=== PATIENT | male | born 1950 | race Hispanic/Latino ===

== ENCOUNTER 2016-10-02 03:26 | Emergency (ER) | payer MEDICARE, OTHER ==
[2016-10-02 03:26] VITALS: BMI 25.0
[2016-10-02] MEDS ORDERED: Albuterol-Ipratrop 3 mg / 0.5 (3 ml) UD IH STA (03:55)
--- NOTE | 2016-10-02 04:01 | C.PDOC ---
History Of Present Illness Patient is a 66 year old male who presents to the ER with a complaint of intermittent SOB for the past week that has progressively gotten worse. Patient states his worse episode has been tonight. Patient has a Hx of COPD and CHF and is compliant with his medication; however, he notes using more of his rescue inhaler as of late. Denies chest pain, edema, fever or chills. Time Seen by Provider: 10/02/16 03:47 Chief Complaint (Nursing): Shortness Of Breath History Per: Patient History/Exam Limitations: no limitations Onset/Duration Of Symptoms: Days (7), Intermittent Episodes Current Symptoms Are (Timing): Still Present Initiating Event: Other (Not known) Current Respiratory Medications: See Home Med List Associated Symptoms: denies: Fever, Chills, Chest Pain, Other (edema) Recent travel outside of the [place]: No Past Medical History Vital Signs: Last Vital Signs Temp 97.8 F 10/02/16 03:35 Pulse 88 10/02/16 03:35 Resp 20 10/02/16 04:22 BP 163/95 H 10/02/16 03:35 Pulse Ox 97 10/02/16 04:22 - Medical History PMH: CHF, COPD, HTN Surgical History: Appendectomy - [facility] Procedures CONTINUOUS INVASIVE MECHANICAL VENTILATION <96 CONSEC HRS (12/16/13) CORONAR ARTERIOGR-2 CATH (12/16/13) INSERT ENDOTRACHEAL TUBE (12/16/13) LT HEART ANGIOCARDIOGRAM (12/16/13) PERCUTANEOUS ANGIOSCOPY (12/16/13) Family History: States: Unknown Family Hx - Social History Hx Tobacco Use: Yes Hx Alcohol Use: No Hx Substance Use: No Review Of Systems Constitutional: Negative for: Fever, Chills Cardiovascular: Negative for: Chest Pain Respiratory: Positive for: Shortness of Breath Musculoskeletal: Negative for: Other (Edema) Physical Exam - Physical Exam Appears: Non-toxic, Other (Mild respiratory distress) Skin: Normal Color, Warm, Dry Head: Atraumatic, Normacephalic Oral Mucosa: Moist Chest: Symmetrical, No Tenderness Cardiovascular: Rhythm Regular, No Murmur Respiratory: No Rales, Rhonchi (Diffuse), Wheezing (Diffuse) Gastrointestinal/Abdominal: Normal Exam, Soft, No Tenderness Extremity: Normal ROM, No Pedal Edema Neurological/Psych: Oriented x3, Normal Speech, Normal Cognition ED Course And Treatment - Laboratory Results Result Diagrams: 10/02/16 04:32 10/02/16 04:32 ECG: Interpreted By Me ECG Rhythm: Sinus Rhythm Interpretation Of ECG: LVH with repol changes Rate From EC O2 Sat by Pulse Oximetry: 97 (Room air) Pulse Ox Interpretation: Normal - Radiology CXR: Interpreted by Me CXR Interpretation: Yes: COPD. No: Infiltrates Medical Decision Making Medical Decision Making: Impression: 66 year old male with SOB Plan: * EKG * Blood work * CXR * Nebulizer treatment * Markedly improved post tx Ambulated without sob stable for OP tx Disposition Counseled Patient/Family Regarding: Diagnosis, Need For Followup - Disposition Disposition: HOME/ ROUTINE Disposition Time: 06:06 Condition: FAIR Prescriptions: Albuterol 0.083% [Albuterol Sulfate 3 Ml] 3 ml IH QID #100 neb Albuterol HFA [Ventolin HFA 90 mcg/actuation (8 g)] 1 puff IH QID PRN #1 puff PRN Reason: Cough Amoxicillin [Amoxil 500 mg Cap] 1 cap PO TID #21 cap Prednisone 1 tab PO DAILY #4 tablet Instructions: COPD (Chronic Obstructive Pulmonary Disease) (ED) - Clinical Impression Clinical Impression: COPD with exacerbation - Scribe Statement The provider has reviewed the documentation as recorded by the Scribiva Ingram All medical record entries made by the Scribe were at my direction and personally dictated by me. I have reviewed the chart and agree that the record accurately reflects my personal performance of the history, physical exam, medical decision making, and the department course for this patient. I have also personally directed, reviewed, and agree with the discharge instructions and disposition.
[2016-10-02] MEDS ORDERED: Albuterol-Ipratrop 3 mg / 0.5 (3 ml) UD ONE (04:11)
[2016-10-02 04:37] LABS: CHLORIDE 110 mmol/L (98-107); POTASSIUM 4.2 mmol/L (3.6-5.2); SODIUM 146 mmol/L (132-148)
[2016-10-02 04:39] LABS: BILIRUBIN,TOTAL 0.6 mg/dL (0.2-1.3); GFR AFRICAN-AMERICAN > 60
[2016-10-02 04:40] LABS: ALB/GLOB RATIO 1.1 (1.0-2.1); ALKALINE PHOSPHATASE 65 U/L (38-126); ALT/SGPT 23 U/L (21-72); AST/SGOT 34 U/L (17-59); BLOOD UREA NITROGEN 18 mg/dL (9-20); CARBON DIOXIDE 24 mmol/L (22-30); GLUCOSE,RANDOM 102 mg/dL (75-110); TOTAL PROTEIN 7.3 g/dL (6.3-8.3)
[2016-10-02 04:43] LABS: BASO % 0.4 % (0.0-2.0); EOS # 1.8 K/uL (0.0-0.7); EOS % 16.8 % (0.0-4.0); HEMATOCRIT 41.2 % (35.0-51.0); LYMPH # 1.1 K/uL (1.0-4.3); LYMPH % 9.8 % (20.0-40.0); MEAN CELL VOLUME 95.8 fL (80.0-94.0); MEAN CORPUSCULAR HEMOGLOBIN 31.6 pg (27.0-31.0); MEAN PLATELET VOLUME 8.2 fL (7.2-11.7); MONO # 0.8 K/uL (0.0-0.8); MONO % 7.2 % (0.0-10.0); PLATELET COUNT 302 K/uL (130-400); RED CELL DISTRIBUTION WIDTH 14.5 % (11.5-14.5); WHITE BLOOD COUNT 10.9 K/uL (4.8-10.8)
[2016-10-02] MEDS: Albuterol-Ipratrop 3 mg / 0.5 (3 ml) UD IH SCH ×2 (05:02→05:14)
[2016-10-02 05:07] LABS: EOSINOPHIL 19 % (0-4); NEUTROPHIL 69 % (50-75); REACTIVE LYMPHOCYTES 1 % (0-0); TOTAL CELLS COUNTED 100
[2016-10-02 06:34] VITALS: BP 124/91; PULSE 76; RESP 18; TEMP 97.7; O2SAT 95
--- NOTE | 2016-10-02 08:57 | RAD ---
PROCEDURE: CHEST RADIOGRAPH, 1 VIEW HISTORY: Shortness of breath COMPARISON: 11/06/2015 FINDINGS: LUNGS: Hyperinflation consistent COPD and or emphysematous changes. Biapical pleural thickening with upper lobe granulomatous changes. No focal infiltrate or effusion. Stable minimal patchy vague opacity at the right lung base medially. PLEURA: No pneumothorax or pleural fluid seen. CARDIOVASCULAR: Mild cardiomegaly. OSSEOUS STRUCTURES: Degenerative changes in the spine and shoulders. Mild calcific tendinopathy of the left proximal humerus. VISUALIZED UPPER ABDOMEN: Normal. OTHER FINDINGS: None. IMPRESSION: Hyperinflation consistent COPD and or emphysematous changes. Biapical pleural thickening with upper lobe granulomatous changes. No focal infiltrate or effusion. Stable minimal patchy vague opacity at the right lung base medially.
--- NOTE | 2016-10-03 18:33 | CARD ---
APPROVED REPORT EKG Measurement Heart [id number] <Conclusion> Normal sinus rhythm Left ventricular hypertrophy with repolarization abnormality Abnormal ECG
== END 2016-10-02 06:34 | disposition home or self-care (01) ==
LOC: C.ER 03:26
DX: J44.1 Chronic obstructive pulmonary disease with (acute) exacerbation (principal)
CPT/HCPCS: 71010; 80053; 83880; 84484; 85025; 93005; 96374; 99284; J2930

== ENCOUNTER 2018-04-25 01:15 | Inpatient (IN) | payer MEDICARE ==
[2018-04-25] MEDS ORDERED: Nitroglycerin 2% Ointment Foilpak UD TOP STA (01:22)
[2018-04-25] MEDS ORDERED: Labetalol 25mg/5ml Syringe IV STA (01:23)
[2018-04-25] MEDS ORDERED: Labetalol 5mg/ml (4ml) ONE (01:23)
[2018-04-25] MEDS ORDERED: Albuterol-Ipratrop 3 mg / 0.5 (3 ml) UD INH STA (01:24)
[2018-04-25] MEDS ORDERED: Nitroglycerin 2% Ointment Foilpak UD TOP ONE (01:25)
[2018-04-25] MEDS ORDERED: Albuterol-Ipratrop 3 mg / 0.5 (3 ml) UD ONE (01:30)
[2018-04-25] MEDS ORDERED: Etomidate 20 mg/10ml Inj IV ONE (01:35)
[2018-04-25 01:38] LABS: BASO # 0.1 K/uL (0.0-0.2); BASO % 1.2 % (0.0-2.0); EOS # 0.4 K/uL (0.0-0.7); EOS % 3.1 % (0.0-4.0); LYMPH # 2.5 K/uL (1.0-4.3); MEAN CELL VOLUME 100.9 fL (80.0-94.0); MEAN CORPUSCULAR HEMOGLOBIN 33.1 pg (27.0-31.0); MEAN CORPUSCULAR HGB CONC 32.8 g/dL (33.0-37.0); MEAN PLATELET VOLUME 8.6 fL (7.2-11.7); MONO # 0.6 K/uL (0.0-0.8); MONO % 5.1 % (0.0-10.0); NEUT % 70.6 % (50.0-75.0); RBC 4.23 Mil/uL (4.40-5.90); WHITE BLOOD COUNT 12.7 K/uL (4.8-10.8)
--- NOTE | 2018-04-25 01:49 | C.PDOC ---
History Of Present Illness 62 year old male brought in by paramedics for severe respiratory distress at home. Patient found hypertensive and with pin point pupils, given duonebs, sublingual nitro, and narcan by paramedics. Hx of COPD, still smokes 2 ppd cigarettes. Time Seen by Provider: 04/25/18 01:22 Chief Complaint (Nursing): Respiratory Distress History Per: EMS History/Exam Limitations: clinical condition Onset/Duration Of Symptoms: Hrs Current Respiratory Medications: See Home Med List Past Medical History Reviewed: Historical Data, Nursing Documentation, Vital Signs Vital Signs: Last Vital Signs Temp Pulse 114 H 04/25/18 01:17 Resp 30 H 04/25/18 01:17 BP 105/71 04/25/18 01:17 Pulse Ox 89 L 04/25/18 01:17 Family History: States: Unknown Family Hx - Social History Hx Alcohol Use: No Hx Substance Use: No - Immunization History Hx Tetanus Toxoid Vaccination: No Hx Influenza Vaccination: No Hx Pneumococcal Vaccination: No Review Of Systems Review Of Systems: ROS cannot be obtained secondary to pt's inabilty to answer questions. Physical Exam - Physical Exam Appears: Other (Severe respiratory distress) Skin: Warm, Dry Head: Atraumatic, Normacephalic Eye(s): bilateral: Normal Inspection Ear(s): Bilateral: Normal Oral Mucosa: Moist Neck: Normal, Supple Chest: Symmetrical, No Tenderness Cardiovascular: Rhythm Regular Respiratory: Wheezing (Extensive), Other (Poor air movement) Gastrointestinal/Abdominal: Soft, No Distention ED Course And Treatment - Laboratory Results Result Diagrams: 04/25/18 01:35 04/25/18 01:35 Lab Interpretation: Abnormal ECG: Interpreted By Nd ECG Rhythm: L BBB ECG Interpretation: Abnormal Rate From EC O2 Sat by Pulse Oximetry: 89 Pulse Ox Interpretation: Abnormal - Radiology CXR: Interpreted by Nd CXR Interpretation: Yes: Infiltrates, Other (+ good ET tube, good OG tube, + pulm edema and/or patchy infiltrates) Progress Note: In the ER patient received labetalol, nitro paste, bipap, became bradycardic, transient cardiac arrest, acls protocol followed, after ap proximately 1 minute rosc achieved, intubated electively, 7.5 tube 23cm length placed on first attempt, og tube placed with good sounds in stomach. Reevaluation Time: 02:52 Reassessment Condition: Improved - Physician Consult Information Outcome Of Conversation: 0230: d/w Dr. Barton- ICU, ok to ICU. 0245: d/w Dr. Carrillo- Code Heart Cardio- NO Code Heart now, recommends, Plavix, asa, heparin IV and will eval in AM. 0300: d/w Dr. Arellano- Medicine Production Statistical Clerk- ok to adm to ICU Critical Care Time - Critical Care Note Total Time (in mins): 90 Documented critical care: time excludes all time spent performing seperately billable procedures. Medical Decision Making Medical Decision Making: resp arrest leading to brief cardiac arrest intubated nebs, steroids defer abx Cardiac: cardiac arrest, brisk return to ROSC New LBBB c/w 10/08 mild elev trop 2nd trop pending Cardiac eval in AM w Dr. Carrillo defers Code Heart at this time plavix, asa, heparin drip Cigarette/Alcohol Propofol for sedation CIWA protocol PRN ? Narcotics use pinpoint pupils relieved with narcan in the field consider w/d s/s. Disposition Doctor Will See Patient In The: Hospital Counseled Patient/Family Regarding: Studies Performed, Diagnosis - Disposition Disposition: HOSPITALIZED Disposition Time: 02:57 Condition: CRITICAL - Clinical Impression Clinical Impression: Respiratory failure, Congestive heart failure, Cardiac arrest - Scribe Statement The provider has reviewed the documentation as recorded by the Scribe Aj Ingram All medical record entries made by the Scribe were at my direction and personally dictated by me. I have reviewed the chart and agree that the record accurately reflects my personal performance of the history, physical exam, medical decision making, and the department course for this patient. I have also personally directed, reviewed, and agree with the discharge instructions and disposition.
[2018-04-25 01:51] LABS: ALB/GLOB RATIO 1.2 (1.0-2.1); ALBUMIN 4.2 g/dL (3.5-5.0); ALT/SGPT 24 U/L (21-72); AST/SGOT 38 U/L (17-59); BLOOD UREA NITROGEN 27 mg/dL (9-20); GFR NON-AFRICAN AMERICAN > 60
[2018-04-25 01:53] LABS: INR 1.1; PROTHROMBIN TIME 11.8 SECONDS (9.7-12.2)
[2018-04-25] MEDS ORDERED: Propofol 10 mg/ml 1,000 MG/100 ML VIAL ONE ×2 (01:56→13:25)
[2018-04-25] MEDS: Propofol 10 mg/ml 1,000 MG/100 ML VIAL IV STA ×3 (02:00→13:58)
[2018-04-25 02:14] LABS: B-TYPE NATRIURETIC PEPTIDE 5620 pg/mL (0-900)
[2018-04-25 02:27] LABS: ABG ALLEN TEST POS; ARTERIAL BLOOD GAS O2 SAT 99.8 % (95-98); ARTERIAL BLOOD GAS PCO2 81 mm/Hg (35-45); ARTERIAL BLOOD GAS PH 7.08 (7.35-7.45); ARTERIAL BLOOD GAS PO2 541 mm/Hg (80-100); ARTERIAL BLOOD GAS TCO2 26.5 mmol/L (22-28)
[2018-04-25] MEDS ORDERED: Heparin25000 units/250ml 1/2NS 25,000 UNITS/250 ML BAG IV ONE (02:52)
[2018-04-25 03:01] LABS: GRANULAR CAST 27 /lpf (0-1); SQUAMOUS EPITHIAL 2 /hpf (0-5); URINE AMORPHOUS SEDIMENT RARE /ul (<OCC); URINE BACTERIA OCC (<OCC); URINE BILIRUBIN NEGATIVE (NEGATIVE); URINE BLOOD 1+ (NEGATIVE); URINE CLARITY Hazy (Clear); URINE COLOR Yellow (YELLOW); URINE GLUCOSE (UA) 2+ mg/dL (Normal); URINE LEUKOCYTE ESTERASE NEG Leu/uL (Negative); URINE PROTEIN 3+ mg/dL (NEGATIVE); URINE UROBILINOGEN NORMAL mg/dL (0.2-1.0)
[2018-04-25] MEDS ORDERED: Thiamine 100 mg/ml Inj IV ONE (03:03)
[2018-04-25 03:05] LABS: BARBITURATES, UR NEGATIVE (NEGATIVE); BENZODIAZEPINES, UR NEGATIVE (NEGATIVE); OPIATES, UR NEGATIVE (NEGATIVE); PHENCYCLIDINE, UR NEGATIVE (NEGATIVE)
[2018-04-25 03:29] LABS: CK-MB 2.7 ng/mL (0.0-3.38); TROPONIN I 0.147 ng/mL (0.00-0.120)
[2018-04-25 05:36] LABS: ABG ALLEN TEST POS; ARTERIAL BLOOD GAS HCO3 19.4 mmol/L (21-28); ARTERIAL BLOOD GAS HEMOGLOBIN 10.7 g/dL (11.7-17.4); ARTERIAL BLOOD GAS O2 SAT 99.4 % (95-98); ARTERIAL BLOOD GAS PCO2 41 mm/Hg (35-45); ARTERIAL BLOOD GAS PH 7.28 (7.35-7.45); ARTERIAL BLOOD GAS PO2 137 mm/Hg (80-100); ARTERIAL BLOOD GAS TCO2 20.6 mmol/L (22-28)
--- NOTE | 2018-04-25 05:57 | CP.PCM.CON ---
History of Present Illness - History of Present Illness History of Present Illness: 68 M with h/o COPD, CHF, DM, HTN, tobacco and alcohol abuse, non compliance with the medications has been sick for 2-3 days but worse yesterday and resisted to come to hospital until this early am. He was noticed to be in severe distress, was earlier put on bipap in ER, then he collapsed, and had brief resp arrest with cpr needed for about a minute, patient was intubated, right femoral tlc was done in ER, very elevated BP 250/170 noted intially in ER on propfol and initial labetol the BP improved. EKG showed LBBB which was new as compared to EKG in September 2016. Case was discussed with Dr. Carrillo, advised treatment for NSTEMI. Repeat trop in ER within 2 hs was unchanged. CXR in ER suspected flash edema. PMH as above, coronary angiography in 2013 with 3 vessel disease, but not required any stent Social Lives with GF 8 yrs, smokes 2PPD, 2-6 beers/day, no other drugs as per gf Family history not available Meds not compliant Allergies NKDA Review of Systems - Review of Systems All systems: reviewed and no additional remarkable complaints except (HPI) Past Patient History - Past Social History Smoking Status: Heavy Smoker > 10 Cigarettes Daily Alcohol: > 2 Drinks/Day Drugs: Denies Home Situation {Lives}: With Family Domestic Violence: Negative - PSYCHIATRIC Hx Substance Use: No Meds Allergies/Adverse Reactions: Allergies Allergy/AdvReac Type Severity Reaction Status Date / Time No Known Allergies Allergy Verified 04/25/18 03:16 - Medications Medications: Current Medications Albuterol/Ipratropium (Duoneb 3 Mg/0.5 Mg (3 Ml) Ud) 3 ml INH RQ6 LUCILA Clopidogrel Bisulfate (Plavix) 75 mg PO DAILY LUCILA Folic Acid (Folic Acid) 1 mg PO DAILY LUCILA Propofol (Diprivan) 1,000 mg in 100 mls @ 4.082 mls/hr IV .Q24H STA; Protocol Stop: 04/26/18 01:52 Last Titration: 04/25/18 03:50 Dose: 50 mcg/kg/min, 20.412 mls/hr Doxycycline Hyclate 100 mg/ (Sodium Chloride) 100 mls @ 100 mls/hr IVPB Q12H LUCILA; Protocol Last Admin: 04/25/18 03:18 Dose: 100 mls/hr Ceftriaxone Sodium 1 gm/ (Sodium Chloride) 100 mls @ 100 mls/hr IVPB DAILY LUCILA; Protocol Heparin Sodium/Sodium Chloride (Heparin 74074 Units/250ml 1/2 Normal Saline) 25,000 units in 250 mls @ 8.165 mls/hr IV .Q24H ONE; Protocol Stop: 04/26/18 02:51 Last Admin: 04/25/18 03:19 Dose: 8.165 mls/hr Methylprednisolone (Solu-Medrol) 40 mg IVP Q12 LUCILA Multivitamins (Hexavitamin) 1 tab PO DAILY LUCILA Pantoprazole Sodium (Protonix Inj) 40 mg IVP DAILY LUCILA Rosuvastatin Calcium (Crestor) 10 mg PO DAILY LUCILA Last Admin: 04/25/18 03:29 Dose: 10 mg Thiamine HCl (Vitamin B1 Tab) 100 mg PO DAILY LUCILA Physical Exam - Additional Findings Additional findings: * HEENT ЕКАТЕРИНА * Neck supple * Chest exp wheezes, prolonged expiration * CVS regular, no murmur * PA soft, nt, bs present * Ext no edema * Skin normal turgor * 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 even with sedation. Results - Vital Signs Recent Vital Signs: Last Vital Signs Temp 97.8 F 04/25/18 04:00 Pulse 75 04/25/18 03:43 Resp 18 04/25/18 03:43 BP 123/80 04/25/18 03:43 Pulse Ox 89 L 04/25/18 03:46 - Labs Result Diagrams: 04/25/18 01:35 04/25/18 01:35 Labs: Laboratory Results - last 24 hr 04/25/18 04/25/18 04/25/18 01:35 01:35 01:35 WBC 12.7 H RBC 4.23 L Hgb 14.0 Hct 42.7 MCV 100.9 H MCH 33.1 H MCHC 32.8 L RDW 15.0 H Plt Count 380 MPV 8.6 Neut % (Auto) 70.6 Lymph % (Auto) 20.0 [place] % (Auto) 5.1 Eos % (Auto) 3.1 Baso % (Auto) 1.2 Neut # (Auto) 9.0 H Lymph # (Auto) 2.5 [place] # (Auto) 0.6 Eos # (Auto) 0.4 Baso # (Auto) 0.1 PT 11.8 INR 1.1 APTT 32 D-Dimer, Quantitative 1532 H Puncture Site pCO2 pO2 HCO3 ABG pH ABG Total CO2 ABG O2 Saturation ABG Base Excess ABG Hemoglobin ABG Carboxyhemoglobin POC ABG HHb (Measured) ABG Methemoglobin Aly Test ABG Potassium A-a O2 Difference Respiratory Index Hgb O2 Saturation Glucose Lactate Vent Mode Mechanical Rate FiO2 Tidal Volume PEEP Crit Value Called To Crit Value Called By Crit Value Read Back Blood Gas Notified Time Sodium 139 Potassium 4.2 Chloride 107 Carbon Dioxide 20 L Anion Gap 16 BUN 27 H Creatinine 1.2 Est GFR ( Amer) > 60 Est GFR (Non-Af Amer) > 60 Random Glucose 309 H Calcium 9.0 Total Bilirubin 0.7 AST 38 ALT 24 Alkaline Phosphatase 83 CK-MB (Mass) Troponin I 0.1480 H* NT-Pro-B Natriuret Pep 5620 H Total Protein 7.7 Albumin 4.2 Globulin 3.5 Albumin/Globulin Ratio 1.2 Arterial Blood Potassium Urine Color Urine Clarity Urine pH Ur Specific [place] Urine Protein Urine Glucose (UA) Urine Ketones Urine Blood Urine Nitrate Urine Bilirubin Urine Urobilinogen Ur Leukocyte Esterase Urine WBC (Auto) Urine RBC (Auto) Ur Squamous Epith Cells Amorphous Sediment Urine Bacteria Hyaline Casts Granular Casts (Auto) Urine Opiates Screen Urine Methadone Screen Ur Barbiturates Screen Ur Phencyclidine Scrn Ur Amphetamines Screen U Benzodiazepines Scrn U Oth Cocaine Metabols U Cannabinoids Screen Influenza Typ A,B (EIA) 04/25/18 04/25/18 04/25/18 02:23 02:45 02:45 WBC RBC Hgb Hct MCV MCH MCHC RDW Plt Count MPV Neut % (Auto) Lymph % (Auto) [place] % (Auto) Eos % (Auto) Baso % (Auto) Neut # (Auto) Lymph # (Auto) [place] # (Auto) Eos # (Auto) Baso # (Auto) PT INR APTT D-Dimer, Quantitative Puncture Site Rr pCO2 81 H* pO2 541 H HCO3 19.0 L ABG pH 7.08 L* ABG Total CO2 26.5 ABG O2 Saturation 99.8 H ABG Base Excess -7.7 L ABG Hemoglobin ABG Carboxyhemoglobin POC ABG HHb (Measured) ABG Methemoglobin Aly Test Pos ABG Potassium 3.9 A-a O2 Difference 71.0 Respiratory Index 0.1 Hgb O2 Saturation Glucose 293 H Lactate 0.8 Vent Mode Prvc Mechanical Rate 14 FiO2 100.0 Tidal Volume 500 PEEP 5 Crit Value Called To Dr. mendoza Crit Value Called By Jessie acute care clinical nurse specialist Crit Value Read Back Y Blood Gas Notified Time 227 Sodium 138.0 Potassium Chloride 109.0 H Carbon Dioxide Anion Gap BUN Creatinine Est GFR ( Amer) Est GFR (Non-Af Amer) Random Glucose Calcium Total Bilirubin AST ALT Alkaline Phosphatase CK-MB (Mass) Troponin I NT-Pro-B Natriuret Pep Total Protein Albumin Globulin Albumin/Globulin Ratio Arterial Blood Potassium 3.9 Urine Color Yellow Urine Clarity Hazy Urine pH 5.0 Ur Specific [place] 1.017 Urine Protein 3+ H Urine Glucose (UA) 2+ H Urine Ketones Negative Urine Blood 1+ H Urine Nitrate Negative Urine Bilirubin Negative Urine Urobilinogen Normal Ur Leukocyte Esterase Neg Urine WBC (Auto) 22 H Urine RBC (Auto) 11 H Ur Squamous Epith Cells 2 Amorphous Sediment Rare H Urine Bacteria Occ H Hyaline Casts 3-5 H Granular Casts (Auto) 27 Urine Opiates Screen Negative Urine Methadone Screen Negative Ur Barbiturates Screen Negative Ur Phencyclidine Scrn Negative Ur Amphetamines Screen Negative U Benzodiazepines Scrn Negative U Oth Cocaine Metabols Negative U Cannabinoids Screen Negative Influenza Typ A,B (EIA) 04/25/18 04/25/18 04/25/18 02:45 03:33 05:29 WBC RBC Hgb Hct MCV MCH MCHC RDW Plt Count MPV Neut % (Auto) Lymph % (Auto) [place] % (Auto) Eos % (Auto) Baso % (Auto) Neut # (Auto) Lymph # (Auto) [place] # (Auto) Eos # (Auto) Baso # (Auto) PT INR APTT D-Dimer, Quantitative Puncture Site Lr pCO2 41 pO2 137 H HCO3 19.4 L ABG pH 7.28 L ABG Total CO2 20.6 L ABG O2 Saturation 99.4 H ABG Base Excess -7.0 L ABG Hemoglobin 10.7 L ABG Carboxyhemoglobin 5.2 H POC ABG HHb (Measured) 0.6 ABG Methemoglobin 0.3 Ayl Test Pos ABG Potassium A-a O2 Difference 168.0 Respiratory Index 1.2 Hgb O2 Saturation 93.9 L Glucose Lactate Vent Mode Prvc Mechanical Rate 14 FiO2 50.0 Tidal Volume 450 PEEP 5 Crit Value Called To Crit Value Called By Crit Value Read Back Blood Gas Notified Time Sodium Potassium Chloride Carbon Dioxide Anion Gap BUN Creatinine Est GFR ( Amer) Est GFR (Non-Af Amer) Random Glucose Calcium Total Bilirubin AST ALT Alkaline Phosphatase CK-MB (Mass) 2.70 Troponin I 0.1470 H* NT-Pro-B Natriuret Pep Total Protein Albumin Globulin Albumin/Globulin Ratio Arterial Blood Potassium Urine Color Urine Clarity Urine pH Ur Specific [place] Urine Protein Urine Glucose (UA) Urine Ketones Urine Blood Urine Nitrate Urine Bilirubin Urine Urobilinogen Ur Leukocyte Esterase Urine WBC (Auto) Urine RBC (Auto) Ur Squamous Epith Cells Amorphous Sediment Urine Bacteria Hyaline Casts Granular Casts (Auto) Urine Opiates Screen Urine Methadone Screen Ur Barbiturates Screen Ur Phencyclidine Scrn Ur Amphetamines Screen U Benzodiazepines Scrn U Oth Cocaine Metabols U Cannabinoids Screen Influenza Typ A,B (EIA) Negative for flu a/b Assessment & Plan - Assessment and Plan (Free Text) Assessment: * Resp arrest * elevated trop with 3 vessels disease, likely for above * LBBB * [place] and alcohol abuse * DM uncontrolled * Uncontrolled HTN * Non compliance. Plan: * Supportive care * systemic steroids, nebs, rocephin, doxycycline * ASA, plavix, heparin drip, crestor, echo, f/u troponins * cardiology consult * GI/prophylaxis * See orders for detail.
[2018-04-25 07:25] LABS: BASO # 0.1 K/uL (0.0-0.2); BASO % 0.4 % (0.0-2.0); EOS % 0.1 % (0.0-4.0); LYMPH # 0.2 K/uL (1.0-4.3); LYMPH % 1.9 % (20.0-40.0); MEAN CORPUSCULAR HEMOGLOBIN 33.2 pg (27.0-31.0); MEAN CORPUSCULAR HGB CONC 33.6 g/dL (33.0-37.0); MEAN PLATELET VOLUME 8.3 fL (7.2-11.7); MONO # 0.2 K/uL (0.0-0.8); MONO % 1.3 % (0.0-10.0); NEUT # 11.1 K/uL (1.8-7.0); NEUT % 96.3 % (50.0-75.0); PLATELET COUNT 284 K/uL (130-400); RBC 3.88 Mil/uL (4.40-5.90); RED CELL DISTRIBUTION WIDTH 14.6 % (11.5-14.5); WHITE BLOOD COUNT 11.5 K/uL (4.8-10.8)
[2018-04-25] MEDS ORDERED: Glucagon Recombinant 1 mg Inj IM PRN (07:33)
[2018-04-25] MEDS ORDERED: Dextrose 50% SYRINGE Inj (50 ml) IV PRN (07:33)
[2018-04-25 07:34] LABS: HEMOGLOBIN 12.9 g/dL (12.0-18.0)
[2018-04-25 07:37] LABS: MEAN CELL VOLUME 98.9 fL (80.0-94.0)
[2018-04-25 07:56] VITALS: BMI 25.0
[2018-04-25] MEDS: Albuterol-Ipratrop 3 mg / 0.5 (3 ml) UD INH SCH ×3 (08:00→19:10)
[2018-04-25 08:05] LABS: ALB/GLOB RATIO 1.1 (1.0-2.1); ALBUMIN 3.7 g/dL (3.5-5.0); ALT/SGPT 28 U/L (21-72); AST/SGOT 41 U/L (17-59); BLOOD UREA NITROGEN 30 mg/dL (9-20); GFR NON-AFRICAN AMERICAN 55
[2018-04-25 08:44] LABS: LYMPHOCYTE 2 % (20-40); MONOCYTE 2 % (0-10); NEUTROPHIL 96 % (50-75); TOTAL CELLS COUNTED 100
[2018-04-25 08:45] LABS: OVALOCYTES SLIGHT; PLATELET ESTIMATE NORMAL (NORMAL)
[2018-04-25] MEDS: Multiple Vitamins Tab PO SCH (09:19)
[2018-04-25] MEDS: MethylPREDNISolone 40 mg Vial IVP SCH ×2 (09:20→22:33)
--- NOTE | 2018-04-25 10:39 | RAD ---
Date of service: 04/25/2018 PROCEDURE: CHEST RADIOGRAPH, 1 VIEW HISTORY: SOB COMPARISON: 10/02/2016 FINDINGS: LUNGS: Multifocal bilateral patchy opacities common nonspecific. Pneumonia versus pulmonary edema. PLEURA: No pneumothorax or pleural fluid seen. CARDIOVASCULAR: No aortic atherosclerotic calcification present. Normal heart size. ET tube tip roughly 5 cm above the tracheal sarai. There is a nasogastric tube. Nasogastric tube extends to left upper quadrant of abdomen. OSSEOUS STRUCTURES: No significant abnormalities. VISUALIZED UPPER ABDOMEN: Normal. OTHER FINDINGS: None. IMPRESSION: ET tube and NG tube appropriately positioned. Multifocal bilateral pulmonary parenchymal opacity, nonspecific. No effusion or pneumothorax.
[2018-04-25] MEDS ORDERED: Iodixanol 320 MG/ML 100 ML BOTTLE IV ONE (11:50)
--- NOTE | 2018-04-25 12:56 | CP.PCM.PN ---
<India Robert - Last Filed: 04/25/18 11:14> Subjective - Date & Time of Evaluation Date of Evaluation: 04/25/18 Time of Evaluation: 11:14 - Subjective Subjective: Condensed ICU Progress Note for Dr. Blum (*see consult note written by Dr. Barton this morning 04/25 for more details*) S: Patient seen and examined this morning. Patient intubated and sedated on propofol. Due to patient condition ROS unable to be obtained. O: general: elderly man, sedated and intubated. HEENT: normocephalic, atraumatic CV: RR, S1, S2, no m/r/g Lungs: decreased breath sounds bilaterally Abd: +bs, nontender, nondistended neuro: Patient opened his eyes for a few seconds when his name was called, but after that unresponsive to voice and pain. Ext: no edema, peripheral pulses strong A/P: 68 y/o male with PMHx of CAD, COPD, CHF, DM, HTN, and tob and EtOH use presented to the ER this morning 1/2 s/p intubation 2/2 severe respiratory disterss at home. Stabilized and brought to ICU. We will continue current treatment as stated in the consult note this morning. We ordered a CT angio PE and venous doppler to detect possible DVT/PE due to the positive d-dimer of 1532. proBNP 5620. Patient was diuresed and s/p lasix tx per RN urine output at least 800 by 10am. No routine lasix at this time. Pending cardiology recs, Dr. Carrillo. Objective - Vital Signs/Intake and Output Vital Signs (last 24 hours): Temp Pulse Resp BP Pulse Ox 97.2 F L 64 13 137/82 98 04/25/18 08:00 04/25/18 10:50 04/25/18 10:50 04/25/18 10:14 04/25/18 10:50 Intake and Output: 04/25/18 04/25/18 06:59 18:59 Intake Total 184.8 103.1 Output Total 775 200 Balance -590.2 -96.9 - Medications Medications: Current Medications Albuterol/Ipratropium (Duoneb 3 Mg/0.5 Mg (3 Ml) Ud) 3 ml INH RQ6 [facility] Clopidogrel Bisulfate (Plavix) 75 mg PO DAILY [facility] Last Admin: 04/25/18 09:19 Dose: 75 mg Dextrose (Dextrose 50% Inj) 0 ml IV STAT PRN; Protocol PRN Reason: Hypoglycemia Protocol Dextrose (Glutose 15) 0 gm PO ONCE PRN; Protocol PRN Reason: Hypoglycemia Protocol Folic Acid (Folic Acid) 1 mg PO DAILY [facility] Last Admin: 04/25/18 09:19 Dose: 1 mg Glucagon (Glucagen Diagnostic Kit) 0 mg IM STAT PRN; Protocol PRN Reason: Hypoglycemia Protocol Propofol (Diprivan) 1,000 mg in 100 mls @ 4.082 mls/hr IV .Q24H [facility]; Protocol Stop: 04/26/18 01:52 Last Titration: 04/25/18 09:00 Dose: 30 mcg/kg/min, 12.247 mls/hr Doxycycline Hyclate 100 mg/ (Sodium Chloride) 100 mls @ 100 mls/hr IVPB Q12H [facility]; Protocol Last Admin: 04/25/18 03:18 Dose: 100 mls/hr Ceftriaxone Sodium 1 gm/ (Sodium Chloride) 100 mls @ 100 mls/hr IVPB DAILY [facility]; Protocol Last Admin: 04/25/18 09:17 Dose: 100 mls/hr Heparin Sodium/Sodium Chloride (Heparin 04009 Units/250ml 1/2 Normal Saline) 25,000 units in 250 mls @ 8.165 mls/hr IV .Q24H ONE; Protocol Stop: 04/26/18 02:51 Last Admin: 04/25/18 03:19 Dose: 8.165 mls/hr Dextrose (Dextrose 5% In Water 1000 Ml) 1,000 mls @ 0 mls/hr IV .Q0M PRN; Protocol PRN Reason: Hypoglycemia Protocol Methylprednisolone (Solu-Medrol) 40 mg IVP Q12 [facility] Last Admin: 04/25/18 09:20 Dose: 40 mg Multivitamins (Hexavitamin) 1 tab PO DAILY [facility] Last Admin: 04/25/18 09:19 Dose: 1 tab Pantoprazole Sodium (Protonix Inj) 40 mg IVP DAILY [facility] Last Admin: 04/25/18 09:20 Dose: 40 mg Rosuvastatin Calcium (Crestor) 10 mg PO HS [facility] Thiamine HCl (Vitamin B1 Tab) 100 mg PO DAILY [facility] Last Admin: 04/25/18 09:19 Dose: 100 mg - Labs Labs: 04/25/18 07:13 04/25/18 07:13 PT 11.8 SECONDS (9.7-12.2) 04/25/18 01:35 INR 1.1 04/25/18 01:35 APTT 48 SECONDS (21-34) H D 04/25/18 07:13 <Geo Blum - Last Filed: 04/25/18 18:47> Objective - Vital Signs/Intake and Output Vital Signs (last 24 hours): Temp Pulse Resp BP Pulse Ox 98.5 F 68 13 107/60 99 04/25/18 12:00 04/25/18 15:20 04/25/18 15:20 04/25/18 15:14 04/25/18 15:20 Intake and Output: 04/25/18 04/25/18 06:59 18:59 Intake Total 184.8 523.2 Output Total 775 555 Balance -590.2 -31.8 - Medications Medications: Current Medications Albuterol/Ipratropium (Duoneb 3 Mg/0.5 Mg (3 Ml) Ud) 3 ml INH RQ6 [facility] Last Admin: 04/25/18 14:04 Dose: 3 ml Aspirin (Ecotrin) 81 mg PO DAILY [facility] Clopidogrel Bisulfate (Plavix) 75 mg PO DAILY [facility] Last Admin: 04/25/18 09:19 Dose: 75 mg Dextrose (Dextrose 50% Inj) 0 ml IV STAT PRN; Protocol PRN Reason: Hypoglycemia Protocol Dextrose (Glutose 15) 0 gm PO ONCE PRN; Protocol PRN Reason: Hypoglycemia Protocol Folic Acid (Folic Acid) 1 mg PO DAILY [facility] Last Admin: 04/25/18 09:19 Dose: 1 mg Glucagon (Glucagen Diagnostic Kit) 0 mg IM STAT PRN; Protocol PRN Reason: Hypoglycemia Protocol Doxycycline Hyclate 100 mg/ (Sodium Chloride) 100 mls @ 100 mls/hr IVPB Q12H [facility]; Protocol Last Admin: 04/25/18 13:20 Dose: 100 mls/hr Ceftriaxone Sodium 1 gm/ (Sodium Chloride) 100 mls @ 100 mls/hr IVPB DAILY [facility]; Protocol Last Admin: 04/25/18 09:17 Dose: 100 mls/hr Heparin Sodium/Sodium Chloride (Heparin 19354 Units/250ml 1/2 Normal Saline) 25,000 units in 250 mls @ 8.165 mls/hr IV .Q24H ONE; Protocol Stop: 04/26/18 02:51 Last Admin: 04/25/18 03:19 Dose: mls/hr Dextrose (Dextrose 5% In Water 1000 Ml) 1,000 mls @ 0 mls/hr IV .Q0M PRN; Mae col PRN Reason: Hypoglycemia Protocol Heparin Sodium/Sodium Chloride (Heparin 26348 Units/250ml 1/2 Normal Saline) 25,000 units in 250 mls @ 9.373 mls/hr IV .Q24H PRN; Protocol PRN Reason: ADJUST RATE PER PROTOCOL Last Admin: 04/25/18 15:24 Dose: 14 units/kg/hr, 10.935 mls/hr Propofol (Diprivan) 1,000 mg in 100 mls @ 2.343 mls/hr IV .Q24H PRN; Protocol PRN Reason: TITRATE PER MD ORDER Last Admin: 04/25/18 18:31 Dose: 50 mcg/kg/min, 23.433 mls/hr Methylprednisolone (Solu-Medrol) 40 mg IVP Q12 [facility] Last Admin: 04/25/18 09:20 Dose: 40 mg Multivitamins (Hexavitamin) 1 tab PO DAILY [facility] Last Admin: 04/25/18 09:19 Dose: 1 tab Pantoprazole Sodium (Protonix Inj) 40 mg IVP DAILY [facility] Last Admin: 04/25/18 09:20 Dose: 40 mg Rosuvastatin Calcium (Crestor) 10 mg PO HS [facility] Thiamine HCl (Vitamin B1 Tab) 100 mg PO DAILY [facility] Last Admin: 04/25/18 09:19 Dose: 100 mg - Labs Labs: 04/25/18 07:13 04/25/18 07:13 PT 11.8 SECONDS (9.7-12.2) 04/25/18 01:35 INR 1.1 04/25/18 01:35 APTT 37 SECONDS (21-34) H D 04/25/18 12:00 Attending/Attestation - Attestation I have personally seen and examined this patient.: Yes I have fully participated in the care of the patient.: Yes I have reviewed all pertinent clinical information, including history, physical exam and plan: Yes Notes (Text): 04/25/18 18:45 patient seen and examined in the intensive care intubated on ventilatory support and tolerating CPAP C T Angio to rule out pulmonary embolism . antibiotics Cardiology workup
--- NOTE | 2018-04-25 12:59 | CP.PCM.PN ---
Subjective - Date & Time of Evaluation Date of Evaluation: 04/25/18 Time of Evaluation: 11:55 - Subjective Subjective: H&P dictated # [id number] Objective - Vital Signs/Intake and Output Vital Signs (last 24 hours): Temp Pulse Resp BP Pulse Ox 97.2 F L 64 13 137/82 98 04/25/18 08:00 04/25/18 10:50 04/25/18 10:50 04/25/18 10:14 04/25/18 10:50 Intake and Output: 04/25/18 04/25/18 06:59 18:59 Intake Total 184.8 103.1 Output Total 775 200 Balance -590.2 -96.9 - Medications Medications: Current Medications Albuterol/Ipratropium (Duoneb 3 Mg/0.5 Mg (3 Ml) Ud) 3 ml INH RQ6 [facility] Clopidogrel Bisulfate (Plavix) 75 mg PO DAILY [facility] Last Admin: 04/25/18 09:19 Dose: 75 mg Dextrose (Dextrose 50% Inj) 0 ml IV STAT PRN; Protocol PRN Reason: Hypoglycemia Protocol Dextrose (Glutose 15) 0 gm PO ONCE PRN; Protocol PRN Reason: Hypoglycemia Protocol Folic Acid (Folic Acid) 1 mg PO DAILY [facility] Last Admin: 04/25/18 09:19 Dose: 1 mg Glucagon (Glucagen Diagnostic Kit) 0 mg IM STAT PRN; Protocol PRN Reason: Hypoglycemia Protocol Propofol (Diprivan) 1,000 mg in 100 mls @ 4.082 mls/hr IV .Q24H [facility]; Protocol Stop: 04/26/18 01:52 Last Titration: 04/25/18 09:00 Dose: 30 mcg/kg/min, 12.247 mls/hr Doxycycline Hyclate 100 mg/ (Sodium Chloride) 100 mls @ 100 mls/hr IVPB Q12H [facility]; Protocol Last Admin: 04/25/18 03:18 Dose: 100 mls/hr Ceftriaxone Sodium 1 gm/ (Sodium Chloride) 100 mls @ 100 mls/hr IVPB DAILY [facility]; Protocol Last Admin: 04/25/18 09:17 Dose: 100 mls/hr Heparin Sodium/Sodium Chloride (Heparin 25015 Units/250ml 1/2 Normal Saline) 25,000 units in 250 mls @ 8.165 mls/hr IV .Q24H [facility]; Protocol Stop: 04/26/18 02:51 Last Admin: 04/25/18 03:19 Dose: 8.165 mls/hr Dextrose (Dextrose 5% In Water 1000 Ml) 1,000 mls @ 0 mls/hr IV .Q0M PRN; Protocol PRN Reason: Hypoglycemia Protocol Methylprednisolone (Solu-Medrol) 40 mg IVP Q12 [facility] Last Admin: 04/25/18 09:20 Dose: 40 mg Multivitamins (Hexavitamin) 1 tab PO DAILY [facility] Last Admin: 04/25/18 09:19 Dose: 1 tab Pantoprazole Sodium (Protonix Inj) 40 mg IVP DAILY [facility] Last Admin: 04/25/18 09:20 Dose: 40 mg Rosuvastatin Calcium (Crestor) 10 mg PO HS [facility] Thiamine HCl (Vitamin B1 Tab) 100 mg PO DAILY [facility] Last Admin: 04/25/18 09:19 Dose: 100 mg - Labs Labs: 04/25/18 07:13 04/25/18 07:13 PT 11.8 SECONDS (9.7-12.2) 04/25/18 01:35 INR 1.1 04/25/18 01:35 APTT 48 SECONDS (21-34) H D 04/25/18 07:13
--- NOTE | 2018-04-25 13:58 | CP.PCM.CON ---
<Claudine Cantu - Last Filed: 04/25/18 16:23> History of Present Illness - History of Present Illness History of Present Illness: Cardio consult note 68 year old male with past medical history of CAD, CHF, HTN, DM, tobacco and ETOH abuse presented to hospital with respiratory distress. Cardiology was consulted for CAD with possible cardiac arrest. Patient came to hospital after 2-3 days of respiratory distress and chest pain. While in the ED, pt was initially place on BiPAP for respiratory support but decompensated and had respiratory arrest. ACLS protocol was performed and ROSC was achieved after 1 minute. Patient was intubated and transferred to ICU. Also while in the ED, patient was noted to have elevated troponin and new LBBB. Code heart was not initiated due to no change in troponin elevation after 2 hours. Patient also had BP of 250/170 in ED which improved with labetalol. Currently, pt is intubated and responsive to verbal stimuli. ROS unobtainable due to intubation. History is difficult to obtain as family member (brother) listed in patient's chart is not able to provide information. PMH as above, coronary angiography in 2014 with 3 vessel disease (LAD 60% stenosis; Left circum 30%; RCA 30 % stenosis). Echo from 2016 showed EF of 55- 60% with diastolic dysfunction Social Lives with GF 8 yrs, smokes 2PPD, 2-6 beers/day, no other drugs as per gf Family history not available Meds not compliant Allergies NKDA Review of Systems - Review of Systems Systems not reviewed;Unavailable: Intubated Past Patient History - Past Medical History & Family History Past Medical History?: Yes - Past Social History Smoking Status: Heavy Smoker > 10 Cigarettes Daily Alcohol: > 2 Drinks/Day Drugs: Denies Home Situation {Lives}: With Family Domestic Violence: Negative - CARDIAC Hx Cardiac Disorders: Yes Hx Congestive Heart Failure: Yes Hx Hypercholesterolemia: Yes Hx Hypertension: Yes - PULMONARY Hx Chronic Obstructive Pulmonary Disease (COPD): Yes - NEUROLOGICAL Hx Neurological Disorder: No - HEENT Hx HEENT Problems: No - RENAL Hx Chronic Kidney Disease: No - ENDOCRINE/METABOLIC Hx Endocrine Disorders: No - HEMATOLOGICAL/ONCOLOGICAL Hx Blood Disorders: No - INTEGUMENTARY Hx Dermatological Problems: No - MUSCULOSKELETAL/RHEUMATOLOGICAL Hx Falls: No - GASTROINTESTINAL Hx Gastrointestinal Disorders: No - GENITOURINARY/GYNECOLOGICAL Hx Genitourinary Disorders: No - PSYCHIATRIC Hx Substance Use: No - SURGICAL HISTORY Hx Appendectomy: Yes - ANESTHESIA Hx Anesthesia: No Meds Allergies/Adverse Reactions: Allergies Allergy/AdvReac Type Severity Reaction Status Date / Time No Known Allergies Allergy Verified 04/25/18 07:56 - Medications Medications: Current Medications Albuterol/Ipratropium (Duoneb 3 Mg/0.5 Mg (3 Ml) Ud) 3 ml INH RQ6 [facility] Clopidogrel Bisulfate (Plavix) 75 mg PO DAILY [facility] Last Admin: 04/25/18 09:19 Dose: 75 mg Dextrose (Dextrose 50% Inj) 0 ml IV STAT PRN; Protocol PRN Reason: Hypoglycemia Protocol Dextrose (Glutose 15) 0 gm PO ONCE PRN; Protocol PRN Reason: Hypoglycemia Protocol Folic Acid (Folic Acid) 1 mg PO DAILY [facility] Last Admin: 04/25/18 09:19 Dose: 1 mg Glucagon (Glucagen Diagnostic Kit) 0 mg IM STAT PRN; Protocol PRN Reason: Hypoglycemia Protocol Propofol (Diprivan) 1,000 mg in 100 mls @ 4.082 mls/hr IV .Q24H [facility]; Protocol Stop: 04/26/18 01:52 Last Titration: 04/25/18 09:00 Dose: 30 mcg/kg/min, 12.247 mls/hr Doxycycline Hyclate 100 mg/ (Sodium Chloride) 100 mls @ 100 mls/hr IVPB Q12H [facility]; Protocol Last Admin: 04/25/18 03:18 Dose: 100 mls/hr Ceftriaxone Sodium 1 gm/ (Sodium Chloride) 100 mls @ 100 mls/hr IVPB DAILY [facility]; Protocol Last Admin: 04/25/18 09:17 Dose: 100 mls/hr Heparin Sodium/Sodium Chloride (Heparin 43226 Units/250ml 1/2 Normal Saline) 25,000 units in 250 mls @ 8.165 mls/hr IV .Q24H ONE; Protocol Stop: 04/26/18 02:51 Last Admin: 04/25/18 03:19 Dose: 8.165 mls/hr Dextrose (Dextrose 5% In Water 1000 Ml) 1,000 mls @ 0 mls/hr IV .Q0M PRN; Protocol PRN Reason: Hypoglycemia Protocol Methylprednisolone (Solu-Medrol) 40 mg IVP Q12 [facility] Last Admin: 04/25/18 09:20 Dose: 40 mg Multivitamins (Hexavitamin) 1 tab PO DAILY [facility] Last Admin: 04/25/18 09:19 Dose: 1 tab Pantoprazole Sodium (Protonix Inj) 40 mg IVP DAILY [facility] Last Admin: 04/25/18 09:20 Dose: 40 mg Rosuvastatin Calcium (Crestor) 10 mg PO HS [facility] Thiamine HCl (Vitamin B1 Tab) 100 mg PO DAILY [facility] Last Admin: 04/25/18 09:19 Dose: 100 mg Physical Exam - Constitutional Appears: No Acute Distress - Head Exam Head Exam: ATRAUMATIC, NORMOCEPHALIC - Eye Exam Pupil Exam: PERRL - ENT Exam ENT Exam: Mucous Membranes Moist - Respiratory Exam Respiratory Exam: Rales, Rhonchi. absent: Accessory Muscle Use, Wheezes, Respiratory Distress - Cardiovascular Exam Cardiovascular Exam: REGULAR RHYTHM, +S1, +S2 - GI/Abdominal Exam GI & Abdominal Exam: Normal Bowel Sounds, Soft. absent: Distended, Firm, Guarding, Rigid, Tenderness - Extremities Exam Extremities exam: Positive for: normal capillary refill. Negative for: calf tenderness, pedal edema, tenderness - Neurological Exam Additional comments: sedated on propofol - Skin Skin Exam: Dry, Intact, Normal Color, Warm Results - Vital Signs Recent Vital Signs: Last Vital Signs Temp 98.5 F 04/25/18 12:00 Pulse 65 04/25/18 12:30 Resp 15 04/25/18 12:30 BP 117/68 04/25/18 12:14 Pulse Ox 100 04/25/18 12:30 - Labs Result Diagrams: 04/25/18 07:13 04/25/18 07:13 Labs: Laboratory Results - last 24 hr 04/25/18 04/25/18 04/25/18 01:15 01:35 01:35 WBC 12.7 H RBC 4.23 L Hgb 14.0 Hct 42.7 MCV 100.9 H MCH 33.1 H MCHC 32.8 L RDW 15.0 H Plt Count 380 MPV 8.6 Neut % (Auto) 70.6 Lymph % (Auto) 20.0 [place] % (Auto) 5.1 Eos % (Auto) 3.1 Baso % (Auto) 1.2 Neut # (Auto) 9.0 H Lymph # (Auto) 2.5 [place] # (Auto) 0.6 Eos # (Auto) 0.4 Baso # (Auto) 0.1 Neutrophils % (Manual) Lymphocytes % (Manual) Monocytes % (Manual) Platelet Estimate Ovalocytes PT INR APTT D-Dimer, Quantitative Puncture Site pCO2 pO2 HCO3 ABG pH ABG Total CO2 ABG O2 Saturation ABG Base Excess ABG Hemoglobin ABG Carboxyhemoglobin POC ABG HHb (Measured) ABG Methemoglobin Aly Test ABG Potassium A-a O2 Difference Respiratory Index Hgb O2 Saturation Glucose Lactate Vent Mode Mechanical Rate FiO2 Tidal Volume PEEP Crit Value Called To Crit Value Called By Crit Value Read Back Blood Gas Notified Time Sodium 139 Potassium 4.2 Chloride 107 Carbon Dioxide 20 L Anion Gap 16 BUN 27 H Creatinine 1.2 Est GFR ( Amer) > 60 Est GFR (Non-Af Amer) > 60 POC Glucose (mg/dL) 287 H Random Glucose 309 H Calcium 9.0 Phosphorus Magnesium Total Bilirubin 0.7 AST 38 ALT 24 Alkaline Phosphatase 83 CK-MB (Mass) Troponin I 0.1480 H* NT-Pro-B Natriuret Pep 5620 H Total Protein 7.7 Albumin 4.2 Globulin 3.5 Albumin/Globulin Ratio 1.2 Arterial Blood Potassium Urine Color Urine Clarity Urine pH Ur Specific [place] Urine Protein Urine Glucose (UA) Urine Ketones Urine Blood Urine Nitrate Urine Bilirubin Urine Urobilinogen Ur Leukocyte Esterase Urine WBC (Auto) Urine RBC (Auto) Ur Squamous Epith Cells Amorphous Sediment Urine Bacteria Hyaline Casts Granular Casts (Auto) Urine Opiates Screen Urine Methadone Screen Ur Barbiturates Screen Ur Phencyclidine Scrn Ur Amphetamines Screen U Benzodiazepines Scrn U Oth Cocaine Metabols U Cannabinoids Screen Influenza Typ A,B (EIA) 04/25/18 04/25/18 04/25/18 01:35 02:23 02:45 WBC RBC Hgb Hct MCV MCH MCHC RDW Plt Count MPV Neut % (Auto) Lymph % (Auto) [place] % (Auto) Eos % (Auto) Baso % (Auto) Neut # (Auto) Lymph # (Auto) [place] # (Auto) Eos # (Auto) Baso # (Auto) Neutrophils % (Manual) Lymphocytes % (Manual) Monocytes % (Manual) Platelet Estimate Ovalocytes PT 11.8 INR 1.1 APTT 32 D-Dimer, Quantitative 1532 H Puncture Site Rr pCO2 81 H* pO2 541 H HCO3 19.0 L ABG pH 7.08 L* ABG Total CO2 26.5 ABG O2 Saturation 99.8 H ABG Base Excess -7.7 L ABG Hemoglobin ABG Carboxyhemoglobin POC ABG HHb (Measured) ABG Methemoglobin Aly Test Pos ABG Potassium 3.9 A-a O2 Difference 71.0 Respiratory Index 0.1 Hgb O2 Saturation Glucose 293 H Lactate 0.8 Vent Mode Prvc Mechanical Rate 14 FiO2 100.0 Tidal Volume 500 PEEP 5 Crit Value Called To Dr. mendoza Crit Value Called By Jessie commercial art instructor Crit Value Read Back Y Blood Gas Notified Time 227 Sodium 138.0 Potassium Chloride 109.0 H Carbon Dioxide Anion Gap BUN Creatinine Est GFR ( Amer) Est GFR (Non-Af Amer) POC Glucose (mg/dL) Random Glucose Calcium Phosphorus Magnesium Total Bilirubin AST ALT Alkaline Phosphatase CK-MB (Mass) Troponin I NT-Pro-B Natriuret Pep Total Protein Albumin Globulin Albumin/Globulin Ratio Arterial Blood Potassium 3.9 Urine Color Yellow Urine Clarity Hazy Urine pH 5.0 Ur Specific [place] 1.017 Urine Protein 3+ H Urine Glucose (UA) 2+ H Urine Ketones Negative Urine Blood 1+ H Urine Nitrate Negative Urine Bilirubin Negative Urine Urobilinogen Normal Ur Leukocyte Esterase Neg Urine WBC (Auto) 22 H Urine RBC (Auto) 11 H Ur Squamous Epith Cells 2 Amorphous Sediment Rare H Urine Bacteria Occ H Hyaline Casts 3-5 H Granular Casts (Auto) 27 Urine Opiates Screen Urine Methadone Screen Ur Barbiturates Screen Ur Phencyclidine Scrn Ur Amphetamines Screen U Benzodiazepines Scrn U Oth Cocaine Metabols U Cannabinoids Screen Influenza Typ A,B (EIA) 04/25/18 04/25/18 04/25/18 02:45 02:45 03:33 WBC RBC Hgb Hct MCV MCH MCHC RDW Plt Count MPV Neut % (Auto) Lymph % (Auto) [place] % (Auto) Eos % (Auto) Baso % (Auto) Neut # (Auto) Lymph # (Auto) [place] # (Auto) Eos # (Auto) Baso # (Auto) Neutrophils % (Manual) Lymphocytes % (Manual) Monocytes % (Manual) Platelet Estimate Ovalocytes PT INR APTT D-Dimer, Quantitative Puncture Site pCO2 pO2 HCO3 ABG pH ABG Total CO2 ABG O2 Saturation ABG Base Excess ABG Hemoglobin ABG Carboxyhemoglobin POC ABG HHb (Measured) ABG Methemoglobin Aly Test ABG Potassium A-a O2 Difference Respiratory Index Hgb O2 Saturation Glucose Lactate Vent Mode Mechanical Rate FiO2 Tidal Volume PEEP Crit Value Called To Crit Value Called By Crit Value Read Back Blood Gas Notified Time Sodium Potassium Chloride Carbon Dioxide Anion Gap BUN Creatinine Est GFR ( Amer) Est GFR (Non-Af Amer) POC Glucose (mg/dL) Random Glucose Calcium Phosphorus Magnesium Total Bilirubin AST ALT Alkaline Phosphatase CK-MB (Mass) 2.70 Troponin I 0.1470 H* NT-Pro-B Natriuret Pep Total Protein Albumin Globulin Albumin/Globulin Ratio Arterial Blood Potassium Urine Color Urine Clarity Urine pH Ur Specific [place] Urine Protein Urine Glucose (UA) Urine Ketones Urine Blood Urine Nitrate Urine Bilirubin Urine Urobilinogen Ur Leukocyte Esterase Urine WBC (Auto) Urine RBC (Auto) Ur Squamous Epith Cells Amorphous Sediment Urine Bacteria Hyaline Casts Granular Casts (Auto) Urine Opiates Screen Negative Urine Methadone Screen Negative Ur Barbiturates Screen Negative Ur Phencyclidine Scrn Negative Ur Amphetamines Screen Negative U Benzodiazepines Scrn Negative U Oth Cocaine Metabols Negative U Cannabinoids Screen Negative Influenza Typ A,B (EIA) Negative for flu a/b 04/25/18 04/25/18 04/25/18 05:29 07:13 07:13 WBC 11.5 H RBC 3.88 L Hgb 12.9 Hct 38.4 MCV 98.9 H D MCH 33.2 H MCHC 33.6 RDW 14.6 H Plt Count 284 MPV 8.3 Neut % (Auto) 96.3 H Lymph % (Auto) 1.9 L [place] % (Auto) 1.3 Eos % (Auto) 0.1 Baso % (Auto) 0.4 Neut # (Auto) 11.1 H Lymph # (Auto) 0.2 L [place] # (Auto) 0.2 Eos # (Auto) 0.0 Baso # (Auto) 0.1 Neutrophils % (Manual) 96 H Lymphocytes % (Manual) 2 L Monocytes % (Manual) 2 Platelet Estimate Normal Ovalocytes Slight PT INR APTT D-Dimer, Quantitative Puncture Site Lr pCO2 41 pO2 137 H HCO3 19.4 L ABG pH 7.28 L ABG Total CO2 20.6 L ABG O2 Saturation 99.4 H ABG Base Excess -7.0 L ABG Hemoglobin 10.7 L ABG Carboxyhemoglobin 5.2 H POC ABG HHb (Measured) 0.6 ABG Methemoglobin 0.3 Aly Test Pos ABG Potassium A-a O2 Difference 168.0 Respiratory Index 1.2 Hgb O2 Saturation 93.9 L Glucose Lactate Vent Mode Prvc Mechanical Rate 14 FiO2 50.0 Tidal Volume 450 PEEP 5 Crit Value Called To Crit Value Called By Crit Value Read Back Blood Gas Notified Time Sodium 139 Potassium 4.0 Chloride 106 Carbon Dioxide 27 Anion Gap 10 BUN 30 H Creatinine 1.3 Est GFR ( Amer) > 60 Est GFR (Non-Af Amer) 55 POC Glucose (mg/dL) Random Glucose 123 H D Calcium 9.0 Phosphorus 3.9 Magnesium 1.9 Total Bilirubin 0.6 AST 41 ALT 28 Alkaline Phosphatase 85 CK-MB (Mass) Troponin I NT-Pro-B Natriuret Pep Total Protein 7.0 Albumin 3.7 Globulin 3.3 Albumin/Globulin Ratio 1.1 Arterial Blood Potassium Urine Color Urine Clarity Urine pH Ur Specific [place] Urine Protein Urine Glucose (UA) Urine Ketones Urine Blood Urine Nitrate Urine Bilirubin Urine Urobilinogen Ur Leukocyte Esterase Urine WBC (Auto) Urine RBC (Auto) Ur Squamous Epith Cells Amorphous Sediment Urine Bacteria Hyaline Casts Granular Casts (Auto) Urine Opiates Screen Urine Methadone Screen Ur Barbiturates Screen Ur Phencyclidine Scrn Ur Amphetamines Screen U Benzodiazepines Scrn U Oth Cocaine Metabols U Cannabinoids Screen Influenza Typ A,B (EIA) 04/25/18 07:13 WBC RBC Hgb Hct MCV MCH MCHC RDW Plt Count MPV Neut % (Auto) Lymph % (Auto) [place] % (Auto) Eos % (Auto) Baso % (Auto) Neut # (Auto) Lymph # (Auto) [place] # (Auto) Eos # (Auto) Baso # (Auto) Neutrophils % (Manual) Lymphocytes % (Manual) Monocytes % (Manual) Platelet Estimate Ovalocytes PT INR APTT 48 H D D-Dimer, Quantitative Puncture Site pCO2 pO2 HCO3 ABG pH ABG Total CO2 ABG O2 Saturation ABG Base Excess ABG Hemoglobin ABG Carboxyhemoglobin POC ABG HHb (Measured) ABG Methemoglobin Aly Test ABG Potassium A-a O2 Difference Respiratory Index Hgb O2 Saturation Glucose Lactate Vent Mode Mechanical Rate FiO2 Tidal Volume PEEP Crit Value Called To Crit Value Called By Crit Value Read Back Blood Gas Notified Time Sodium Potassium Chloride Carbon Dioxide Anion Gap BUN Creatinine Est GFR ( Amer) Est GFR (Non-Af Amer) POC Glucose (mg/dL) Random Glucose Calcium Phosphorus Magnesium Total Bilirubin AST ALT Alkaline Phosphatase CK-MB (Mass) Troponin I NT-Pro-B Natriuret Pep Total Protein Albumin Globulin Albumin/Globulin Ratio Arterial Blood Potassium Urine Color Urine Clarity Urine pH Ur Specific [place] Urine Protein Urine Glucose (UA) Urine Ketones Urine Blood Urine Nitrate Urine Bilirubin Urine Urobilinogen Ur Leukocyte Esterase Urine WBC (Auto) Urine RBC (Auto) Ur Squamous Epith Cells Amorphous Sediment Urine Bacteria Hyaline Casts Granular Casts (Auto) Urine Opiates Screen Urine Methadone Screen Ur Barbiturates Screen Ur Phencyclidine Scrn Ur Amphetamines Screen U Benzodiazepines Scrn U Oth Cocaine Metabols U Cannabinoids Screen Influenza Typ A,B (EIA) Assessment & Plan - Assessment and Plan (Free Text) Assessment: 68 year old male with past medical history of CAD with triple vessel disease, CHF, HTN, DM is being seen for CAD and CHF exacerbation. Chest pain r/o ACS vs. PE vs. aortic dissection - Patient has history of CAD with triple vessel disease as evident on cardiac cath from 2013. During this admission, EKG showed new LBBB but troponin x 2 were only slightly elevated. Therefore, cardiac arrest less likely. Troponin elevation, new LBBB and chest pain could be 2/2 HTN emergency. - Chest pain could also be due to PE as d dimer is elevated (1532). Will get CTA PE protocol - Chest pain could also be due to aortic dissection. will get CTA. NSTEMI - Continue Aspirin/plavix and heparin drip for NSTEMI - Continue Crestor - Blood pressure is now normal. Pt received labetolol in ED with marked improvement of BP - Will check hgbA1c and lipid panel - Plan for cardiac cath tomorrow pending results of CTA CHF exacerbation - ProBNP on admission was 1532 - Pt received lasixs upon admission with urinary output of 775 ml HTN - Stable currently. Will continue to monitor Case discussed with attending, Dr. Carrillo. - Date & Time Date: 04/25/18 Time: 13:59 <Ash Carrillo - Last Filed: 04/25/18 20:14> Meds - Medications Medications: Current Medications Albuterol/Ipratropium (Duoneb 3 Mg/0.5 Mg (3 Ml) Ud) 3 ml INH RQ6 [facility] Last Admin: 04/25/18 19:10 Dose: 3 ml Aspirin (Ecotrin) 81 mg PO DAILY [facility] Clopidogrel Bisulfate (Plavix) 75 mg PO DAILY [facility] Last Admin: 04/25/18 09:19 Dose: 75 mg Dextrose (Dextrose 50% Inj) 0 ml IV STAT PRN; Protocol PRN Reason: Hypoglycemia Protocol Dextrose (Glutose 15) 0 gm PO ONCE PRN; Protocol PRN Reason: Hypoglycemia Protocol Folic Acid (Folic Acid) 1 mg PO DAILY [facility] Last Admin: 04/25/18 09:19 Dose: 1 mg Glucagon (Glucagen Diagnostic Kit) 0 mg IM STAT PRN; Protocol PRN Reason: Hypoglycemia Protocol Doxycycline Hyclate 100 mg/ (Sodium Chloride) 100 mls @ 100 mls/hr IVPB Q12H [facility]; Protocol Last Admin: 04/25/18 13:20 Dose: 100 mls/hr Ceftriaxone Sodium 1 gm/ (Sodium Chloride) 100 mls @ 100 mls/hr IVPB DAILY [facility]; Protocol Last Admin: 04/25/18 09:17 Dose: 100 mls/hr Heparin Sodium/Sodium Chloride (Heparin 55127 Units/250ml 1/2 Normal Saline) 25,000 units in 250 mls @ 8.165 mls/hr IV .Q24H ONE; Protocol Stop: 04/26/18 02:51 Last Admin: 04/25/18 03:19 Dose: mls/hr Dextrose (Dextrose 5% In Water 1000 Ml) 1,000 mls @ 0 mls/hr IV .Q0M PRN; Protocol PRN Reason: Hypoglycemia Protocol Heparin Sodium/Sodium Chloride (Heparin 05530 Units/250ml 1/2 Normal Saline) 25,000 units in 250 mls @ 9.373 mls/hr IV .Q24H PRN; Protocol PRN Reason: ADJUST RATE PER PROTOCOL Last Admin: 04/25/18 15:24 Dose: 14 units/kg/hr, 10.935 mls/hr Propofol (Diprivan) 1,000 mg in 100 mls @ 2.343 mls/hr IV .Q24H PRN; Protocol PRN Reason: TITRATE PER MD ORDER Last Admin: 04/25/18 18:31 Dose: 50 mcg/kg/min, 23.433 mls/hr Methylprednisolone (Solu-Medrol) 40 mg IVP Q12 [facility] Last Admin: 04/25/18 09:20 Dose: 40 mg Multivitamins (Hexavitamin) 1 tab PO DAILY [facility] Last Admin: 04/25/18 09:19 Dose: 1 tab Pantoprazole Sodium (Protonix Inj) 40 mg IVP DAILY [facility] Last Admin: 04/25/18 09:20 Dose: 40 mg Rosuvastatin Calcium (Crestor) [address] [facility] Thiamine HCl (Vitamin B1 Tab) 100 mg PO DAILY [facility] Last Admin: 04/25/18 09:19 Dose: 100 mg Results - Vital Signs Recent Vital Signs: Last Vital Signs Temp 99 F 04/25/18 16:00 Pulse 64 04/25/18 19:50 Resp 12 04/25/18 19:50 BP 126/78 04/25/18 19:14 Pulse Ox 100 04/25/18 19:50 - Labs Result Diagrams: 04/25/18 07:13 04/25/18 07:13 Labs: Laboratory Results - last 24 hr 04/25/18 04/25/18 04/25/18 01:15 01:35 01:35 WBC 12.7 H RBC 4.23 L Hgb 14.0 Hct 42.7 MCV 100.9 H MCH 33.1 H MCHC 32.8 L RDW 15.0 H Plt Count 380 MPV 8.6 Neut % (Auto) 70.6 Lymph % (Auto) 20.0 [place] % (Auto) 5.1 Eos % (Auto) 3.1 Baso % (Auto) 1.2 Neut # (Auto) 9.0 H Lymph # (Auto) 2.5 [place] # (Auto) 0.6 Eos # (Auto) 0.4 Baso # (Auto) 0.1 Neutrophils % (Manual) Lymphocytes % (Manual) Monocytes % (Manual) Platelet Estimate Ovalocytes PT INR APTT D-Dimer, Quantitative Puncture Site pCO2 pO2 HCO3 ABG pH ABG Total CO2 ABG O2 Saturation ABG Base Excess ABG Hemoglobin ABG Carboxyhemoglobin POC ABG HHb (Measured) ABG Methemoglobin Aly Test ABG Potassium A-a O2 Difference Respiratory Index Hgb O2 Saturation Glucose Lactate Vent Mode Mechanical Rate FiO2 Tidal Volume PEEP Crit Value Called To Crit Value Called By Crit Value Read Back Blood Gas Notified Time Sodium 139 Potassium 4.2 Chloride 107 Carbon Dioxide 20 L Anion Gap 16 BUN 27 H Creatinine 1.2 Est GFR ( Amer) > 60 Est GFR (Non-Af Amer) > 60 POC Glucose (mg/dL) 287 H Random Glucose 309 H Calcium 9.0 Phosphorus Magnesium Total Bilirubin 0.7 AST 38 ALT 24 Alkaline Phosphatase 83 CK-MB (Mass) Troponin I 0.1480 H* NT-Pro-B Natriuret Pep 5620 H Total Protein 7.7 Albumin 4.2 Globulin 3.5 Albumin/Globulin Ratio 1.2 Arterial Blood Potassium Urine Color Urine Clarity Urine pH Ur Specific [place] Urine Protein Urine Glucose (UA) Urine Ketones Urine Blood Urine Nitrate Urine Bilirubin Urine Urobilinogen Ur Leukocyte Esterase Urine WBC (Auto) Urine RBC (Auto) Ur Squamous Epith Cells Amorphous Sediment Urine Bacteria Hyaline Casts Granular Casts (Auto) Urine Opiates Screen Urine Methadone Screen Ur Barbiturates Screen Ur Phencyclidine Scrn Ur Amphetamines Screen U Benzodiazepines Scrn U Oth Cocaine Metabols U Cannabinoids Screen Influenza Typ A,B (EIA) 04/25/18 04/25/18 04/25/18 01:35 02:23 02:45 WBC RBC Hgb Hct MCV MCH MCHC RDW Plt Count MPV Neut % (Auto) Lymph % (Auto) [place] % (Auto) Eos % (Auto) Baso % (Auto) Neut # (Auto) Lymph # (Auto) [place] # (Auto) Eos # (Auto) Baso # (Auto) Neutrophils % (Manual) Lymphocytes % (Manual) Monocytes % (Manual) Platelet Estimate Ovalocytes PT 11.8 INR 1.1 APTT 32 D-Dimer, Quantitative 1532 H Puncture Site Rr pCO2 81 H* pO2 541 H HCO3 19.0 L ABG pH 7.08 L* ABG Total CO2 26.5 ABG O2 Saturation 99.8 H ABG Base Excess -7.7 L ABG Hemoglobin ABG Carboxyhemoglobin POC ABG HHb (Measured) ABG Methemoglobin Aly Test Pos ABG Potassium 3.9 A-a O2 Difference 71.0 Respiratory Index 0.1 Hgb O2 Saturation Glucose 293 H Lactate 0.8 Vent Mode Prvc Mechanical Rate 14 FiO2 100.0 Tidal Volume 500 PEEP 5 Crit Value Called To Dr. mendoza Crit Value Called By Jessie commercial art instructor Crit Value Read Back Y Blood Gas Notified Time 227 Sodium 138.0 Potassium Chloride 109.0 H Carbon Dioxide Anion Gap BUN Creatinine Est GFR ( Amer) Est GFR (Non-Af Amer) POC Glucose (mg/dL) Random Glucose Calcium Phosphorus Magnesium Total Bilirubin AST ALT Alkaline Phosphatase CK-MB (Mass) Troponin I NT-Pro-B Natriuret Pep Total Protein Albumin Globulin Albumin/Globulin Ratio Arterial Blood Potassium 3.9 Urine Color Yellow Urine Clarity Hazy Urine pH 5.0 Ur Specific [place] 1.017 Urine Protein 3+ H Urine Glucose (UA) 2+ H Urine Ketones Negative Urine Blood 1+ H Urine Nitrate Negative Urine Bilirubin Negative Urine Urobilinogen Normal Ur Leukocyte Esterase Neg Urine WBC (Auto) 22 H Urine RBC (Auto) 11 H Ur Squamous Epith Cells 2 Amorphous Sediment Rare H Urine Bacteria Occ H Hyaline Casts 3-5 H Granular Casts (Auto) 27 Urine Opiates Screen Urine Methadone Screen Ur Barbiturates Screen Ur Phencyclidine Scrn Ur Amphetamines Screen U Benzodiazepines Scrn U Oth Cocaine Metabols U Cannabinoids Screen Influenza Typ A,B (EIA) 04/25/18 04/25/18 04/25/18 02:45 02:45 03:33 WBC RBC Hgb Hct MCV MCH MCHC RDW Plt Count MPV Neut % (Auto) Lymph % (Auto) [place] % (Auto) Eos % (Auto) Baso % (Auto) Neut # (Auto) Lymph # (Auto) [place] # (Auto) Eos # (Auto) Baso # (Auto) Neutrophils % (Manual) Lymphocytes % (Manual) Monocytes % (Manual) Platelet Estimate Ovalocytes PT INR APTT D-Dimer, Quantitative Puncture Site pCO2 pO2 HCO3 ABG pH ABG Total CO2 ABG O2 Saturation ABG Base Excess ABG Hemoglobin ABG Carboxyhemoglobin POC ABG HHb (Measured) ABG Methemoglobin Aly Test ABG Potassium A-a O2 Difference Respiratory Index Hgb O2 Saturation Glucose Lactate Vent Mode Mechanical Rate FiO2 Tidal Volume PEEP Crit Value Called To Crit Value Called By Crit Value Read Back Blood Gas Notified Time Sodium Potassium Chloride Carbon Dioxide Anion Gap BUN Creatinine Est GFR ( Amer) Est GFR (Non-Af Amer) POC Glucose (mg/dL) Random Glucose Calcium Phosphorus Magnesium Total Bilirubin AST ALT Alkaline Phosphatase CK-MB (Mass) 2.70 Troponin I 0.1470 H* NT-Pro-B Natriuret Pep Total Protein Albumin Globulin Albumin/Globulin Ratio Arterial Blood Potassium Urine Color Urine Clarity Urine pH Ur Specific [place] Urine Protein Urine Glucose (UA) Urine Ketones Urine Blood Urine Nitrate Urine Bilirubin Urine Urobilinogen Ur Leukocyte Esterase Urine WBC (Auto) Urine RBC (Auto) Ur Squamous Epith Cells Amorphous Sediment Urine Bacteria Hyaline Casts Granular Casts (Auto) Urine Opiates Screen Negative Urine Methadone Screen Negative Ur Barbiturates Screen Negative Ur Phencyclidine Scrn Negative Ur Amphetamines Screen Negative U Benzodiazepines Scrn Negative U Oth Cocaine Metabols Negative U Cannabinoids Screen Negative Influenza Typ A,B (EIA) Negative for flu a/b 04/25/18 04/25/18 04/25/18 05:29 07:13 07:13 WBC 11.5 H RBC 3.88 L Hgb 12.9 Hct 38.4 MCV 98.9 H D MCH 33.2 H MCHC 33.6 RDW 14.6 H Plt Count 284 MPV 8.3 Neut % (Auto) 96.3 H Lymph % (Auto) 1.9 L [place] % (Auto) 1.3 Eos % (Auto) 0.1 Baso % (Auto) 0.4 Neut # (Auto) 11.1 H Lymph # (Auto) 0.2 L [place] # (Auto) 0.2 Eos # (Auto) 0.0 Baso # (Auto) 0.1 Neutrophils % (Manual) 96 H Lymphocytes % (Manual) 2 L Monocytes % (Manual) 2 Platelet Estimate Normal Ovalocytes Slight PT INR APTT D-Dimer, Quantitative Puncture Site Lr pCO2 41 pO2 137 H HCO3 19.4 L ABG pH 7.28 L ABG Total CO2 20.6 L ABG O2 Saturation 99.4 H ABG Base Excess -7.0 L ABG Hemoglobin 10.7 L ABG Carboxyhemoglobin 5.2 H POC ABG HHb (Measured) 0.6 ABG Methemoglobin 0.3 Aly Test Pos ABG Potassium A-a O2 Difference 168.0 Respiratory Index 1.2 Hgb O2 Saturation 93.9 L Glucose Lactate Vent Mode Prvc Mechanical Rate 14 FiO2 50.0 Tidal Volume 450 PEEP 5 Crit Value Called To Crit Value Called By Crit Value Read Back Blood Gas Notified Time Sodium 139 Potassium 4.0 Chloride 106 Carbon Dioxide 27 Anion Gap 10 BUN 30 H Creatinine 1.3 Est GFR ( Amer) > 60 Est GFR (Non-Af Amer) 55 POC Glucose (mg/dL) Random Glucose 123 H D Calcium 9.0 Phosphorus 3.9 Magnesium 1.9 Total Bilirubin 0.6 AST 41 ALT 28 Alkaline Phosphatase 85 CK-MB (Mass) Troponin I NT-Pro-B Natriuret Pep Total Protein 7.0 Albumin 3.7 Globulin 3.3 Albumin/Globulin Ratio 1.1 Arterial Blood Potassium Urine Color Urine Clarity Urine pH Ur Specific [place] Urine Protein Urine Glucose (UA) Urine Ketones Urine Blood Urine Nitrate Urine Bilirubin Urine Urobilinogen Ur Leukocyte Esterase Urine WBC (Auto) Urine RBC (Auto) Ur Squamous Epith Cells Amorphous Sediment Urine Bacteria Hyaline Casts Granular Casts (Auto) Urine Opiates Screen Urine Methadone Screen Ur Barbiturates Screen Ur Phencyclidine Scrn Ur Amphetamines Screen U Benzodiazepines Scrn U Oth Cocaine Metabols U Cannabinoids Screen Influenza Typ A,B (EIA) 04/25/18 04/25/18 04/25/18 07:13 11:20 12:00 WBC RBC Hgb Hct MCV MCH MCHC RDW Plt Count MPV Neut % (Auto) Lymph % (Auto) [place] % (Auto) Eos % (Auto) Baso % (Auto) Neut # (Auto) Lymph # (Auto) [place] # (Auto) Eos # (Auto) Baso # (Auto) Neutrophils % (Manual) Lymphocytes % (Manual) Monocytes % (Manual) Platelet Estimate Ovalocytes PT INR APTT 48 H D 37 H D D-Dimer, Quantitative Puncture Site pCO2 pO2 HCO3 ABG pH ABG Total CO2 ABG O2 Saturation ABG Base Excess ABG Hemoglobin ABG Carboxyhemoglobin POC ABG HHb (Measured) ABG Methemoglobin Aly Test ABG Potassium A-a O2 Difference Respiratory Index Hgb O2 Saturation Glucose Lactate Vent Mode Mechanical Rate FiO2 Tidal Volume PEEP Crit Value Called To Crit Value Called By Crit Value Read Back Blood Gas Notified Time Sodium Potassium Chloride Carbon Dioxide Anion Gap BUN Creatinine Est GFR ( Amer) Est GFR (Non-Af Amer) POC Glucose (mg/dL) 143 H Random Glucose Calcium Phosphorus Magnesium Total Bilirubin AST ALT Alkaline Phosphatase CK-MB (Mass) Troponin I NT-Pro-B Natriuret Pep Total Protein Albumin Globulin Albumin/Globulin Ratio Arterial Blood Potassium Urine Color Urine Clarity Urine pH Ur Specific [place] Urine Protein Urine Glucose (UA) Urine Ketones Urine Blood Urine Nitrate Urine Bilirubin Urine Urobilinogen Ur Leukocyte Esterase Urine WBC (Auto) Urine RBC (Auto) Ur Squamous Epith Cells Amorphous Sediment Urine Bacteria Hyaline Casts Granular Casts (Auto) Urine Opiates Screen Urine Methadone Screen Ur Barbiturates Screen Ur Phencyclidine Scrn Ur Amphetamines Screen U Benzodiazepines Scrn U Oth Cocaine Metabols U Cannabinoids Screen Influenza Typ A,B (EIA) 04/25/18 18:02 WBC RBC Hgb Hct MCV MCH MCHC RDW Plt Count MPV Neut % (Auto) Lymph % (Auto) [place] % (Auto) Eos % (Auto) Baso % (Auto) Neut # (Auto) Lymph # (Auto) [place] # (Auto) Eos # (Auto) Baso # (Auto) Neutrophils % (Manual) Lymphocytes % (Manual) Monocytes % (Manual) Platelet Estimate Ovalocytes PT INR APTT D-Dimer, Quantitative Puncture Site pCO2 pO2 HCO3 ABG pH ABG Total CO2 ABG O2 Saturation ABG Base Excess ABG Hemoglobin ABG Carboxyhemoglobin POC ABG HHb (Measured) ABG Methemoglobin Aly Test ABG Potassium A-a O2 Difference Respiratory Index Hgb O2 Saturation Glucose Lactate Vent Mode Mechanical Rate FiO2 Tidal Volume PEEP Crit Value Called To Crit Value Called By Crit Value Read Back Blood Gas Notified Time Sodium Potassium Chloride Carbon Dioxide Anion Gap BUN Creatinine Est GFR ( Amer) Est GFR (Non-Af Amer) POC Glucose (mg/dL) 130 H Random Glucose Calcium Phosphorus Magnesium Total Bilirubin AST ALT Alkaline Phosphatase CK-MB (Mass) Troponin I NT-Pro-B Natriuret Pep Total Protein Albumin Globulin Albumin/Globulin Ratio Arterial Blood Potassium Urine Color Urine Clarity Urine pH Ur Specific [place] Urine Protein Urine Glucose (UA) Urine Ketones Urine Blood Urine Nitrate Urine Bilirubin Urine Urobilinogen Ur Leukocyte Esterase Urine WBC (Auto) Urine RBC (Auto) Ur Squamous Epith Cells Amorphous Sediment Urine Bacteria Hyaline Casts Granular Casts (Auto) Urine Opiates Screen Urine Methadone Screen Ur Barbiturates Screen Ur Phencyclidine Scrn Ur Amphetamines Screen U Benzodiazepines Scrn U Oth Cocaine Metabols U Cannabinoids Screen Influenza Typ A,B (EIA) Assessment & Plan - Assessment and Plan (Free Text) Assessment: Patient seen and evaluated personally by me. Plan of care d/w the medical staff assistant and as documented
[2018-04-25] MEDS ORDERED: Propofol 10 mg/ml Inj (100 ml) IV SCH (14:45)
[2018-04-25] MEDS: Heparin25000 units/250ml 1/2NS 25,000 UNITS/250 ML BAG IV PRN (15:24)
--- NOTE | 2018-04-25 17:05 | CARD ---
APPROVED REPORT Date of service: 04/25/2018 EXAM: Two-dimensional and M-mode echocardiogram with Doppler and color Doppler. INDICATION Congestive Heart Failure COPD RISK FACTORS Hypertension Smoking 2D DIMENSIONS IVSd1.3 (0.7-1.1cm)LVDd5.7 (3.9-5.9cm) PWd1.2 (0.7-1.1cm)LA Nkthit59 (18-58mL) LVDs4.7 (2.5-4.0cm)FS (%) 18.4 % LVEF (%)37.5 (>50%)LVEF (Griffin's)38.75 % M-Mode DIMENSIONS Left Atrium (MM)5.85 (2.5-4.0cm)IVSd1.31 (0.7-1.1cm) Aortic Root3.73 (2.2-3.7cm)LVDd6.01 (4.0-5.6cm) Aortic Cusp Exc.2.47 (1.5-2.0cm)PWd1.14 (0.7-1.1cm) FS (%) 23 %LVDs4.65 (2.0-3.8cm) LVEF (%)45 (>50%) Mitral Valve MV E Dskjximo761.7cm/sMV A Sxqeyfyv47.2cm/sE/A ratio1.8 BLLO445.93 cm/s TDI Lateral E' Peak V5.71cm/sMedial E' Peak V3.58cm/sE/Lateral E'18.5 E/Medial E'29.5 Tricuspid Valve TR Peak Odcihrpi285nu/sTR Peak Gr.10scUhMDLV82qiIv LEFT VENTRICLE The Left Ventricle is mildly dilated. There is borderline concentric left ventricular hypertrophy. Left ventricle systolic function is mildly to moderately impaired. The Ejection Fraction is - 40 - 45% There is mild to moderate global hypokinesis of the left ventricle. Transmitral Doppler flow pattern is Grade II-pseudonormal filling dynamics. Elevated left atrial pressure. RIGHT VENTRICLE The right ventricle is normal size. The right ventricular systolic function is normal. ATRIA The left atrium is moderately dilated. The right atrium is moderately dilated. The interatrial septum is intact with no evidence for an atrial septal defect. AORTIC VALVE The aortic valve is normal in structure. No aortic regurgitation is present. There is no aortic valvular stenosis. MITRAL VALVE The mitral valve is normal in structure. Mitral regurgitation is mild. TRICUSPID VALVE The tricuspid valve is normal in structure. There is mild tricuspid regurgitation. Right ventricular systolic pressure is estimated at - 39 mmHg. There is mild pulmonary hypertension. PULMONIC VALVE The pulmonary valve is normal in structure. GREAT VESSELS The aortic root is normal in size. Dilated IVC with poor inspiration collapse is consistent with elevated right atrial pressure. PERICARDIAL EFFUSION There is no pericardial effusion. <Conclusion> The left ventricle is mildly dilated with borderline concentric hypertrophy. There is mild to moderate global hypokinesis of the left ventricle. Left ventricle systolic function is mildly to moderately impaired. The Ejection Fraction is - 40 - 45% Grade II diastolic dysfunction-pseudonormal filling dynamics. Elevated left atrial pressure. Moderate bi-atrial enlargement Mild mitral and tricuspid regurgitation There is mild pulmonary hypertension. Right ventricular systolic pressure is estimated at - 39 mmHg. There is no pericardial effusion.
--- NOTE | 2018-04-25 17:41 | CT ---
Date of service: 04/25/2018 CTA chest PE protocol Indication: r/o PE Technique: Contiguous axial images were obtained through the chest with intravenous contrast enhancement. Sagittal and coronal reconstructions were generated and reviewed. This CT exam was performed using 1 or more of the following dose reduction techniques: Automated exposure control, adjustment of the MAA and/or kV according to patient size, and/or use of iterative reconstruction technique. IV contrast: 100 cc visipaque 320 Radiation dose (DLP): 636.33 MGy-cm. Comparison: Chest x-ray performed 04/25/18 Findings: Nasogastric tube extends to the stomach. Endotracheal tube terminates approximately 5 cm above the sarai. Visualized portions of the inferior thyroid gland appear unremarkable. The mediastinal and hilar vascular structures appear within normal limits. Cardiomegaly. Dense coronary artery calcifications. Sub cm prevascular lymph nodes. Abnormal heterogeneous mediastinal lymph node in the precarinal region measures approximately 2.5 cm in short axis. There is inadequate opacification of the pulmonary arteries due to missed bolus of the intravenous contrast precluding evaluation for pulmonary embolus. Small bilateral pleural effusions and associated consolidations. Discoid atelectasis/scarring, right middle lobe. No pneumothorax. Limited visualized portions of the upper abdomen appear grossly unremarkable. Degenerative changes. Impression: There is inadequate opacification of the pulmonary arteries due to missed bolus of the intravenous contrast precluding evaluation for pulmonary embolus. Small bilateral pleural effusions and associated consolidations. Discoid atelectasis/scarring, right middle lobe. Abnormal heterogeneous mediastinal lymph node in the precarinal region measures approximately 2.5 cm in short axis. Additional incidental findings as above.
[2018-04-25] MEDS: Propofol 10 mg/ml 1,000 MG/100 ML VIAL IV PRN ×2 (18:31→23:55)
--- NOTE | 2018-04-25 18:44 | CP.PCM.PCO ---
Physician Communication Note - Physician Communication Note Physician Communication Note: see above
[2018-04-25] MEDS ORDERED: EPINEPHrine 1 mg/ml (1:1000) Inj ONE (21:00)
[2018-04-26] MEDS: Albuterol-Ipratrop 3 mg / 0.5 (3 ml) UD INH SCH ×5 (01:25→19:37)
--- NOTE | 2018-04-26 03:39 | HP ---
CHIEF COMPLIANT: Progressive worsening of shortness of breath and the patient was not able to breathe at home, 911 was called. HISTORY OF PRESENT ILLNESS: Mr. Ruff is a 68-year-old male with past medical history of hypertension, hyperlipidemia, congestive heart failure, COPD, diabetes mellitus, chronic tobacco abuse, smokes two packs per day for many years, alcohol abuse, noncompliant with medications and followup visit. Last time he had seen his primary care physician, ____ was about two years ago and his pulmonary doctor is Dr. Garcia from [facility], who he saw many months ago, has not been on any medication, came into the emergency room, brought in by EMS for the compliance of cold, cough and not able to breathe for the past two to three days and he has been refusing to come to the emergency room to the family. The patient's fiance called 911 when he does not able to breathe at home. EMS gave him the nebulizer treatment and the patient was brought into the ED in severe respiratory distress. Initially, the patient was put on BiPAP and the patient had a brief episode of respiratory arrest and cardiac arrest. He was resuscitated and intubated in the emergency room, ROSC was quickly achieved and the patient's blood pressure was very high in the emergency room, it was 250/170 for which he was treated with labetalol and improved. His EKG showed new left bundle branch block for which code heart was initiated and Cardiology was contacted. No cardiac cath was recommended in the ED and treated as NSTEMI, started on medication and the patient was transferred up to the ICU. When I examined, the patient was more alert, but still remained intubated. All the history obtained from the patient's fiance, Romana Brown at [phone]. As per the patient, he has been very noncompliance with his doctor's visits and medications. He has not been taking any pills for many years. Not seen the doctor in many months. However, for the past two to three days he has been having cold, cough, and not able to breathe. This social services aide, he was not able to breathe at which point she called 911 and the patient was brought into the emergency room. When I examined the patient, he was alert and awake, responding to the questions by nodding his head yes or no. He denied any other new complaints other than irritation in the throat ____ bothering him. PAST MEDICAL HISTORY: As described, COPD, hypertension, CHF, diabetes mellitus, noncompliant. PAST SURGICAL HISTORY: He underwent some kind of surgery, which she could not recollect. He had coronary angiography done in 2013 with triple vessel disease, but did not require any stent at that time. FAMILY HISTORY: Nothing contributory to the present illness. PERSONAL HISTORY: He lives with his girlfriend, retired, not having any children and he has one brother. He worked in a [employer] [place]. SOCIAL HISTORY: He smokes two packs per day for many years. He quit in between for three years about two years ago. Restart smoking about two years ago. Drinks two to six cans of beer everyday in addition to wine. Denies any other drug abuse. ALLERGIES: NO KNOWN DRUG ALLERGIES. HOME MEDICATIONS: Documented in the emergency room, but the patient has not been taking any include albuterol, Zocor 10 mg, prednisone daily, metoprolol 25 mg p.o. every 12 hours, lisinopril 10 mg daily, hydrochlorothiazide 12.5 mg daily, amoxycillin, Ventolin nebulizer, and aspirin 81 daily. REVIEW OF SYSTEMS: As described in history of present illness. PHYSICAL EXAMINATION: GENERAL: Elderly male, lying in bed, in no acute distress, intubated, awake, responding to the questions appropriately. VITAL SIGNS: Blood pressure 107/60, pulse 65, respirations 13, O2 sat 99% on 60% FiO2, and temperature 98.5. HEENT: Pupils are reacting to light and accommodation. Extraocular muscles intact. No icterus. No pallor. ET tube in oral cavity. NECK: Supple. LUNGS: Bilateral fair air entry. No wheezing. Basal crackles heard. CVS: S1, S2 present and regular. ABDOMEN: Soft and nontender. Bowel sounds present. No guarding. No rigidity. No rebound tenderness noted. CIGAR MACHINE FEEDER: Alert, awake, and intubated. Moving all extremities equally. EXTREMITIES: No edema. Palpable peripheral pulses. LABORATORY DATA: Labs done from the ED: WBC 12.7, hemoglobin 14, hematocrit 42.7, and platelets 380. Sodium 139, potassium 4.2, chloride 107, bicarb 20, BUN 27, creatinine 1.2, glucose 287, calcium 9, total bilirubin 0.7, AST 38, ALT 24, alkaline phosphatase 83, troponin 0.147, proBNP 5620, total protein 7.7, albumin 4.2. UA; specific gravity 1.017, pH 5, 3+ protein, 2+ glucose, 1+ blood, wbc 22, and rbc 11. Urine drug screen negative. Influenza A and B negative. ABG on 100% FiO2 include pH 7.08, pCO2 81, pO2 541, O2 saturations 99.8. Repeat ABG shows pCO2 41, pO2 137, and pH 7.28. Cultures were done from the emergency room. Chest x-ray from ED; ET tube and NG tube appropriately positioned, multifocal, bilateral pulmonary parenchymal opacity nonspecific. No effusion on pneumothorax noted. ASSESSMENT: Elderly male with history of coronary artery disease, congestive heart failure, hypertension, diabetes mellitus, chronic obstructive pulmonary disease, noncompliant with medication, not following up with any primary care physician or Pulmonary for many months, has been smoking two packs per day and drinking alcohol on a regular basis, came into the emergency department with [id number]-day history of not feeling well, cough, cold, and progressive worsening of shortness of breath. In the department, the patient was found to be in respiratory distress, initially started on BiPAP and the patient suddenly collapsed from respiratory arrest, code was run and return of spontaneous circulation was achieved quickly and the patient was intubated. The patient was found to be having new left bundle branch block, some prior electrocardiograms, though the patient is being evaluated for code heart, which was treated as [id number] myocardial infarction and the patient is being admitted to Intensive Care Unit for further management. 1. Status post acute respiratory failure, status post cardiac arrest, possible chronic obstructive pulmonary disease exacerbation with possible pneumonia. 2. Elevated troponin consisted with [id number] myocardial infarction in a patient with history of coronary artery disease with triple vessel disease. 3. Uncontrolled hypertension, status post intravenous medications with controlled blood pressures. 4. Congestive heart failure. 5. Diabetes mellitus. PLAN: The patient is being admitted to ICU, continue with vent support, continue with nebulizer treatments, IV Solu-Medrol, Rocephin and doxycycline for possible pneumonia. We will do serial cardial enzymes, serial EKGs. We will check echocardiogram. Continue with aspirin, Plavix and IV heparin and lipid lowering agent. As recommended by Cardiology, we will obtain cardiology evaluation with Dr. Carrillo. Discussed with Dr. Carrillo on rounds this morning for CT scan of the chest to rule out PE and lower extremity Doppler. We will continue with GI prophylaxis. I discussed with the patient's girlfriend at length. We will follow up with pending results. We will repeat labs in a.m. Monitor his electrolytes and WBC count. We will add further recommendation as his clinical course progresses. Myrna Wilde MD
[2018-04-26] MEDS: Propofol 10 mg/ml 1,000 MG/100 ML VIAL IV PRN ×2 (04:42→10:03)
[2018-04-26 06:34] LABS: BASO % 0.1 % (0.0-2.0); HEMOGLOBIN 12.4 g/dL (12.0-18.0); LYMPH # 0.4 K/uL (1.0-4.3); LYMPH % 4.2 % (20.0-40.0); MEAN CELL VOLUME 99.2 fL (80.0-94.0); MEAN CORPUSCULAR HEMOGLOBIN 33.1 pg (27.0-31.0); MEAN CORPUSCULAR HGB CONC 33.4 g/dL (33.0-37.0); MEAN PLATELET VOLUME 8.7 fL (7.2-11.7); MONO # 0.3 K/uL (0.0-0.8); MONO % 3.5 % (0.0-10.0); NEUT % 92.2 % (50.0-75.0); PLATELET COUNT 258 K/uL (130-400); RBC 3.74 Mil/uL (4.40-5.90); RED CELL DISTRIBUTION WIDTH 14.5 % (11.5-14.5); WHITE BLOOD COUNT 9.7 K/uL (4.8-10.8)
[2018-04-26 06:51] LABS: ALB/GLOB RATIO 1.1 (1.0-2.1); ALBUMIN 3.5 g/dL (3.5-5.0); ALT/SGPT 25 U/L (21-72); AST/SGOT 18 U/L (17-59); BLOOD UREA NITROGEN 37 mg/dL (9-20); CALCIUM 8.9 mg/dl (8.6-10.4); GFR NON-AFRICAN AMERICAN 55; HDL CHOLESTEROL 29 mg/dL (30-70)
[2018-04-26 07:04] LABS: LDL CHOLESTEROL 100 mg/dL (0-129)
[2018-04-26 08:47] LABS: LYMPHOCYTE 3 % (20-40); MONOCYTE 3 % (0-10); NEUTROPHIL 94 % (50-75); PLATELET ESTIMATE NORMAL (NORMAL); TOTAL CELLS COUNTED 100
--- NOTE | 2018-04-26 09:06 | CP.CCUPN ---
CCU Subjective - Physician Review Subjective (Free Text): 04/26/18 09:04 ICU Progress Note for Dr. Rush Patient seen and examined at bedside this morning. Patient no longer sedated with propofol. He is able to be aroused with pain but not with voice. Due to patient condition ROS unable to be obtained. Per RN the policy is that the CTA r/o PE cannot be completed until 24 hours after the previous attempt, which was evening of 04/25. pet technologist unsure why despite our team proposing that it might be due to prevention of contrast induced nephropathy. 04/26/18 11:48 CCU Objective - Vital Signs / Intake & Output Vital Signs (Last 4 hours): Vital Signs Temp Pulse Resp BP Pulse Ox 04/26/18 08:14 65 5 L 125/74 99 04/26/18 08:00 98.1 F 62 8 L 119/73 99 04/26/18 07:14 59 L 11 L 119/73 100 04/26/18 07:00 58 L 9 L 100 04/26/18 06:14 61 8 L 122/73 100 04/26/18 06:00 62 11 L 100 04/26/18 05:14 131/83 04/26/18 05:12 74 100 Intake and Output (Last 8hrs): Intake & Output 04/25/18 04/26/18 04/26/18 22:59 06:59 14:59 Intake Total 394.1 551.8 445.4 Output Total 315 310 140 Balance 79.1 241.8 305.4 Weight 172 lb Intake: IV 100 100 233 Intake, IV Amount 219.1 251.8 62.4 Right Hand 76.3 87.2 25.0 Right Proximal Port 142.8 164.6 37.4 Femoral Oral 0 0 Tube Feeding 75 200 50 Other 100 Output: Urine 315 310 140 Urethral (Mariscal) 315 310 140 Other: # Bowel Movements 0 0 0 - Physical Exam Head: Positive for: Atraumatic, Normocephalic Respiratory/Chest: Positive for: Clear to Auscultation, Good Air Exchange. Negative for: Respiratory Distress, Accessory Muscle Use Cardiovascular: Positive for: Regular Rate and Rhythm Abdomen: Positive for: Normal Bowel Sounds, Other (haley drain on right midaxillary draining bilious fluid, 20cc approx in bag. Dressing c/d/i.). Negative for: Tenderness, Distention Upper Extremity: Positive for: Normal Inspection, NORMAL PULSES, Capillary Refill < 2s. Negative for: Cyanosis, Edema Lower Extremity: Positive for: Normal Inspection, NORMAL PULSES, Capillary Refill < 2 s. Negative for: Edema Skin: Positive for: Warm, Dry, Normal Color Psychiatric: Positive for: Alert, Oriented x 3 - Medications Active Medications: Active Medications Generic Name Dose Route Start Last Admin Trade Name Freq PRN Reason Stop Dose Admin Albuterol/Ipratropium 3 ml 04/25/18 08:00 04/26/18 08:31 Duoneb 3 Mg/0.5 Mg (3 Ml) Ud INH 3 ml RQ6 [facility] Administration Aspirin 81 mg 04/26/18 10:00 Ecotrin PO DAILY LUCILA Calcium Acetate 667 mg 04/26/18 08:00 04/26/18 08:14 Phoslo GT 04/26/18 17:01 667 mg BIDCC LUC[facility] Administration Clopidogrel Bisulfate 75 mg 04/25/18 10:00 04/25/18 09:19 Plavix PO 75 mg DAILY [facility] Administration Dextrose 0 ml 04/25/18 07:33 Dextrose 50% Inj IV STAT PRN Hypoglycemia Protocol Protocol Dextrose 0 gm 04/25/18 07:33 Glutose 15 PO ONCE PRN Hypoglycemia Protocol Protocol Folic Acid 1 mg 04/25/18 10:00 04/25/18 09:19 Folic Acid PO 1 mg DAILY L[facility]A Administration Glucagon 0 mg 04/25/18 07:33 Glucagen Diagnostic Kit IM STAT PRN Hypoglycemia Protocol Protocol Doxycycline Hyclate 100 mg/ 100 mls @ 100 mls/hr 04/25/18 02:30 04/26/18 02:13 Sodium Chloride IVPB 100 mls/hr Q12H [facility] Administration Protocol Ceftriaxone Sodium 1 gm/ 100 mls @ 100 mls/hr 04/25/18 10:00 04/25/18 09:17 Sodium Chloride IVPB 100 mls/hr DAILY [facility] Administration Protocol Dextrose 1,000 mls @ 0 mls/hr 04/25/18 07:33 Dextrose 5% In Water 1000 Ml IV .Q0M PRN Hypoglycemia Protocol Protocol Per Protocol Heparin Sodium/Sodium Chloride 25,000 units in 250 mls @ 9.373 mls/hr 04/25/18 14:33 04/26/18 07:10 Heparin 97496 Units/250ml 1/2 Normal Saline IV 16 units/kg/hr .Q24H PRN 12.497 mls/hr ADJUST RATE PER PROTOCOL Titration Protocol 12 UNITS/KG/HR Propofol 1,000 mg in 100 mls @ 2.343 mls/hr 04/25/18 16:20 04/26/18 08:00 Diprivan IV 40 mcg/kg/min .Q24H PRN 18.746 mls/hr TITRATE PER MD ORDER Titration Protocol 5 MCG/KG/MIN Methylprednisolone 40 mg 04/25/18 10:00 04/25/18 22:33 Solu-Medrol IVP 40 mg Q12 L[facility]A Administration Multivitamins 1 tab 04/25/18 10:00 04/25/18 09:19 Hexavitamin PO 1 tab DAILY LUC[facility]A Administration Pantoprazole Sodium 40 mg 04/25/18 10:00 04/25/18 09:20 Protonix Inj IVP 40 mg DAILY [facility]A Administration Rosuvastatin Calcium 10 mg 04/25/18 22:00 04/25/18 22:33 Crestor PO 10 mg HS LUC[facility]A Administration Thiamine HCl 100 mg 04/25/18 10:00 04/25/18 09:19 Vitamin B1 Tab PO 100 mg DAILY LUC[facility]A Administration - Patient Studies Lab Studies: Microbiology Studies 04/25/18 02:56 Blood Culture - Preliminary Blood NO GROWTH AFTER 24 HOURS 04/25/18 02:56 Blood Culture - Preliminary Blood NO GROWTH AFTER 24 HOURS Lab Studies 04/26/18 04/26/18 04/26/18 Range/Units 06:26 06:26 06:26 WBC (4.8-10.8) K/uL RBC (4.40-5.90) Mil/uL Hgb (12.0-18.0) g/dL Hct (35.0-51.0) % MCV (80.0-94.0) fL MCH (27.0-31.0) pg MCHC (33.0-37.0) g/dL RDW (11.5-14.5) % Plt Count (130-400) K/uL MPV (7.2-11.7) fL Neut % (Auto) (50.0-75.0) % Lymph % (Auto) (20.0-40.0) % [place] % (Auto) (0.0-10.0) % Eos % (Auto) (0.0-4.0) % Baso % (Auto) (0.0-2.0) % Neut # (Auto) (1.8-7.0) K/uL Lymph # (Auto) (1.0-4.3) K/uL [place] # (Auto) (0.0-0.8) K/uL Eos # (Auto) (0.0-0.7) K/uL Baso # (Auto) (0.0-0.2) K/uL Neutrophils % (Manual) (50-75) % Lymphocytes % (Manual) (20-40) % Monocytes % (Manual) (0-10) % Platelet Estimate (NORMAL) RBC Morphology APTT 41 H D (21-34) SECONDS Sodium 138 (132-148) mmol/L Potassium 4.4 (3.6-5.2) mmol/L Chloride 106 (98-107) mmol/L Carbon Dioxide 27 (22-30) mmol/L Anion Gap 10 (10-20) BUN 37 H (9-20) mg/dL Creatinine 1.3 (0.8-1.5) mg/dL Est GFR ( Amer) > 60 Est GFR (Non-Af Amer) 55 POC Glucose (mg/dL) (65-110) mg/dL Random Glucose 139 H (75-110) mg/dL Hemoglobin A1c 5.0 (4.2-6.5) % Calcium 8.9 (8.6-10.4) mg/dl Phosphorus 5.2 H (2.5-4.5) mg/dL Magnesium 2.2 (1.6-2.3) mg/dL Total Bilirubin 0.4 (0.2-1.3) mg/dL AST 18 (17-59) U/L ALT 25 (21-72) U/L Alkaline Phosphatase 74 (38-126) U/L Total Protein 6.7 (6.3-8.3) g/dL Albumin 3.5 (3.5-5.0) g/dL Globulin 3.2 (2.2-3.9) gm/dL Albumin/Globulin Ratio 1.1 (1.0-2.1) Triglycerides 120 (0-149) mg/dL Cholesterol 138 (0-199) mg/dL LDL Cholesterol Direct 100 (0-129) mg/dL HDL Cholesterol 29 L (30-70) mg/dL 04/26/18 04/26/18 04/26/18 Range/Units 06:26 05:37 03:37 WBC 9.7 (4.8-10.8) K/uL RBC 3.74 L (4.40-5.90) Mil/uL Hgb 12.4 (12.0-18.0) g/dL Hct 37.2 (35.0-51.0) % MCV 99.2 H (80.0-94.0) fL MCH 33.1 H (27.0-31.0) pg MCHC 33.4 (33.0-37.0) g/dL RDW 14.5 (11.5-14.5) % Plt Count 258 (130-400) K/uL MPV 8.7 (7.2-11.7) fL Neut % (Auto) 92.2 H (50.0-75.0) % Lymph % (Auto) 4.2 L (20.0-40.0) % [place] % (Auto) 3.5 (0.0-10.0) % Eos % (Auto) 0.0 (0.0-4.0) % Baso % (Auto) 0.1 (0.0-2.0) % Neut # (Auto) 9.0 H (1.8-7.0) K/uL Lymph # (Auto) 0.4 L (1.0-4.3) K/uL [place] # (Auto) 0.3 (0.0-0.8) K/uL Eos # (Auto) 0.0 (0.0-0.7) K/uL Baso # (Auto) 0.0 (0.0-0.2) K/uL Neutrophils % (Manual) 94 H (50-75) % Lymphocytes % (Manual) 3 L (20-40) % Monocytes % (Manual) 3 (0-10) % Platelet Estimate Normal (NORMAL) RBC Morphology Normal APTT (21-34) SECONDS Sodium (132-148) mmol/L Potassium (3.6-5.2) mmol/L Chloride (98-107) mmol/L Carbon Dioxide (22-30) mmol/L Anion Gap (10-20) BUN (9-20) mg/dL Creatinine (0.8-1.5) mg/dL Est GFR ( Amer) Est GFR (Non-Af Amer) POC Glucose (mg/dL) 155 H 153 H (65-110) mg/dL Random Glucose (75-110) mg/dL Hemoglobin A1c (4.2-6.5) % Calcium (8.6-10.4) mg/dl Phosphorus (2.5-4.5) mg/dL Magnesium (1.6-2.3) mg/dL Total Bilirubin (0.2-1.3) mg/dL AST (17-59) U/L ALT (21-72) U/L Alkaline Phosphatase (38-126) U/L Total Protein (6.3-8.3) g/dL Albumin (3.5-5.0) g/dL Globulin (2.2-3.9) gm/dL Albumin/Globulin Ratio (1.0-2.1) Triglycerides (0-149) mg/dL Cholesterol (0-199) mg/dL LDL Cholesterol Direct (0-129) mg/dL HDL Cholesterol (30-70) mg/dL 04/25/18 04/25/18 04/25/18 Range/Units 21:20 18:02 12:00 WBC (4.8-10.8) K/uL RBC (4.40-5.90) Mil/uL Hgb (12.0-18.0) g/dL Hct (35.0-51.0) % MCV (80.0-94.0) fL MCH (27.0-31.0) pg MCHC (33.0-37.0) g/dL RDW (11.5-14.5) % Plt Count (130-400) K/uL MPV (7.2-11.7) fL Neut % (Auto) (50.0-75.0) % Lymph % (Auto) (20.0-40.0) % [place] % (Auto) (0.0-10.0) % Eos % (Auto) (0.0-4.0) % Baso % (Auto) (0.0-2.0) % Neut # (Auto) (1.8-7.0) K/uL Lymph # (Auto) (1.0-4.3) K/uL [place] # (Auto) (0.0-0.8) K/uL Eos # (Auto) (0.0-0.7) K/uL Baso # (Auto) (0.0-0.2) K/uL Neutrophils % (Manual) (50-75) % Lymphocytes % (Manual) (20-40) % Monocytes % (Manual) (0-10) % Platelet Estimate (NORMAL) RBC Morphology APTT 55 H D 37 H D (21-34) SECONDS Sodium (132-148) mmol/L Potassium (3.6-5.2) mmol/L Chloride (98-107) mmol/L Carbon Dioxide (22-30) mmol/L Anion Gap (10-20) BUN (9-20) mg/dL Creatinine (0.8-1.5) mg/dL Est GFR ( Amer) Est GFR (Non-Af Amer) POC Glucose (mg/dL) 130 H (65-110) mg/dL Random Glucose (75-110) mg/dL Hemoglobin A1c (4.2-6.5) % Calcium (8.6-10.4) mg/dl Phosphorus (2.5-4.5) mg/dL Magnesium (1.6-2.3) mg/dL Total Bilirubin (0.2-1.3) mg/dL AST (17-59) U/L ALT (21-72) U/L Alkaline Phosphatase (38-126) U/L Total Protein (6.3-8.3) g/dL Albumin (3.5-5.0) g/dL Globulin (2.2-3.9) gm/dL Albumin/Globulin Ratio (1.0-2.1) Triglycerides (0-149) mg/dL Cholesterol (0-199) mg/dL LDL Cholesterol Direct (0-129) mg/dL HDL Cholesterol (30-70) mg/dL 04/25/18 04/25/18 04/25/18 Range/Units 11:20 07:13 01:15 WBC (4.8-10.8) K/uL RBC (4.40-5.90) Mil/uL Hgb (12.0-18.0) g/dL Hct (35.0-51.0) % MCV (80.0-94.0) fL MCH (27.0-31.0) pg MCHC (33.0-37.0) g/dL RDW (11.5-14.5) % Plt Count (130-400) K/uL MPV (7.2-11.7) fL Neut % (Auto) (50.0-75.0) % Lymph % (Auto) (20.0-40.0) % [place] % (Auto) (0.0-10.0) % Eos % (Auto) (0.0-4.0) % Baso % (Auto) (0.0-2.0) % Neut # (Auto) (1.8-7.0) K/uL Lymph # (Auto) (1.0-4.3) K/uL [place] # (Auto) (0.0-0.8) K/uL Eos # (Auto) (0.0-0.7) K/uL Baso # (Auto) (0.0-0.2) K/uL Neutrophils % (Manual) (50-75) % Lymphocytes % (Manual) (20-40) % Monocytes % (Manual) (0-10) % Platelet Estimate (NORMAL) RBC Morphology APTT (21-34) SECONDS Sodium (132-148) mmol/L Potassium (3.6-5.2) mmol/L Chloride (98-107) mmol/L Carbon Dioxide (22-30) mmol/L Anion Gap (10-20) BUN (9-20) mg/dL Creatinine (0.8-1.5) mg/dL Est GFR ( Amer) Est GFR (Non-Af Amer) POC Glucose (mg/dL) 143 H 287 H (65-110) mg/dL Random Glucose (75-110) mg/dL Hemoglobin A1c (4.2-6.5) % Calcium (8.6-10.4) mg/dl Phosphorus 3.9 (2.5-4.5) mg/dL Magnesium 1.9 (1.6-2.3) mg/dL Total Bilirubin (0.2-1.3) mg/dL AST (17-59) U/L ALT (21-72) U/L Alkaline Phosphatase (38-126) U/L Total Protein (6.3-8.3) g/dL Albumin (3.5-5.0) g/dL Globulin (2.2-3.9) gm/dL Albumin/Globulin Ratio (1.0-2.1) Triglycerides (0-149) mg/dL Cholesterol (0-199) mg/dL LDL Cholesterol Direct (0-129) mg/dL HDL Cholesterol (30-70) mg/dL Laboratory Results - last 24 hr 04/25/18 04/25/18 04/25/18 01:15 07:13 11:20 WBC RBC Hgb Hct MCV MCH MCHC RDW Plt Count MPV Neut % (Auto) Lymph % (Auto) [place] % (Auto) Eos % (Auto) Baso % (Auto) Neut # (Auto) Lymph # (Auto) [place] # (Auto) Eos # (Auto) Baso # (Auto) Neutrophils % (Manual) Lymphocytes % (Manual) Monocytes % (Manual) Platelet Estimate RBC Morphology APTT Sodium Potassium Chloride Carbon Dioxide Anion Gap BUN Creatinine Est GFR ( Amer) Est GFR (Non-Af Amer) POC Glucose (mg/dL) 287 H 143 H Random Glucose Hemoglobin A1c Calcium Phosphorus 3.9 Magnesium 1.9 Total Bilirubin AST ALT Alkaline Phosphatase Total Protein Albumin Globulin Albumin/Globulin Ratio Triglycerides Cholesterol LDL Cholesterol Direct HDL Cholesterol 04/25/18 04/25/18 04/25/18 12:00 18:02 21:20 WBC RBC Hgb Hct MCV MCH MCHC RDW Plt Count MPV Neut % (Auto) Lymph % (Auto) [place] % (Auto) Eos % (Auto) Baso % (Auto) Neut # (Auto) Lymph # (Auto) [place] # (Auto) Eos # (Auto) Baso # (Auto) Neutrophils % (Manual) Lymphocytes % (Manual) Monocytes % (Manual) Platelet Estimate RBC Morphology APTT 37 H D 55 H D Sodium Potassium Chloride Carbon Dioxide Anion Gap BUN Creatinine Est GFR ( Amer) Est GFR (Non-Af Amer) POC Glucose (mg/dL) 130 H Random Glucose Hemoglobin A1c Calcium Phosphorus Magnesium Total Bilirubin AST ALT Alkaline Phosphatase Total Protein Albumin Globulin Albumin/Globulin Ratio Triglycerides Cholesterol LDL Cholesterol Direct HDL Cholesterol 04/26/18 04/26/18 04/26/18 03:37 05:37 06:26 WBC 9.7 RBC 3.74 L Hgb 12.4 Hct 37.2 MCV 99.2 H MCH 33.1 H MCHC 33.4 RDW 14.5 Plt Count 258 MPV 8.7 Neut % (Auto) 92.2 H Lymph % (Auto) 4.2 L [place] % (Auto) 3.5 Eos % (Auto) 0.0 Baso % (Auto) 0.1 Neut # (Auto) 9.0 H Lymph # (Auto) 0.4 L [place] # (Auto) 0.3 Eos # (Auto) 0.0 Baso # (Auto) 0.0 Neutrophils % (Manual) 94 H Lymphocytes % (Manual) 3 L Monocytes % (Manual) 3 Platelet Estimate Normal RBC Morphology Normal APTT Sodium Potassium Chloride Carbon Dioxide Anion Gap BUN Creatinine Est GFR ( Amer) Est GFR (Non-Af Amer) POC Glucose (mg/dL) 153 H 155 H Random Glucose Hemoglobin A1c Calcium Phosphorus Magnesium Total Bilirubin AST ALT Alkaline Phosphatase Total Protein Albumin Globulin Albumin/Globulin Ratio Triglycerides Cholesterol LDL Cholesterol Direct HDL Cholesterol 04/26/18 04/26/18 04/26/18 06:26 06:26 06:26 WBC RBC Hgb Hct MCV MCH MCHC RDW Plt Count MPV Neut % (Auto) Lymph % (Auto) [place] % (Auto) Eos % (Auto) Baso % (Auto) Neut # (Auto) Lymph # (Auto) [place] # (Auto) Eos # (Auto) Baso # (Auto) Neutrophils % (Manual) Lymphocytes % (Manual) Monocytes % (Manual) Platelet Estimate RBC Morphology APTT 41 H D Sodium 138 Potassium 4.4 Chloride 106 Carbon Dioxide 27 Anion Gap 10 BUN 37 H Creatinine 1.3 Est GFR ( Amer) > 60 Est GFR (Non-Af Amer) 55 POC Glucose (mg/dL) Random Glucose 139 H Hemoglobin A1c 5.0 Calcium 8.9 Phosphorus 5.2 H Magnesium 2.2 Total Bilirubin 0.4 AST 18 ALT 25 Alkaline Phosphatase 74 Total Protein 6.7 Albumin 3.5 Globulin 3.2 Albumin/Globulin Ratio 1.1 Triglycerides 120 Cholesterol 138 LDL Cholesterol Direct 100 HDL Cholesterol 29 L Radiology Impressions: Radiology Impressions Chest X-Ray 04/25/18 01:23 IMPRESSION: ET tube and NG tube appropriately positioned. Multifocal bilateral pulmonary parenchymal opacity, nonspecific. No effusion or pneumothorax. Chest CT 04/25/18 11:00 Impression: There is inadequate opacification of the pulmonary arteries due to missed bolus of the intravenous contrast precluding evaluation for pulmonary embolus. Small bilateral pleural effusions and associated consolidations. Discoid atelectasis/scarring, right middle lobe. Abnormal heterogeneous mediastinal lymph node in the precarinal region measures approximately 2.5 cm in short axis. Additional incidental findings as above. Fingerstick Blood Sugar Results: 155 Assessment/Plan - Assessment and Plan (Free Text) Assessment: 68 y/o male with PMHx of DM2 s/p common hepatic duct injury on lap michael on 04/25 in [facility] here at [facility] for repair of the injury by laparascopic liver surgeon Dr. Bedoya. Patient hemodynamically stable in ICU, admitted pasting machine offbearer of 04/26. Neuro -AAOx3 -no acute issues CV -ASCVD: will restart home crestor 5 mg qhs and ASA 81 mg post-op -no acute issues Pulm -on 2L NC sat at >96% -maintain SpO2 > 92% -incentive spirometer GI -Documented on admission found w/ necrotic gangrenous cholecystitis w/ omentum adherent to gallbladder and intrabdominal abscess -To OR this afternoon for laparascopic repair of common hepatic duct injury by Dr. Bedoya -surgery team ordered HIDA scan. Completed this morning. Pending results. -type and cross and coags ordered -on 70 cc/h LR -on admission, elevated LFTs: AST 109 and ALT 84, continue to trend post-op -follow surgery recs Endo -Pt w/ DM2: hold home Victoza -lantus 10U qhs -accuchecks q6h -hypoglycemia protocol ID -patient w/o leukocytosis or fever -zosyn 3.375mg q6h started 04/26 at 6am DVT ppx: held GI ppx: protonix 40 mg IV daily [place] Robert PGY1
--- NOTE | 2018-04-26 09:28 | CP.PCM.PN ---
Subjective - Date & Time of Evaluation Date of Evaluation: 04/26/18 Time of Evaluation: 09:28 - Subjective Subjective: Progress note dictated #[id number] Objective - Vital Signs/Intake and Output Vital Signs (last 24 hours): Temp Pulse Resp BP Pulse Ox 98.1 F 65 5 L 125/74 99 04/26/18 08:00 04/26/18 08:14 04/26/18 08:14 04/26/18 08:14 04/26/18 08:14 Intake and Output: 04/26/18 04/26/18 06:59 18:59 Intake Total 820.7 445.4 Output Total 465 140 Balance 355.7 305.4 - Medications Medications: Current Medications Albuterol/Ipratropium (Duoneb 3 Mg/0.5 Mg (3 Ml) Ud) 3 ml INH RQ6 [facility] Last Admin: 04/26/18 08:31 Dose: 3 ml Aspirin (Ecotrin) 81 mg PO DAILY [facility] Calcium Acetate (Phoslo) 667 mg GT BIDCC [facility] Stop: 04/26/18 17:01 Last Admin: 04/26/18 08:14 Dose: 667 mg Clopidogrel Bisulfate (Plavix) 75 mg PO DAILY [facility] Last Admin: 04/25/18 09:19 Dose: 75 mg Dextrose (Dextrose 50% Inj) 0 ml IV STAT PRN; Protocol PRN Reason: Hypoglycemia Protocol Dextrose (Glutose 15) 0 gm PO ONCE PRN; Protocol PRN Reason: Hypoglycemia Protocol Folic Acid (Folic Acid) 1 mg PO DAILY [facility] Last Admin: 04/25/18 09:19 Dose: 1 mg Glucagon (Glucagen Diagnostic Kit) 0 mg IM STAT PRN; Protocol PRN Reason: Hypoglycemia Protocol Doxycycline Hyclate 100 mg/ (Sodium Chloride) 100 mls @ 100 mls/hr IVPB Q12H [facility]; Protocol Last Admin: 04/26/18 02:13 Dose: 100 mls/hr Ceftriaxone Sodium 1 gm/ (Sodium Chloride) 100 mls @ 100 mls/hr IVPB DAILY [facility]; Protocol Last Admin: 04/25/18 09:17 Dose: 100 mls/hr Dextrose (Dextrose 5% In Water 1000 Ml) 1,000 mls @ 0 mls/hr IV .Q0M PRN; Protocol PRN Reason: Hypoglycemia Protocol Heparin Sodium/Sodium Chloride (Heparin 63100 Units/250ml 1/2 Normal Saline) 25,000 units in 250 mls @ 9.373 mls/hr IV .Q24H PRN; Protocol PRN Reason: ADJUST RATE PER PROTOCOL Last Titration: 04/26/18 07:10 Dose: 16 units/kg/hr, 12.497 mls/hr Propofol (Diprivan) 1,000 mg in 100 mls @ 2.343 mls/hr IV .Q24H PRN; Protocol PRN Reason: TITRATE PER MD ORDER Last Titration: 04/26/18 08:00 Dose: 40 mcg/kg/min, 18.746 mls/hr Methylprednisolone (Solu-Medrol) 40 mg IVP Q12 [facility] Last Admin: 04/25/18 22:33 Dose: 40 mg Multivitamins (Hexavitamin) 1 tab PO DAILY [facility] Last Admin: 04/25/18 09:19 Dose: 1 tab Pantoprazole Sodium (Protonix Inj) 40 mg IVP DAILY [facility] Last Admin: 04/25/18 09:20 Dose: 40 mg Rosuvastatin Calcium (Crestor) 10 mg PO HS [facility] Last Admin: 04/25/18 22:33 Dose: 10 mg Thiamine HCl (Vitamin B1 Tab) 100 mg PO DAILY [facility] Last Admin: 04/25/18 09:19 Dose: 100 mg - Labs Labs: 04/26/18 06:26 04/26/18 06:26 PT 11.8 SECONDS (9.7-12.2) 04/25/18 01:35 INR 1.1 04/25/18 01:35 APTT 41 SECONDS (21-34) H D 04/26/18 06:26
[2018-04-26 09:36] LABS: ARTERIAL BLOOD GAS HCO3 23.4 mmol/L (21-28); ARTERIAL BLOOD GAS PCO2 51 mm/Hg (35-45); ARTERIAL BLOOD GAS PO2 250 mm/Hg (80-100)
[2018-04-26 09:37] LABS: ARTERIAL BLOOD GAS O2 SAT 99.6 % (95-98); ARTERIAL BLOOD GAS TCO2 26.7 mmol/L (22-28)
[2018-04-26 09:38] LABS: ABG ALLEN TEST POS
--- NOTE | 2018-04-26 11:36 | RAD ---
HISTORY: intubated COMPARISON: Chest x-ray performed 04/25/18, CTA chest performed 04/25/18 TECHNIQUE: Chest, one view. FINDINGS: Endotracheal tube likely terminates approximately 6.7 cm above the sarai however exact location cannot be assessed due to overlying nasogastric tube. Nasogastric tube extends expected location of the stomach. LUNGS: Mild right basilar atelectasis/infiltrate. Mild pulmonary venous congestion. PLEURA: No significant pleural effusion identified. No definite pneumothorax . CARDIOVASCULAR: Cardiomegaly. Atherosclerotic calcification present. OSSEOUS STRUCTURES: Degenerative changes of the spine. VISUALIZED UPPER ABDOMEN: Unremarkable. OTHER FINDINGS: None. IMPRESSION: Endotracheal tube and nasogastric tubes as above. Cardiomegaly. Mild right basilar atelectasis/infiltrate. Mild pulmonary venous congestion.
[2018-04-26] MEDS: Multiple Vitamins Tab PO SCH (11:53)
[2018-04-26] MEDS: MethylPREDNISolone 40 mg Vial IVP SCH ×2 (11:54→21:58)
--- NOTE | 2018-04-26 12:12 | CP.CCUPN ---
<India Robert - Last Filed: 04/26/18 12:14> CCU Subjective - Physician Review Subjective (Free Text): 04/26/18 09:04 ICU Progress Note for Dr. Rush Patient seen and examined at bedside this morning. Patient no longer sedated with propofol; drip was off at time of exam. He is able to be aroused with pain but not with voice. Due to patient condition ROS unable to be obtained. Per RN the policy is that the CTA r/o PE cannot be completed until 24 hours after the previous attempt, which was evening of 04/25. [employer] field technician unsure why despite our team proposing that it might be due to prevention of contrast induced nephropathy. 04/26/18 11:48 04/26/18 12:27 CCU Objective - Vital Signs / Intake & Output Vital Signs (Last 4 hours): Vital Signs Pulse Resp BP Pulse Ox 04/26/18 08:14 65 5 L 125/74 99 Intake and Output (Last 8hrs): Intake & Output 04/25/18 04/26/18 04/26/18 22:59 06:59 14:59 Intake Total 394.1 551.8 485.4 Output Total 315 310 140 Balance 79.1 241.8 345.4 Weight 172 lb Intake: IV 100 100 273 Intake, IV Amount 219.1 251.8 62.4 Right Hand 76.3 87.2 25.0 Right Proximal Port 142.8 164.6 37.4 Femoral Oral 0 0 Tube Feeding 75 200 50 Other 100 Output: Urine 315 310 140 Urethral (Mariscal) 315 310 140 Other: # Bowel Movements 0 0 0 - Physical Exam Physical Exam Limitations: Positive for: Other (Patient unarousable with voice but slightly arousable with sternal rub) Head: Positive for: Atraumatic, Normocephalic Respiratory/Chest: Positive for: Clear to Auscultation, Good Air Exchange. Negative for: Respiratory Distress, Accessory Muscle Use Cardiovascular: Positive for: Regular Rate and Rhythm Abdomen: Positive for: Normal Bowel Sounds. Negative for: Tenderness, Distention Upper Extremity: Positive for: Normal Inspection, NORMAL PULSES, Capillary Refill < 2s. Negative for: Cyanosis, Edema Lower Extremity: Positive for: Normal Inspection, NORMAL PULSES, Capillary Refill < 2 s. Negative for: Edema Skin: Positive for: Warm, Dry, Normal Color Psychiatric: Negative for: Alert - Medications Active Medications: Active Medications Generic Name Dose Route Start Last Admin Trade Name Freq PRN Reason Stop Dose Admin Albuterol/Ipratropium 3 ml 04/25/18 08:00 04/26/18 08:31 Duoneb 3 Mg/0.5 Mg (3 Ml) Ud INH 3 ml RQ6 LUCILA Administration Aspirin 81 mg 04/26/18 10:00 04/26/18 11:53 Ecotrin PO 81 mg DAILY LUCILA Administration Calcium Acetate 667 mg 04/26/18 08:00 04/26/18 08:14 Phoslo GT 04/26/18 17:01 667 mg BIDCC LUCILA Administration Clopidogrel Bisulfate 75 mg 04/25/18 10:00 04/26/18 11:54 Plavix PO 75 mg DAILY LUCILA Administration Dextrose 0 ml 04/25/18 07:33 Dextrose 50% Inj IV STAT PRN Hypoglycemia Protocol Protocol Dextrose 0 gm 04/25/18 07:33 Glutose 15 PO ONCE PRN Hypoglycemia Protocol Protocol Folic Acid 1 mg 04/25/18 10:00 04/26/18 11:53 Folic Acid PO 1 mg DAILY LUCILA Administration Glucagon 0 mg 04/25/18 07:33 Glucagen Diagnostic Kit IM STAT PRN Hypoglycemia Protocol Protocol Doxycycline Hyclate 100 mg/ 100 mls @ 100 mls/hr 04/25/18 02:30 04/26/18 02:13 Sodium Chloride IVPB 100 mls/hr Q12H LUCILA Administration Protocol Ceftriaxone Sodium 1 gm/ 100 mls @ 100 mls/hr 04/25/18 10:00 04/26/18 11:54 Sodium Chloride IVPB 100 mls/hr DAILY LUCILA Administration Protocol Dextrose 1,000 mls @ 0 mls/hr 04/25/18 07:33 Dextrose 5% In Water 1000 Ml IV .Q0M PRN Hypoglycemia Protocol Protocol Per Protocol Heparin Sodium/Sodium Chloride 25,000 units in 250 mls @ 9.373 mls/hr 04/25/18 14:33 04/26/18 07:10 Heparin 96335 Units/250ml 1/2 Normal Saline IV 16 units/kg/hr .Q24H PRN 12.497 mls/hr ADJUST RATE PER PROTOCOL Titration Protocol 12 UNITS/KG/HR Propofol 1,000 mg in 100 mls @ 2.343 mls/hr 04/25/18 16:20 04/26/18 10:05 Diprivan IV 30 mcg/kg/min .Q24H PRN 14.06 mls/hr TITRATE PER MD ORDER Titration Protocol 5 MCG/KG/MIN Methylprednisolone 40 mg 04/25/18 10:00 04/26/18 11:54 Solu-Medrol IVP 40 mg Q12 LUCILA Administration Multivitamins 1 tab 04/25/18 10:00 04/26/18 11:53 Hexavitamin PO 1 tab DAILY LUCILA Administration Pantoprazole Sodium 40 mg 04/25/18 10:00 04/26/18 11:54 Protonix Inj IVP 40 mg DAILY LUCILA Administration Rosuvastatin Calcium 10 mg 04/25/18 22:00 04/25/18 22:33 Crestor PO 10 mg HS LUCILA Administration Thiamine HCl 100 mg 04/25/18 10:00 04/26/18 11:55 Vitamin B1 Tab PO 100 mg DAILY LUCILA Administration - Patient Studies Lab Studies: Microbiology Studies 04/25/18 02:56 Blood Culture - Preliminary Blood NO GROWTH AFTER 24 HOURS 04/25/18 02:56 Blood Culture - Preliminary Blood NO GROWTH AFTER 24 HOURS Lab Studies 04/26/18 04/26/18 04/26/18 Range/Units 11:33 06:26 06:26 WBC (4.8-10.8) K/uL RBC (4.40-5.90) Mil/uL Hgb (12.0-18.0) g/dL Hct (35.0-51.0) % MCV (80.0-94.0) fL MCH (27.0-31.0) pg MCHC (33.0-37.0) g/dL RDW (11.5-14.5) % Plt Count (130-400) K/uL MPV (7.2-11.7) fL Neut % (Auto) (50.0-75.0) % Lymph % (Auto) (20.0-40.0) % Mckinley % (Auto) (0.0-10.0) % Eos % (Auto) (0.0-4.0) % Baso % (Auto) (0.0-2.0) % Neut # (Auto) (1.8-7.0) K/uL Lymph # (Auto) (1.0-4.3) K/uL Mckinley # (Auto) (0.0-0.8) K/uL Eos # (Auto) (0.0-0.7) K/uL Baso # (Auto) (0.0-0.2) K/uL Neutrophils % (Manual) (50-75) % Lymphocytes % (Manual) (20-40) % Monocytes % (Manual) (0-10) % Platelet Estimate (NORMAL) RBC Morphology APTT 41 H D (21-34) SECONDS Puncture Site pCO2 (35-45) mm/Hg pO2 (80-100) mm/Hg HCO3 (21-28) mmol/L ABG pH (7.35-7.45) ABG Total CO2 (22-28) mmol/L ABG O2 Saturation (95-98) % ABG Base Excess (-2.0-3.0) mmol/L Aly Test A-a O2 Difference mm/Hg Respiratory Index Vent Mode Mechanical Rate FiO2 % Tidal Volume PEEP Sodium (132-148) mmol/L Potassium (3.6-5.2) mmol/L Chloride (98-107) mmol/L Carbon Dioxide (22-30) mmol/L Anion Gap (10-20) BUN (9-20) mg/dL Creatinine (0.8-1.5) mg/dL Est GFR ( Amer) Est GFR (Non-Af Amer) POC Glucose (mg/dL) 123 H (65-110) mg/dL Random Glucose (75-110) mg/dL Hemoglobin A1c 5.0 (4.2-6.5) % Calcium (8.6-10.4) mg/dl Phosphorus (2.5-4.5) mg/dL Magnesium (1.6-2.3) mg/dL Total Bilirubin (0.2-1.3) mg/dL AST (17-59) U/L ALT (21-72) U/L Alkaline Phosphatase (38-126) U/L Total Protein (6.3-8.3) g/dL Albumin (3.5-5.0) g/dL Globulin (2.2-3.9) gm/dL Albumin/Globulin Ratio (1.0-2.1) Triglycerides (0-149) mg/dL Cholesterol (0-199) mg/dL LDL Cholesterol Direct (0-129) mg/dL HDL Cholesterol (30-70) mg/dL 01/03/19 01/03/19 01/03/19 Range/Units 06:26 06:26 05:37 WBC 9.7 (4.8-10.8) K/uL RBC 3.74 L (4.40-5.90) Mil/uL Hgb 12.4 (12.0-18.0) g/dL Hct 37.2 (35.0-51.0) % MCV 99.2 H (80.0-94.0) fL MCH 33.1 H (27.0-31.0) pg MCHC 33.4 (33.0-37.0) g/dL RDW 14.5 (11.5-14.5) % Plt Count 258 (130-400) K/uL MPV 8.7 (7.2-11.7) fL Neut % (Auto) 92.2 H (50.0-75.0) % Lymph % (Auto) 4.2 L (20.0-40.0) % Mckinley % (Auto) 3.5 (0.0-10.0) % Eos % (Auto) 0.0 (0.0-4.0) % Baso % (Auto) 0.1 (0.0-2.0) % Neut # (Auto) 9.0 H (1.8-7.0) K/uL Lymph # (Auto) 0.4 L (1.0-4.3) K/uL Mckinley # (Auto) 0.3 (0.0-0.8) K/uL Eos # (Auto) 0.0 (0.0-0.7) K/uL Baso # (Auto) 0.0 (0.0-0.2) K/uL Neutrophils % (Manual) 94 H (50-75) % Lymphocytes % (Manual) 3 L (20-40) % Monocytes % (Manual) 3 (0-10) % Platelet Estimate Normal (NORMAL) RBC Morphology Normal APTT (21-34) SECONDS Puncture Site pCO2 (35-45) mm/Hg pO2 (80-100) mm/Hg HCO3 (21-28) mmol/L ABG pH (7.35-7.45) ABG Total CO2 (22-28) mmol/L ABG O2 Saturation (95-98) % ABG Base Excess (-2.0-3.0) mmol/L Aly Test A-a O2 Difference mm/Hg Respiratory Index Vent Mode Mechanical Rate FiO2 % Tidal Volume PEEP Sodium 138 (132-148) mmol/L Potassium 4.4 (3.6-5.2) mmol/L Chloride 106 (98-107) mmol/L Carbon Dioxide 27 (22-30) mmol/L Anion Gap 10 (10-20) BUN 37 H (9-20) mg/dL Creatinine 1.3 (0.8-1.5) mg/dL Est GFR ( Amer) > 60 Est GFR (Non-Af Amer) 55 POC Glucose (mg/dL) 155 H (65-110) mg/dL Random Glucose 139 H (75-110) mg/dL Hemoglobin A1c (4.2-6.5) % Calcium 8.9 (8.6-10.4) mg/dl Phosphorus 5.2 H (2.5-4.5) mg/dL Magnesium 2.2 (1.6-2.3) mg/dL Total Bilirubin 0.4 (0.2-1.3) mg/dL AST 18 (17-59) U/L ALT 25 (21-72) U/L Alkaline Phosphatase 74 (38-126) U/L Total Protein 6.7 (6.3-8.3) g/dL Albumin 3.5 (3.5-5.0) g/dL Globulin 3.2 (2.2-3.9) gm/dL Albumin/Globulin Ratio 1.1 (1.0-2.1) Triglycerides 120 (0-149) mg/dL Cholesterol 138 (0-199) mg/dL LDL Cholesterol Direct 100 (0-129) mg/dL HDL Cholesterol 29 L (30-70) mg/dL 04/26/18 04/26/18 04/25/18 Range/Units 04:25 03:37 21:20 WBC (4.8-10.8) K/uL RBC (4.40-5.90) Mil/uL Hgb (12.0-18.0) g/dL Hct (35.0-51.0) % MCV (80.0-94.0) fL MCH (27.0-31.0) pg MCHC (33.0-37.0) g/dL RDW (11.5-14.5) % Plt Count (130-400) K/uL MPV (7.2-11.7) fL Neut % (Auto) (50.0-75.0) % Lymph % (Auto) (20.0-40.0) % Mckinley % (Auto) (0.0-10.0) % Eos % (Auto) (0.0-4.0) % Baso % (Auto) (0.0-2.0) % Neut # (Auto) (1.8-7.0) K/uL Lymph # (Auto) (1.0-4.3) K/uL Mckinley # (Auto) (0.0-0.8) K/uL Eos # (Auto) (0.0-0.7) K/uL Baso # (Auto) (0.0-0.2) K/uL Neutrophils % (Manual) (50-75) % Lymphocytes % (Manual) (20-40) % Monocytes % (Manual) (0-10) % Platelet Estimate (NORMAL) RBC Morphology APTT 55 H D (21-34) SECONDS Puncture Site Rr pCO2 51 H (35-45) mm/Hg pO2 250 H (80-100) mm/Hg HCO3 23.4 (21-28) mmol/L ABG pH 7.30 L (7.35-7.45) ABG Total CO2 26.7 (22-28) mmol/L ABG O2 Saturation 99.6 H (95-98) % ABG Base Excess -2.0 (-2.0-3.0) mmol/L Aly Test Pos A-a O2 Difference 114.0 mm/Hg Respiratory Index 0.5 Vent Mode Prvc Mechanical Rate 14 FiO2 60.0 % Tidal Volume 450 PEEP 5 Sodium (132-148) mmol/L Potassium (3.6-5.2) mmol/L Chloride (98-107) mmol/L Carbon Dioxide (22-30) mmol/L Anion Gap (10-20) BUN (9-20) mg/dL Creatinine (0.8-1.5) mg/dL Est GFR ( Amer) Est GFR (Non-Af Amer) POC Glucose (mg/dL) 153 H (65-110) mg/dL Random Glucose (75-110) mg/dL Hemoglobin A1c (4.2-6.5) % Calcium (8.6-10.4) mg/dl Phosphorus (2.5-4.5) mg/dL Magnesium (1.6-2.3) mg/dL Total Bilirubin (0.2-1.3) mg/dL AST (17-59) U/L ALT (21-72) U/L Alkaline Phosphatase (38-126) U/L Total Protein (6.3-8.3) g/dL Albumin (3.5-5.0) g/dL Globulin (2.2-3.9) gm/dL Albumin/Globulin Ratio (1.0-2.1) Triglycerides (0-149) mg/dL Cholesterol (0-199) mg/dL LDL Cholesterol Direct (0-129) mg/dL HDL Cholesterol (30-70) mg/dL 04/25/18 04/25/18 04/25/18 Range/Units 18:02 12:00 11:20 WBC (4.8-10.8) K/uL RBC (4.40-5.90) Mil/uL Hgb (12.0-18.0) g/dL Hct (35.0-51.0) % MCV (80.0-94.0) fL MCH (27.0-31.0) pg MCHC (33.0-37.0) g/dL RDW (11.5-14.5) % Plt Count (130-400) K/uL MPV (7.2-11.7) fL Neut % (Auto) (50.0-75.0) % Lymph % (Auto) (20.0-40.0) % Mckinley % (Auto) (0.0-10.0) % Eos % (Auto) (0.0-4.0) % Baso % (Auto) (0.0-2.0) % Neut # (Auto) (1.8-7.0) K/uL Lymph # (Auto) (1.0-4.3) K/uL Mckinley # (Auto) (0.0-0.8) K/uL Eos # (Auto) (0.0-0.7) K/uL Baso # (Auto) (0.0-0.2) K/uL Neutrophils % (Manual) (50-75) % Lymphocytes % (Manual) (20-40) % Monocytes % (Manual) (0-10) % Platelet Estimate (NORMAL) RBC Morphology APTT 37 H D (21-34) SECONDS Puncture Site pCO2 (35-45) mm/Hg pO2 (80-100) mm/Hg HCO3 (21-28) mmol/L ABG pH (7.35-7.45) ABG Total CO2 (22-28) mmol/L ABG O2 Saturation (95-98) % ABG Base Excess (-2.0-3.0) mmol/L Aly Test A-a O2 Difference mm/Hg Respiratory Index Vent Mode Mechanical Rate FiO2 % Tidal Volume PEEP Sodium (132-148) mmol/L Potassium (3.6-5.2) mmol/L Chloride (98-107) mmol/L Carbon Dioxide (22-30) mmol/L Anion Gap (10-20) BUN (9-20) mg/dL Creatinine (0.8-1.5) mg/dL Est GFR ( Amer) Est GFR (Non-Af Amer) POC Glucose (mg/dL) 130 H 143 H (65-110) mg/dL Random Glucose (75-110) mg/dL Hemoglobin A1c (4.2-6.5) % Calcium (8.6-10.4) mg/dl Phosphorus (2.5-4.5) mg/dL Magnesium (1.6-2.3) mg/dL Total Bilirubin (0.2-1.3) mg/dL AST (17-59) U/L ALT (21-72) U/L Alkaline Phosphatase (38-126) U/L Total Protein (6.3-8.3) g/dL Albumin (3.5-5.0) g/dL Globulin (2.2-3.9) gm/dL Albumin/Globulin Ratio (1.0-2.1) Triglycerides (0-149) mg/dL Cholesterol (0-199) mg/dL LDL Cholesterol Direct (0-129) mg/dL HDL Cholesterol (30-70) mg/dL Laboratory Results - last 24 hr 04/25/18 04/25/18 04/25/18 11:20 12:00 18:02 WBC RBC Hgb Hct MCV MCH MCHC RDW Plt Count MPV Neut % (Auto) Lymph % (Auto) Mckinley % (Auto) Eos % (Auto) Baso % (Auto) Neut # (Auto) Lymph # (Auto) Mckinley # (Auto) Eos # (Auto) Baso # (Auto) Neutrophils % (Manual) Lymphocytes % (Manual) Monocytes % (Manual) Platelet Estimate RBC Morphology APTT 37 H D Puncture Site pCO2 pO2 HCO3 ABG pH ABG Total CO2 ABG O2 Saturation ABG Base Excess Aly Test A-a O2 Difference Respiratory Index Vent Mode Mechanical Rate FiO2 Tidal Volume PEEP Sodium Potassium Chloride Carbon Dioxide Anion Gap BUN Creatinine Est GFR ( Amer) Est GFR (Non-Af Amer) POC Glucose (mg/dL) 143 H 130 H Random Glucose Hemoglobin A1c Calcium Phosphorus Magnesium Total Bilirubin AST ALT Alkaline Phosphatase Total Protein Albumin Globulin Albumin/Globulin Ratio Triglycerides Cholesterol LDL Cholesterol Direct HDL Cholesterol 04/25/18 04/26/18 04/26/18 21:20 03:37 04:25 WBC RBC Hgb Hct MCV MCH MCHC RDW Plt Count MPV Neut % (Auto) Lymph % (Auto) Mckinley % (Auto) Eos % (Auto) Baso % (Auto) Neut # (Auto) Lymph # (Auto) Mckinley # (Auto) Eos # (Auto) Baso # (Auto) Neutrophils % (Manual) Lymphocytes % (Manual) Monocytes % (Manual) Platelet Estimate RBC Morphology APTT 55 H D Puncture Site Rr pCO2 51 H pO2 250 H HCO3 23.4 ABG pH 7.30 L ABG Total CO2 26.7 ABG O2 Saturation 99.6 H ABG Base Excess -2.0 Aly Test Pos A-a O2 Difference 114.0 Respiratory Index 0.5 Vent Mode Prvc Mechanical Rate 14 FiO2 60.0 Tidal Volume 450 PEEP 5 Sodium Potassium Chloride Carbon Dioxide Anion Gap BUN Creatinine Est GFR ( Amer) Est GFR (Non-Af Amer) POC Glucose (mg/dL) 153 H Random Glucose Hemoglobin A1c Calcium Phosphorus Magnesium Total Bilirubin AST ALT Alkaline Phosphatase Total Protein Albumin Globulin Albumin/Globulin Ratio Triglycerides Cholesterol LDL Cholesterol Direct HDL Cholesterol 04/26/18 04/26/18 04/26/18 05:37 06:26 06:26 WBC 9.7 RBC 3.74 L Hgb 12.4 Hct 37.2 MCV 99.2 H MCH 33.1 H MCHC 33.4 RDW 14.5 Plt Count 258 MPV 8.7 Neut % (Auto) 92.2 H Lymph % (Auto) 4.2 L Mckinley % (Auto) 3.5 Eos % (Auto) 0.0 Baso % (Auto) 0.1 Neut # (Auto) 9.0 H Lymph # (Auto) 0.4 L Mckinley # (Auto) 0.3 Eos # (Auto) 0.0 Baso # (Auto) 0.0 Neutrophils % (Manual) 94 H Lymphocytes % (Manual) 3 L Monocytes % (Manual) 3 Platelet Estimate Normal RBC Morphology Normal APTT Puncture Site pCO2 pO2 HCO3 ABG pH ABG Total CO2 ABG O2 Saturation ABG Base Excess Aly Test A-a O2 Difference Respiratory Index Vent Mode Mechanical Rate FiO2 Tidal Volume PEEP Sodium 138 Potassium 4.4 Chloride 106 Carbon Dioxide 27 Anion Gap 10 BUN 37 H Creatinine 1.3 Est GFR ( Amer) > 60 Est GFR (Non-Af Amer) 55 POC Glucose (mg/dL) 155 H Random Glucose 139 H Hemoglobin A1c Calcium 8.9 Phosphorus 5.2 H Magnesium 2.2 Total Bilirubin 0.4 AST 18 ALT 25 Alkaline Phosphatase 74 Total Protein 6.7 Albumin 3.5 Globulin 3.2 Albumin/Globulin Ratio 1.1 Triglycerides 120 Cholesterol 138 LDL Cholesterol Direct 100 HDL Cholesterol 29 L 04/26/18 04/26/18 04/26/18 06:26 06:26 11:33 WBC RBC Hgb Hct MCV MCH MCHC RDW Plt Count MPV Neut % (Auto) Lymph % (Auto) Mckinley % (Auto) Eos % (Auto) Baso % (Auto) Neut # (Auto) Lymph # (Auto) Mckinley # (Auto) Eos # (Auto) Baso # (Auto) Neutrophils % (Manual) Lymphocytes % (Manual) Monocytes % (Manual) Platelet Estimate RBC Morphology APTT 41 H D Puncture Site pCO2 pO2 HCO3 ABG pH ABG Total CO2 ABG O2 Saturation ABG Base Excess Aly Test A-a O2 Difference Respiratory Index Vent Mode Mechanical Rate FiO2 Tidal Volume PEEP Sodium Potassium Chloride Carbon Dioxide Anion Gap BUN Creatinine Est GFR ( Amer) Est GFR (Non-Af Amer) POC Glucose (mg/dL) 123 H Random Glucose Hemoglobin A1c 5.0 Calcium Phosphorus Magnesium Total Bilirubin AST ALT Alkaline Phosphatase Total Protein Albumin Globulin Albumin/Globulin Ratio Triglycerides Cholesterol LDL Cholesterol Direct HDL Cholesterol Radiology Impressions: Radiology Impressions Chest CT 04/25/18 11:00 Impression: There is inadequate opacification of the pulmonary arteries due to missed bolus of the intravenous contrast precluding evaluation for pulmonary embolus. Small bilateral pleural effusions and associated consolidations. Discoid atelectasis/scarring, right middle lobe. Abnormal heterogeneous mediastinal lymph node in the precarinal region measures approximately 2.5 cm in short axis. Additional incidental findings as above. Chest X-Ray 04/26/18 04:00 IMPRESSION: Endotracheal tube and nasogastric tubes as above. Cardiomegaly. Mild right basilar atelectasis/infiltrate. Mild pulmonary venous congestion. EKG/Cardiology Studies: Cardiology / EKG Studies 04/26/18 09:53 EKG [ELECTROCARDIOGRAM] Stat Comment: Mode Of Transportation: Reason For Exam: qtc Fingerstick Blood Sugar Results: 155 Assessment/Plan - Assessment and Plan (Free Text) Assessment: 68 y/o male with PMHx COPD, CAD, CHF, DM, HTN, EtOH and tob abuse admitted to ICU 04/25 due to resp distress at home. Intubated in the ER. Stabilized and brought to ICU. neuro -not awake or alert -intubated, sedated -sedated on propofol -monitor mental status after decreasing propofol Pulm -w/ COPD, CHF -on doxy started 04/25 and ceftriaxone also started 04/25 -on solumedrol 40 mg IV q12h and albuterol q6h -continue with these medications and caution w/ abx susceptible to QT prolongation -PRVC: 14/60%/450/5 with O2 sat 100% -plan for extubation after CTA and cardiac cath completed CV -PMHx of CAD and CHF. Coronary angio 2013 w/ 3 vessel disease (LAD 60%, Lcx 30%, RCA 30%). ECHO 04/25: EF 40-45% grade 2 diastolic dysfunction, mild pHTN. LV hypokinesis. -On admission, patient with pos trops x 2 and new LBBB, d-dimer 1532, and pro BNP 5620 -on therapeutic cardiac heparin drip, crestor 10 mg qhs, ASA and plavix. s/p loading dose in ER. -Dr. Carrillo to cardiac cath, however will need to get CTA r/o PE beforehand. -venous doppler negative 04/25 -CTA r/o PE to be completed tonight 04/26 -check for PTT at 1pm 04/26; patient not yet at target level -Dr. Carrillo, cardio, following. Appreciate recs. GI -due to EtOH hx, patient on folate, MVI and thiamine -TBili and LFTs wnl -no acute issues Renal -pt with BUN mildly elevated at 37, Cr wnl 1.3 -continue to monitor CMP qAM ID -see "pulm" -pending viral and bacterial tests: legionella, mycoplasma, echovirus, RSV DVT ppx: SCDs GI ppx: protonix 40 mg IV daily Diet: pulmocort tube feed case discussed w/ Dr. Adri Robert PGY1 <Jose Guadalupe Rush M - Last Filed: 04/26/18 17:02> CCU Objective - Vital Signs / Intake & Output Vital Signs (Last 4 hours): Vital Signs Temp Pulse Resp BP Pulse Ox 04/26/18 16:00 97.9 F 70 10 L 94 L 04/26/18 15:14 70 14 137/75 95 04/26/18 15:00 78 16 93 L 04/26/18 14:15 76 18 151/93 H 91 L 04/26/18 14:00 67 9 L 96 04/26/18 13:14 61 12 122/72 97 Intake and Output (Last 8hrs): Intake & Output 04/26/18 04/26/18 04/26/18 06:59 14:59 22:59 Intake Total 551.8 1043.5 25.0 Output Total 310 690 170 Balance 241.8 353.5 -145.0 Weight 172 lb Intake: IV 100 400 Intake, IV Amount 251.8 393.5 25.0 Right Hand 87.2 100.0 25.0 Right Medial Port Femoral 200 Right Proximal Port 164.6 93.5 0 Femoral Oral 0 Tube Feeding 200 150 0 Other 100 Output: Urine 310 690 170 Urethral (Mariscal) 310 690 170 Urine, Voided 0 Other: # Bowel Movements 0 0 0 - Medications Active Medications: Active Medications Generic Name Dose Route Start Last Admin Trade Name Freq PRN Reason Stop Dose Admin Albuterol/Ipratropium 3 ml 04/25/18 08:00 04/26/18 08:31 Duoneb 3 Mg/0.5 Mg (3 Ml) Ud INH 3 ml RQ6 LUCILA Administration Aspirin 81 mg 04/26/18 10:00 04/26/18 11:53 Ecotrin PO 81 mg DAILY LUCILA Administration Clopidogrel Bisulfate 75 mg 04/25/18 10:00 04/26/18 11:54 Plavix PO 75 mg DAILY LUCILA Administration Dextrose 0 ml 04/25/18 07:33 Dextrose 50% Inj IV STAT PRN Hypoglycemia Protocol Protocol Dextrose 0 gm 04/25/18 07:33 Glutose 15 PO ONCE PRN Hypoglycemia Protocol Protocol Folic Acid 1 mg 04/25/18 10:00 04/26/18 11:53 Folic Acid PO 1 mg DAILY LUCILA Administration Glucagon 0 mg 04/25/18 07:33 Glucagen Diagnostic Kit IM STAT PRN Hypoglycemia Protocol Protocol Doxycycline Hyclate 100 mg/ 100 mls @ 100 mls/hr 04/25/18 02:30 04/26/18 14:17 Sodium Chloride IVPB 100 mls/hr Q12H LUCILA Administration Protocol Ceftriaxone Sodium 1 gm/ 100 mls @ 100 mls/hr 04/25/18 10:00 04/26/18 11:54 Sodium Chloride IVPB 100 mls/hr DAILY LUCILA Administration Protocol Dextrose 1,000 mls @ 0 mls/hr 04/25/18 07:33 Dextrose 5% In Water 1000 Ml IV .Q0M PRN Hypoglycemia Protocol Protocol Per Protocol Heparin Sodium/Sodium Chloride 25,000 units in 250 mls @ 9.373 mls/hr 04/25/18 14:33 04/26/18 14:08 Heparin 73708 Units/250ml 1/2 Normal Saline IV 16 units/kg/hr .Q24H PRN 12.497 mls/hr ADJUST RATE PER PROTOCOL Administration Protocol 12 UNITS/KG/HR Propofol 1,000 mg in 100 mls @ 2.343 mls/hr 04/25/18 16:20 04/26/18 13:00 Diprivan IV 0 mcg/kg/min .Q24H PRN 0 mls/hr TITRATE PER MD ORDER Titration Protocol 5 MCG/KG/MIN Methylprednisolone 40 mg 04/25/18 10:00 04/26/18 11:54 Solu-Medrol IVP 40 mg Q12 LUCILA Administration Multivitamins 1 tab 04/25/18 10:00 04/26/18 11:53 Hexavitamin PO 1 tab DAILY LUCILA Administration Ondansetron HCl 4 mg 04/26/18 16:00 Zofran Inj IVP DAILY@ONCE PRN Nausea/Vomiting Pantoprazole Sodium 40 mg 04/25/18 10:00 04/26/18 11:54 Protonix Inj IVP 40 mg DAILY LUCILA Administration Rosuvastatin Calcium 10 mg 04/25/18 22:00 04/25/18 22:33 Crestor PO 10 mg HS LUCILA Administration Thiamine HCl 100 mg 04/25/18 10:00 04/26/18 11:55 Vitamin B1 Tab PO 100 mg DAILY LUCILA Administration - Patient Studies Lab Studies: Microbiology Studies 04/25/18 02:56 Blood Culture - Preliminary Blood NO GROWTH AFTER 24 HOURS 04/25/18 02:56 Blood Culture - Preliminary Blood NO GROWTH AFTER 24 HOURS Lab Studies 04/26/18 04/26/18 04/26/18 Range/Units 16:03 15:35 13:54 WBC (4.8-10.8) K/uL RBC (4.40-5.90) Mil/uL Hgb (12.0-18.0) g/dL Hct (35.0-51.0) % MCV (80.0-94.0) fL MCH (27.0-31.0) pg MCHC (33.0-37.0) g/dL RDW (11.5-14.5) % Plt Count (130-400) K/uL MPV (7.2-11.7) fL Neut % (Auto) (50.0-75.0) % Lymph % (Auto) (20.0-40.0) % Mckinley % (Auto) (0.0-10.0) % Eos % (Auto) (0.0-4.0) % Baso % (Auto) (0.0-2.0) % Neut # (Auto) (1.8-7.0) K/uL Lymph # (Auto) (1.0-4.3) K/uL Mckinley # (Auto) (0.0-0.8) K/uL Eos # (Auto) (0.0-0.7) K/uL Baso # (Auto) (0.0-0.2) K/uL Neutrophils % (Manual) (50-75) % Lymphocytes % (Manual) (20-40) % Monocytes % (Manual) (0-10) % Platelet Estimate (NORMAL) RBC Morphology APTT (21-34) SECONDS Puncture Site Lf pCO2 40 (35-45) mm/Hg pO2 79 L (80-100) mm/Hg HCO3 22.8 (21-28) mmol/L ABG pH 7.36 (7.35-7.45) ABG Total CO2 23.8 (22-28) mmol/L ABG O2 Saturation 97.3 (95-98) % ABG Base Excess -2.7 L (-2.0-3.0) mmol/L Aly Test Na ABG Potassium 3.4 L (3.6-5.2) mmol/L A-a O2 Difference 121.0 mm/Hg Respiratory Index 1.5 Glucose 90 (75-110) mg/dl Lactate 0.9 (0.7-2.1) mmol/L Vent Mode Cpap Mechanical Rate FiO2 35.0 % Tidal Volume PEEP 5 CPAP 15 Sodium 146.0 (132-148) mmol/L Potassium (3.6-5.2) mmol/L Chloride 117.0 H (98-107) mmol/L Carbon Dioxide (22-30) mmol/L Anion Gap (10-20) BUN (9-20) mg/dL Creatinine (0.8-1.5) mg/dL Est GFR ( Amer) Est GFR (Non-Af Amer) POC Glucose (mg/dL) 117 H (65-110) mg/dL Random Glucose (75-110) mg/dL Hemoglobin A1c (4.2-6.5) % Calcium (8.6-10.4) mg/dl Phosphorus (2.5-4.5) mg/dL Magnesium (1.6-2.3) mg/dL Total Bilirubin (0.2-1.3) mg/dL AST (17-59) U/L ALT (21-72) U/L Alkaline Phosphatase (38-126) U/L Total Protein (6.3-8.3) g/dL Albumin (3.5-5.0) g/dL Globulin (2.2-3.9) gm/dL Albumin/Globulin Ratio (1.0-2.1) Triglycerides (0-149) mg/dL Cholesterol (0-199) mg/dL LDL Cholesterol Direct (0-129) mg/dL HDL Cholesterol (30-70) mg/dL Arterial Blood Potassium 3.4 L (3.6-5.2) mmol/L H.influenzae Type B Ag (NEGATIVE) Ur L.pneumophila Ag (NEGATIVE) Mycoplasma pneumon IgM (NEGATIVE) N.meningitidis ACY/W135 (NEGATIVE) N.meningi B/E.coli K1 Ag (NEGATIVE) RSV Antigen Negative (NEGATIVE) Group B Strep Antigen (NEGATIVE) S. pneumoniae Antigen (NEGATIVE) 04/26/18 04/26/18 04/26/18 Range/Units 13:30 13:30 11:33 WBC (4.8-10.8) K/uL RBC (4.40-5.90) Mil/uL Hgb (12.0-18.0) g/dL Hct (35.0-51.0) % MCV (80.0-94.0) fL MCH (27.0-31.0) pg MCHC (33.0-37.0) g/dL RDW (11.5-14.5) % Plt Count (130-400) K/uL MPV (7.2-11.7) fL Neut % (Auto) (50.0-75.0) % Lymph % (Auto) (20.0-40.0) % Mckinley % (Auto) (0.0-10.0) % Eos % (Auto) (0.0-4.0) % Baso % (Auto) (0.0-2.0) % Neut # (Auto) (1.8-7.0) K/uL Lymph # (Auto) (1.0-4.3) K/uL Mckinley # (Auto) (0.0-0.8) K/uL Eos # (Auto) (0.0-0.7) K/uL Baso # (Auto) (0.0-0.2) K/uL Neutrophils % (Manual) (50-75) % Lymphocytes % (Manual) (20-40) % Monocytes % (Manual) (0-10) % Platelet Estimate (NORMAL) RBC Morphology APTT 51 H D (21-34) SECONDS Puncture Site pCO2 (35-45) mm/Hg pO2 (80-100) mm/Hg HCO3 (21-28) mmol/L ABG pH (7.35-7.45) ABG Total CO2 (22-28) mmol/L ABG O2 Saturation (95-98) % ABG Base Excess (-2.0-3.0) mmol/L Aly Test ABG Potassium (3.6-5.2) mmol/L A-a O2 Difference mm/Hg Respiratory Index Glucose (75-110) mg/dl Lactate (0.7-2.1) mmol/L Vent Mode Mechanical Rate FiO2 % Tidal Volume PEEP CPAP Sodium (132-148) mmol/L Potassium (3.6-5.2) mmol/L Chloride (98-107) mmol/L Carbon Dioxide (22-30) mmol/L Anion Gap (10-20) BUN (9-20) mg/dL Creatinine (0.8-1.5) mg/dL Est GFR ( Amer) Est GFR (Non-Af Amer) POC Glucose (mg/dL) 123 H (65-110) mg/dL Random Glucose (75-110) mg/dL Hemoglobin A1c (4.2-6.5) % Calcium (8.6-10.4) mg/dl Phosphorus (2.5-4.5) mg/dL Magnesium (1.6-2.3) mg/dL Total Bilirubin (0.2-1.3) mg/dL AST (17-59) U/L ALT (21-72) U/L Alkaline Phosphatase (38-126) U/L Total Protein (6.3-8.3) g/dL Albumin (3.5-5.0) g/dL Globulin (2.2-3.9) gm/dL Albumin/Globulin Ratio (1.0-2.1) Triglycerides (0-149) mg/dL Cholesterol (0-199) mg/dL LDL Cholesterol Direct (0-129) mg/dL HDL Cholesterol (30-70) mg/dL Arterial Blood Potassium (3.6-5.2) mmol/L H.influenzae Type B Ag Not required (NEGATIVE) Ur L.pneumophila Ag (NEGATIVE) Mycoplasma pneumon IgM Negative (NEGATIVE) N.meningitidis ACY/W135 Not required (NEGATIVE) N.meningi B/E.coli K1 Ag Not required (NEGATIVE) RSV Antigen (NEGATIVE) Group B Strep Antigen Not required (NEGATIVE) S. pneumoniae Antigen Negative (NEGATIVE) 04/26/18 04/26/18 04/26/18 Range/Units 10:02 06:26 06:26 WBC (4.8-10.8) K/uL RBC (4.40-5.90) Mil/uL Hgb (12.0-18.0) g/dL Hct (35.0-51.0) % MCV (80.0-94.0) fL MCH (27.0-31.0) pg MCHC (33.0-37.0) g/dL RDW (11.5-14.5) % Plt Count (130-400) K/uL MPV (7.2-11.7) fL Neut % (Auto) (50.0-75.0) % Lymph % (Auto) (20.0-40.0) % Mckinley % (Auto) (0.0-10.0) % Eos % (Auto) (0.0-4.0) % Baso % (Auto) (0.0-2.0) % Neut # (Auto) (1.8-7.0) K/uL Lymph # (Auto) (1.0-4.3) K/uL Mck[place] # (Auto) (0.0-0.8) K/uL Eos # (Auto) (0.0-0.7) K/uL Baso # (Auto) (0.0-0.2) K/uL Neutrophils % (Manual) (50-75) % Lymphocytes % (Manual) (20-40) % Monocytes % (Manual) (0-10) % Platelet Estimate (NORMAL) RBC Morphology APTT 41 H D (21-34) SECONDS Puncture Site pCO2 (35-45) mm/Hg pO2 (80-100) mm/Hg HCO3 (21-28) mmol/L ABG pH (7.35-7.45) ABG Total CO2 (22-28) mmol/L ABG O2 Saturation (95-98) % ABG Base Excess (-2.0-3.0) mmol/L Aly Test ABG Potassium (3.6-5.2) mmol/L A-a O2 Difference mm/Hg Respiratory Index Glucose (75-110) mg/dl Lactate (0.7-2.1) mmol/L Vent Mode Mechanical Rate FiO2 % Tidal Volume PEEP CPAP Sodium (132-148) mmol/L Potassium (3.6-5.2) mmol/L Chloride (98-107) mmol/L Carbon Dioxide (22-30) mmol/L Anion Gap (10-20) BUN (9-20) mg/dL Creatinine (0.8-1.5) mg/dL Est GFR ( Amer) Est GFR (Non-Af Amer) POC Glucose (mg/dL) (65-110) mg/dL Random Glucose (75-110) mg/dL Hemoglobin A1c 5.0 (4.2-6.5) % Calcium (8.6-10.4) mg/dl Phosphorus (2.5-4.5) mg/dL Magnesium (1.6-2.3) mg/dL Total Bilirubin (0.2-1.3) mg/dL AST (17-59) U/L ALT (21-72) U/L Alkaline Phosphatase (38-126) U/L Total Protein (6.3-8.3) g/dL Albumin (3.5-5.0) g/dL Globulin (2.2-3.9) gm/dL Albumin/Globulin Ratio (1.0-2.1) Triglycerides (0-149) mg/dL Cholesterol (0-199) mg/dL LDL Cholesterol Direct (0-129) mg/dL HDL Cholesterol (30-70) mg/dL Arterial Blood Potassium (3.6-5.2) mmol/L H.influenzae Type B Ag (NEGATIVE) Ur L.pneumophila Ag Negative (NEGATIVE) Mycoplasma pneumon IgM (NEGATIVE) N.meningitidis ACY/W135 (NEGATIVE) N.meningi B/E.coli K1 Ag (NEGATIVE) RSV Antigen (NEGATIVE) Group B Strep Antigen (NEGATIVE) S. pneumoniae Antigen (NEGATIVE) 04/26/18 04/26/18 04/26/18 Range/Units 06:26 06:26 05:37 WBC 9.7 (4.8-10.8) K/uL RBC 3.74 L (4.40-5.90) Mil/uL Hgb 12.4 (12.0-18.0) g/dL Hct 37.2 (35.0-51.0) % MCV 99.2 H (80.0-94.0) fL MCH 33.1 H (27.0-31.0) pg MCHC 33.4 (33.0-37.0) g/dL RDW 14.5 (11.5-14.5) % Plt Count 258 (130-400) K/uL MPV 8.7 (7.2-11.7) fL Neut % (Auto) 92.2 H (50.0-75.0) % Lymph % (Auto) 4.2 L (20.0-40.0) % Mckinley % (Auto) 3.5 (0.0-10.0) % Eos % (Auto) 0.0 (0.0-4.0) % Baso % (Auto) 0.1 (0.0-2.0) % Neut # (Auto) 9.0 H (1.8-7.0) K/uL Lymph # (Auto) 0.4 L (1.0-4.3) K/uL Mck[place]ley # (Auto) 0.3 (0.0-0.8) K/uL Eos # (Auto) 0.0 (0.0-0.7) K/uL Baso # (Auto) 0.0 (0.0-0.2) K/uL Neutrophils % (Manual) 94 H (50-75) % Lymphocytes % (Manual) 3 L (20-40) % Monocytes % (Manual) 3 (0-10) % Platelet Estimate Normal (NORMAL) RBC Morphology Normal APTT (21-34) SECONDS Puncture Site pCO2 (35-45) mm/Hg pO2 (80-100) mm/Hg HCO3 (21-28) mmol/L ABG pH (7.35-7.45) ABG Total CO2 (22-28) mmol/L ABG O2 Saturation (95-98) % ABG Base Excess (-2.0-3.0) mmol/L Aly Test ABG Potassium (3.6-5.2) mmol/L A-a O2 Difference mm/Hg Respiratory Index Glucose (75-110) mg/dl Lactate (0.7-2.1) mmol/L Vent Mode Mechanical Rate FiO2 % Tidal Volume PEEP CPAP Sodium 138 (132-148) mmol/L Potassium 4.4 (3.6-5.2) mmol/L Chloride 106 (98-107) mmol/L Carbon Dioxide 27 (22-30) mmol/L Anion Gap 10 (10-20) BUN 37 H (9-20) mg/dL Creatinine 1.3 (0.8-1.5) mg/dL Est GFR ( Amer) > 60 Est GFR (Non-Af Amer) 55 POC Glucose (mg/dL) 155 H (65-110) mg/dL Random Glucose 139 H (75-110) mg/dL Hemoglobin A1c (4.2-6.5) % Calcium 8.9 (8.6-10.4) mg/dl Phosphorus 5.2 H (2.5-4.5) mg/dL Magnesium 2.2 (1.6-2.3) mg/dL Total Bilirubin 0.4 (0.2-1.3) mg/dL AST 18 (17-59) U/L ALT 25 (21-72) U/L Alkaline Phosphatase 74 (38-126) U/L Total Protein 6.7 (6.3-8.3) g/dL Albumin 3.5 (3.5-5.0) g/dL Globulin 3.2 (2.2-3.9) gm/dL Albumin/Globulin Ratio 1.1 (1.0-2.1) Triglycerides 120 (0-149) mg/dL Cholesterol 138 (0-199) mg/dL LDL Cholesterol Direct 100 (0-129) mg/dL HDL Cholesterol 29 L (30-70) mg/dL Arterial Blood Potassium (3.6-5.2) mmol/L H.influenzae Type B Ag (NEGATIVE) Ur L.pneumophila Ag (NEGATIVE) Mycoplasma pneumon IgM (NEGATIVE) N.meningitidis ACY/W135 (NEGATIVE) N.meningi B/E.coli K1 Ag (NEGATIVE) RSV Antigen (NEGATIVE) Group B Strep Antigen (NEGATIVE) S. pneumoniae Antigen (NEGATIVE) 04/26/18 04/26/18 04/25/18 Range/Units 04:25 03:37 21:20 WBC (4.8-10.8) K/uL RBC (4.40-5.90) Mil/uL Hgb (12.0-18.0) g/dL Hct (35.0-51.0) % MCV (80.0-94.0) fL MCH (27.0-31.0) pg MCHC (33.0-37.0) g/dL RDW (11.5-14.5) % Plt Count (130-400) K/uL MPV (7.2-11.7) fL Neut % (Auto) (50.0-75.0) % Lymph % (Auto) (20.0-40.0) % Mckinley % (Auto) (0.0-10.0) % Eos % (Auto) (0.0-4.0) % Baso % (Auto) (0.0-2.0) % Neut # (Auto) (1.8-7.0) K/uL Lymph # (Auto) (1.0-4.3) K/uL Mck[place]ley # (Auto) (0.0-0.8) K/uL Eos # (Auto) (0.0-0.7) K/uL Baso # (Auto) (0.0-0.2) K/uL Neutrophils % (Manual) (50-75) % Lymphocytes % (Manual) (20-40) % Monocytes % (Manual) (0-10) % Platelet Estimate (NORMAL) RBC Morphology APTT 55 H D (21-34) SECONDS Puncture Site Rr pCO2 51 H (35-45) mm/Hg pO2 250 H (80-100) mm/Hg HCO3 23.4 (21-28) mmol/L ABG pH 7.30 L (7.35-7.45) ABG Total CO2 26.7 (22-28) mmol/L ABG O2 Saturation 99.6 H (95-98) % ABG Base Excess -2.0 (-2.0-3.0) mmol/L Aly Test Pos ABG Potassium (3.6-5.2) mmol/L A-a O2 Difference 114.0 mm/Hg Respiratory Index 0.5 Glucose (75-110) mg/dl Lactate (0.7-2.1) mmol/L Vent Mode Prvc Mechanical Rate 14 FiO2 60.0 % Tidal Volume 450 PEEP 5 CPAP Sodium (132-148) mmol/L Potassium (3.6-5.2) mmol/L Chloride (98-107) mmol/L Carbon Dioxide (22-30) mmol/L Anion Gap (10-20) BUN (9-20) mg/dL Creatinine (0.8-1.5) mg/dL Est GFR ( Amer) Est GFR (Non-Af Amer) POC Glucose (mg/dL) 153 H (65-110) mg/dL Random Glucose (75-110) mg/dL Hemoglobin A1c (4.2-6.5) % Calcium (8.6-10.4) mg/dl Phosphorus (2.5-4.5) mg/dL Magnesium (1.6-2.3) mg/dL Total Bilirubin (0.2-1.3) mg/dL AST (17-59) U/L ALT (21-72) U/L Alkaline Phosphatase (38-126) U/L Total Protein (6.3-8.3) g/dL Albumin (3.5-5.0) g/dL Globulin (2.2-3.9) gm/dL Albumin/Globulin Ratio (1.0-2.1) Triglycerides (0-149) mg/dL Cholesterol (0-199) mg/dL LDL Cholesterol Direct (0-129) mg/dL HDL Cholesterol (30-70) mg/dL Arterial Blood Potassium (3.6-5.2) mmol/L H.influenzae Type B Ag (NEGATIVE) Ur L.pneumophila Ag (NEGATIVE) Mycoplasma pneumon IgM (NEGATIVE) N.meningitidis ACY/W135 (NEGATIVE) N.meningi B/E.coli K1 Ag (NEGATIVE) RSV Antigen (NEGATIVE) Group B Strep Antigen (NEGATIVE) S. pneumoniae Antigen (NEGATIVE) 04/25/18 Range/Units 18:02 WBC (4.8-10.8) K/uL RBC (4.40-5.90) Mil/uL Hgb (12.0-18.0) g/dL Hct (35.0-51.0) % MCV (80.0-94.0) fL MCH (27.0-31.0) pg MCHC (33.0-37.0) g/dL RDW (11.5-14.5) % Plt Count (130-400) K/uL MPV (7.2-11.7) fL Neut % (Auto) (50.0-75.0) % Lymph % (Auto) (20.0-40.0) % Mck[place] % (Auto) (0.0-10.0) % Eos % (Auto) (0.0-4.0) % Baso % (Auto) (0.0-2.0) % Neut # (Auto) (1.8-7.0) K/uL Lymph # (Auto) (1.0-4.3) K/uL M[place] # (Auto) (0.0-0.8) K/uL Eos # (Auto) (0.0-0.7) K/uL Baso # (Auto) (0.0-0.2) K/uL Neutrophils % (Manual) (50-75) % Lymphocytes % (Manual) (20-40) % Monocytes % (Manual) (0-10) % Platelet Estimate (NORMAL) RBC Morphology APTT (21-34) SECONDS Puncture Site pCO2 (35-45) mm/Hg pO2 (80-100) mm/Hg HCO3 (21-28) mmol/L ABG pH (7.35-7.45) ABG Total CO2 (22-28) mmol/L ABG O2 Saturation (95-98) % ABG Base Excess (-2.0-3.0) mmol/L Aly Test ABG Potassium (3.6-5.2) mmol/L A-a O2 Difference mm/Hg Respiratory Index Glucose (75-110) mg/dl Lactate (0.7-2.1) mmol/L Vent Mode Mechanical Rate FiO2 % Tidal Volume PEEP CPAP Sodium (132-148) mmol/L Potassium (3.6-5.2) mmol/L Chloride (98-107) mmol/L Carbon Dioxide (22-30) mmol/L Anion Gap (10-20) BUN (9-20) mg/dL Creatinine (0.8-1.5) mg/dL Est GFR ( Amer) Est GFR (Non-Af Amer) POC Glucose (mg/dL) 130 H (65-110) mg/dL Random Glucose (75-110) mg/dL Hemoglobin A1c (4.2-6.5) % Calcium (8.6-10.4) mg/dl Phosphorus (2.5-4.5) mg/dL Magnesium (1.6-2.3) mg/dL Total Bilirubin (0.2-1.3) mg/dL AST (17-59) U/L ALT (21-72) U/L Alkaline Phosphatase (38-126) U/L Total Protein (6.3-8.3) g/dL Albumin (3.5-5.0) g/dL Globulin (2.2-3.9) gm/dL Albumin/Globulin Ratio (1.0-2.1) Triglycerides (0-149) mg/dL Cholesterol (0-199) mg/dL LDL Cholesterol Direct (0-129) mg/dL HDL Cholesterol (30-70) mg/dL Arterial Blood Potassium (3.6-5.2) mmol/L H.influenzae Type B Ag (NEGATIVE) Ur L.pneumophila Ag (NEGATIVE) Mycoplasma pneumon IgM (NEGATIVE) N.meningitidis ACY/W135 (NEGATIVE) N.meningi B/E.coli K1 Ag (NEGATIVE) RSV Antigen (NEGATIVE) Group B Strep Antigen (NEGATIVE) S. pneumoniae Antigen (NEGATIVE) Laboratory Results - last 24 hr 04/25/18 04/25/18 04/26/18 18:02 21:20 03:37 WBC RBC Hgb Hct MCV MCH MCHC RDW Plt Count MPV Neut % (Auto) Lymph % (Auto) Mckinley % (Auto) Eos % (Auto) Baso % (Auto) Neut # (Auto) Lymph # (Auto) Mckinley # (Auto) Eos # (Auto) Baso # (Auto) Neutrophils % (Manual) Lymphocytes % (Manual) Monocytes % (Manual) Platelet Estimate RBC Morphology APTT 55 H D Puncture Site pCO2 pO2 HCO3 ABG pH ABG Total CO2 ABG O2 Saturation ABG Base Excess Aly Test ABG Potassium A-a O2 Difference Respiratory Index Glucose Lactate Vent Mode Mechanical Rate FiO2 Tidal Volume PEEP CPAP Sodium Potassium Chloride Carbon Dioxide Anion Gap BUN Creatinine Est GFR ( Amer) Est GFR (Non-Af Amer) POC Glucose (mg/dL) 130 H 153 H Random Glucose Hemoglobin A1c Calcium Phosphorus Magnesium Total Bilirubin AST ALT Alkaline Phosphatase Total Protein Albumin Globulin Albumin/Globulin Ratio Triglycerides Cholesterol LDL Cholesterol Direct HDL Cholesterol Arterial Blood Potassium H.influenzae Type B Ag Ur L.pneumophila Ag Mycoplasma pneumon IgM N.meningitidis ACY/W135 N.meningi B/E.coli K1 Ag RSV Antigen Group B Strep Antigen S. pneumoniae Antigen 04/26/18 04/26/18 04/26/18 04:25 05:37 06:26 WBC 9.7 RBC 3.74 L Hgb 12.4 Hct 37.2 MCV 99.2 H MCH 33.1 H MCHC 33.4 RDW 14.5 Plt Count 258 MPV 8.7 Neut % (Auto) 92.2 H Lymph % (Auto) 4.2 L Mckinley % (Auto) 3.5 Eos % (Auto) 0.0 Baso % (Auto) 0.1 Neut # (Auto) 9.0 H Lymph # (Auto) 0.4 L Mckinley # (Auto) 0.3 Eos # (Auto) 0.0 Baso # (Auto) 0.0 Neutrophils % (Manual) 94 H Lymphocytes % (Manual) 3 L Monocytes % (Manual) 3 Platelet Estimate Normal RBC Morphology Normal APTT Puncture Site Rr pCO2 51 H pO2 250 H HCO3 23.4 ABG pH 7.30 L ABG Total CO2 26.7 ABG O2 Saturation 99.6 H ABG Base Excess -2.0 Aly Test Pos ABG Potassium A-a O2 Difference 114.0 Respiratory Index 0.5 Glucose Lactate Vent Mode Prvc Mechanical Rate 14 FiO2 60.0 Tidal Volume 450 PEEP 5 CPAP Sodium Potassium Chloride Carbon Dioxide Anion Gap BUN Creatinine Est GFR ( Amer) Est GFR (Non-Af Amer) POC Glucose (mg/dL) 155 H Random Glucose Hemoglobin A1c Calcium Phosphorus Magnesium Total Bilirubin AST ALT Alkaline Phosphatase Total Protein Albumin Globulin Albumin/Globulin Ratio Triglycerides Cholesterol LDL Cholesterol Direct HDL Cholesterol Arterial Blood Potassium H.influenzae Type B Ag Ur L.pneumophila Ag Mycoplasma pneumon IgM N.meningitidis ACY/W135 N.meningi B/E.coli K1 Ag RSV Antigen Group B Strep Antigen S. pneumoniae Antigen 04/26/18 04/26/18 04/26/18 06:26 06:26 06:26 WBC RBC Hgb Hct MCV MCH MCHC RDW Plt Count MPV Neut % (Auto) Lymph % (Auto) Mck[place] % (Auto) Eos % (Auto) Baso % (Auto) Neut # (Auto) Lymph # (Auto) Mckin[place] # (Auto) Eos # (Auto) Baso # (Auto) Neutrophils % (Manual) Lymphocytes % (Manual) Monocytes % (Manual) Platelet Estimate RBC Morphology APTT 41 H D Puncture Site pCO2 pO2 HCO3 ABG pH ABG Total CO2 ABG O2 Saturation ABG Base Excess Aly Test ABG Potassium A-a O2 Difference Respiratory Index Glucose Lactate Vent Mode Mechanical Rate FiO2 Tidal Volume PEEP CPAP Sodium 138 Potassium 4.4 Chloride 106 Carbon Dioxide 27 Anion Gap 10 BUN 37 H Creatinine 1.3 Est GFR ( Amer) > 60 Est GFR (Non-Af Amer) 55 POC Glucose (mg/dL) Random Glucose 139 H Hemoglobin A1c 5.0 Calcium 8.9 Phosphorus 5.2 H Magnesium 2.2 Total Bilirubin 0.4 AST 18 ALT 25 Alkaline Phosphatase 74 Total Protein 6.7 Albumin 3.5 Globulin 3.2 Albumin/Globulin Ratio 1.1 Triglycerides 120 Cholesterol 138 LDL Cholesterol Direct 100 HDL Cholesterol 29 L Arterial Blood Potassium H.influenzae Type B Ag Ur L.pneumophila Ag Mycoplasma pneumon IgM N.meningitidis ACY/W135 N.meningi B/E.coli K1 Ag RSV Antigen Group B Strep Antigen S. pneumoniae Antigen 04/26/18 04/26/18 04/26/18 10:02 11:33 13:30 WBC RBC Hgb Hct MCV MCH MCHC RDW Plt Count MPV Neut % (Auto) Lymph % (Auto) Mck[place] % (Auto) Eos % (Auto) Baso % (Auto) Neut # (Auto) Lymph # (Auto) Mck[place] # (Auto) Eos # (Auto) Baso # (Auto) Neutrophils % (Manual) Lymphocytes % (Manual) Monocytes % (Manual) Platelet Estimate RBC Morphology APTT Puncture Site pCO2 pO2 HCO3 ABG pH ABG Total CO2 ABG O2 Saturation ABG Base Excess Aly Test ABG Potassium A-a O2 Difference Respiratory Index Glucose Lactate Vent Mode Mechanical Rate FiO2 Tidal Volume PEEP CPAP Sodium Potassium Chloride Carbon Dioxide Anion Gap BUN Creatinine Est GFR ( Amer) Est GFR (Non-Af Amer) POC Glucose (mg/dL) 123 H Random Glucose Hemoglobin A1c Calcium Phosphorus Magnesium Total Bilirubin AST ALT Alkaline Phosphatase Total Protein Albumin Globulin Albumin/Globulin Ratio Triglycerides Cholesterol LDL Cholesterol Direct HDL Cholesterol Arterial Blood Potassium H.influenzae Type B Ag Not required Ur L.pneumophila Ag Negative Mycoplasma pneumon IgM Negative N.meningitidis ACY/W135 Not required N.meningi B/E.coli K1 Ag Not required RSV Antigen Group B Strep Antigen Not required S. pneumoniae Antigen Negative 04/26/18 04/26/18 04/26/18 13:30 13:54 15:35 WBC RBC Hgb Hct MCV MCH MCHC RDW Plt Count MPV Neut % (Auto) Lymph % (Auto) Mck[place] % (Auto) Eos % (Auto) Baso % (Auto) Neut # (Auto) Lymph # (Auto) Mckin[place] # (Auto) Eos # (Auto) Baso # (Auto) Neutrophils % (Manual) Lymphocytes % (Manual) Monocytes % (Manual) Platelet Estimate RBC Morphology APTT 51 H D Puncture Site Lf pCO2 40 pO2 79 L HCO3 22.8 ABG pH 7.36 ABG Total CO2 23.8 ABG O2 Saturation 97.3 ABG Base Excess -2.7 L Aly Test Na ABG Potassium 3.4 L A-a O2 Difference 121.0 Respiratory Index 1.5 Glucose 90 Lactate 0.9 Vent Mode Cpap Mechanical Rate FiO2 35.0 Tidal Volume PEEP 5 CPAP 15 Sodium 146.0 Potassium Chloride 117.0 H Carbon Dioxide Anion Gap BUN Creatinine Est GFR ( Amer) Est GFR (Non-Af Amer) POC Glucose (mg/dL) Random Glucose Hemoglobin A1c Calcium Phosphorus Magnesium Total Bilirubin AST ALT Alkaline Phosphatase Total Protein Albumin Globulin Albumin/Globulin Ratio Triglycerides Cholesterol LDL Cholesterol Direct HDL Cholesterol Arterial Blood Potassium 3.4 L H.influenzae Type B Ag Ur L.pneumophila Ag Mycoplasma pneumon IgM N.meningitidis ACY/W135 N.meningi B/E.coli K1 Ag RSV Antigen Negative Group B Strep Antigen S. pneumoniae Antigen 04/26/18 16:03 WBC RBC Hgb Hct MCV MCH MCHC RDW Plt Count MPV Neut % (Auto) Lymph % (Auto) [place]ck[place] % (Auto) Eos % (Auto) Baso % (Auto) Neut # (Auto) Lymph # (Auto) [place]ck[place] # (Auto) Eos # (Auto) Baso # (Auto) Neutrophils % (Manual) Lymphocytes % (Manual) Monocytes % (Manual) Platelet Estimate RBC Morphology APTT Puncture Site pCO2 pO2 HCO3 ABG pH ABG Total CO2 ABG O2 Saturation ABG Base Excess Aly Test ABG Potassium A-a O2 Difference Respiratory Index Glucose Lactate Vent Mode Mechanical Rate FiO2 Tidal Volume PEEP CPAP Sodium Potassium Chloride Carbon Dioxide Anion Gap BUN Creatinine Est GFR ( Amer) Est GFR (Non-Af Amer) POC Glucose (mg/dL) 117 H Random Glucose Hemoglobin A1c Calcium Phosphorus Magnesium Total Bilirubin AST ALT Alkaline Phosphatase Total Protein Albumin Globulin Albumin/Globulin Ratio Triglycerides Cholesterol LDL Cholesterol Direct HDL Cholesterol Arterial Blood Potassium H.influenzae Type B Ag Ur L.pneumophila Ag Mycoplasma pneumon IgM N.meningitidis ACY/W135 N.meningi B/E.coli K1 Ag RSV Antigen Group B Strep Antigen S. pneumoniae Antigen Radiology Impressions: Radiology Impressions Duplex Scan Lower Extremity Artery 04/25/18 09:25 IMPRESSION: Right: No evidence of deep or superficial vein thrombosis of the right lower extremity. Normal valve function noted of the right side. Left: No evidence of deep or superficial vein thrombosis of the left lower extremity. Normal valve function noted of the left side. Chest CT 04/25/18 11:00 Impression: There is inadequate opacification of the pulmonary arteries due to missed bolus of the intravenous contrast precluding evaluation for pulmonary embolus. Small bilateral pleural effusions and associated consolidations. Discoid atelectasis/scarring, right middle lobe. Abnormal heterogeneous mediastinal lymph node in the precarinal region measures approximately 2.5 cm in short axis. Additional incidental findings as above. Chest X-Ray 04/26/18 04:00 IMPRESSION: Endotracheal tube and nasogastric tubes as above. Cardiomegaly. Mild right basilar atelectasis/infiltrate. Mild pulmonary venous congestion. EKG/Cardiology Studies: Cardiology / EKG Studies 04/26/18 09:53 EKG [ELECTROCARDIOGRAM] Stat Comment: Mode Of Transportation: Reason For Exam: qtc Critical Care Progress Note - Nutrition Nutrition: Nutrition Category Date Time Status Liquid Diet [DIET] Diets 04/26/18 Dinner Active Attending/Attestation - Attestation I have personally seen and examined this patient.: Yes I have fully participated in the care of the patient.: Yes I have reviewed all pertinent clinical information: Yes Notes (Text): 04/26/18 17:02 Today: , April 26, 2018 The Patient was seen and examined at the bedside, Medical records reviewed, and management issues were discussed and formulated with the house staff. I have reviewed all the relevant clinical, laboratory, hemodynamic, radiographic data and medications Events reviewed Pain issues, skin care, head of the bed elevation, glycemic control were addressed. Agree with above resident's assessment and treatment plans of care as transcribed in Dr. Robert's note.
--- NOTE | 2018-04-26 13:33 | VASCLAB ---
Date of service: 04/25/2018 PROCEDURE: Lower Extremity Venous Duplex Exam. HISTORY: Leg swelling PRIORS: None. TECHNIQUE: Bilateral common femoral, femoral, popliteal and posterior tibial, peroneal and great saphenous veins were evaluated. Flow was assessed with color Doppler, compressibility, assessment of phasic flow and augmentation response. Report prepared by Aj Couch, EUSEBIO, RVT FINDINGS: RIGHT: 1. Common Femoral Vein: 1.1. Compressibility - Fully compressible: Thrombus - None : Flow - Phasic: Augmentation -Normal: Reflux - None. 2. Femoral Vein: 2.1. Compressibility - Fully compressible: Thrombus - None : Flow - Phasic: Augmentation -Normal: Reflux - None. 3. Popliteal Vein: 3.1. Compressibility - Fully compressible: Thrombus - None : Flow - Phasic: Augmentation -Normal: Reflux - None. 4. Posterior Tibial Vein: 4.1. Compressibility - Fully compressible: Thrombus - None: Flow - Phasic: Augmentation -Normal: Reflux - None. 5. Peroneal Vein: 5.1. Compressibility - Fully compressible: Thrombus - None: Flow - Phasic: Augmentation -Normal: Reflux - None. 6. Great Saphenous Vein: 6.1. Compressibility - Fully compressible: Thrombus - None: Flow - Phasic: Augmentation - Normal: Reflux - None. LEFT: 1. Common Femoral Vein: 1.1. Compressibility - Fully compressible: Thrombus - None: Flow - Phasic: Augmentation -Normal: Reflux - None. 2. Femoral Vein: 2.1. Compressibility - Fully compressible: Thrombus - None: Flow - Phasic: Augmentation -Normal: Reflux - None. 3. Popliteal Vein: 3.1. Compressibility - Fully compressible: Thrombus - None : Flow - Phasic: Augmentation -Normal: Reflux - None. 4. Posterior Tibial Vein: 4.1. Compressibility - Fully compressible: Thrombus - None: Flow - Phasic: Augmentation -Normal: Reflux - None. 5. Peroneal Vein: 5.1. Compressibility - Fully compressible: Thrombus - None: Flow - Phasic: Augmentation -Normal: Reflux - None. 6. Great Saphenous Vein: 6.1. Compressibility - Fully compressible: Thrombus - None: Flow - Phasic: Augmentation - Normal: Reflux - None. OTHER FINDINGS: Unable to image the right saphenous femoral junction due to the line in the groin. IMPRESSION: Right: No evidence of deep or superficial vein thrombosis of the right lower extremity. Normal valve function noted of the right side. Left: No evidence of deep or superficial vein thrombosis of the left lower extremity. Normal valve function noted of the left side.
[2018-04-26 13:57] LABS: ARTERIAL BLOOD GAS HCO3 22.8 mmol/L (21-28); ARTERIAL BLOOD GAS O2 SAT 97.3 % (95-98); ARTERIAL BLOOD GAS PCO2 40 mm/Hg (35-45); ARTERIAL BLOOD GAS PH 7.36 (7.35-7.45); ARTERIAL BLOOD GAS PO2 79 mm/Hg (80-100); ARTERIAL BLOOD GAS TCO2 23.8 mmol/L (22-28)
[2018-04-26] MEDS: Heparin25000 units/250ml 1/2NS 25,000 UNITS/250 ML BAG IV PRN (14:08)
[2018-04-26 14:59] LABS: MYCOPLASMA PNEUMONIAE IGM NEGATIVE (NEGATIVE); N MENINGITIS ACY/W135 NOT REQUIRED (NEGATIVE); N MENINGITIS B/ECOLI K1 NOT REQUIRED (NEGATIVE); STREP PNEUMONIAE NEGATIVE (NEGATIVE); STREPTOCOCCUS B NOT REQUIRED (NEGATIVE)
--- NOTE | 2018-04-26 18:22 | CP.PCM.CON ---
History of Present Illness - History of Present Illness History of Present Illness: Pulmonology consult- COPD and CHF 68 year old male with pmh COPD, CAD, CHF, DM, HTN, tobacco use, ETOH use who presented to ED s/p intubation 2/2 respiratory distress at home. Initially on BIPAP in ED, patient then had brief episode of cardiac and respiratory arrest before stabilized and intubated. New onset LBBB on EKG and code heart called, cardiac cath was recommended and treated as NSTEMI. Stabilized in ED and transferred to ICU. Patient seen and examined at bedside. Intubated and sedated on propofol. ROS unable to be obtained. History obtained from EMR. PSH- coronary angiography in 2013 with 3 vessel disease not requiring stent Noncompliant with medications NKDA Social history- smokes 2PPD, drinks 2-6 beers/day, no other drug use. lives with girlfriend for 8years Family history unavailable. Afebrile, no acute distress, Intubated and sedated on propofol Decreased breath sounds 1/2 d-dimer 1532, BNP 5920, trop-I 0.148->0.147 1/3 WBC 9.7, PTT 41 1/3 ABG RR pCO2 51, pO2 250, HCO3 23.4, pH 7.3 1/2 CXR multifocal bilateral patchy opacities nonspecific (pneumonia vs pulmonary edema), no pneumothorax, no pleural effusion, ETT and NGT in position appropriately 1/[address] PE protocol- inadequate opacification of pulmonary arteries due to missed bolus of IV contrast precluding evaluation of PE, small bilateral pleural effusions, discoid atelectasis/scarring right middle lobe, abnormal heterogeneous mediastinal lymph node in precarinal region measuring 2.5cm in short axis. 1/3 CXR mild right basilar atelectasis/infiltrate, mild pulmonary venous congestion, no pneumothorax, no pleural effusion, cardiomegaly, ETT and NGT in position appropriately Review of Systems - Review of Systems Systems not reviewed;Unavailable: Intubated Past Patient History - Past Medical History & Family History Past Medical History?: Yes - Past Social History Smoking Status: Heavy Smoker > 10 Cigarettes Daily Alcohol: > 2 Drinks/Day Drugs: Denies Home Situation {Lives}: With Family Domestic Violence: Negative - CARDIAC Hx Cardiac Disorders: Yes Hx Congestive Heart Failure: Yes Hx Hypercholesterolemia: Yes Hx Hypertension: Yes - PULMONARY Hx Chronic Obstructive Pulmonary Disease (COPD): Yes - NEUROLOGICAL Hx Neurological Disorder: No - HEENT Hx HEENT Problems: No - RENAL Hx Chronic Kidney Disease: No - ENDOCRINE/METABOLIC Hx Endocrine Disorders: No - HEMATOLOGICAL/ONCOLOGICAL Hx Blood Disorders: No - INTEGUMENTARY Hx Dermatological Problems: No - MUSCULOSKELETAL/RHEUMATOLOGICAL Hx Falls: No - GASTROINTESTINAL Hx Gastrointestinal Disorders: No - GENITOURINARY/GYNECOLOGICAL Hx Genitourinary Disorders: No - PSYCHIATRIC Hx Substance Use: No - SURGICAL HISTORY Hx Appendectomy: Yes - ANESTHESIA Hx Anesthesia: No Meds Allergies/Adverse Reactions: Allergies Allergy/AdvReac Type Severity Reaction Status Date / Time No Known Allergies Allergy Verified 04/25/18 07:56 - Medications Medications: Current Medications Albuterol/Ipratropium (Duoneb 3 Mg/0.5 Mg (3 Ml) Ud) 3 ml INH RQ6 [facility] Last Admin: 04/26/18 08:31 Dose: 3 ml Aspirin (Ecotrin) 81 mg PO DAILY [facility] Last Admin: 04/26/18 11:53 Dose: 81 mg Clopidogrel Bisulfate (Plavix) 75 mg PO DAILY [facility] Last Admin: 04/26/18 11:54 Dose: 75 mg Dextrose (Dextrose 50% Inj) 0 ml IV STAT PRN; Protocol PRN Reason: Hypoglycemia Protocol Dextrose (Glutose 15) 0 gm PO ONCE PRN; Protocol PRN Reason: Hypoglycemia Protocol Folic Acid (Folic Acid) 1 mg PO DAILY [facility] Last Admin: 04/26/18 11:53 Dose: 1 mg Glucagon (Glucagen Diagnostic Kit) 0 mg IM STAT PRN; Protocol PRN Reason: Hypoglycemia Protocol Doxycycline Hyclate 100 mg/ (Sodium Chloride) 100 mls @ 100 mls/hr IVPB Q12H [facility]; Protocol Last Admin: 04/26/18 14:17 Dose: 100 mls/hr Ceftriaxone Sodium 1 gm/ (Sodium Chloride) 100 mls @ 100 mls/hr IVPB DAILY [facility]; Protocol Last Admin: 04/26/18 11:54 Dose: 100 mls/hr Dextrose (Dextrose 5% In Water 1000 Ml) 1,000 mls @ 0 mls/hr IV .Q0M PRN; Protocol PRN Reason: Hypoglycemia Protocol Heparin Sodium/Sodium Chloride (Heparin 03374 Units/250ml 1/2 Normal Saline) 25,000 units in 250 mls @ 9.373 mls/hr IV .Q24H PRN; Protocol PRN Reason: ADJUST RATE PER PROTOCOL Last Admin: 04/26/18 14:08 Dose: 16 units/kg/hr, 12.497 mls/hr Propofol (Diprivan) 1,000 mg in 100 mls @ 2.343 mls/hr IV .Q24H PRN; Protocol PRN Reason: TITRATE PER MD ORDER Last Titration: 04/26/18 13:00 Dose: 0 mcg/kg/min, 0 mls/hr Methylprednisolone (Solu-Medrol) 40 mg IVP Q12 [facility] Last Admin: 04/26/18 11:54 Dose: 40 mg Multivitamins (Hexavitamin) 1 tab PO DAILY [facility] Last Admin: 04/26/18 11:53 Dose: 1 tab Ondansetron HCl (Zofran Inj) 4 mg IVP DAILY@ONCE PRN PRN Reason: Nausea/Vomiting Pantoprazole Sodium (Protonix Inj) 40 mg IVP DAILY [facility] Last Admin: 04/26/18 11:54 Dose: 40 mg Rosuvastatin Calcium (Crestor) 10 mg PO HS [facility] Last Admin: 04/25/18 22:33 Dose: 10 mg Thiamine HCl (Vitamin B1 Tab) 100 mg PO DAILY [facility] Last Admin: 04/26/18 11:55 Dose: 100 mg Physical Exam - Head Exam Head Exam: ATRAUMATIC, NORMOCEPHALIC - ENT Exam ENT Exam: Mucous Membranes Moist - Neck Exam Neck exam: Positive for: Normal Inspection - Respiratory Exam Respiratory Exam: Decreased Breath Sounds - Cardiovascular Exam Cardiovascular Exam: REGULAR RHYTHM - GI/Abdominal Exam GI & Abdominal Exam: Normal Bowel Sounds, Soft - Extremities Exam Extremities exam: Positive for: normal inspection Results - Vital Signs Recent Vital Signs: Last Vital Signs Temp 97.9 F 04/26/18 16:00 Pulse 75 04/26/18 17:00 Resp 17 04/26/18 17:00 BP 145/69 04/26/18 16:15 Pulse Ox 95 04/26/18 17:00 - Labs Result Diagrams: 04/26/18 06:26 04/26/18 06:26 Labs: Laboratory Results - last 24 hr 04/25/18 04/26/18 04/26/18 21:20 03:37 04:25 WBC RBC Hgb Hct MCV MCH MCHC RDW Plt Count MPV Neut % (Auto) Lymph % (Auto) Ellis % (Auto) Eos % (Auto) Baso % (Auto) Neut # (Auto) Lymph # (Auto) Ellis # (Auto) Eos # (Auto) Baso # (Auto) Neutrophils % (Manual) Lymphocytes % (Manual) Monocytes % (Manual) Platelet Estimate RBC Morphology APTT 55 H D Puncture Site Rr pCO2 51 H pO2 250 H HCO3 23.4 ABG pH 7.30 L ABG Total CO2 26.7 ABG O2 Saturation 99.6 H ABG Base Excess -2.0 Aly Test Pos ABG Potassium A-a O2 Difference 114.0 Respiratory Index 0.5 Glucose Lactate Vent Mode Prvc Mechanical Rate 14 FiO2 60.0 Tidal Volume 450 PEEP 5 CPAP Sodium Potassium Chloride Carbon Dioxide Anion Gap BUN Creatinine Est GFR ( Amer) Est GFR (Non-Af Amer) POC Glucose (mg/dL) 153 H Random Glucose Hemoglobin A1c Calcium Phosphorus Magnesium Total Bilirubin AST ALT Alkaline Phosphatase Total Protein Albumin Globulin Albumin/Globulin Ratio Triglycerides Cholesterol LDL Cholesterol Direct HDL Cholesterol Arterial Blood Potassium H.influenzae Type B Ag Ur L.pneumophila Ag Mycoplasma pneumon IgM N.meningitidis ACY/W135 N.meningi B/E.coli K1 Ag RSV Antigen Group B Strep Antigen S. pneumoniae Antigen 04/26/18 04/26/18 04/26/18 05:37 06:26 06:26 WBC 9.7 RBC 3.74 L Hgb 12.4 Hct 37.2 MCV 99.2 H MCH 33.1 H MCHC 33.4 RDW 14.5 Plt Count 258 MPV 8.7 Neut % (Auto) 92.2 H Lymph % (Auto) 4.2 L Ellis % (Auto) 3.5 Eos % (Auto) 0.0 Baso % (Auto) 0.1 Neut # (Auto) 9.0 H Lymph # (Auto) 0.4 L Ellis # (Auto) 0.3 Eos # (Auto) 0.0 Baso # (Auto) 0.0 Neutrophils % (Manual) 94 H Lymphocytes % (Manual) 3 L Monocytes % (Manual) 3 Platelet Estimate Normal RBC Morphology Normal APTT Puncture Site pCO2 pO2 HCO3 ABG pH ABG Total CO2 ABG O2 Saturation ABG Base Excess Aly Test ABG Potassium A-a O2 Difference Respiratory Index Glucose Lactate Vent Mode Mechanical Rate FiO2 Tidal Volume PEEP CPAP Sodium 138 Potassium 4.4 Chloride 106 Carbon Dioxide 27 Anion Gap 10 BUN 37 H Creatinine 1.3 Est GFR ( Amer) > 60 Est GFR (Non-Af Amer) 55 POC Glucose (mg/dL) 155 H Random Glucose 139 H Hemoglobin A1c Calcium 8.9 Phosphorus 5.2 H Magnesium 2.2 Total Bilirubin 0.4 AST 18 ALT 25 Alkaline Phosphatase 74 Total Protein 6.7 Albumin 3.5 Globulin 3.2 Albumin/Globulin Ratio 1.1 Triglycerides 120 Cholesterol 138 LDL Cholesterol Direct 100 HDL Cholesterol 29 L Arterial Blood Potassium H.influenzae Type B Ag Ur L.pneumophila Ag Mycoplasma pneumon IgM N.meningitidis ACY/W135 N.meningi B/E.coli K1 Ag RSV Antigen Group B Strep Antigen S. pneumoniae Antigen 04/26/18 04/26/18 04/26/18 06:26 06:26 10:02 WBC RBC Hgb Hct MCV MCH MCHC RDW Plt Count MPV Neut % (Auto) Lymph % (Auto) Ellis % (Auto) Eos % (Auto) Baso % (Auto) Neut # (Auto) Lymph # (Auto) Ellis # (Auto) Eos # (Auto) Baso # (Auto) Neutrophils % (Manual) Lymphocytes % (Manual) Monocytes % (Manual) Platelet Estimate RBC Morphology APTT 41 H D Puncture Site pCO2 pO2 HCO3 ABG pH ABG Total CO2 ABG O2 Saturation ABG Base Excess Aly Test ABG Potassium A-a O2 Difference Respiratory Index Glucose Lactate Vent Mode Mechanical Rate FiO2 Tidal Volume PEEP CPAP Sodium Potassium Chloride Carbon Dioxide Anion Gap BUN Creatinine Est GFR ( Amer) Est GFR (Non-Af Amer) POC Glucose (mg/dL) Random Glucose Hemoglobin A1c 5.0 Calcium Phosphorus Magnesium Total Bilirubin AST ALT Alkaline Phosphatase Total Protein Albumin Globulin Albumin/Globulin Ratio Triglycerides Cholesterol LDL Cholesterol Direct HDL Cholesterol Arterial Blood Potassium H.influenzae Type B Ag Ur L.pneumophila Ag Negative Mycoplasma pneumon IgM N.meningitidis ACY/W135 N.meningi B/E.coli K1 Ag RSV Antigen Group B Strep Antigen S. pneumoniae Antigen 04/26/18 04/26/18 04/26/18 11:33 13:30 13:30 WBC RBC Hgb Hct MCV MCH MCHC RDW Plt Count MPV Neut % (Auto) Lymph % (Auto) Ellis % (Auto) Eos % (Auto) Baso % (Auto) Neut # (Auto) Lymph # (Auto) Ellis # (Auto) Eos # (Auto) Baso # (Auto) Neutrophils % (Manual) Lymphocytes % (Manual) Monocytes % (Manual) Platelet Estimate RBC Morphology APTT 51 H D Puncture Site pCO2 pO2 HCO3 ABG pH ABG Total CO2 ABG O2 Saturation ABG Base Excess Aly Test ABG Potassium A-a O2 Difference Respiratory Index Glucose Lactate Vent Mode Mechanical Rate FiO2 Tidal Volume PEEP CPAP Sodium Potassium Chloride Carbon Dioxide Anion Gap BUN Creatinine Est GFR ( Amer) Est GFR (Non-Af Amer) POC Glucose (mg/dL) 123 H Random Glucose Hemoglobin A1c Calcium Phosphorus Magnesium Total Bilirubin AST ALT Alkaline Phosphatase Total Protein Albumin Globulin Albumin/Globulin Ratio Triglycerides Cholesterol LDL Cholesterol Direct HDL Cholesterol Arterial Blood Potassium H.influenzae Type B Ag Not required Ur L.pneumophila Ag Mycoplasma pneumon IgM Negative N.meningitidis ACY/W135 Not required N.meningi B/E.coli K1 Ag Not required RSV Antigen Group B Strep Antigen Not required S. pneumoniae Antigen Negative 04/26/18 04/26/18 04/26/18 13:54 15:35 16:03 WBC RBC Hgb Hct MCV MCH MCHC RDW Plt Count MPV Neut % (Auto) Lymph % (Auto) Ellis % (Auto) Eos % (Auto) Baso % (Auto) Neut # (Auto) Lymph # (Auto) Ellis # (Auto) Eos # (Auto) Baso # (Auto) Neutrophils % (Manual) Lymphocytes % (Manual) Monocytes % (Manual) Platelet Estimate RBC Morphology APTT Puncture Site Lf pCO2 40 pO2 79 L HCO3 22.8 ABG pH 7.36 ABG Total CO2 23.8 ABG O2 Saturation 97.3 ABG Base Excess -2.7 L Aly Test Na ABG Potassium 3.4 L A-a O2 Difference 121.0 Respiratory Index 1.5 Glucose 90 Lactate 0.9 Vent Mode Cpap Mechanical Rate FiO2 35.0 Tidal Volume PEEP 5 CPAP 15 Sodium 146.0 Potassium Chloride 117.0 H Carbon Dioxide Anion Gap BUN Creatinine Est GFR ( Amer) Est GFR (Non-Af Amer) POC Glucose (mg/dL) 117 H Random Glucose Hemoglobin A1c Calcium Phosphorus Magnesium Total Bilirubin AST ALT Alkaline Phosphatase Total Protein Albumin Globulin Albumin/Globulin Ratio Triglycerides Cholesterol LDL Cholesterol Direct HDL Cholesterol Arterial Blood Potassium 3.4 L H.influenzae Type B Ag Ur L.pneumophila Ag Mycoplasma pneumon IgM N.meningitidis ACY/W135 N.meningi B/E.coli K1 Ag RSV Antigen Negative Group B Strep Antigen S. pneumoniae Antigen Assessment & Plan (1) Respiratory failure Status: Acute Comment: flu negative, follow results legionella, RSV, and mycoplasma, echovir us, strep pneumoniae, culture and MRSA. Intubated, tolerating CPAP. continue duonebs, continue solumedrol. continue antibiotics- currently doxycycline and ceftriaxone. Cardiology work up and follow recommendations (2) Congestive heart failure Status: Acute (3) COPD with exacerbation Status: Acute
--- NOTE | 2018-04-26 18:33 | CT ---
Date of service: 04/26/2018 PROCEDURE: CT Chest with contrast (Pulmonary Angiogram) HISTORY: r/o PE - pt didn't receive adequate contrast COMPARISON: April 25, 2018. CT pulmonary angiogram deemed to be suboptimal related to poor opacification of pulmonary arteries. This is confirmed with mean Hounsfield unit values of the main pulmonary artery 132.80 TECHNIQUE: Axial computed tomography images were obtained of the chest in the pulmonary arterial phase of enhancement. Coronal and sagittal reformatted images were created and reviewed. Intravenous contrast dose: 100 cc Visipaque 320. Mean Hounsfield value in the main pulmonary artery: 223.07 Radiation dose: Total exam DLP = <inf_radiation_dlp> mGy-cm. This CT exam was performed using one or more of the following dose reduction techniques: Automated exposure control, adjustment of the mA and/or kV according to patient size, and/or use of iterative reconstruction technique. FINDINGS: PULMONARY ARTERIES: Unremarkable. No pulmonary embolism. AORTA: No acute findings. No thoracic aortic aneurysm. Atherosclerotic calcification and mural plaque present. Findings are seen throughout the aorta which is non aneurysmal. LUNGS: Stable dependent atelectasis at the lung bases. PLEURAL SPACES: Small bilateral pleural effusions. HEART: Unremarkable. No cardiomegaly. No significant pericardial effusion. LYMPH NODES: Stable mediastinal lymph nodes/lymphadenopathy. BONES, CHEST WALL: Unremarkable. No fracture or destructive lesion OTHER FINDINGS: Removal of support apparatus since the prior study: Nasogastric tube and endotracheal tube IMPRESSION: Unremarkable CT pulmonary angiogram. No pulmonary embolus. Additional benign and/or incidental findings described above.
--- NOTE | 2018-04-26 21:05 | CP.PCM.PN ---
Subjective - Date & Time of Evaluation Date of Evaluation: 04/26/18 Time of Evaluation: 18:30 - Subjective Subjective: Patient seen and evaluated Extubated Denies chest pain and dyspnea Physical Exam - Head Exam Head Exam: ATRAUMATIC, NORMOCEPHALIC - ENT Exam ENT Exam: Mucous Membranes Moist - Neck Exam Neck exam: Positive for: Normal Inspection - Respiratory Exam Respiratory Exam: Decreased Breath Sounds - Cardiovascular Exam Cardiovascular Exam: REGULAR RHYTHM - GI/Abdominal Exam GI & Abdominal Exam: Normal Bowel Sounds, Soft - Extremities Exam Extremities exam: Positive for: normal inspection Assessment & Plan (1) Respiratory failure Status: Acute Comment: flu negative, follow results legionella, RSV, and mycoplasma, echovirus, strep pneumoniae, culture and MRSA. Intubated, tolerating CPAP. continue duonebs, continue solumedrol. continue antibiotics- currently doxycycline and ceftriaxone. (2) Congestive heart failure/non STEMI Status: Acute For Cath tomorrow (3) COPD with exacerbation Status: Acute Objective - Vital Signs/Intake and Output Vital Signs (last 24 hours): Temp Pulse Resp BP Pulse Ox 97.4 F L 78 16 129/69 91 L 04/26/18 20:00 04/26/18 20:14 04/26/18 20:14 04/26/18 20:14 04/26/18 20:14 Intake and Output: 04/26/18 04/27/18 18:59 06:59 Intake Total 1393.5 240 Output Total 1080 200 Balance 313.5 40 - Medications Medications: Current Medications Albuterol/Ipratropium (Duoneb 3 Mg/0.5 Mg (3 Ml) Ud) 3 ml INH RQ6 [facility] Last Admin: 04/26/18 19:37 Dose: 3 ml Aspirin (Ecotrin) 81 mg PO DAILY [facility] Last Admin: 04/26/18 11:53 Dose: 81 mg Clopidogrel Bisulfate (Plavix) 75 mg PO DAILY [facility] Last Admin: 04/26/18 11:54 Dose: 75 mg Dextrose (Dextrose 50% Inj) 0 ml IV STAT PRN; Protocol PRN Reason: Hypoglycemia Protocol Dextrose (Glutose 15) 0 gm PO ONCE PRN; Protocol PRN Reason: Hypoglycemia Protocol Folic Acid (Folic Acid) 1 mg PO DAILY [facility] Last Admin: 04/26/18 11:53 Dose: 1 mg Glucagon (Glucagen Diagnostic Kit) 0 mg IM STAT PRN; Protocol PRN Reason: Hypoglycemia Protocol Doxycycline Hyclate 100 mg/ (Sodium Chloride) 100 mls @ 100 mls/hr IVPB Q12H [facility]; Protocol Last Admin: 04/26/18 14:17 Dose: 100 mls/hr Ceftriaxone Sodium 1 gm/ (Sodium Chloride) 100 mls @ 100 mls/hr IVPB DAILY [facility]; Protocol Last Admin: 04/26/18 11:54 Dose: 100 mls/hr Dextrose (Dextrose 5% In Water 1000 Ml) 1,000 mls @ 0 mls/hr IV .Q0M PRN; Protocol PRN Reason: Hypoglycemia Protocol Propofol (Diprivan) 1,000 mg in 100 mls @ 2.343 mls/hr IV .Q24H PRN; Protocol PRN Reason: TITRATE PER MD ORDER Last Titration: 04/26/18 13:00 Dose: 0 mcg/kg/min, 0 mls/hr Methylprednisolone (Solu-Medrol) 40 mg IVP Q12 [facility] Last Admin: 04/26/18 11:54 Dose: 40 mg Multivitamins (Hexavitamin) 1 tab PO DAILY [facility] Last Admin: 04/26/18 11:53 Dose: 1 tab Ondansetron HCl (Zofran Inj) 4 mg IVP DAILY@ONCE PRN PRN Reason: Nausea/Vomiting Pantoprazole Sodium (Protonix Inj) 40 mg IVP DAILY [facility] Last Admin: 04/26/18 11:54 Dose: 40 mg Rosuvastatin Calcium (Crestor) 10 mg PO HS [facility] Last Admin: 04/25/18 22:33 Dose: 10 mg Thiamine HCl (Vitamin B1 Tab) 100 mg PO DAILY [facility] Last Admin: 04/26/18 11:55 Dose: 100 mg - Labs Labs: 04/26/18 06:26 04/26/18 06:26 PT 11.8 SECONDS (9.7-12.2) 04/25/18 01:35 INR 1.1 04/25/18 01:35 APTT 47 SECONDS (21-34) H 04/26/18 19:03
--- NOTE | 2018-04-27 00:51 | PN ---
DATE: 04/26/2018 SUBJECTIVE: The patient was seen and examined at bedside. No new events noted. This morning the patient remains intubated, sedated, arousable, responding to verbal commands. PHYSICAL EXAMINATION: GENERAL: Elderly male, lying in bed, in no acute distress. VITAL SIGNS: Blood pressure 136/81, pulse 75, respirations 20, temperature 97.9 degrees Fahrenheit, O2 sat 91% on 60% FiO2. Intake is 1437 mL, output is 1140 mL. HEENT: Pupils reacting to light and accommodation. Extraocular muscles intact. No icterus. No pallor. NECK: Supple. No JVD. ET tube in the oral cavity. LUNGS: Bilateral fair entry. Bilateral basal crackles heard. CARDIOVASCULAR SYSTEM: S1, S2 present, regular. ABDOMEN: Soft. Nontender. Bowel sounds present. No guarding. No rigidity. No rebound tenderness noted. CENTRAL NERVOUS SYSTEM: Drowsy, arousable, opening eyes upon calling his name. Moving all the extremities. EXTREMITIES: No edema. Palpable peripheral pulses. MEDICATIONS: Include DuoNeb 3 mL every 6 hours, Ecotrin 81 mg daily, Rocephin 1 g daily, Plavix 75 mg daily, doxycycline 100 mg IV every 12 hours, folic acid 1 mg daily, Solu-Medrol 40 mg IV every 12 hours, multivitamin 1 tab daily, Zofran as needed, Protonix 40 mg IV daily, Diprivan drip 5 mcg/kg/min, Crestor 10 mg at bedtime, thiamine 100 mg daily. LABORATORY DATA: Labs from this morning: WBC 9.7, hemoglobin, 12.4, hematocrit 37.2, platelets 258. PTT 41, pO2 of 250, pCO2 of 51, pH 7.30 on 60% FiO2, tidal volume 450, PEEP of 5; and the patient was started on CPAP 15, PEEP of 5 and FiO2 of 35, with pH 7.36, pO2 of 79, pCO2 of 40. Sodium 138, potassium 4.4, chloride 106, bicarb 27, BUN 37, creatinine 1.3, glucose 153, hemoglobin A1c 5, calcium 8.9, phosphorus 5.2, magnesium 2.2, total bilirubin 0.4, AST 18, ALT 25, alkaline phosphatase 74, total protein 6.7, albumin 3.5, triglycerides 120, cholesterol 138, LDL 100, HDL 29. H. flu negative, Legionella negative, mycoplasma negative, RSV negative, Strep pneumonia negative, blood cultures negative so far. Repeat chest x-ray from this morning shows ET tube and NG tube in place, cardiomegaly, mild right basilar atelectasis versus infiltrate, mild pulmonary venous congestion. ASSESSMENT AND PLAN: Elderly male with history of coronary artery disease, chronic heart failure, chronic obstructive pulmonary disease, hypertension, admitted for acute respiratory failure, status post cardiac arrest, chronic obstructive pulmonary disease exacerbation, non-ST elevation myocardial infarction, possible pneumonia, uncontrolled hypertension, now blood pressure is stable. The patient is on continuous positive airway pressure, tolerating well. We will monitor his neurologic status, continue weaning efforts as per Pulmonary. Continue with Solu-Medrol, nebulizer treatments, and current antibiotics with possible repeat CT scan in a.m. as it could not be done within 48 hours, first one was unsuccessful. Lower extremity Dopplers were done yesterday which were negative for any deep venous thrombosis. Heparin drip discontinued. We will follow up with Cardiology for further cardiac advice and recommendation. His renal function remains stable. We will continue with deep venous thrombosis and gastrointestinal prophylaxis. Cardiology consult and pulmonary consult appreciated. Repeat labs in a.m. Myrna Wilde MD
[2018-04-27] MEDS: Albuterol-Ipratrop 3 mg / 0.5 (3 ml) UD INH SCH ×4 (01:15→19:43)
[2018-04-27 06:15] LABS: BASO % 0.1 % (0.0-2.0); HEMOGLOBIN 12.3 g/dL (12.0-18.0); LYMPH # 0.3 K/uL (1.0-4.3); LYMPH % 3.9 % (20.0-40.0); MEAN CELL VOLUME 99.3 fL (80.0-94.0); MEAN CORPUSCULAR HEMOGLOBIN 33.6 pg (27.0-31.0); MEAN CORPUSCULAR HGB CONC 33.8 g/dL (33.0-37.0); MEAN PLATELET VOLUME 8.9 fL (7.2-11.7); MONO # 0.2 K/uL (0.0-0.8); MONO % 2.5 % (0.0-10.0); NEUT # 8.2 K/uL (1.8-7.0); NEUT % 93.5 % (50.0-75.0); PLATELET COUNT 256 K/uL (130-400); RBC 3.66 Mil/uL (4.40-5.90); RED CELL DISTRIBUTION WIDTH 14.9 % (11.5-14.5); WHITE BLOOD COUNT 8.8 K/uL (4.8-10.8)
[2018-04-27 06:51] LABS: ALB/GLOB RATIO 1.1 (1.0-2.1); ALBUMIN 3.7 g/dL (3.5-5.0); ALT/SGPT 24 U/L (21-72); AST/SGOT 19 U/L (17-59); BLOOD UREA NITROGEN 37 mg/dL (9-20); GFR NON-AFRICAN AMERICAN > 60
[2018-04-27 08:18] LABS: LYMPHOCYTE 1 % (20-40); MONOCYTE 3 % (0-10); NEUTROPHIL 96 % (50-75); PLATELET ESTIMATE NORMAL (NORMAL); TOTAL CELLS COUNTED 100
--- NOTE | 2018-04-27 08:45 | CP.CCUPN ---
<[place] Robert - Last Filed: 04/27/18 10:07> CCU Subjective - Physician Review Subjective (Free Text): 04/26/18 09:04 ICU Progress Note for Dr. Blum Patient seen and examined at bedside this morning. Patient no longer sedated with propofol and is on NC this morning. Patient anxious about cardiac cath which is to be done today. Was NPO after MN. Heparin drip DCed last night around 7pm. Otherwise 12 point ROS negative. CCU Objective - Vital Signs / Intake & Output Vital Signs (Last 4 hours): Vital Signs Pulse Resp BP Pulse Ox 04/27/18 07:14 135/90 04/27/18 07:00 67 13 94 L 04/27/18 06:00 74 15 94 L 04/27/18 05:14 81 17 142/92 H 89 L Intake and Output (Last 8hrs): Intake & Output 04/26/18 04/27/18 04/27/18 22:59 06:59 14:59 Intake Total 790.0 100 0 Output Total 790 620 150 Balance 0 -520 -150 Weight 174 lb 0.12 oz Intake: Intake, IV Amount 50.0 100 0 Right Hand 50.0 100 0 Right Proximal Port 0 Femoral Oral 740 0 0 Tube Feeding 0 Output: Urine 790 620 150 Urethral (Mariscal) 170 Urine, Voided 620 620 150 Other: # Bowel Movements 0 0 0 - Physical Exam Head: Positive for: Atraumatic, Normocephalic Respiratory/Chest: Positive for: Clear to Auscultation, Good Air Exchange. Negative for: Respiratory Distress, Accessory Muscle Use Cardiovascular: Positive for: Regular Rate and Rhythm Abdomen: Positive for: Normal Bowel Sounds. Negative for: Tenderness, Distention Upper Extremity: Positive for: Normal Inspection, NORMAL PULSES, Capillary Refill < 2s. Negative for: Cyanosis, Edema Lower Extremity: Positive for: Normal Inspection, NORMAL PULSES, Capillary Refill < 2 s. Negative for: Edema Skin: Positive for: Warm, Dry, Normal Color Psychiatric: Positive for: Oriented x 3. Negative for: Alert - Medications Active Medications: Active Medications Generic Name Dose Route Start Last Admin Trade Name Freq PRN Reason Stop Dose Admin Albuterol/Ipratropium 3 ml 04/25/18 08:00 04/27/18 07:35 Duoneb 3 Mg/0.5 Mg (3 Ml) Ud INH 3 ml RQ6 LUCILA Administration Aspirin 81 mg 04/26/18 10:00 04/26/18 11:53 Ecotrin PO 81 mg DAILY LUCILA Administration Clopidogrel Bisulfate 75 mg 04/25/18 10:00 04/26/18 11:54 Plavix PO 75 mg DAILY LUCILA Administration Dextrose 0 ml 04/25/18 07:33 Dextrose 50% Inj IV STAT PRN Hypoglycemia Protocol Protocol Dextrose 0 gm 04/25/18 07:33 Glutose 15 PO ONCE PRN Hypoglycemia Protocol Protocol Folic Acid 1 mg 04/25/18 10:00 04/26/18 11:53 Folic Acid PO 1 mg DAILY LUCILA Administration Glucagon 0 mg 04/25/18 07:33 Glucagen Diagnostic Kit IM STAT PRN Hypoglycemia Protocol Protocol Doxycycline Hyclate 100 mg/ 100 mls @ 100 mls/hr 04/25/18 02:30 04/27/18 02:30 Sodium Chloride IVPB 100 mls/hr Q12H LUCILA Administration Protocol Ceftriaxone Sodium 1 gm/ 100 mls @ 100 mls/hr 04/25/18 10:00 04/26/18 11:54 Sodium Chloride IVPB 100 mls/hr DAILY LUCILA Administration Protocol Dextrose 1,000 mls @ 0 mls/hr 04/25/18 07:33 Dextrose 5% In Water 1000 Ml IV .Q0M PRN Hypoglycemia Protocol Protocol Per Protocol Methylprednisolone 40 mg 04/25/18 10:00 04/26/18 21:58 Solu-Medrol IVP 40 mg Q12 LUCILA Administration Multivitamins 1 tab 04/25/18 10:00 04/26/18 11:53 Hexavitamin PO 1 tab DAILY LUCILA Administration Ondansetron HCl 4 mg 04/26/18 16:00 Zofran Inj IVP DAILY@ONCE PRN Nausea/Vomiting Pantoprazole Sodium 40 mg 04/25/18 10:00 04/26/18 11:54 Protonix Inj IVP 40 mg DAILY LUCILA Administration Rosuvastatin Calcium 10 mg 04/25/18 22:00 04/26/18 21:57 Crestor PO 10 mg HS LUCILA Administration Thiamine HCl 100 mg 04/25/18 10:00 04/26/18 11:55 Vitamin B1 Tab PO 100 mg DAILY LUCILA Administration - Patient Studies Lab Studies: Microbiology Studies 04/25/18 02:56 Blood Culture - Preliminary Blood NO GROWTH AFTER 48 HOURS 04/25/18 02:56 Blood Culture - Preliminary Blood NO GROWTH AFTER 48 HOURS Lab Studies 04/27/18 04/27/18 04/27/18 Range/Units 07:24 06:06 06:06 WBC 8.8 (4.8-10.8) K/uL RBC 3.66 L (4.40-5.90) Mil/uL Hgb 12.3 (12.0-18.0) g/dL Hct 36.3 (35.0-51.0) % MCV 99.3 H (80.0-94.0) fL MCH 33.6 H (27.0-31.0) pg MCHC 33.8 (33.0-37.0) g/dL RDW 14.9 H (11.5-14.5) % Plt Count 256 (130-400) K/uL MPV 8.9 (7.2-11.7) fL Neut % (Auto) 93.5 H (50.0-75.0) % Lymph % (Auto) 3.9 L (20.0-40.0) % Levy % (Auto) 2.5 (0.0-10.0) % Eos % (Auto) 0.0 (0.0-4.0) % Baso % (Auto) 0.1 (0.0-2.0) % Neut # (Auto) 8.2 H (1.8-7.0) K/uL Lymph # (Auto) 0.3 L (1.0-4.3) K/uL Levy # (Auto) 0.2 (0.0-0.8) K/uL Eos # (Auto) 0.0 (0.0-0.7) K/uL Baso # (Auto) 0.0 (0.0-0.2) K/uL Neutrophils % (Manual) 96 H (50-75) % Lymphocytes % (Manual) 1 L (20-40) % Monocytes % (Manual) 3 (0-10) % Platelet Estimate Normal (NORMAL) RBC Morphology Normal APTT (21-34) SECONDS Puncture Site pCO2 (35-45) mm/Hg pO2 (80-100) mm/Hg HCO3 (21-28) mmol/L ABG pH (7.35-7.45) ABG Total CO2 (22-28) mmol/L ABG O2 Saturation (95-98) % ABG Base Excess (-2.0-3.0) mmol/L Aly Test ABG Potassium (3.6-5.2) mmol/L A-a O2 Difference mm/Hg Respiratory Index Sodium 138 (132-148) mmol/l Chloride 104 (98-107) mmol/L Glucose (75-110) mg/dl Lactate (0.7-2.1) mmol/L Vent Mode Mechanical Rate FiO2 % Tidal Volume PEEP CPAP Potassium 4.0 (3.6-5.2) mmol/L Carbon Dioxide 26 (22-30) mmol/L Anion Gap 12 (10-20) BUN 37 H (9-20) mg/dL Creatinine 1.2 (0.8-1.5) mg/dL Est GFR ( Amer) > 60 Est GFR (Non-Af Amer) > 60 POC Glucose (mg/dL) 121 H (65-110) mg/dL Random Glucose 126 H (75-110) mg/dL Calcium 9.0 (8.6-10.4) mg/dl Phosphorus 4.0 (2.5-4.5) mg/dL Magnesium 2.2 (1.6-2.3) mg/dL Total Bilirubin 0.4 (0.2-1.3) mg/dL AST 19 (17-59) U/L ALT 24 (21-72) U/L Alkaline Phosphatase 68 (38-126) U/L Total Protein 7.0 (6.3-8.3) g/dL Albumin 3.7 (3.5-5.0) g/dL Globulin 3.3 (2.2-3.9) gm/dL Albumin/Globulin Ratio 1.1 (1.0-2.1) Arterial Blood Potassium (3.6-5.2) mmol/L H.influenzae Type B Ag (NEGATIVE) Ur L.pneumophila Ag (NEGATIVE) Mycoplasma pneumon IgM (NEGATIVE) N.meningitidis ACY/W135 (NEGATIVE) N.meningi B/E.coli K1 Ag (NEGATIVE) RSV Antigen (NEGATIVE) Group B Strep Antigen (NEGATIVE) S. pneumoniae Antigen (NEGATIVE) 04/26/18 04/26/18 04/26/18 Range/Units 20:56 19:03 16:03 WBC (4.8-10.8) K/uL RBC (4.40-5.90) Mil/uL Hgb (12.0-18.0) g/dL Hct (35.0-51.0) % MCV (80.0-94.0) fL MCH (27.0-31.0) pg MCHC (33.0-37.0) g/dL RDW (11.5-14.5) % Plt Count (130-400) K/uL MPV (7.2-11.7) fL Neut % (Auto) (50.0-75.0) % Lymph % (Auto) (20.0-40.0) % Levy % (Auto) (0.0-10.0) % Eos % (Auto) (0.0-4.0) % Baso % (Auto) (0.0-2.0) % Neut # (Auto) (1.8-7.0) K/uL Lymph # (Auto) (1.0-4.3) K/uL Levy # (Auto) (0.0-0.8) K/uL Eos # (Auto) (0.0-0.7) K/uL Baso # (Auto) (0.0-0.2) K/uL Neutrophils % (Manual) (50-75) % Lymphocytes % (Manual) (20-40) % Monocytes % (Manual) (0-10) % Platelet Estimate (NORMAL) RBC Morphology APTT 47 H (21-34) SECONDS Puncture Site pCO2 (35-45) mm/Hg pO2 (80-100) mm/Hg HCO3 (21-28) mmol/L ABG pH (7.35-7.45) ABG Total CO2 (22-28) mmol/L ABG O2 Saturation (95-98) % ABG Base Excess (-2.0-3.0) mmol/L Aly Test ABG Potassium (3.6-5.2) mmol/L A-a O2 Difference mm/Hg Respiratory Index Sodium (132-148) mmol/l Chloride (98-107) mmol/L Glucose (75-110) mg/dl Lactate (0.7-2.1) mmol/L Vent Mode Mechanical Rate FiO2 % Tidal Volume PEEP CPAP Potassium (3.6-5.2) mmol/L Carbon Dioxide (22-30) mmol/L Anion Gap (10-20) BUN (9-20) mg/dL Creatinine (0.8-1.5) mg/dL Est GFR ( Amer) Est GFR (Non-Af Amer) POC Glucose (mg/dL) 107 117 H (65-110) mg/dL Random Glucose (75-110) mg/dL Calcium (8.6-10.4) mg/dl Phosphorus (2.5-4.5) mg/dL Magnesium (1.6-2.3) mg/dL Total Bilirubin (0.2-1.3) mg/dL AST (17-59) U/L ALT (21-72) U/L Alkaline Phosphatase (38-126) U/L Total Protein (6.3-8.3) g/dL Albumin (3.5-5.0) g/dL Globulin (2.2-3.9) gm/dL Albumin/Globulin Ratio (1.0-2.1) Arterial Blood Potassium (3.6-5.2) mmol/L H.influenzae Type B Ag (NEGATIVE) Ur L.pneumophila Ag (NEGATIVE) Mycoplasma pneumon IgM (NEGATIVE) N.meningitidis ACY/W135 (NEGATIVE) N.meningi B/E.coli K1 Ag (NEGATIVE) RSV Antigen (NEGATIVE) Group B Strep Antigen (NEGATIVE) S. pneumoniae Antigen (NEGATIVE) 04/26/18 04/26/18 04/26/18 Range/Units 15:35 13:54 13:30 WBC (4.8-10.8) K/uL RBC (4.40-5.90) Mil/uL Hgb (12.0-18.0) g/dL Hct (35.0-51.0) % MCV (80.0-94.0) fL MCH (27.0-31.0) pg MCHC (33.0-37.0) g/dL RDW (11.5-14.5) % Plt Count (130-400) K/uL MPV (7.2-11.7) fL Neut % (Auto) (50.0-75.0) % Lymph % (Auto) (20.0-40.0) % Levy % (Auto) (0.0-10.0) % Eos % (Auto) (0.0-4.0) % Baso % (Auto) (0.0-2.0) % Neut # (Auto) (1.8-7.0) K/uL Lymph # (Auto) (1.0-4.3) K/uL Levy # (Auto) (0.0-0.8) K/uL Eos # (Auto) (0.0-0.7) K/uL Baso # (Auto) (0.0-0.2) K/uL Neutrophils % (Manual) (50-75) % Lymphocytes % (Manual) (20-40) % Monocytes % (Manual) (0-10) % Platelet Estimate (NORMAL) RBC Morphology APTT 51 H D (21-34) SECONDS Puncture Site Lf pCO2 40 (35-45) mm/Hg pO2 79 L (80-100) mm/Hg HCO3 22.8 (21-28) mmol/L ABG pH 7.36 (7.35-7.45) ABG Total CO2 23.8 (22-28) mmol/L ABG O2 Saturation 97.3 (95-98) % ABG Base Excess -2.7 L (-2.0-3.0) mmol/L Aly Test Na ABG Potassium 3.4 L (3.6-5.2) mmol/L A-a O2 Difference 121.0 mm/Hg Respiratory Index 1.5 Sodium 146.0 (132-148) mmol/l Chloride 117.0 H (98-107) mmol/L Glucose 90 (75-110) mg/dl Lactate 0.9 (0.7-2.1) mmol/L Vent Mode Cpap Mechanical Rate FiO2 35.0 % Tidal Volume PEEP 5 CPAP 15 Potassium (3.6-5.2) mmol/L Carbon Dioxide (22-30) mmol/L Anion Gap (10-20) BUN (9-20) mg/dL Creatinine (0.8-1.5) mg/dL Est GFR ( Amer) Est GFR (Non-Af Amer) POC Glucose (mg/dL) (65-110) mg/dL Random Glucose (75-110) mg/dL Calcium (8.6-10.4) mg/dl Phosphorus (2.5-4.5) mg/dL Magnesium (1.6-2.3) mg/dL Total Bilirubin (0.2-1.3) mg/dL AST (17-59) U/L ALT (21-72) U/L Alkaline Phosphatase (38-126) U/L Total Protein (6.3-8.3) g/dL Albumin (3.5-5.0) g/dL Globulin (2.2-3.9) gm/dL Albumin/Globulin Ratio (1.0-2.1) Arterial Blood Potassium 3.4 L (3.6-5.2) mmol/L H.influenzae Type B Ag (NEGATIVE) Ur L.pneumophila Ag (NEGATIVE) Mycoplasma pneumon IgM (NEGATIVE) N.meningitidis ACY/W135 (NEGATIVE) N.meningi B/E.coli K1 Ag (NEGATIVE) RSV Antigen Negative (NEGATIVE) Group B Strep Antigen (NEGATIVE) S. pneumoniae Antigen (NEGATIVE) 04/26/18 04/26/18 04/26/18 Range/Units 13:30 11:33 10:02 WBC (4.8-10.8) K/uL RBC (4.40-5.90) Mil/uL Hgb (12.0-18.0) g/dL Hct (35.0-51.0) % MCV (80.0-94.0) fL MCH (27.0-31.0) pg MCHC (33.0-37.0) g/dL RDW (11.5-14.5) % Plt Count (130-400) K/uL MPV (7.2-11.7) fL Neut % (Auto) (50.0-75.0) % Lymph % (Auto) (20.0-40.0) % Levy % (Auto) (0.0-10.0) % Eos % (Auto) (0.0-4.0) % Baso % (Auto) (0.0-2.0) % Neut # (Auto) (1.8-7.0) K/uL Lymph # (Auto) (1.0-4.3) K/uL Levy # (Auto) (0.0-0.8) K/uL Eos # (Auto) (0.0-0.7) K/uL Baso # (Auto) (0.0-0.2) K/uL Neutrophils % (Manual) (50-75) % Lymphocytes % (Manual) (20-40) % Monocytes % (Manual) (0-10) % Platelet Estimate (NORMAL) RBC Morphology APTT (21-34) SECONDS Puncture Site pCO2 (35-45) mm/Hg pO2 (80-100) mm/Hg HCO3 (21-28) mmol/L ABG pH (7.35-7.45) ABG Total CO2 (22-28) mmol/L ABG O2 Saturation (95-98) % ABG Base Excess (-2.0-3.0) mmol/L Aly Test ABG Potassium (3.6-5.2) mmol/L A-a O2 Difference mm/Hg Respiratory Index Sodium (132-148) mmol/l Chloride (98-107) mmol/L Glucose (75-110) mg/dl Lactate (0.7-2.1) mmol/L Vent Mode Mechanical Rate FiO2 % Tidal Volume PEEP CPAP Potassium (3.6-5.2) mmol/L Carbon Dioxide (22-30) mmol/L Anion Gap (10-20) BUN (9-20) mg/dL Creatinine (0.8-1.5) mg/dL Est GFR ( Amer) Est GFR (Non-Af Amer) POC Glucose (mg/dL) 123 H (65-110) mg/dL Random Glucose (75-110) mg/dL Calcium (8.6-10.4) mg/dl Phosphorus (2.5-4.5) mg/dL Magnesium (1.6-2.3) mg/dL Total Bilirubin (0.2-1.3) mg/dL AST (17-59) U/L ALT (21-72) U/L Alkaline Phosphatase (38-126) U/L Total Protein (6.3-8.3) g/dL Albumin (3.5-5.0) g/dL Globulin (2.2-3.9) gm/dL Albumin/Globulin Ratio (1.0-2.1) Arterial Blood Potassium (3.6-5.2) mmol/L H.influenzae Type B Ag Not required (NEGATIVE) Ur L.pneumophila Ag Negative (NEGATIVE) Mycoplasma pneumon IgM Negative (NEGATIVE) N.meningitidis ACY/W135 Not required (NEGATIVE) N.meningi B/E.coli K1 Ag Not required (NEGATIVE) RSV Antigen (NEGATIVE) Group B Strep Antigen Not required (NEGATIVE) S. pneumoniae Antigen Negative (NEGATIVE) 04/26/18 04/26/18 Range/Units 06:26 04:25 WBC (4.8-10.8) K/uL RBC (4.40-5.90) Mil/uL Hgb (12.0-18.0) g/dL Hct (35.0-51.0) % MCV (80.0-94.0) fL MCH (27.0-31.0) pg MCHC (33.0-37.0) g/dL RDW (11.5-14.5) % Plt Count (130-400) K/uL MPV (7.2-11.7) fL Neut % (Auto) (50.0-75.0) % Lymph % (Auto) (20.0-40.0) % Levy % (Auto) (0.0-10.0) % Eos % (Auto) (0.0-4.0) % Baso % (Auto) (0.0-2.0) % Neut # (Auto) (1.8-7.0) K/uL Lymph # (Auto) (1.0-4.3) K/uL Levy # (Auto) (0.0-0.8) K/uL Eos # (Auto) (0.0-0.7) K/uL Baso # (Auto) (0.0-0.2) K/uL Neutrophils % (Manual) 94 H (50-75) % Lymphocytes % (Manual) 3 L (20-40) % Monocytes % (Manual) 3 (0-10) % Platelet Estimate Normal (NORMAL) RBC Morphology Normal APTT (21-34) SECONDS Puncture Site Rr pCO2 51 H (35-45) mm/Hg pO2 250 H (80-100) mm/Hg HCO3 23.4 (21-28) mmol/L ABG pH 7.30 L (7.35-7.45) ABG Total CO2 26.7 (22-28) mmol/L ABG O2 Saturation 99.6 H (95-98) % ABG Base Excess -2.0 (-2.0-3.0) mmol/L Aly Test Pos ABG Potassium (3.6-5.2) mmol/L A-a O2 Difference 114.0 mm/Hg Respiratory Index 0.5 Sodium (132-148) mmol/l Chloride (98-107) mmol/L Glucose (75-110) mg/dl Lactate (0.7-2.1) mmol/L Vent Mode Prvc Mechanical Rate 14 FiO2 60.0 % Tidal Volume 450 PEEP 5 CPAP Potassium (3.6-5.2) mmol/L Carbon Dioxide (22-30) mmol/L Anion Gap (10-20) BUN (9-20) mg/dL Creatinine (0.8-1.5) mg/dL Est GFR ( Amer) Est GFR (Non-Af Amer) POC Glucose (mg/dL) (65-110) mg/dL Random Glucose (75-110) mg/dL Calcium (8.6-10.4) mg/dl Phosphorus (2.5-4.5) mg/dL Magnesium (1.6-2.3) mg/dL Total Bilirubin (0.2-1.3) mg/dL AST (17-59) U/L ALT (21-72) U/L Alkaline Phosphatase (38-126) U/L Total Protein (6.3-8.3) g/dL Albumin (3.5-5.0) g/dL Globulin (2.2-3.9) gm/dL Albumin/Globulin Ratio (1.0-2.1) Arterial Blood Potassium (3.6-5.2) mmol/L H.influenzae Type B Ag (NEGATIVE) Ur L.pneumophila Ag (NEGATIVE) Mycoplasma pneumon IgM (NEGATIVE) N.meningitidis ACY/W135 (NEGATIVE) N.meningi B/E.coli K1 Ag (NEGATIVE) RSV Antigen (NEGATIVE) Group B Strep Antigen (NEGATIVE) S. pneumoniae Antigen (NEGATIVE) Laboratory Results - last 24 hr 04/26/18 04/26/18 04/26/18 04:25 06:26 10:02 WBC RBC Hgb Hct MCV MCH MCHC RDW Plt Count MPV Neut % (Auto) Lymph % (Auto) Levy % (Auto) Eos % (Auto) Baso % (Auto) Neut # (Auto) Lymph # (Auto) Levy # (Auto) Eos # (Auto) Baso # (Auto) Neutrophils % (Manual) 94 H Lymphocytes % (Manual) 3 L Monocytes % (Manual) 3 Platelet Estimate Normal RBC Morphology Normal APTT Puncture Site Rr pCO2 51 H pO2 250 H HCO3 23.4 ABG pH 7.30 L ABG Total CO2 26.7 ABG O2 Saturation 99.6 H ABG Base Excess -2.0 Aly Test Pos ABG Potassium A-a O2 Difference 114.0 Respiratory Index 0.5 Sodium Chloride Glucose Lactate Vent Mode Prvc Mechanical Rate 14 FiO2 60.0 Tidal Volume 450 PEEP 5 CPAP Potassium Carbon Dioxide Anion Gap BUN Creatinine Est GFR ( Amer) Est GFR (Non-Af Amer) POC Glucose (mg/dL) Random Glucose Calcium Phosphorus Magnesium Total Bilirubin AST ALT Alkaline Phosphatase Total Protein Albumin Globulin Albumin/Globulin Ratio Arterial Blood Potassium H.influenzae Type B Ag Ur L.pneumophila Ag Negative Mycoplasma pneumon IgM N.meningitidis ACY/W135 N.meningi B/E.coli K1 Ag RSV Antigen Group B Strep Antigen S. pneumoniae Antigen 04/26/18 04/26/18 04/26/18 11:33 13:30 13:30 WBC RBC Hgb Hct MCV MCH MCHC RDW Plt Count MPV Neut % (Auto) Lymph % (Auto) Levy % (Auto) Eos % (Auto) Baso % (Auto) Neut # (Auto) Lymph # (Auto) Levy # (Auto) Eos # (Auto) Baso # (Auto) Neutrophils % (Manual) Lymphocytes % (Manual) Monocytes % (Manual) Platelet Estimate RBC Morphology APTT 51 H D Puncture Site pCO2 pO2 HCO3 ABG pH ABG Total CO2 ABG O2 Saturation ABG Base Excess Aly Test ABG Potassium A-a O2 Difference Respiratory Index Sodium Chloride Glucose Lactate Vent Mode Mechanical Rate FiO2 Tidal Volume PEEP CPAP Potassium Carbon Dioxide Anion Gap BUN Creatinine Est GFR ( Amer) Est GFR (Non-Af Amer) POC Glucose (mg/dL) 123 H Random Glucose Calcium Phosphorus Magnesium Total Bilirubin AST ALT Alkaline Phosphatase Total Protein Albumin Globulin Albumin/Globulin Ratio Arterial Blood Potassium H.influenzae Type B Ag Not required Ur L.pneumophila Ag Mycoplasma pneumon IgM Negative N.meningitidis ACY/W135 Not required N.meningi B/E.coli K1 Ag Not required RSV Antigen Group B Strep Antigen Not required S. pneumoniae Antigen Negative 04/26/18 04/26/18 04/26/18 13:54 15:35 16:03 WBC RBC Hgb Hct MCV MCH MCHC RDW Plt Count MPV Neut % (Auto) Lymph % (Auto) Levy % (Auto) Eos % (Auto) Baso % (Auto) Neut # (Auto) Lymph # (Auto) Levy # (Auto) Eos # (Auto) Baso # (Auto) Neutrophils % (Manual) Lymphocytes % (Manual) Monocytes % (Manual) Platelet Estimate RBC Morphology APTT Puncture Site Lf pCO2 40 pO2 79 L HCO3 22.8 ABG pH 7.36 ABG Total CO2 23.8 ABG O2 Saturation 97.3 ABG Base Excess -2.7 L Aly Test Na ABG Potassium 3.4 L A-a O2 Difference 121.0 Respiratory Index 1.5 Sodium 146.0 Chloride 117.0 H Glucose 90 Lactate 0.9 Vent Mode Cpap Mechanical Rate FiO2 35.0 Tidal Volume PEEP 5 CPAP 15 Potassium Carbon Dioxide Anion Gap BUN Creatinine Est GFR ( Amer) Est GFR (Non-Af Amer) POC Glucose (mg/dL) 117 H Random Glucose Calcium Phosphorus Magnesium Total Bilirubin AST ALT Alkaline Phosphatase Total Protein Albumin Globulin Albumin/Globulin Ratio Arterial Blood Potassium 3.4 L H.influenzae Type B Ag Ur L.pneumophila Ag Mycoplasma pneumon IgM N.meningitidis ACY/W135 N.meningi B/E.coli K1 Ag RSV Antigen Negative Group B Strep Antigen S. pneumoniae Antigen 04/26/18 04/26/18 04/27/18 19:03 20:56 06:06 WBC 8.8 RBC 3.66 L Hgb 12.3 Hct 36.3 MCV 99.3 H MCH 33.6 H MCHC 33.8 RDW 14.9 H Plt Count 256 MPV 8.9 Neut % (Auto) 93.5 H Lymph % (Auto) 3.9 L Levy % (Auto) 2.5 Eos % (Auto) 0.0 Baso % (Auto) 0.1 Neut # (Auto) 8.2 H Lymph # (Auto) 0.3 L Levy # (Auto) 0.2 Eos # (Auto) 0.0 Baso # (Auto) 0.0 Neutrophils % (Manual) 96 H Lymphocytes % (Manual) 1 L Monocytes % (Manual) 3 Platelet Estimate Normal RBC Morphology Normal APTT 47 H Puncture Site pCO2 pO2 HCO3 ABG pH ABG Total CO2 ABG O2 Saturation ABG Base Excess Aly Test ABG Potassium A-a O2 Difference Respiratory Index Sodium Chloride Glucose Lactate Vent Mode Mechanical Rate FiO2 Tidal Volume PEEP CPAP Potassium Carbon Dioxide Anion Gap BUN Creatinine Est GFR ( Amer) Est GFR (Non-Af Amer) POC Glucose (mg/dL) 107 Random Glucose Calcium Phosphorus Magnesium Total Bilirubin AST ALT Alkaline Phosphatase Total Protein Albumin Globulin Albumin/Globulin Ratio Arterial Blood Potassium H.influenzae Type B Ag Ur L.pneumophila Ag Mycoplasma pneumon IgM N.meningitidis ACY/W135 N.meningi B/E.coli K1 Ag RSV Antigen Group B Strep Antigen S. pneumoniae Antigen 04/27/18 04/27/18 06:06 07:24 WBC RBC Hgb Hct MCV MCH MCHC RDW Plt Count MPV Neut % (Auto) Lymph % (Auto) Levy % (Auto) Eos % (Auto) Baso % (Auto) Neut # (Auto) Lymph # (Auto) Levy # (Auto) Eos # (Auto) Baso # (Auto) Neutrophils % (Manual) Lymphocytes % (Manual) Monocytes % (Manual) Platelet Estimate RBC Morphology APTT Puncture Site pCO2 pO2 HCO3 ABG pH ABG Total CO2 ABG O2 Saturation ABG Base Excess Aly Test ABG Potassium A-a O2 Difference Respiratory Index Sodium 138 Chloride 104 Glucose Lactate Vent Mode Mechanical Rate FiO2 Tidal Volume PEEP CPAP Potassium 4.0 Carbon Dioxide 26 Anion Gap 12 BUN 37 H Creatinine 1.2 Est GFR ( Amer) > 60 Est GFR (Non-Af Amer) > 60 POC Glucose (mg/dL) 121 H Random Glucose 126 H Calcium 9.0 Phosphorus 4.0 Magnesium 2.2 Total Bilirubin 0.4 AST 19 ALT 24 Alkaline Phosphatase 68 Total Protein 7.0 Albumin 3.7 Globulin 3.3 Albumin/Globulin Ratio 1.1 Arterial Blood Potassium H.influenzae Type B Ag Ur L.pneumophila Ag Mycoplasma pneumon IgM N.meningitidis [id number]/W135 N.meningi B/E.coli K1 Ag RSV Antigen Group B Strep Antigen S. pneumoniae Antigen Radiology Impressions: Radiology Impressions Duplex Scan Lower Extremity Artery 04/25/18 09:25 IMPRESSION: Right: No evidence of deep or superficial vein thrombosis of the right lower extremity. Normal valve function noted of the right side. Left: No evidence of deep or superficial vein thrombosis of the left lower extremity. Normal valve function noted of the left side. Chest CT 04/25/18 17:00 IMPRESSION: Unremarkable CT pulmonary angiogram. No pulmonary embolus. Additional benign and/or incidental findings described above. Chest X-Ray 04/26/18 04:00 IMPRESSION: Endotracheal tube and nasogastric tubes as above. Cardiomegaly. Mild right basilar atelectasis/infiltrate. Mild pulmonary venous congestion. EKG/Cardiology Studies: Cardiology / EKG Studies 04/26/18 09:53 EKG [ELECTROCARDIOGRAM] Stat Comment: Mode Of Transportation: Reason For Exam: qtc Fingerstick Blood Sugar Results: 121 Critical Care Progress Note - Nutrition Nutrition: Nutrition Category Date Time Status NPO Diet [DIET] Diets 04/27/18 Breakfast Active Assessment/Plan - Assessment and Plan (Free Text) Assessment: 68 y/o male with PMHx COPD, CAD, CHF, DM, HTN, EtOH and tob abuse admitted to ICU 04/25 due to resp distress at home. neuro -AAOx3 -Intubated in the ER and extubated 04/26. Propofol d/lamberto -no acute issues Pulm -w/ COPD, CHF -on doxy started 04/25 and ceftriaxone also started 04/25 -on solumedrol 40 mg IV q12h and albuterol q6h -continue with these medications and caution w/ abx susceptible to QT prolongation -on NC 2.5L and 94% O2 sat. -maintain SpO2 > 92% -ISS CV -PMHx of CAD and CHF. Coronary angio 2013 vessel disease (LAD 60%, Lcx 30%, RCA 30%). ECHO 04/25: EF 40-45% grade 2 diastolic dysfunction, mild pHTN. LV hypokinesis. On admission, patient with pos trops x 2 and new LBBB, d-dimer 1532, and pro BNP 5620 -Dr. Carrillo to cardiac cath 04/27, pending results -continue with crestor 10 mg qhs, ASA and plavix. -Per Dr. Carrillo, patient can be on regular DVT ppx as venous doppler negative 04/25. CTA r/o PE negative 04/26 -Dr. Carrillo, cardio, following. Appreciate recs. GI -due to EtOH hx, patient on folate, MVI and thiamine -TBili and LFTs wnl -no acute issues Renal -pt with BUN mildly elevated at 37, Cr wnl 1.2 -continue to monitor CMP qAM ID -see "pulm" -viral and bacterial tests negative: legionella, mycoplasma, s. pneumo, pneumophilia Ag, flu, RSV DVT ppx: start heparin 5000u sq q12h GI ppx: protonix 40 mg IV daily Diet: HHD w/ mod carb due to DM case discussed w/ Dr. Kulwant Robert PGY1 <Geo Blum - Last Filed: 04/27/18 16:11> CCU Subjective - Physician Review Critical Care Time Spent (in minutes): 35 CCU Objective - Vital Signs / Intake & Output Vital Signs (Last 4 hours): Vital Signs Pulse Resp BP Pulse Ox 04/27/18 15:04 142/76 04/27/18 15:00 87 19 93 L 04/27/18 14:03 91 H 14 133/83 90 L 04/27/18 13:34 76 13 121/52 L 88 L 04/27/18 13:03 93 H 18 139/73 89 L 04/27/18 12:34 98 H 12 151/84 H 83 L Intake and Output (Last 8hrs): Intake & Output 04/27/18 04/27/18 04/27/18 06:59 14:59 22:59 Intake Total 100 680 0 Output Total 620 650 Balance -520 30 0 Weight 174 lb 0.12 oz Intake: Intake, IV Amount 100 200 Right Hand 100 0 Right Medial Port Femoral 200 Oral 0 480 0 Output: Urine 620 650 Urine, Voided 620 650 Other: # Voids Urine, Voided 1 # Bowel Movements 0 0 - Medications Active Medications: Active Medications Generic Name Dose Route Start Last Admin Trade Name Freq PRN Reason Stop Dose Admin Albuterol/Ipratropium 3 ml 04/25/18 08:00 04/27/18 11:40 Duoneb 3 Mg/0.5 Mg (3 Ml) Ud INH 3 ml RQ6 LUCILA Administration Aspirin 81 mg 04/26/18 10:00 04/27/18 09:42 Ecotrin PO 81 mg DAILY LUCILA Administration Dextrose 0 ml 04/25/18 07:33 Dextrose 50% Inj IV STAT PRN Hypoglycemia Protocol Protocol Dextrose 0 gm 04/25/18 07:33 Glutose 15 PO ONCE PRN Hypoglycemia Protocol Protocol Enoxaparin Sodium 30 mg 04/28/18 10:00 Lovenox SC DAILY LUCILA Folic Acid 1 mg 04/25/18 10:00 04/27/18 09:42 Folic Acid PO 1 mg DAILY LUCILA Administration Glucagon 0 mg 04/25/18 07:33 Glucagen Diagnostic Kit IM STAT PRN Hypoglycemia Protocol Protocol Doxycycline Hyclate 100 mg/ 100 mls @ 100 mls/hr 04/25/18 02:30 04/27/18 14:01 Sodium Chloride IVPB 100 mls/hr Q12H LUCILA Administration Protocol Ceftriaxone Sodium 1 gm/ 100 mls @ 100 mls/hr 04/25/18 10:00 04/27/18 09:41 Sodium Chloride IVPB 100 mls/hr DAILY LUCILA Administration Protocol Dextrose 1,000 mls @ 0 mls/hr 04/25/18 07:33 Dextrose 5% In Water 1000 Ml IV .Q0M PRN Hypoglycemia Protocol Protocol Per Protocol Losartan Potassium 50 mg 04/28/18 10:00 Cozaar PO DAILY [facility] Methylprednisolone 40 mg 04/25/18 10:00 04/27/18 09:41 Solu-Medrol IVP 40 mg Q12 [facility] Administration Multivitamins 1 tab 04/25/18 10:00 04/27/18 09:42 Hexavitamin PO 1 tab DAILY [facility] Administration Ondansetron HCl 4 mg 04/26/18 16:00 Zofran Inj IVP DAILY@ONCE PRN Nausea/Vomiting Pantoprazole Sodium 40 mg 04/25/18 10:00 04/27/18 09:40 Protonix Inj IVP 40 mg DAILY [facility] Administration Rosuvastatin Calcium 10 mg 04/25/18 22:00 04/26/18 21:57 Crestor PO 10 mg HS [facility] Administration Thiamine HCl 100 mg 04/25/18 10:00 04/27/18 09:42 Vitamin B1 Tab PO 100 mg DAILY [facility] Administration - Patient Studies Lab Studies: Microbiology Studies 04/25/18 02:56 Blood Culture - Preliminary Blood NO GROWTH AFTER 48 HOURS 04/25/18 02:56 Blood Culture - Preliminary Blood NO GROWTH AFTER 48 HOURS Lab Studies 04/27/18 04/27/18 04/27/18 Range/Units 11:48 07:24 06:06 WBC (4.8-10.8) K/uL RBC (4.40-5.90) Mil/uL Hgb (12.0-18.0) g/dL Hct (35.0-51.0) % MCV (80.0-94.0) fL MCH (27.0-31.0) pg MCHC (33.0-37.0) g/dL RDW (11.5-14.5) % Plt Count (130-400) K/uL MPV (7.2-11.7) fL Neut % (Auto) (50.0-75.0) % Lymph % (Auto) (20.0-40.0) % Levy % (Auto) (0.0-10.0) % Eos % (Auto) (0.0-4.0) % Baso % (Auto) (0.0-2.0) % Neut # (Auto) (1.8-7.0) K/uL Lymph # (Auto) (1.0-4.3) K/uL Levy # (Auto) (0.0-0.8) K/uL Eos # (Auto) (0.0-0.7) K/uL Baso # (Auto) (0.0-0.2) K/uL Neutrophils % (Manual) (50-75) % Lymphocytes % (Manual) (20-40) % Monocytes % (Manual) (0-10) % Platelet Estimate (NORMAL) RBC Morphology APTT (21-34) SECONDS Sodium 138 (132-148) mmol/L Potassium 4.0 (3.6-5.2) mmol/L Chloride 104 (98-107) mmol/L Carbon Dioxide 26 (22-30) mmol/L Anion Gap 12 (10-20) BUN 37 H (9-20) mg/dL Creatinine 1.2 (0.8-1.5) mg/dL Est GFR ( Amer) > 60 Est GFR (Non-Af Amer) > 60 POC Glucose (mg/dL) 108 121 H (65-110) mg/dL Random Glucose 126 H (75-110) mg/dL Calcium 9.0 (8.6-10.4) mg/dl Phosphorus 4.0 (2.5-4.5) mg/dL Magnesium 2.2 (1.6-2.3) mg/dL Total Bilirubin 0.4 (0.2-1.3) mg/dL AST 19 (17-59) U/L ALT 24 (21-72) U/L Alkaline Phosphatase 68 (38-126) U/L Total Protein 7.0 (6.3-8.3) g/dL Albumin 3.7 (3.5-5.0) g/dL Globulin 3.3 (2.2-3.9) gm/dL Albumin/Globulin Ratio 1.1 (1.0-2.1) RSV Antigen (NEGATIVE) 04/27/18 04/26/18 04/26/18 Range/Units 06:06 20:56 19:03 WBC 8.8 (4.8-10.8) K/uL RBC 3.66 L (4.40-5.90) Mil/uL Hgb 12.3 (12.0-18.0) g/dL Hct 36.3 (35.0-51.0) % MCV 99.3 H (80.0-94.0) fL MCH 33.6 H (27.0-31.0) pg MCHC 33.8 (33.0-37.0) g/dL RDW 14.9 H (11.5-14.5) % Plt Count 256 (130-400) K/uL MPV 8.9 (7.2-11.7) fL Neut % (Auto) 93.5 H (50.0-75.0) % Lymph % (Auto) 3.9 L (20.0-40.0) % Levy % (Auto) 2.5 (0.0-10.0) % Eos % (Auto) 0.0 (0.0-4.0) % Baso % (Auto) 0.1 (0.0-2.0) % Neut # (Auto) 8.2 H (1.8-7.0) K/uL Lymph # (Auto) 0.3 L (1.0-4.3) K/uL Levy # (Auto) 0.2 (0.0-0.8) K/uL Eos # (Auto) 0.0 (0.0-0.7) K/uL Baso # (Auto) 0.0 (0.0-0.2) K/uL Neutrophils % (Manual) 96 H (50-75) % Lymphocytes % (Manual) 1 L (20-40) % Monocytes % (Manual) 3 (0-10) % Platelet Estimate Normal (NORMAL) RBC Morphology Normal APTT 47 H (21-34) SECONDS Sodium (132-148) mmol/L Potassium (3.6-5.2) mmol/L Chloride (98-107) mmol/L Carbon Dioxide (22-30) mmol/L Anion Gap (10-20) BUN (9-20) mg/dL Creatinine (0.8-1.5) mg/dL Est GFR ( Amer) Est GFR (Non-Af Amer) POC Glucose (mg/dL) 107 (65-110) mg/dL Random Glucose (75-110) mg/dL Calcium (8.6-10.4) mg/dl Phosphorus (2.5-4.5) mg/dL Magnesium (1.6-2.3) mg/dL Total Bilirubin (0.2-1.3) mg/dL AST (17-59) U/L ALT (21-72) U/L Alkaline Phosphatase (38-126) U/L Total Protein (6.3-8.3) g/dL Albumin (3.5-5.0) g/dL Globulin (2.2-3.9) gm/dL Albumin/Globulin Ratio (1.0-2.1) RSV Antigen (NEGATIVE) 04/26/18 04/26/18 Range/Units 16:03 15:35 WBC (4.8-10.8) K/uL RBC (4.40-5.90) Mil/uL Hgb (12.0-18.0) g/dL Hct (35.0-51.0) % MCV (80.0-94.0) fL MCH (27.0-31.0) pg MCHC (33.0-37.0) g/dL RDW (11.5-14.5) % Plt Count (130-400) K/uL MPV (7.2-11.7) fL Neut % (Auto) (50.0-75.0) % Lymph % (Auto) (20.0-40.0) % Levy % (Auto) (0.0-10.0) % Eos % (Auto) (0.0-4.0) % Baso % (Auto) (0.0-2.0) % Neut # (Auto) (1.8-7.0) K/uL Lymph # (Auto) (1.0-4.3) K/uL Levy # (Auto) (0.0-0.8) K/uL Eos # (Auto) (0.0-0.7) K/uL Baso # (Auto) (0.0-0.2) K/uL Neutrophils % (Manual) (50-75) % Lymphocytes % (Manual) (20-40) % Monocytes % (Manual) (0-10) % Platelet Estimate (NORMAL) RBC Morphology APTT (21-34) SECONDS Sodium (132-148) mmol/L Potassium (3.6-5.2) mmol/L Chloride (98-107) mmol/L Carbon Dioxide (22-30) mmol/L Anion Gap (10-20) BUN (9-20) mg/dL Creatinine (0.8-1.5) mg/dL Est GFR ( Amer) Est GFR (Non-Af Amer) POC Glucose (mg/dL) 117 H (65-110) mg/dL Random Glucose (75-110) mg/dL Calcium (8.6-10.4) mg/dl Phosphorus (2.5-4.5) mg/dL Magnesium (1.6-2.3) mg/dL Total Bilirubin (0.2-1.3) mg/dL AST (17-59) U/L ALT (21-72) U/L Alkaline Phosphatase (38-126) U/L Total Protein (6.3-8.3) g/dL Albumin (3.5-5.0) g/dL Globulin (2.2-3.9) gm/dL Albumin/Globulin Ratio (1.0-2.1) RSV Antigen Negative (NEGATIVE) Laboratory Results - last 24 hr 04/26/18 04/26/18 04/26/18 15:35 16:03 19:03 WBC RBC Hgb Hct MCV MCH MCHC RDW Plt Count MPV Neut % (Auto) Lymph % (Auto) Levy % (Auto) Eos % (Auto) Baso % (Auto) Neut # (Auto) Lymph # (Auto) Levy # (Auto) Eos # (Auto) Baso # (Auto) Neutrophils % (Manual) Lymphocytes % (Manual) Monocytes % (Manual) Platelet Estimate RBC Morphology APTT 47 H Sodium Potassium Chloride Carbon Dioxide Anion Gap BUN Creatinine Est GFR ( Amer) Est GFR (Non-Af Amer) POC Glucose (mg/dL) 117 H Random Glucose Calcium Phosphorus Magnesium Total Bilirubin AST ALT Alkaline Phosphatase Total Protein Albumin Globulin Albumin/Globulin Ratio RSV Antigen Negative 04/26/18 04/27/18 04/27/18 20:56 06:06 06:06 WBC 8.8 RBC 3.66 L Hgb 12.3 Hct 36.3 MCV 99.3 H MCH 33.6 H MCHC 33.8 RDW 14.9 H Plt Count 256 MPV 8.9 Neut % (Auto) 93.5 H Lymph % (Auto) 3.9 L Levy % (Auto) 2.5 Eos % (Auto) 0.0 Baso % (Auto) 0.1 Neut # (Auto) 8.2 H Lymph # (Auto) 0.3 L Levy # (Auto) 0.2 Eos # (Auto) 0.0 Baso # (Auto) 0.0 Neutrophils % (Manual) 96 H Lymphocytes % (Manual) 1 L Monocytes % (Manual) 3 Platelet Estimate Normal RBC Morphology Normal APTT Sodium 138 Potassium 4.0 Chloride 104 Carbon Dioxide 26 Anion Gap 12 BUN 37 H Creatinine 1.2 Est GFR ( Amer) > 60 Est GFR (Non-Af Amer) > 60 POC Glucose (mg/dL) 107 Random Glucose 126 H Calcium 9.0 Phosphorus 4.0 Magnesium 2.2 Total Bilirubin 0.4 AST 19 ALT 24 Alkaline Phosphatase 68 Total Protein 7.0 Albumin 3.7 Globulin 3.3 Albumin/Globulin Ratio 1.1 RSV Antigen 04/27/18 04/27/18 07:24 11:48 WBC RBC Hgb Hct MCV MCH MCHC RDW Plt Count MPV Neut % (Auto) Lymph % (Auto) Levy % (Auto) Eos % (Auto) Baso % (Auto) Neut # (Auto) Lymph # (Auto) Levy # (Auto) Eos # (Auto) Baso # (Auto) Neutrophils % (Manual) Lymphocytes % (Manual) Monocytes % (Manual) Platelet Estimate RBC Morphology APTT Sodium Potassium Chloride Carbon Dioxide Anion Gap BUN Creatinine Est GFR ( Amer) Est GFR (Non-Af Amer) POC Glucose (mg/dL) 121 H 108 Random Glucose Calcium Phosphorus Magnesium Total Bilirubin AST ALT Alkaline Phosphatase Total Protein Albumin Globulin Albumin/Globulin Ratio RSV Antigen Radiology Impressions: Radiology Impressions Chest CT 04/25/18 17:00 IMPRESSION: Unremarkable CT pulmonary angiogram. No pulmonary embolus. Additional benign and/or incidental findings described above. Chest X-Ray 04/27/18 11:23 IMPRESSION: Severe pulmonary venous congestion, moderate cardiomegaly and small left pleural effusion. Critical Care Progress Note - Nutrition Nutrition: Nutrition Category Date Time Status Heart Healthy Diet [DIET] Diets 04/27/18 Lunch Active Assessment/Plan (1) Respiratory failure Current Visit: Yes Status: Acute (2) Congestive heart failure Current Visit: Yes Status: Acute (3) COPD with exacerbation Current Visit: No Status: Acute Attending/Attestation - Attestation I have personally seen and examined this patient.: Yes I have fully participated in the care of the patient.: Yes I have reviewed all pertinent clinical information: Yes Notes (Text): 04/27/18 16:08 Patient seen and examined Status post cardiac cath with triple-vessel disease Seen by cardiothoracic surgeon Possible transfer to [facility] Continue present treatment for now
[2018-04-27] MEDS: MethylPREDNISolone 40 mg Vial IVP SCH ×2 (09:41→22:09)
--- NOTE | 2018-04-27 09:41 | CP.PCM.PN ---
Subjective - Date & Time of Evaluation Date of Evaluation: 04/27/18 Time of Evaluation: 09:40 - Subjective Subjective: Progress note dictated #[id number] Objective - Vital Signs/Intake and Output Vital Signs (last 24 hours): Temp Pulse Resp BP Pulse Ox 97.5 F L 87 17 153/82 H 87 L 04/27/18 08:00 04/27/18 09:14 04/27/18 09:14 04/27/18 09:14 04/27/18 09:14 Intake and Output: 04/27/18 04/27/18 06:59 18:59 Intake Total 540 0 Output Total 1020 250 Balance -480 -250 - Medications Medications: Current Medications Albuterol/Ipratropium (Duoneb 3 Mg/0.5 Mg (3 Ml) Ud) 3 ml INH RQ6 [facility] Last Admin: 04/27/18 07:35 Dose: 3 ml Aspirin (Ecotrin) 81 mg PO DAILY [facility] Last Admin: 04/26/18 11:53 Dose: 81 mg Clopidogrel Bisulfate (Plavix) 75 mg PO DAILY [facility] Last Admin: 04/26/18 11:54 Dose: 75 mg Dextrose (Dextrose 50% Inj) 0 ml IV STAT PRN; Protocol PRN Reason: Hypoglycemia Protocol Dextrose (Glutose 15) 0 gm PO ONCE PRN; Protocol PRN Reason: Hypoglycemia Protocol Folic Acid (Folic Acid) 1 mg PO DAILY [facility] Last Admin: 04/26/18 11:53 Dose: 1 mg Glucagon (Glucagen Diagnostic Kit) 0 mg IM STAT PRN; Protocol PRN Reason: Hypoglycemia Protocol Doxycycline Hyclate 100 mg/ (Sodium Chloride) 100 mls @ 100 mls/hr IVPB Q12H [facility]; Protocol Last Admin: 04/27/18 02:30 Dose: 100 mls/hr Ceftriaxone Sodium 1 gm/ (Sodium Chloride) 100 mls @ 100 mls/hr IVPB DAILY [facility]; Protocol Last Admin: 04/26/18 11:54 Dose: 100 mls/hr Dextrose (Dextrose 5% In Water 1000 Ml) 1,000 mls @ 0 mls/hr IV .Q0M PRN; Protocol PRN Reason: Hypoglycemia Protocol Methylprednisolone (Solu-Medrol) 40 mg IVP Q12 [facility] Last Admin: 04/26/18 21:58 Dose: 40 mg Multivitamins (Hexavitamin) 1 tab PO DAILY [facility] Last Admin: 04/26/18 11:53 Dose: 1 tab Ondansetron HCl (Zofran Inj) 4 mg IVP DAILY@ONCE PRN PRN Reason: Nausea/Vomiting Pantoprazole Sodium (Protonix Inj) 40 mg IVP DAILY [facility] Last Admin: 04/26/18 11:54 Dose: 40 mg Rosuvastatin Calcium (Crestor) 10 mg PO HS [facility] Last Admin: 04/26/18 21:57 Dose: 10 mg Thiamine HCl (Vitamin B1 Tab) 100 mg PO DAILY [facility] Last Admin: 04/26/18 11:55 Dose: 100 mg - Labs Labs: 04/27/18 06:06 04/27/18 06:06 PT 11.8 SECONDS (9.7-12.2) 04/25/18 01:35 INR 1.1 04/25/18 01:35 APTT 47 SECONDS (21-34) H 04/26/18 19:03
[2018-04-27] MEDS: Multiple Vitamins Tab PO SCH (09:42)
[2018-04-27] MEDS ORDERED: Iodixanol 320 MG/ML 100 ML BOTTLE IV ONE (10:18)
[2018-04-27] MEDS ORDERED: Midazolam 2 MG/2 ML VIAL ONE (10:19)
[2018-04-27] MEDS ORDERED: Enalaprilat 2.5 MG/2 ML ONE ×2 (10:37→10:45)
--- NOTE | 2018-04-27 11:03 | CP.PCM.PN ---
Subjective - Date & Time of Evaluation Date of Evaluation: 04/27/18 Time of Evaluation: 10:59 - Subjective Subjective: Patient s/p cardiac cath 1. L Main: Patent 2. LAD: Chronic and calcific long 95% mid to distal stenosis, Diags with moderate disease 3. L Cx: Proximal 80% calcific stenosis 4. RCA: Dominant. Distal RCA 60% stenosis 5. EF 40%, EDP 42, No A/P : Triple vessel disease. recommend CABG and CT surgery consult If the patient is high risk due to lung disease will need high risk intervention with atherectomy D/C Plavix Control BP Ambulate after 3 hours Objective - Vital Signs/Intake and Output Vital Signs (last 24 hours): Temp Pulse Resp BP Pulse Ox 97.5 F L 87 17 153/82 H 87 L 04/27/18 08:00 04/27/18 09:14 04/27/18 09:14 04/27/18 09:14 04/27/18 09:14 Intake and Output: 04/27/18 04/27/18 06:59 18:59 Intake Total 540 0 Output Total 1020 250 Balance -480 -250 - Medications Medications: Current Medications Albuterol/Ipratropium (Duoneb 3 Mg/0.5 Mg (3 Ml) Ud) 3 ml INH RQ6 [facility] Last Admin: 04/27/18 07:35 Dose: 3 ml Aspirin (Ecotrin) 81 mg PO DAILY [facility] Last Admin: 04/27/18 09:42 Dose: 81 mg Dextrose (Dextrose 50% Inj) 0 ml IV STAT PRN; Protocol PRN Reason: Hypoglycemia Protocol Dextrose (Glutose 15) 0 gm PO ONCE PRN; Protocol PRN Reason: Hypoglycemia Protocol Enoxaparin Sodium (Lovenox) 30 mg SC DAILY [facility] Folic Acid (Folic Acid) 1 mg PO DAILY [facility] Last Admin: 04/27/18 09:42 Dose: 1 mg Glucagon (Glucagen Diagnostic Kit) 0 mg IM STAT PRN; Protocol PRN Reason: Hypoglycemia Protocol Doxycycline Hyclate 100 mg/ (Sodium Chloride) 100 mls @ 100 mls/hr IVPB Q12H [facility]; Protocol Last Admin: 04/27/18 02:30 Dose: 100 mls/hr Ceftriaxone Sodium 1 gm/ (Sodium Chloride) 100 mls @ 100 mls/hr IVPB DAILY [facility]; Protocol Last Admin: 04/27/18 09:41 Dose: 100 mls/hr Dextrose (Dextrose 5% In Water 1000 Ml) 1,000 mls @ 0 mls/hr IV .Q0M PRN; Mae col PRN Reason: Hypoglycemia Protocol Methylprednisolone (Solu-Medrol) 40 mg IVP Q12 [facility] Last Admin: 04/27/18 09:41 Dose: 40 mg Multivitamins (Hexavitamin) 1 tab PO DAILY [facility] Last Admin: 04/27/18 09:42 Dose: 1 tab Ondansetron HCl (Zofran Inj) 4 mg IVP DAILY@ONCE PRN PRN Reason: Nausea/Vomiting Pantoprazole Sodium (Protonix Inj) 40 mg IVP DAILY [facility] Last Admin: 04/27/18 09:40 Dose: 40 mg Rosuvastatin Calcium (Crestor) 10 mg PO HS [facility] Last Admin: 04/26/18 21:57 Dose: 10 mg Thiamine HCl (Vitamin B1 Tab) 100 mg PO DAILY [facility] Last Admin: 04/27/18 09:42 Dose: 100 mg - Labs Labs: 04/27/18 06:06 04/27/18 06:06 PT 11.8 SECONDS (9.7-12.2) 04/25/18 01:35 INR 1.1 04/25/18 01:35 APTT 47 SECONDS (21-34) H 04/26/18 19:03
[2018-04-27] MEDS ORDERED: Albuterol-Ipratrop 3 mg / 0.5 (3 ml) UD INH STA (11:39)
--- NOTE | 2018-04-27 14:55 | RAD ---
Date of service: 04/27/2018 HISTORY: shortness of breath COMPARISON: 04/26/2018. FINDINGS: LUNGS: The lungs are well inflated. There is severe pulmonary venous congestion. PLEURA: Suspect small left pleural effusion. No right pleural effusion or pneumothorax. CARDIOVASCULAR: There is moderate cardiomegaly. There are aortic atherosclerotic calcifications present. OSSEOUS STRUCTURES: Within normal limits for the patient's age. VISUALIZED UPPER ABDOMEN: Normal. OTHER FINDINGS: None. IMPRESSION: Severe pulmonary venous congestion, moderate cardiomegaly and small left pleural effusion.
--- NOTE | 2018-04-27 18:00 | CP.PCM.PCO ---
Physician Communication Note - Physician Communication Note Physician Communication Note: see above
--- NOTE | 2018-04-27 21:12 | PN ---
DATE: 04/27/2018 SUBJECTIVE: The patient was seen and examined at bedside. Events from yesterday and this morning noted. The patient was extubated. Yesterday was on CPAP, underwent cardiac catheterization this morning. The patient denies any complaints of chest pain, shortness of breath or wheezing. Denies any other neurologic symptoms. REVIEW OF SYSTEMS: All other systems reviewed and were found to be negative. PHYSICAL EXAMINATION: GENERAL: Elderly male, lying in bed, in no acute distress. VITAL SIGNS: Blood pressure 142/76, pulse 87, respirations 19, temperature 98.4 degrees Fahrenheit, O2 saturation 93% on 2 L nasal cannula. HEENT: Pupils equal, round, and reacting to light and accommodation. Extraocular muscles intact. No icterus. No pallor. No oral thrush. No pharyngeal congestion. NECK: Supple. No JVD. LUNGS: Bilateral vesicular breath sounds. No wheezing. No rhonchi. CARDIOVASCULAR SYSTEM: S1, S2 present, regular. ABDOMEN: Soft, nontender. Bowel sounds present. No guarding. No rigidity. No rebound tenderness noted. CENTRAL NERVOUS SYSTEM: Alert, awake, and oriented x3, no focal deficits noted. EXTREMITIES: No edema. Palpable peripheral pulses. MEDICATIONS: Include: DuoNeb 3 mL every 6 hours, Aspirin 81 mg daily, Rocephin 1 g daily, doxycycline 100 mg every 12 hours, Lovenox 30 mg subcu daily, folic acid 1 mg daily, Cozaar 50 mg daily, Solu-Medrol 40 mg IV every 12 hours, multivitamin, Zofran as needed, Protonix 40 mg IV daily, Crestor 10 mg p.o. at bedtime, and thiamine 100 mg p.o. daily. LABORATORY DATA: Labs done from this morning: WBC 8.8, hemoglobin, 12.3, hematocrit 36.3, and platelets 236. Sodium 138, potassium 4, chloride 104, bicarb 26, BUN 37, creatinine 1.2, glucose 121, calcium 9, phosphorus 4.2, magnesium 2.2, total bilirubin 0.4, AST 19, ALT 24, alkaline phosphatase 68, total protein 7, albumin 3.7. Cath report shows triple-vessel disease as per Cardiology. ASSESSMENT AND PLAN: Elderly male with history of coronary artery disease; chronic heart failure; chronic obstructive pulmonary disease; hypertension; status post acute respiratory failure; status post cardiac arrest; chronic obstructive pulmonary disease, status post extubation; non-ST elevation myocardial infarction; pneumonia; status post cardiac catheterization consistent with triple-vessel disease. His blood pressure is fair on current medications of losartan and beta-blockers. Continue with Crestor, on antibiotics for possible pneumonia. Continue with Solu-Medrol and nebulizer treatments. Continue with thiamine, folate, and multivitamin. Discussed with Cardiology for CT surgery consult for possible coronary artery bypass graft, for triple-vessel disease. We will follow up with Cardiology regarding further treatment plan. We will continue with other current medications. Continue with deep vein thrombosis and gastrointestinal prophylaxis. Myrna Wilde MD
[2018-04-28] MEDS: Albuterol-Ipratrop 3 mg / 0.5 (3 ml) UD INH SCH ×4 (01:11→19:38)
[2018-04-28 06:02] LABS: BASO % 0.6 % (0.0-2.0); HEMOGLOBIN 12.9 g/dL (12.0-18.0); LYMPH # 0.2 K/uL (1.0-4.3); LYMPH % 3.3 % (20.0-40.0); MEAN CORPUSCULAR HGB CONC 32.7 g/dL (33.0-37.0); MEAN PLATELET VOLUME 8.8 fL (7.2-11.7); MONO # 0.3 K/uL (0.0-0.8); MONO % 3.9 % (0.0-10.0); NEUT # 6.6 K/uL (1.8-7.0); NEUT % 92.2 % (50.0-75.0); PLATELET COUNT 254 K/uL (130-400); RBC 3.91 Mil/uL (4.40-5.90); RED CELL DISTRIBUTION WIDTH 14.9 % (11.5-14.5); WHITE BLOOD COUNT 7.2 K/uL (4.8-10.8)
[2018-04-28 06:24] LABS: ALB/GLOB RATIO 1.1 (1.0-2.1); ALBUMIN 3.3 g/dL (3.5-5.0); ALT/SGPT 12 U/L (21-72); AST/SGOT 36 U/L (17-59); BLOOD UREA NITROGEN 42 mg/dL (9-20); CALCIUM 7.9 mg/dl (8.6-10.4); GFR NON-AFRICAN AMERICAN > 60
[2018-04-28 08:24] LABS: BANDS 1 % (0-2); LYMPHOCYTE 2 % (20-40); MONOCYTE 3 % (0-10); NEUTROPHIL 94 % (50-75); PLATELET ESTIMATE NORMAL (NORMAL); TOTAL CELLS COUNTED 100
--- NOTE | 2018-04-28 10:23 | CP.CCUPN ---
CCU Subjective - Physician Review Subjective (Free Text): 04/28/18 10:23 Patient is a 68-year-old male admitted to the hospital with respiratory failure. Patient was intubated and extubated. Patient also had a triple vessel disease status post cath yesterday. Patient is comfortable now sitting up not in any distress. On examination: Vital signs stable. Chest bilateral wheezing noted regular HS Nontender abdomen. No pedal edema Oxygen saturation 97% on nasal cannula Patient's labs reviewed Medications reviewed X-ray reviewed Assessment and recommendation: 68-year-old male with a history of COPD, chronic smoker, active smoker admitted to the hospital with acute respiratory insufficiency secondary to COPD exac erbation. Non-ST elevation UT. Triple-vessel disease. Patient is needing cardiac treatment. Currently pending. We will continue the inhaled bronchodilators, steroids. Advised to quit smoking. He is already on statins, antiplatelets. DVT prophylaxis and will follow the patient Critical Care Time Spent (in minutes): 45 CCU Objective - Vital Signs / Intake & Output Intake and Output (Last 8hrs): Intake & Output 04/27/18 04/28/18 04/28/18 22:59 06:59 14:59 Intake Total 530 200 Output Total 400 500 Balance 130 -300 Intake: Intake, IV Amount 100 left ac 100 Oral 530 100 Output: Urine 400 500 Urine, Voided 400 500 Other: # Voids Urine, Voided 1 1 - Physical Exam Head: Positive for: Atraumatic, Normocephalic Respiratory/Chest: Positive for: Clear to Auscultation, Good Air Exchange. Negative for: Respiratory Distress, Accessory Muscle Use Cardiovascular: Positive for: Regular Rate and Rhythm Abdomen: Positive for: Normal Bowel Sounds. Negative for: Tenderness, Distention Upper Extremity: Positive for: Normal Inspection, NORMAL PULSES, Capillary Refill < 2s. Negative for: Cyanosis, Edema Lower Extremity: Positive for: Normal Inspection, NORMAL PULSES, Capillary Refill < 2 s. Negative for: Edema Skin: Positive for: Warm, Dry, Normal Color Psychiatric: Positive for: Oriented x 3. Negative for: Alert - Medications Active Medications: Active Medications Generic Name Dose Route Start Last Admin Trade Name Freq PRN Reason Stop Dose Admin Albuterol/Ipratropium 3 ml 04/25/18 08:00 04/28/18 07:47 Duoneb 3 Mg/0.5 Mg (3 Ml) Ud INH 3 ml RQ6 [facility] Administration Aspirin 81 mg 04/26/18 10:00 04/27/18 09:42 Ecotrin PO 81 mg DAILY [facility] Administration Enoxaparin Sodium 30 mg 04/28/18 10:00 Lovenox SC DAILY [facility] Famotidine 20 mg 04/28/18 10:30 Pepcid PO DAILY [facility] Folic Acid 1 mg 04/25/18 10:00 04/27/18 09:42 Folic Acid PO 1 mg DAILY [facility] Administration Doxycycline Hyclate 100 mg/ 100 mls @ 100 mls/hr 04/25/18 02:30 04/28/18 02:34 Sodium Chloride IVPB 100 mls/hr Q12H [facility] Administration Protocol Losartan Potassium 50 mg 04/28/18 10:00 Cozaar PO DAILY [facility] Methylprednisolone 40 mg 04/25/18 10:00 04/27/18 22:09 Solu-Medrol IVP 40 mg Q12 [facility] Administration Multivitamins 1 tab 04/25/18 10:00 04/27/18 09:42 Hexavitamin PO 1 tab DAILY [facility] Administration Rosuvastatin Calcium 10 mg 04/25/18 22:00 04/27/18 22:09 Crestor PO 10 mg HS [facility] Administration Thiamine HCl 100 mg 04/25/18 10:00 04/27/18 09:42 Vitamin B1 Tab PO 100 mg DAILY [facility] Administration - Patient Studies Lab Studies: Microbiology Studies 04/25/18 02:56 Blood Culture - Preliminary Blood NO GROWTH AFTER 3 DAYS 04/25/18 02:56 Blood Culture - Preliminary Blood NO GROWTH AFTER 3 DAYS Lab Studies 04/28/18 04/28/18 04/27/18 Range/Units 05:52 05:52 21:15 WBC 7.2 (4.8-10.8) K/uL RBC 3.91 L (4.40-5.90) Mil/uL Hgb 12.9 (12.0-18.0) g/dL Hct 39.5 (35.0-51.0) % MCV 101.0 H (80.0-94.0) fL MCH 33.0 H (27.0-31.0) pg MCHC 32.7 L (33.0-37.0) g/dL RDW 14.9 H (11.5-14.5) % Plt Count 254 (130-400) K/uL MPV 8.8 (7.2-11.7) fL Neut % (Auto) 92.2 H (50.0-75.0) % Lymph % (Auto) 3.3 L (20.0-40.0) % Person % (Auto) 3.9 (0.0-10.0) % Eos % (Auto) 0.0 (0.0-4.0) % Baso % (Auto) 0.6 (0.0-2.0) % Neut # (Auto) 6.6 (1.8-7.0) K/uL Lymph # (Auto) 0.2 L (1.0-4.3) K/uL Person # (Auto) 0.3 (0.0-0.8) K/uL Eos # (Auto) 0.0 (0.0-0.7) K/uL Baso # (Auto) 0.0 (0.0-0.2) K/uL Neutrophils % (Manual) 94 H (50-75) % Band Neutrophils % 1 (0-2) % Lymphocytes % (Manual) 2 L (20-40) % Monocytes % (Manual) 3 (0-10) % Platelet Estimate Normal (NORMAL) Macrocytosis (manual) Slight Sodium 140 (132-148) mmol/L Potassium 4.1 (3.6-5.2) mmol/L Chloride 110 H (98-107) mmol/L Carbon Dioxide 22 (22-30) mmol/L Anion Gap 13 (10-20) BUN 42 H (9-20) mg/dL Creatinine 1.0 (0.8-1.5) mg/dL Est GFR ( Amer) > 60 Est GFR (Non-Af Amer) > 60 POC Glucose (mg/dL) 87 (65-110) mg/dL Random Glucose 135 H (75-110) mg/dL Calcium 7.9 L (8.6-10.4) mg/dl Phosphorus 3.3 (2.5-4.5) mg/dL Magnesium 1.9 (1.6-2.3) mg/dL Total Bilirubin 0.4 (0.2-1.3) mg/dL AST 36 (17-59) U/L ALT 12 L D (21-72) U/L Alkaline Phosphatase 56 (38-126) U/L Total Protein 6.3 (6.3-8.3) g/dL Albumin 3.3 L (3.5-5.0) g/dL Globulin 3.0 (2.2-3.9) gm/dL Albumin/Globulin Ratio 1.1 (1.0-2.1) 04/27/18 04/27/18 Range/Units 16:19 11:48 WBC (4.8-10.8) K/uL RBC (4.40-5.90) Mil/uL Hgb (12.0-18.0) g/dL Hct (35.0-51.0) % MCV (80.0-94.0) fL MCH (27.0-31.0) pg MCHC (33.0-37.0) g/dL RDW (11.5-14.5) % Plt Count (130-400) K/uL MPV (7.2-11.7) fL Neut % (Auto) (50.0-75.0) % Lymph % (Auto) (20.0-40.0) % Person % (Auto) (0.0-10.0) % Eos % (Auto) (0.0-4.0) % Baso % (Auto) (0.0-2.0) % Neut # (Auto) (1.8-7.0) K/uL Lymph # (Auto) (1.0-4.3) K/uL Person # (Auto) (0.0-0.8) K/uL Eos # (Auto) (0.0-0.7) K/uL Baso # (Auto) (0.0-0.2) K/uL Neutrophils % (Manual) (50-75) % Band Neutrophils % (0-2) % Lymphocytes % (Manual) (20-40) % Monocytes % (Manual) (0-10) % Platelet Estimate (NORMAL) Macrocytosis (manual) Sodium (132-148) mmol/L Potassium (3.6-5.2) mmol/L Chloride (98-107) mmol/L Carbon Dioxide (22-30) mmol/L Anion Gap (10-20) BUN (9-20) mg/dL Creatinine (0.8-1.5) mg/dL Est GFR ( Amer) Est GFR (Non-Af Amer) POC Glucose (mg/dL) 168 H 108 (65-110) mg/dL Random Glucose (75-110) mg/dL Calcium (8.6-10.4) mg/dl Phosphorus (2.5-4.5) mg/dL Magnesium (1.6-2.3) mg/dL Total Bilirubin (0.2-1.3) mg/dL AST (17-59) U/L ALT (21-72) U/L Alkaline Phosphatase (38-126) U/L Total Protein (6.3-8.3) g/dL Albumin (3.5-5.0) g/dL Globulin (2.2-3.9) gm/dL Albumin/Globulin Ratio (1.0-2.1) Laboratory Results - last 24 hr 04/27/18 04/27/18 04/27/18 11:48 16:19 21:15 WBC RBC Hgb Hct MCV MCH MCHC RDW Plt Count MPV Neut % (Auto) Lymph % (Auto) Person % (Auto) Eos % (Auto) Baso % (Auto) Neut # (Auto) Lymph # (Auto) Person # (Auto) Eos # (Auto) Baso # (Auto) Neutrophils % (Manual) Band Neutrophils % Lymphocytes % (Manual) Monocytes % (Manual) Platelet Estimate Macrocytosis (manual) Sodium Potassium Chloride Carbon Dioxide Anion Gap BUN Creatinine Est GFR ( Amer) Est GFR (Non-Af Amer) POC Glucose (mg/dL) 108 168 H 87 Random Glucose Calcium Phosphorus Magnesium Total Bilirubin AST ALT Alkaline Phosphatase Total Protein Albumin Globulin Albumin/Globulin Ratio 04/28/18 04/28/18 05:52 05:52 WBC 7.2 RBC 3.91 L Hgb 12.9 Hct 39.5 MCV 101.0 H MCH 33.0 H MCHC 32.7 L RDW 14.9 H Plt Count 254 MPV 8.8 Neut % (Auto) 92.2 H Lymph % (Auto) 3.3 L Person % (Auto) 3.9 Eos % (Auto) 0.0 Baso % (Auto) 0.6 Neut # (Auto) 6.6 Lymph # (Auto) 0.2 L Person # (Auto) 0.3 Eos # (Auto) 0.0 Baso # (Auto) 0.0 Neutrophils % (Manual) 94 H Band Neutrophils % 1 Lymphocytes % (Manual) 2 L Monocytes % (Manual) 3 Platelet Estimate Normal Macrocytosis (manual) Slight Sodium 140 Potassium 4.1 Chloride 110 H Carbon Dioxide 22 Anion Gap 13 BUN 42 H Creatinine 1.0 Est GFR ( Amer) > 60 Est GFR (Non-Af Amer) > 60 POC Glucose (mg/dL) Random Glucose 135 H Calcium 7.9 L Phosphorus 3.3 Magnesium 1.9 Total Bilirubin 0.4 AST 36 ALT 12 L D Alkaline Phosphatase 56 Total Protein 6.3 Albumin 3.3 L Globulin 3.0 Albumin/Globulin Ratio 1.1 Radiology Impressions: Radiology Impressions Chest X-Ray 04/27/18 11:23 IMPRESSION: Severe pulmonary venous congestion, moderate cardiomegaly and small left pleural effusion. Fingerstick Blood Sugar Results: 87 Critical Care Progress Note - Nutrition Nutrition: Nutrition Category Date Time Status Heart Healthy Diet [DIET] Diets 04/27/18 Lunch Active
[2018-04-28] MEDS: Multiple Vitamins Tab PO SCH (10:59)
[2018-04-28] MEDS: MethylPREDNISolone 40 mg Vial IVP SCH ×2 (10:59→21:32)
[2018-04-28] MEDS: Enoxaparin 30 mg Syringe SC SCH (10:59)
--- NOTE | 2018-04-28 11:05 | CP.PCM.PN ---
Subjective - Date & Time of Evaluation Date of Evaluation: 04/28/18 Time of Evaluation: 11:05 - Subjective Subjective: Progress note dictated #[id number] Objective - Vital Signs/Intake and Output Vital Signs (last 24 hours): Temp Pulse Resp BP Pulse Ox 97.4 F L 70 17 145/86 90 L 04/28/18 04:00 04/28/18 06:04 04/28/18 06:04 04/28/18 06:04 04/28/18 05:04 Intake and Output: 04/28/18 04/28/18 06:59 18:59 Intake Total 250 Output Total 750 Balance -500 - Medications Medications: Current Medications Albuterol/Ipratropium (Duoneb 3 Mg/0.5 Mg (3 Ml) Ud) 3 ml INH RQ6 [facility] Last Admin: 04/28/18 07:47 Dose: 3 ml Aspirin (Ecotrin) 81 mg PO DAILY [facility] Last Admin: 04/28/18 10:59 Dose: 81 mg Carvedilol (Coreg) 3.125 mg PO BID [facility] Last Admin: 04/28/18 10:59 Dose: 3.125 mg Enoxaparin Sodium (Lovenox) 30 mg SC DAILY [facility] Last Admin: 04/28/18 10:59 Dose: 30 mg Famotidine (Pepcid) 20 mg PO DAILY [facility] Last Admin: 04/28/18 10:59 Dose: 20 mg Folic Acid (Folic Acid) 1 mg PO DAILY [facility] Last Admin: 04/28/18 10:59 Dose: 1 mg Doxycycline Hyclate 100 mg/ (Sodium Chloride) 100 mls @ 100 mls/hr IVPB Q12H [facility]; Protocol Last Admin: 04/28/18 02:34 Dose: 100 mls/hr Losartan Potassium (Cozaar) 50 mg PO DAILY [facility] Last Admin: 04/28/18 10:59 Dose: 50 mg Methylprednisolone (Solu-Medrol) 40 mg IVP Q12 [facility] Last Admin: 04/28/18 10:59 Dose: 40 mg Multivitamins (Hexavitamin) 1 tab PO DAILY [facility] Last Admin: 04/28/18 10:59 Dose: 1 tab Rosuvastatin Calcium (Crestor) 10 mg PO HS [facility] Last Admin: 04/27/18 22:09 Dose: 10 mg Thiamine HCl (Vitamin B1 Tab) 100 mg PO DAILY [facility] Last Admin: 04/28/18 10:59 Dose: 100 mg - Labs Labs: 04/28/18 05:52 04/28/18 05:52 PT 11.8 SECONDS (9.7-12.2) 04/25/18 01:35 INR 1.1 04/25/18 01:35 APTT 47 SECONDS (21-34) H 04/26/18 19:03
--- NOTE | 2018-04-28 16:48 | CP.PCM.PN ---
Subjective - Date & Time of Evaluation Date of Evaluation: 04/28/18 Time of Evaluation: 16:30 - Subjective Subjective: Patient seen and examined Sitting comfortably in no acute distress No shortness of breath Slight cough Possible CABG Continue present treatment Objective - Vital Signs/Intake and Output Vital Signs (last 24 hours): Temp Pulse Resp BP Pulse Ox 97.4 F L 70 17 145/86 90 L 04/28/18 04:00 04/28/18 06:04 04/28/18 06:04 04/28/18 06:04 04/28/18 05:04 Intake and Output: 04/28/18 04/28/18 06:59 18:59 Intake Total 250 Output Total 750 Balance -500 - Medications Medications: Current Medications Albuterol/Ipratropium (Duoneb 3 Mg/0.5 Mg (3 Ml) Ud) 3 ml INH RQ6 [facility] Last Admin: 04/28/18 13:20 Dose: 3 ml Aspirin (Ecotrin) 81 mg PO DAILY [facility] Last Admin: 04/28/18 10:59 Dose: 81 mg Carvedilol (Coreg) 3.125 mg PO BID [facility] Last Admin: 04/28/18 10:59 Dose: 3.125 mg Enoxaparin Sodium (Lovenox) 30 mg SC DAILY [facility] Last Admin: 04/28/18 10:59 Dose: 30 mg Famotidine (Pepcid) 20 mg PO DAILY [facility] Last Admin: 04/28/18 10:59 Dose: 20 mg Folic Acid (Folic Acid) 1 mg PO DAILY [facility] Last Admin: 04/28/18 10:59 Dose: 1 mg Doxycycline Hyclate 100 mg/ (Sodium Chloride) 100 mls @ 100 mls/hr IVPB Q12H [facility]; Protocol Last Admin: 04/28/18 02:34 Dose: 100 mls/hr Losartan Potassium (Cozaar) 50 mg PO DAILY [facility] Last Admin: 04/28/18 10:59 Dose: 50 mg Methylprednisolone (Solu-Medrol) 40 mg IVP Q12 [facility] Last Admin: 04/28/18 10:59 Dose: 40 mg Multivitamins (Hexavitamin) 1 tab PO DAILY [facility] Last Admin: 04/28/18 10:59 Dose: 1 tab Rosuvastatin Calcium (Crestor) 10 mg PO HS [facility] Last Admin: 04/27/18 22:09 Dose: 10 mg Thiamine HCl (Vitamin B1 Tab) 100 mg PO DAILY [facility] Last Admin: 04/28/18 10:59 Dose: 100 mg - Labs Labs: 04/28/18 05:52 04/28/18 05:52 PT 11.8 SECONDS (9.7-12.2) 04/25/18 01:35 INR 1.1 04/25/18 01:35 APTT 47 SECONDS (21-34) H 04/26/18 19:03 Assessment and Plan (1) Respiratory failure Status: Acute (2) Congestive heart failure Status: Acute (3) COPD with exacerbation Status: Acute
--- NOTE | 2018-04-28 19:05 | CP.PCM.PN ---
Subjective - Date & Time of Evaluation Date of Evaluation: 04/28/18 Time of Evaluation: 15:10 - Subjective Subjective: Patient seen and evaluated Comfortable denies chest pain and dyspnea CCU Objective - Physical Exam Head: Positive for: Atraumatic, Normocephalic Respiratory/Chest: Positive for: Clear to Auscultation, Good Air Exchange. Negative for: Respiratory Distress, Accessory Muscle Use Cardiovascular: Positive for: Regular Rate and Rhythm Abdomen: Positive for: Normal Bowel Sounds. Negative for: Tenderness, Diste ntion Upper Extremity: Positive for: Normal Inspection, NORMAL PULSES, Capillary Refill < 2s. Negative for: Cyanosis, Edema Lower Extremity: Positive for: Normal Inspection, NORMAL PULSES, Capillary Refill < 2 s. Negative for: Edema Skin: Positive for: Warm, Dry, Normal Color Psychiatric: Positive for: Oriented x 3. Negative for: Alert Objective - Vital Signs/Intake and Output Vital Signs (last 24 hours): Temp Pulse Resp BP Pulse Ox 98.0 F 64 16 143/95 H 92 L 04/28/18 16:00 04/28/18 19:00 04/28/18 19:00 04/28/18 18:04 04/28/18 19:00 Intake and Output: 04/28/18 04/29/18 18:59 06:59 Output Total 520 Balance -520 - Medications Medications: Current Medications Albuterol/Ipratropium (Duoneb 3 Mg/0.5 Mg (3 Ml) Ud) 3 ml INH RQ6 [facility] Last Admin: 04/28/18 13:20 Dose: 3 ml Aspirin (Ecotrin) 81 mg PO DAILY [facility] Last Admin: 04/28/18 10:59 Dose: 81 mg Carvedilol (Coreg) 3.125 mg PO BID [facility] Last Admin: 04/28/18 18:36 Dose: 3.125 mg Enoxaparin Sodium (Lovenox) 30 mg SC DAILY [facility] Last Admin: 04/28/18 10:59 Dose: 30 mg Famotidine (Pepcid) 20 mg PO DAILY [facility] Last Admin: 04/28/18 10:59 Dose: 20 mg Folic Acid (Folic Acid) 1 mg PO DAILY [facility] Last Admin: 04/28/18 10:59 Dose: 1 mg Doxycycline Hyclate 100 mg/ (Sodium Chloride) 100 mls @ 100 mls/hr IVPB Q12H [facility]; Protocol Last Admin: 04/28/18 14:35 Dose: 100 mls/hr Losartan Potassium (Cozaar) 50 mg PO DAILY [facility] Last Admin: 04/28/18 10:59 Dose: 50 mg Methylprednisolone (Solu-Medrol) 40 mg IVP Q12 [facility] Last Admin: 04/28/18 10:59 Dose: 40 mg Multivitamins (Hexavitamin) 1 tab PO DAILY [facility] Last Admin: 04/28/18 10:59 Dose: 1 tab Rosuvastatin Calcium (Crestor) 10 mg PO HS [facility] Last Admin: 04/27/18 22:09 Dose: 10 mg Thiamine HCl (Vitamin B1 Tab) 100 mg PO DAILY [facility] Last Admin: 04/28/18 10:59 Dose: 100 mg - Labs Labs: 04/28/18 05:52 04/28/18 05:52 PT 11.8 SECONDS (9.7-12.2) 04/25/18 01:35 INR 1.1 04/25/18 01:35 APTT 47 SECONDS (21-34) H 04/26/18 19:03 Assessment and Plan - Assessment and Plan (Free Text) Assessment: Patient s/p cardiac cath 1. L Main: Patent 2. LAD: Chronic and calcific long 95% mid to distal stenosis, Diags with moderate disease 3. L Cx: Proximal 80% calcific stenosis 4. RCA: Dominant. Distal RCA 60% stenosis 5. EF 40%, EDP 42, No A/P : Triple vessel disease. recommend CABG and CT surgery consult If the patient is high risk due to lung disease will need high risk intervention with atherectomy D/C Plavix Control BP Patient wants some time to think about CABG
[2018-04-29] MEDS: Albuterol-Ipratrop 3 mg / 0.5 (3 ml) UD INH SCH ×4 (01:11→20:09)
--- NOTE | 2018-04-29 01:19 | PN ---
DATE: 04/28/2018 SUBJECTIVE: The patient was seen and examined at bedside. Events from yesterday noted. The patient was evaluated by Cardiothoracic Surgery. The patient offers no new complaints. More alert and awake, sitting in bed in no acute distress. PHYSICAL EXAMINATION GENERAL: Elderly male in no acute distress. VITAL SIGNS: Blood pressure 143/95, pulse 60, respirations 20, temperature 98.6 degrees Fahrenheit, O2 sat 90% on 2 L. HEENT: Pupils are equal, round and reacting to light and accommodation. Extraocular muscles intact. No icterus. No pallor. No oral thrush. NECK: Supple. No JVD. LUNGS: Bilateral vesicular breath sounds. Bilateral basal rhonchi heard. CARDIOVASCULAR SYSTEM: S1 and S2 present, regular. ABDOMEN: Soft, nontender. Bowel sounds present. No guarding. No rigidity. No rebound tenderness noted. CENTRAL NERVOUS SYSTEM: Alert, awake, oriented x3. No focal deficits noted. EXTREMITIES: No edema. Palpable peripheral pulses. MEDICATIONS: Include DuoNeb, aspirin 81 mg daily, Coreg 3.125 mg p.o. b.i.d., doxycycline 100 mg IV every 12 hours, Lovenox 30 mg subcu daily, Pepcid 20 mg daily, folic acid 1 mg daily, Cozaar 50 mg daily, Solu-Medrol 40 mg IV every 12 hours, multivitamin, Crestor 10 mg p.o. at bedtime and thiamine 100 mg p.o. daily. LABORATORY DATA: Labs from this morning: WBC 7.2, hemoglobin, 12.9, hematocrit 39.5, platelets 254. Sodium 140, potassium 4.1, chloride 110, bicarb 22, BUN 42, creatinine 1, glucose 157, calcium 7.9. LFTs within normal limits. Blood cultures negative. ASSESSMENT AND PLAN: Elderly male with a history of hypertension, hyperlipidemia, coronary artery disease, chronic obstructive pulmonary disease, noncompliant with medications; admitted for acute respiratory failure, status post cardiac arrest, status post intubation and extubation, non-ST elevation myocardial infarction, status post cardiac catheterization consistent with triple-vessel disease. Coronary artery bypass graft was recommended and the patient was evaluated by Cardiothoracic Surgery. The patient does not want to proceed with the surgery at this time. He wants to discuss with other people prior to proceeding with surgery. We will continue with current antibiotics and current cardiac medication. Continue with nebulizer treatments. The patient is hypoxic without oxygen. We will continue with oxygen, await the patient's decision regarding coronary artery bypass graft. Myrna Wilde MD
[2018-04-29 06:20] LABS: BASO % 0.1 % (0.0-2.0); EOS % 0.1 % (0.0-4.0); HEMOGLOBIN 13.3 g/dL (12.0-18.0); LYMPH # 0.5 K/uL (1.0-4.3); LYMPH % 7.5 % (20.0-40.0); MEAN CELL VOLUME 99.6 fL (80.0-94.0); MEAN CORPUSCULAR HEMOGLOBIN 33.4 pg (27.0-31.0); MEAN CORPUSCULAR HGB CONC 33.6 g/dL (33.0-37.0); MEAN PLATELET VOLUME 8.9 fL (7.2-11.7); MONO # 0.3 K/uL (0.0-0.8); MONO % 3.6 % (0.0-10.0); NEUT # 6.3 K/uL (1.8-7.0); NEUT % 88.7 % (50.0-75.0); PLATELET COUNT 267 K/uL (130-400); RBC 3.97 Mil/uL (4.40-5.90); RED CELL DISTRIBUTION WIDTH 14.9 % (11.5-14.5); WHITE BLOOD COUNT 7.1 K/uL (4.8-10.8)
[2018-04-29 08:52] LABS: LYMPHOCYTE 8 % (20-40); MONOCYTE 4 % (0-10); NEUTROPHIL 88 % (50-75); PLATELET ESTIMATE NORMAL (NORMAL); TOTAL CELLS COUNTED 100
[2018-04-29 08:53] LABS: ANISOCYTOSIS SLIGHT; LARGE PLATELETS PRESENT; POLYCHROMIC SLIGHT
[2018-04-29 08:54] LABS: TOXIC GRANULATION PRESENT
[2018-04-29] MEDS: Multiple Vitamins Tab PO SCH (09:36)
[2018-04-29] MEDS: Enoxaparin 30 mg Syringe SC SCH (09:43)
[2018-04-29] MEDS: MethylPREDNISolone 40 mg Vial IVP SCH ×2 (09:43→21:23)
--- NOTE | 2018-04-29 11:45 | CP.PCM.PN ---
Subjective - Date & Time of Evaluation Date of Evaluation: 04/29/18 Time of Evaluation: 11:45 - Subjective Subjective: Progress note dictated #[id number] Objective - Vital Signs/Intake and Output Vital Signs (last 24 hours): Temp Pulse Resp BP Pulse Ox 98 F 116 H 16 158/98 H 95 04/29/18 04:00 04/29/18 06:05 04/29/18 06:05 04/29/18 06:05 04/29/18 06:05 Intake and Output: 04/29/18 04/29/18 06:59 18:59 Intake Total 100 Output Total 850 Balance -750 - Medications Medications: Current Medications Albuterol/Ipratropium (Duoneb 3 Mg/0.5 Mg (3 Ml) Ud) 3 ml INH RQ6 [facility] Last Admin: 04/29/18 07:53 Dose: 3 ml Aspirin (Ecotrin) 81 mg PO DAILY [facility] Last Admin: 04/29/18 09:43 Dose: 81 mg Carvedilol (Coreg) 3.125 mg PO BID [facility] Last Admin: 04/29/18 09:43 Dose: 3.125 mg Enoxaparin Sodium (Lovenox) 30 mg SC DAILY [facility] Last Admin: 04/29/18 09:43 Dose: 30 mg Famotidine (Pepcid) 20 mg PO DAILY [facility] Last Admin: 04/29/18 09:43 Dose: 20 mg Folic Acid (Folic Acid) 1 mg PO DAILY [facility] Last Admin: 04/29/18 09:43 Dose: 1 mg Doxycycline Hyclate 100 mg/ (Sodium Chloride) 100 mls @ 100 mls/hr IVPB Q12H [facility]; Protocol Last Admin: 04/29/18 02:39 Dose: 100 mls/hr Losartan Potassium (Cozaar) 50 mg PO DAILY [facility] Last Admin: 04/29/18 09:43 Dose: 50 mg Methylprednisolone (Solu-Medrol) 40 mg IVP Q12 [facility] Last Admin: 04/29/18 09:43 Dose: 40 mg Multivitamins (Hexavitamin) 1 tab PO DAILY [facility] Last Admin: 04/28/18 10:59 Dose: 1 tab Rosuvastatin Calcium (Crestor) 10 mg PO HS [facility] Last Admin: 04/28/18 21:30 Dose: 10 mg Thiamine HCl (Vitamin B1 Tab) 100 mg PO DAILY [facility] Last Admin: 04/29/18 09:43 Dose: 100 mg - Labs Labs: 04/29/18 06:10 04/28/18 05:52 PT 11.8 SECONDS (9.7-12.2) 04/25/18 01:35 INR 1.1 04/25/18 01:35 APTT 47 SECONDS (21-34) H 04/26/18 19:03
--- NOTE | 2018-04-29 13:12 | CARD ---
APPROVED REPORT Date of service: 04/26/2018 EKG Measurement Heart [id number] <Conclusion> Normal sinus rhythm Left axis deviation Left bundle branch block Abnormal ECG
--- NOTE | 2018-04-29 13:50 | CP.PCM.PN ---
Subjective - Date & Time of Evaluation Date of Evaluation: 04/29/18 Time of Evaluation: 13:45 - Subjective Subjective: Denies sob, no events, denies chest pain. 3 vessels disease cardiology advised bypass patient has been reluctant, plavix is on hold. Objective - Vital Signs/Intake and Output Vital Signs (last 24 hours): Temp Pulse Resp BP Pulse Ox 97.6 F 58 L 15 152/97 H 90 L 04/29/18 12:00 04/29/18 12:04 04/29/18 12:04 04/29/18 12:04 04/29/18 12:04 Intake and Output: 04/29/18 04/29/18 06:59 18:59 Intake Total 100 370 Output Total 850 400 Balance -750 -30 - Medications Medications: Current Medications Albuterol/Ipratropium (Duoneb 3 Mg/0.5 Mg (3 Ml) Ud) 3 ml INH RQ6 [facility] Last Admin: 04/29/18 13:45 Dose: 3 ml Aspirin (Ecotrin) 81 mg PO DAILY [facility] Last Admin: 04/29/18 09:43 Dose: 81 mg Carvedilol (Coreg) 3.125 mg PO BID [facility] Last Admin: 04/29/18 09:43 Dose: 3.125 mg Enoxaparin Sodium (Lovenox) 30 mg SC DAILY [facility] Last Admin: 04/29/18 09:43 Dose: 30 mg Famotidine (Pepcid) 20 mg PO DAILY [facility] Last Admin: 04/29/18 09:43 Dose: 20 mg Folic Acid (Folic Acid) 1 mg PO DAILY [facility] Last Admin: 04/29/18 09:43 Dose: 1 mg Doxycycline Hyclate 100 mg/ (Sodium Chloride) 100 mls @ 100 mls/hr IVPB Q12H [facility]; Protocol Last Admin: 04/29/18 02:39 Dose: 100 mls/hr Losartan Potassium (Cozaar) 50 mg PO DAILY [facility] Last Admin: 04/29/18 09:43 Dose: 50 mg Methylprednisolone (Solu-Medrol) 40 mg IVP Q12 [facility] Last Admin: 04/29/18 09:43 Dose: 40 mg Multivitamins (Hexavitamin) 1 tab PO DAILY [facility] Last Admin: 04/28/18 10:59 Dose: 1 tab Rosuvastatin Calcium (Crestor) 10 mg PO HS [facility] Last Admin: 04/28/18 21:30 Dose: 10 mg Thiamine HCl (Vitamin B1 Tab) 100 mg PO DAILY [facility] Last Admin: 04/29/18 09:43 Dose: 100 mg - Labs Labs: 04/29/18 06:10 04/28/18 05:52 PT 11.8 SECONDS (9.7-12.2) 04/25/18 01:35 INR 1.1 04/25/18 01:35 APTT 47 SECONDS (21-34) H 04/26/18 19:03 - Additional Findings Additional findings: * HEENT ЕКАТЕРИНА * Neck Supple * Chest scattered areas of prolonged expiration * CVS regular, no gallop or rub * PA soft * Ext no edema * Skin normal turgor Assessment and Plan - Assessment and Plan (Free Text) Assessment: * COPD exacerbation s/p extubation * 3 vessel CAD s/p cath this admit * Reluctant for CABG * DM not compliant * H/o HTN * Severe tobacco abuse * Alcohol abuse, not in withdrawal clinically Plan: * Cardio protective meds * CABG as per patient's decision * Counselled about alcohol, tobacco cessation * Counselled about medication compliance * Patient can be transferred to med-surg if ok with cardiology. * See orders for detail.
--- NOTE | 2018-04-29 19:26 | CP.PCM.PN ---
Subjective - Date & Time of Evaluation Date of Evaluation: 04/29/18 Time of Evaluation: 19:20 - Subjective Subjective: Patient seen and evaluated Comfortable Denies chest pain and dyspnea ambulating CCU Objective - Physical Exam Head: Positive for: Atraumatic, Normocephalic Respiratory/Chest: Positive for: Clear to Auscultation, Good Air Exchange. Negative for: Respiratory Distress, Accessory Muscle Use Cardiovascular: Positive for: Regular Rate and Rhythm Abdomen: Positive for: Normal Bowel Sounds. Negative for: Tenderness, Distention Upper Extremity: Positive for: Normal Inspection, NORMAL PULSES, Capillary Refill < 2s. Negative for: Cyanosis, Edema Lower Extremity: Positive for: Normal Inspection, NORMAL PULSES, Capillary Refill < 2 s. Negative for: Edema Skin: Positive for: Warm, Dry, Normal Color Psychiatric: Positive for: Oriented x 3. Negative for: Alert Assessment and Plan - Assessment and Plan (Free Text) Assessment: Patient s/p cardiac cath 1. L Main: Patent 2. LAD: Chronic and calcific long 95% mid to distal stenosis, Diags with moderate disease 3. L Cx: Proximal 80% calcific stenosis 4. RCA: Dominant. Distal RCA 60% stenosis 5. EF 40%, EDP 42, No A/P : Triple vessel disease. recommend CABG and CT surgery consult If the patient is high risk due to lung disease will need high risk intervention with atherectom Patient wants to go home. Patient states he discussed with his . Does not want CABG Wants the heart to be fixed by stenting Resume Plavix 75mg po daily Patient can go home tomorrow if no new events. Advised to avoid strenuous activity He will see me on Monday for out patient PCI Patient will need these meds as out patient ASA 81, Plavix 75, Statins, B blockers, ARBs, tapering steroids for COPD , other lung meds plus other appropriate meds Objective - Vital Signs/Intake and Output Vital Signs (last 24 hours): Temp Pulse Resp BP Pulse Ox 98.2 F 68 18 162/103 H 85 L 04/29/18 18:00 04/29/18 18:04 04/29/18 18:04 04/29/18 18:04 04/29/18 18:04 Intake and Output: 04/29/18 04/30/18 18:59 06:59 Intake Total 870 Output Total 1100 Balance -230 - Medications Medications: Current Medications Albuterol/Ipratropium (Duoneb 3 Mg/0.5 Mg (3 Ml) Ud) 3 ml INH RQ6 [facility] Last Admin: 04/29/18 13:45 Dose: 3 ml Aspirin (Ecotrin) 81 mg PO DAILY [facility] Last Admin: 04/29/18 09:43 Dose: 81 mg Carvedilol (Coreg) 3.125 mg PO BID [facility] Last Admin: 04/29/18 17:36 Dose: 3.125 mg Clopidogrel Bisulfate (Plavix) 75 mg PO DAILY [facility] Enoxaparin Sodium (Lovenox) 30 mg SC DAILY [facility] Last Admin: 04/29/18 09:43 Dose: 30 mg Famotidine (Pepcid) 20 mg PO DAILY [facility] Last Admin: 04/29/18 09:43 Dose: 20 mg Folic Acid (Folic Acid) 1 mg PO DAILY [facility] Last Admin: 04/29/18 09:43 Dose: 1 mg Doxycycline Hyclate 100 mg/ (Sodium Chloride) 100 mls @ 100 mls/hr IVPB Q12H [facility]; Protocol Last Admin: 04/29/18 14:35 Dose: 100 mls/hr Losartan Potassium (Cozaar) 100 mg PO DAILY [facility] Methylprednisolone (Solu-Medrol) 40 mg IVP Q12 [facility] Last Admin: 04/29/18 09:43 Dose: 40 mg Multivitamins (Hexavitamin) 1 tab PO DAILY [facility] Last Admin: 04/29/18 09:36 Dose: 1 tab Rosuvastatin Calcium (Crestor) 10 mg PO HS [facility] Last Admin: 04/28/18 21:30 Dose: 10 mg Thiamine HCl (Vitamin B1 Tab) 100 mg PO DAILY [facility] Last Admin: 04/29/18 09:43 Dose: 100 mg - Labs Labs: 04/29/18 06:10 04/28/18 05:52 PT 11.8 SECONDS (9.7-12.2) 04/25/18 01:35 INR 1.1 04/25/18 01:35 APTT 47 SECONDS (21-34) H 04/26/18 19:03
--- NOTE | 2018-04-29 20:42 | CARDCATH ---
PROCEDURE DATE: 04/27/2018 PROCEDURES: 1. Left heart catheterization. 2. Coronary angiogram. REFERRING PHYSICIAN: Myrna Wilde MD. PERFORMING PHYSICIAN: Ash Carrillo MD. CLINICAL INDICATIONS: 1. Non-ST elevation myocardial infarction. 2. History of coronary artery disease. 3. Chronic obstructive pulmonary disease. 4. Respiratory failure post-intubation. 5. Left bundle-branch block. 6. Hypertension. 7. Hyperlipidemia. 8. Peripheral vascular disease. DESCRIPTION OF PROCEDURE: After informed consent, the patient was prepped and draped in the usual sterile fashion. Lidocaine 2% was given in the right groin for local anesthesia. Using micropuncture technique, 6-Azeri sheath was introduced into right common femoral artery. A JL4 6-Azeri diagnostic catheter engaged into left main coronary artery. Contrast injected and left coronary angiogram was done. The catheter was exchanged to JR4 6-Azeri diagnostic catheter. Right coronary artery was engaged and the contrast injected and right coronary angiogram was done. Then, the pigtail catheter introduced into left ventricle. Contrast injected and left ventricular angiogram was done. EDP was measured. Catheter was pulled back into aorta and gradient across the aortic valve was measured. The patient tolerated the procedure well. Post-procedure, Mynx closure device deployed with excellent hemostasis. FINDINGS: 1. Left main coronary artery is patent. 2. Proximal LAD is patent. Mid to distal LAD has a long, severely calcific stenosis. Diagonal branches are patent. 3. Left circumflex has an 80% proximal calcific stenosis. Distal left circumflex and obtuse marginal branches are patent. 4. Right coronary artery is dominant. Distal right coronary artery has a 60% calcific stenosis. 5. LV ejection fraction is approximately 40%. Mild global hypokinesis. EDP is 35. No gradient across the aortic valve. IMPRESSION: Triple-vessel disease as described above. Mildly reduced left ventricular function with elevated end-diastolic pressure. RECOMMENDATIONS: Recommend the coronary artery bypass grafting surgery. Ash Carrillo MD
--- NOTE | 2018-04-29 21:24 | PN ---
DATE: 04/29/2018 SUBJECTIVE: The patient was seen and examined at bedside. The patient denies any new complaints, but he has not decided yet on CABG. He still wants to discuss with other people and asking when he would be discharged. Denies any new complaints. PHYSICAL EXAMINATION: GENERAL: Elderly male, lying in bed, in no acute distress. VITAL SIGNS: Blood pressure 149/100, pulse 60, respirations 18, temperature 98.4 degrees Fahrenheit, and O2 saturations 94% on nasal canula. HEENT: Pupils are equal, round, and reacting to light and accommodation. Extraocular muscles intact. No icterus. No pallor. No oral thrush. No pharyngeal congestion. NECK: Supple. No JVD. LUNGS: Bilateral vesicular breath sounds. No wheezing or basal rhonchi. CARDIOVASCULAR SYSTEM: S1 and S2 present, regular. ABDOMEN: Soft, nontender. Bowel sounds present. No guarding. No rigidity. No rebound tenderness noted. CENTRAL NERVOUS SYSTEM: Alert, awake, oriented x3. No focal deficits noted. EXTREMITIES: No edema. Palpable peripheral pulses. MEDICATIONS: Include: DuoNeb, aspirin 81 mg daily, Coreg 3.125 mg p.o. b.i.d., doxycycline 100 mg IV every 12 hours, Lovenox 30 mg daily, Pepcid 20 mg daily, folic acid 1 mg daily, Cozaar 50 mg daily, Solu-Medrol 40 mg IV every 12 hours, multivitamin daily, Crestor 10 mg at bedtime, and thiamine 100 mg daily. LABORATORY DATA: Labs from today: WBC 7.1, hemoglobin 13.3, hematocrit 39.5, and platelets 267. Accu-Chek 188, 116, 132, 85, 113. ASSESSMENT AND PLAN: Elderly male with a history of hypertension; hyperlipidemia; coronary artery disease; chronic obstructive pulmonary disease; noncompliant with medications; status post acute respiratory failure; status post intubation for respiratory failure; chronic obstructive pulmonary disease exacerbation; non-ST elevation myocardial infarction, status post cardiac catheterization consistent with triple-vessel disease, requiring coronary artery bypass graft. The patient is refusing cath at this time, wants to be discharged, and he would like to discuss with other people and decide on coronary artery bypass graft at a later point. The patient understands the risks of going home without following cardiac recommendation. We will continue with current medication. His blood pressure is high. I will increase Cozaar to 100 mg daily. We will increase losartan to 100 mg daily. We will follow up with Pulmonary. If cleared by Pulmonary, we will plan discharging the patient home. Myrna Wilde MD
[2018-04-30] MEDS: Albuterol-Ipratrop 3 mg / 0.5 (3 ml) UD INH SCH ×2 (02:20→06:50)
[2018-04-30 05:57] LABS: BASO % 0.1 % (0.0-2.0); EOS % 0.1 % (0.0-4.0); LYMPH # 0.5 K/uL (1.0-4.3); MEAN CELL VOLUME 99.4 fL (80.0-94.0); MEAN CORPUSCULAR HEMOGLOBIN 33.5 pg (27.0-31.0); MEAN CORPUSCULAR HGB CONC 33.7 g/dL (33.0-37.0); MONO # 0.4 K/uL (0.0-0.8); NEUT # 5.8 K/uL (1.8-7.0); NEUT % 85.8 % (50.0-75.0); PLATELET COUNT 256 K/uL (130-400); RBC 3.86 Mil/uL (4.40-5.90); RED CELL DISTRIBUTION WIDTH 14.4 % (11.5-14.5); WHITE BLOOD COUNT 6.8 K/uL (4.8-10.8)
[2018-04-30 06:20] LABS: ALB/GLOB RATIO 1.2 (1.0-2.1); ALBUMIN 3.2 g/dL (3.5-5.0); ALT/SGPT 24 U/L (21-72); AST/SGOT 17 U/L (17-59); BLOOD UREA NITROGEN 39 mg/dL (9-20); CALCIUM 8.3 mg/dl (8.6-10.4); GFR NON-AFRICAN AMERICAN > 60
[2018-04-30 08:24] LABS: LYMPHOCYTE 6 % (20-40); MONOCYTE 4 % (0-10); NEUTROPHIL 90 % (50-75); PLATELET ESTIMATE NORMAL (NORMAL); TOTAL CELLS COUNTED 100
--- NOTE | 2018-04-30 10:18 | CP.CCUPN ---
CCU Subjective - Physician Review Subjective (Free Text): 04/26/18 09:04 ICU Progress Note for Dr. Molina Patient seen and examined at bedside this morning. 12 point ROS negative. Patient wants to go home. Per Dr. Carrillo, patient can leave and he will be seeing Dr. Carrillo on Monday. Patient would also need to go home with his new medications. Patient stable for discharge or downgrade, depending on primary team. Case discussed with Dr. Jesse Osborne Law PGY1 04/30/18 10:15 CCU Objective - Vital Signs / Intake & Output Vital Signs (Last 4 hours): Vital Signs Temp Pulse Resp BP Pulse Ox 04/30/18 09:13 97.9 F 55 L 04/30/18 09:04 69 152/101 H 95 04/30/18 09:02 63 96 04/30/18 08:00 55 L 12 100 04/30/18 07:05 53 L 10 L 145/92 H 99 04/30/18 07:00 54 L 14 96 Intake and Output (Last 8hrs): Intake & Output 04/29/18 04/30/18 04/30/18 22:59 06:59 14:59 Intake Total 750 600 620 Output Total 1000 500 1 Balance -250 100 619 Weight 168 lb Intake: Intake, IV Amount 100 100 Right Forearm 100 left ac 100 Oral 650 500 620 Output: Urine 1000 500 Urine, Voided 1000 500 Urine/Stool Mix 1 Other: # Bowel Movements 1 - Physical Exam Head: Positive for: Atraumatic, Normocephalic Respiratory/Chest: Positive for: Wheezes (faint expiratory wheezes throughout lung dexter). Negative for: Respiratory Distress, Accessory Muscle Use Cardiovascular: Positive for: Regular Rate and Rhythm Abdomen: Positive for: Normal Bowel Sounds. Negative for: Tenderness, Distention Upper Extremity: Positive for: Normal Inspection, NORMAL PULSES, Capillary Refill < 2s. Negative for: Cyanosis, Edema Lower Extremity: Positive for: Normal Inspection, NORMAL PULSES, Capillary Refill < 2 s. Negative for: Edema Skin: Positive for: Warm, Dry, Normal Color Psychiatric: Positive for: Oriented x 3. Negative for: Alert - Medications Active Medications: Active Medications Generic Name Dose Route Start Last Admin Trade Name Freq PRN Reason Stop Dose Admin Albuterol/Ipratropium 3 ml 04/25/18 08:00 04/30/18 06:50 Duoneb 3 Mg/0.5 Mg (3 Ml) Ud INH 3 ml RQ6 [facility] Administration Aspirin 81 mg 04/26/18 10:00 04/29/18 09:43 Ecotrin PO 81 mg DAILY [facility] Administration Carvedilol 3.125 mg 04/28/18 10:30 04/29/18 17:36 Coreg PO 3.125 mg BID [facility] Administration Clopidogrel Bisulfate 75 mg 04/30/18 10:00 Plavix PO DAILY [facility] Enoxaparin Sodium 30 mg 04/28/18 10:00 04/29/18 09:43 Lovenox SC 30 mg DAILY [facility] Administration Famotidine 20 mg 04/28/18 10:30 04/29/18 09:43 Pepcid PO 20 mg DAILY [facility] Administration Folic Acid 1 mg 04/25/18 10:00 04/29/18 09:43 Folic Acid PO 1 mg DAILY [facility] Administration Doxycycline Hyclate 100 mg/ 100 mls @ 100 mls/hr 04/25/18 02:30 04/30/18 02:07 Sodium Chloride IVPB 100 mls/hr Q12H [facility] Administration Protocol Losartan Potassium 100 mg 04/30/18 10:00 Cozaar PO DAILY [facility] Methylprednisolone 40 mg 04/25/18 10:00 04/29/18 21:23 Solu-Medrol IVP 40 mg Q12 [facility] Administration Multivitamins 1 tab 04/25/18 10:00 04/29/18 09:36 Hexavitamin PO 1 tab DAILY [facility] Administration Rosuvastatin Calcium 10 mg 04/25/18 22:00 04/29/18 21:23 Crestor PO 10 mg HS [facility] Administration Thiamine HCl 100 mg 04/25/18 10:00 04/29/18 09:43 Vitamin B1 Tab PO 100 mg DAILY [facility] Administration - Patient Studies Lab Studies: Microbiology Studies 04/25/18 02:56 Blood Culture - Final Blood NO GROWTH AFTER 5 DAYS Gram Stain - Final TEST NOT PERFORMED 04/25/18 02:56 Blood Culture - Final Blood NO GROWTH AFTER 5 DAYS Gram Stain - Final TEST NOT PERFORMED Lab Studies 04/30/18 04/30/18 04/29/18 Range/Units 05:52 05:52 21:00 WBC 6.8 (4.8-10.8) K/uL RBC 3.86 L (4.40-5.90) Mil/uL Hgb 13.0 (12.0-18.0) g/dL Hct 38.4 (35.0-51.0) % MCV 99.4 H (80.0-94.0) fL MCH 33.5 H (27.0-31.0) pg MCHC 33.7 (33.0-37.0) g/dL RDW 14.4 (11.5-14.5) % Plt Count 256 (130-400) K/uL MPV 9.0 (7.2-11.7) fL Neut % (Auto) 85.8 H (50.0-75.0) % Lymph % (Auto) 8.0 L (20.0-40.0) % [place] % (Auto) 6.0 (0.0-10.0) % Eos % (Auto) 0.1 (0.0-4.0) % Baso % (Auto) 0.1 (0.0-2.0) % Neut # (Auto) 5.8 (1.8-7.0) K/uL Lymph # (Auto) 0.5 L (1.0-4.3) K/uL [place] # (Auto) 0.4 (0.0-0.8) K/uL Eos # (Auto) 0.0 (0.0-0.7) K/uL Baso # (Auto) 0.0 (0.0-0.2) K/uL Neutrophils % (Manual) 90 H (50-75) % Lymphocytes % (Manual) 6 L (20-40) % Monocytes % (Manual) 4 (0-10) % Platelet Estimate Normal (NORMAL) RBC Morphology Normal Sodium 137 (132-148) mmol/L Potassium 4.4 (3.6-5.2) mmol/L Chloride 104 (98-107) mmol/L Carbon Dioxide 25 (22-30) mmol/L Anion Gap 12 (10-20) BUN 39 H (9-20) mg/dL Creatinine 1.1 (0.8-1.5) mg/dL Est GFR ( Amer) > 60 Est GFR (Non-Af Amer) > 60 POC Glucose (mg/dL) 112 H (65-110) mg/dL Random Glucose 150 H (75-110) mg/dL Calcium 8.3 L (8.6-10.4) mg/dl Phosphorus 4.4 (2.5-4.5) mg/dL Magnesium 1.7 (1.6-2.3) mg/dL Total Bilirubin 0.4 (0.2-1.3) mg/dL AST 17 D (17-59) U/L ALT 24 (21-72) U/L Alkaline Phosphatase 53 (38-126) U/L Total Protein 5.9 L (6.3-8.3) g/dL Albumin 3.2 L (3.5-5.0) g/dL Globulin 2.7 (2.2-3.9) gm/dL Albumin/Globulin Ratio 1.2 (1.0-2.1) 04/29/18 04/29/18 04/29/18 Range/Units 16:10 11:20 07:24 WBC (4.8-10.8) K/uL RBC (4.40-5.90) Mil/uL Hgb (12.0-18.0) g/dL Hct (35.0-51.0) % MCV (80.0-94.0) fL MCH (27.0-31.0) pg MCHC (33.0-37.0) g/dL RDW (11.5-14.5) % Plt Count (130-400) K/uL MPV (7.2-11.7) fL Neut % (Auto) (50.0-75.0) % Lymph % (Auto) (20.0-40.0) % [place] % (Auto) (0.0-10.0) % Eos % (Auto) (0.0-4.0) % Baso % (Auto) (0.0-2.0) % Neut # (Auto) (1.8-7.0) K/uL Lymph # (Auto) (1.0-4.3) K/uL [place] # (Auto) (0.0-0.8) K/uL Eos # (Auto) (0.0-0.7) K/uL Baso # (Auto) (0.0-0.2) K/uL Neutrophils % (Manual) (50-75) % Lymphocytes % (Manual) (20-40) % Monocytes % (Manual) (0-10) % Platelet Estimate (NORMAL) RBC Morphology Sodium (132-148) mmol/L Potassium (3.6-5.2) mmol/L Chloride (98-107) mmol/L Carbon Dioxide (22-30) mmol/L Anion Gap (10-20) BUN (9-20) mg/dL Creatinine (0.8-1.5) mg/dL Est GFR ( Amer) Est GFR (Non-Af Amer) POC Glucose (mg/dL) 113 H 85 132 H (65-110) mg/dL Random Glucose (75-110) mg/dL Calcium (8.6-10.4) mg/dl Phosphorus (2.5-4.5) mg/dL Magnesium (1.6-2.3) mg/dL Total Bilirubin (0.2-1.3) mg/dL AST (17-59) U/L ALT (21-72) U/L Alkaline Phosphatase (38-126) U/L Total Protein (6.3-8.3) g/dL Albumin (3.5-5.0) g/dL Globulin (2.2-3.9) gm/dL Albumin/Globulin Ratio (1.0-2.1) Laboratory Results - last 24 hr 04/29/18 04/29/18 04/29/18 07:24 11:20 16:10 WBC RBC Hgb Hct MCV MCH MCHC RDW Plt Count MPV Neut % (Auto) Lymph % (Auto) [place] % (Auto) Eos % (Auto) Baso % (Auto) Neut # (Auto) Lymph # (Auto) [place] # (Auto) Eos # (Auto) Baso # (Auto) Neutrophils % (Manual) Lymphocytes % (Manual) Monocytes % (Manual) Platelet Estimate RBC Morphology Sodium Potassium Chloride Carbon Dioxide Anion Gap BUN Creatinine Est GFR ( Amer) Est GFR (Non-Af Amer) POC Glucose (mg/dL) 132 H 85 113 H Random Glucose Calcium Phosphorus Magnesium Total Bilirubin AST ALT Alkaline Phosphatase Total Protein Albumin Globulin Albumin/Globulin Ratio 04/29/18 04/30/18 04/30/18 21:00 05:52 05:52 WBC 6.8 RBC 3.86 L Hgb 13.0 Hct 38.4 MCV 99.4 H MCH 33.5 H MCHC 33.7 RDW 14.4 Plt Count 256 MPV 9.0 Neut % (Auto) 85.8 H Lymph % (Auto) 8.0 L [place] % (Auto) 6.0 Eos % (Auto) 0.1 Baso % (Auto) 0.1 Neut # (Auto) 5.8 Lymph # (Auto) 0.5 L [place] # (Auto) 0.4 Eos # (Auto) 0.0 Baso # (Auto) 0.0 Neutrophils % (Manual) 90 H Lymphocytes % (Manual) 6 L Monocytes % (Manual) 4 Platelet Estimate Normal RBC Morphology Normal Sodium 137 Potassium 4.4 Chloride 104 Carbon Dioxide 25 Anion Gap 12 BUN 39 H Creatinine 1.1 Est GFR ( Amer) > 60 Est GFR (Non-Af Amer) > 60 POC Glucose (mg/dL) 112 H Random Glucose 150 H Calcium 8.3 L Phosphorus 4.4 Magnesium 1.7 Total Bilirubin 0.4 AST 17 D ALT 24 Alkaline Phosphatase 53 Total Protein 5.9 L Albumin 3.2 L Globulin 2.7 Albumin/Globulin Ratio 1.2 Fingerstick Blood Sugar Results: 112 Critical Care Progress Note - Nutrition Nutrition: Nutrition Category Date Time Status Heart Healthy Diet [DIET] Diets 04/27/18 Lunch Active
[2018-04-30] MEDS: Enoxaparin 30 mg Syringe SC SCH (10:38)
[2018-04-30] MEDS: Multiple Vitamins Tab PO SCH (10:40)
[2018-04-30] MEDS: MethylPREDNISolone 40 mg Vial IVP SCH (10:41)
[2018-04-30 11:20] VITALS: O2SAT 96
--- NOTE | 2018-04-30 11:26 | CP.PCM.PN ---
Subjective - Date & Time of Evaluation Date of Evaluation: 04/30/18 Time of Evaluation: 11:26 - Subjective Subjective: Progress note dictated #[id number] Objective - Vital Signs/Intake and Output Vital Signs (last 24 hours): Temp Pulse Resp BP Pulse Ox 97.9 F 56 L 15 153/96 H 96 04/30/18 09:13 04/30/18 11:04 04/30/18 11:04 04/30/18 11:04 04/30/18 11:04 Intake and Output: 04/30/18 04/30/18 06:59 18:59 Intake Total 850 900 Output Total 800 801 Balance 50 99 - Medications Medications: Current Medications Albuterol/Ipratropium (Duoneb 3 Mg/0.5 Mg (3 Ml) Ud) 3 ml INH RQ6 [facility] Last Admin: 04/30/18 06:50 Dose: 3 ml Aspirin (Ecotrin) 81 mg PO DAILY [facility] Last Admin: 04/30/18 10:40 Dose: 81 mg Carvedilol (Coreg) 3.125 mg PO BID [facility] Last Admin: 04/30/18 10:39 Dose: 3.125 mg Clopidogrel Bisulfate (Plavix) 75 mg PO DAILY [facility] Last Admin: 04/30/18 10:41 Dose: 75 mg Enoxaparin Sodium (Lovenox) 30 mg SC DAILY [facility] Last Admin: 04/30/18 10:38 Dose: 30 mg Famotidine (Pepcid) 20 mg PO DAILY [facility] Last Admin: 04/30/18 10:40 Dose: 20 mg Folic Acid (Folic Acid) 1 mg PO DAILY [facility] Last Admin: 04/30/18 10:40 Dose: 1 mg Doxycycline Hyclate 100 mg/ (Sodium Chloride) 100 mls @ 100 mls/hr IVPB Q12H [facility]; Protocol Last Admin: 04/30/18 02:07 Dose: 100 mls/hr Losartan Potassium (Cozaar) 100 mg PO DAILY [facility] Last Admin: 04/30/18 10:39 Dose: 100 mg Methylprednisolone (Solu-Medrol) 40 mg IVP Q12 [facility] Last Admin: 04/30/18 10:41 Dose: 40 mg Multivitamins (Hexavitamin) 1 tab PO DAILY [facility] Last Admin: 04/30/18 10:40 Dose: 1 tab Rosuvastatin Calcium (Crestor) 10 mg PO HS [facility] Last Admin: 04/29/18 21:23 Dose: 10 mg Thiamine HCl (Vitamin B1 Tab) 100 mg PO DAILY [facility] Last Admin: 04/30/18 10:41 Dose: 100 mg - Labs Labs: 04/30/18 05:52 04/30/18 05:52 PT 11.8 SECONDS (9.7-12.2) 04/25/18 01:35 INR 1.1 04/25/18 01:35 APTT 47 SECONDS (21-34) H 04/26/18 19:03
[2018-04-30 12:08] VITALS: BP 140/80; PULSE 62; RESP 20; TEMP 97.7
--- NOTE | 2018-04-30 14:39 | CARD ---
APPROVED REPORT Date of service: 04/26/2018 EKG Measurement Heart [id number] <Conclusion> Normal sinus rhythm Left axis deviation Left bundle branch block Abnormal ECG
--- NOTE | 2018-04-30 14:45 | CARD ---
APPROVED REPORT Date of service: 04/25/2018 EKG Measurement Heart [id number] <Conclusion> Sinus tachycardia with premature supraventricular complexes Possible Left atrial enlargement Left axis deviation Left bundle branch block Abnormal ECG
--- NOTE | 2018-04-30 14:45 | CARD ---
APPROVED REPORT Date of service: 04/25/2018 EKG Measurement Heart [id number] <Conclusion> Normal sinus rhythm Possible Left atrial enlargement Left bundle branch block Abnormal ECG
--- NOTE | 2018-05-03 11:39 | DS ---
DISCHARGE DIAGNOSES: Status post acute respiratory failure, status post intubation for respiratory failure, status post brief period of cardiac arrest, possible pneumonia, hypertension, hyperlipidemia, coronary artery disease with triple-vessel disease requiring coronary artery bypass grafting, the patient has been refusing coronary artery bypass grafting, chronic obstructive pulmonary disease exacerbation, non-ST elevation myocardial infarction. HISTORY OF PRESENT ILLNESS: Mr. Ruff is a 68-year-old male with past medical history of hypertension, hyperlipidemia, CAD, COPD, diabetes mellitus, chronic tobacco abuse who smokes two packs per day for many years, alcohol abuse, noncompliant with medications, never had any followup with primary in the past two years, came in to the emergency room with complaints of acute respiratory distress. In the ED, the patient was started on BiPAP and later, he went into cardiac arrest for a brief period and ROSC was achieved. The patient was intubated. The patient's blood pressure was very high in the ED and the patient was given treatment and was transferred to ICU. On the day of discharge, the patient was feeling better. Denied any headache or dizziness. Denied any chest pain, shortness of breath or wheezing. Denied any nausea, vomiting, abdominal pain, diarrhea or constipation. Denied any urinary complaints. Denied any leg pains or leg cramps. Denied any other neurologic symptoms. All other systems reviewed and were found to be negative. PHYSICAL EXAMINATION: GENERAL: Elderly male, lying in bed, in no acute distress. VITAL SIGNS: Blood pressure 140/80, pulse 62, respirations 20, temperature 97.7 degrees Fahrenheit, O2 saturation 96% on room air. HEENT: Pupils equal, round, reacting to light and accommodation. Extraocular muscles intact. No icterus, no pallor. No oral thrush, no pharyngeal congestion. NECK: Supple. No JVD. LUNGS: Bilateral vesicular breath sounds. No wheezing. No rhonchi. CARDIOVASCULAR SYSTEM: S1 and S2 present, regular. ABDOMEN: Soft, nontender. Bowel sounds present. No guarding. No rigidity. No rebound tenderness noted. CENTRAL NERVOUS SYSTEM: Alert, awake, oriented x3. No focal deficits noted. EXTREMITIES: No edema. Palpable peripheral pulses. LABORATORY DATA: Labs done on 04/30/2018 shows WBC 6.8, hemoglobin 13, hematocrit 38.4, platelets 256. Sodium 137, potassium 4.4, chloride 104, bicarb 25, BUN 39, creatinine 1.1, glucose 92, calcium 8.3, phosphorus 4.4, magnesium 1.7. LFTs within normal limits. Troponins were slightly elevated on admission at 0.147. ProBNP was 5620. Cholesterol was 138, triglycerides were 120. HOSPITAL COURSE: The patient was admitted to ICU. The patient was intubated, started on nebulizer treatments and vent support. After the patient was stabilized, the patient was extubated, seen by Pulmonary. The patient was evaluated by Cardiology for positive troponins. The patient was initially started on heparin drip which was discontinued after CT angiogram was negative. The patient underwent cardiac catheterization which showed triple-vessel disease with requiring CABG, discussed with the patient at length by multiple consultants. The patient has been adamantly refusing any procedure to be done while he is in the hospital, instead he wants to be discharged. Also discussed with other members in the community before he decides on going for CABG. After prolonged multiple discussions, Cardiology cleared the patient for followup as outpatient. The patient was getting antibiotics. Discussed with Pulmonary. The patient was cleared by Pulmonary from pulmonary standpoint. Advised to discontinue on Avelox p.o. The patient was also started on thiamine, folic acid and multivitamin, as the patient was also drinking, smoking cessation advice was given to the patient and explained the risks of not undergoing CABG, which was recommended by Cardiology. The patient understands the consequences and he is willing to take the risk of going home and following up with Cardiology as outpatient. The patient is otherwise hemodynamically stable and cleared by all the consultants. The patient was discharged. CONDITION UPON DISCHARGE: The patient was alert, awake, oriented x3, and hemodynamically stable at the time of discharge. DISCHARGE INSTRUCTIONS: Follow up with PMD, follow up with Cardiology, follow up with Pulmonary. Advised the patient to come back to the emergency room if any worsening symptoms. DISCHARGE MEDICATIONS: Nebulizer treatments, albuterol one puff every 6 hours p.r.n., aspirin 81 mg daily, Coreg 3.125 mg b.i.d., Plavix 75 mg daily, Advair Diskus one inhalation b.i.d., folic acid 1 mg daily, Cozaar 100 mg daily, Medrol Dosepak, Singulair 10 mg daily, Avelox 400 mg daily, multivitamin one tab daily, Crestor 10 mg p.o. at bedtime, thiamine 100 mg daily. DIET: Heart healthy, low-sodium diet. ACTIVITY: As tolerated. Advised not to do any strenuous exercises. Also seen by Cardiology. Myrna Wilde MD
== END 2018-04-30 16:58 | disposition home or self-care (01) | DRG 280 ==
LOC: C.ER 01:15 → EDBD 01:15 → MERGE 03:00 → C.9I 03:00
PROVIDERS: ADMIT Internal Medicine; ATTEND Internal Medicine
PROC: 5A1935Z Respiratory Ventilation, Less than 24 Consecutive Hours (ICD-10-PCS; principal; 2018-04-25)
PROC: 0BH17EZ Insertion of Endotracheal Airway into Trachea, Via Natural or Artificial Opening (ICD-10-PCS; 2018-04-25)
PROC: 5A12012 Performance of Cardiac Output, Single, Manual (ICD-10-PCS; 2018-04-25)
PROC: 5A09357 Assistance with Respiratory Ventilation, Less than 24 Consecutive Hours, Continuous Positive Airway Pressure (ICD-10-PCS; 2018-04-25)
PROC: 4A023N7 Measurement of Cardiac Sampling and Pressure, Left Heart, Percutaneous Approach (ICD-10-PCS; 2018-04-27)
PROC: B2111ZZ Fluoroscopy of Multiple Coronary Arteries using Low Osmolar Contrast (ICD-10-PCS; 2018-04-27)
PROC: B2151ZZ Fluoroscopy of Left Heart using Low Osmolar Contrast (ICD-10-PCS; 2018-04-27)
DX: I21.4 Non-ST elevation (NSTEMI) myocardial infarction (principal); I46.9 Cardiac arrest, cause unspecified; J96.90 Respiratory failure, unspecified, unspecified whether with hypoxia or hypercapnia; J18.9 Pneumonia, unspecified organism; J44.1 Chronic obstructive pulmonary disease with (acute) exacerbation; J44.0 Chronic obstructive pulmonary disease with (acute) lower respiratory infection; I25.10 Atherosclerotic heart disease of native coronary artery without angina pectoris; I11.0 Hypertensive heart disease with heart failure; I50.9 Heart failure, unspecified; Z91.14 Patient's other noncompliance with medication regimen; I44.7 Left bundle-branch block, unspecified; F17.210 Nicotine dependence, cigarettes, uncomplicated; E11.51 Type 2 diabetes mellitus with diabetic peripheral angiopathy without gangrene; E78.5 Hyperlipidemia, unspecified; E11.65 Type 2 diabetes mellitus with hyperglycemia; F10.10 Alcohol abuse, uncomplicated; Y90.9 Presence of alcohol in blood, level not specified

== ENCOUNTER 2018-05-10 18:57 | Inpatient (IN) | payer MEDICARE ==
[2018-05-10 18:57] VITALS: BMI 25.0
[2018-05-10 19:11] LABS: BASO # 0.1 K/uL (0.0-0.2); BASO % 0.8 % (0.0-2.0); EOS # 0.4 K/uL (0.0-0.7); EOS % 3.6 % (0.0-4.0); HEMOGLOBIN 13.9 g/dL (12.0-18.0); LYMPH # 2.9 K/uL (1.0-4.3); MEAN CELL VOLUME 99.7 fL (80.0-94.0); MEAN CORPUSCULAR HEMOGLOBIN 32.7 pg (27.0-31.0); MEAN CORPUSCULAR HGB CONC 32.8 g/dL (33.0-37.0); MEAN PLATELET VOLUME 8.4 fL (7.2-11.7); MONO # 0.9 K/uL (0.0-0.8); MONO % 7.9 % (0.0-10.0); NEUT # 7.4 K/uL (1.8-7.0); NEUT % 62.7 % (50.0-75.0); RBC 4.24 Mil/uL (4.40-5.90); RED CELL DISTRIBUTION WIDTH 14.4 % (11.5-14.5); WHITE BLOOD COUNT 11.7 K/uL (4.8-10.8)
[2018-05-10] MEDS ORDERED: Albuterol-Ipratrop 3 mg / 0.5 (3 ml) UD INH STA ×2 (19:12)
[2018-05-10] MEDS ORDERED: MethylPREDNISolone 40 mg Vial IVP STA (19:12)
[2018-05-10 19:19] LABS: INR 1.1; PROTHROMBIN TIME 11.9 SECONDS (9.7-12.2)
--- NOTE | 2018-05-10 19:25 | C.PDOC ---
History Of Present Illness Patient is a 68 y/o male with a PMHx of COPD, HTN, HLD, CAD, triple vessel disease, refusing CABG, and recent cardiac arrest. He presents to the ED tonight via ambulance from home for reported SOB. Patient received aspirin and nitro enroute. Upon arrival patient noted to be failing BIPAP, lethargic, diaphoretic. Intubated upon arrival. Limited history provided from patient. Time Seen by Provider: 05/10/18 19:08 Chief Complaint (Nursing): Shortness Of Breath History Per: Patient History/Exam Limitations: clinical condition Onset/Duration Of Symptoms: Unknown Current Symptoms Are (Timing): Still Present Current Respiratory Medications: See Home Med List Past Medical History Reviewed: Historical Data, Nursing Documentation, Vital Signs Vital Signs: Last Vital Signs Temp Pulse 126 H 05/10/18 19:20 Resp 19 05/10/18 19:20 BP 197/120 H 05/10/18 19:20 Pulse Ox 98 05/10/18 19:20 - Medical History PMH: CAD (TRIPLE VESSEL DISEASE), CHF, COPD, HTN, Hypercholesterolemia, Hyperlipidemia Denies: Anxiety, Bipolar Disorder, Depression, Diabetes, Hepatitis, HIV, Paranoia, Post Traumatic Stress Disorder, Chronic Kidney Disease, Schizophrenia, Seizures, Sexually Transmitted Disease Surgical History: Appendectomy Denies: CABG, Carotid Endarterectomy, Cholecystectomy, Coronary Stent, Tonsillectomy - [facility] Procedures ASSISTANCE WITH RESPIRATORY VENTILATION, <24 HRS, CPAP (04/25/18) CONTINUOUS INVASIVE MECHANICAL VENTILATION <96 CONSEC HRS (12/16/13) CORONAR ARTERIOGR-2 CATH (12/16/13) FLUOROSCOPY OF LEFT HEART USING LOW OSMOLAR CONTRAST (04/25/18) FLUOROSCOPY OF MULT COR ART USING L OSM CONTRAST (04/25/18) INSERT ENDOTRACHEAL TUBE (12/16/13) INSERTION OF ENDOTRACHEAL AIRWAY INTO TRACHEA, VIA OPENING (04/25/18) LT HEART ANGIOCARDIOGRAM (12/16/13) MEASURE OF CARDIAC SAMPL & PRESSURE, L HEART, PERC APPROACH (04/25/18) PERCUTANEOUS ANGIOSCOPY (12/16/13) PERFORMANCE OF CARDIAC OUTPUT, SINGLE, MANUAL (04/25/18) RESPIRATORY VENTILATION, LESS THAN 24 CONSECUTIVE HOURS (04/25/18) Family History: States: Unknown Family Hx - Social History Hx Tobacco Use: Yes Hx Alcohol Use: No Hx Substance Use: No - Immunization History Hx Tetanus Toxoid Vaccination: No Hx Influenza Vaccination: No Hx Pneumococcal Vaccination: No Review Of Systems Review Of Systems: ROS cannot be obtained secondary to pt's inabilty to answer questions. Physical Exam - Physical Exam Appears: In Acute Distress, Chronically Ill Head: Atraumatic, Normacephalic Eye(s): bilateral: Normal Inspection Neck: Supple Chest: Symmetrical Cardiovascular: Rhythm Regular Respiratory: Accessory Muscle Use (+), Rales (diffuse), Rhonchi (diffuse), Other (Increased work of breathing) Gastrointestinal/Abdominal: Soft, No Distention Extremity: Capillary Refill (< 2 sec), Swelling (2+ pitting edema bilaterally) Extremity: Bilateral: Atraumatic, Normal Color And Temperature Pulses: Left Radial: Normal, Right Radial: Normal ED Course And Treatment - Laboratory Results Result Diagrams: 05/13/18 06:18 05/13/18 06:18 Lab Results: PT 11.9 SECONDS (9.7-12.2) 05/10/18 19:08 INR 1.1 05/10/18 19:08 APTT 41 SECONDS (21-34) H 05/10/18 19:08 ECG: Interpreted By Me, Viewed By Me ECG Rhythm: Sinus Tachycardia, L BBB Interpretation Of ECG: + sgarbossa criteria Rate From EC (bpm) O2 Sat by Pulse Oximetry: 98 (on BiPAP) Pulse Ox Interpretation: Normal Medical Decision Making Medical Decision Making: ro copd chf, nstemi EKG shows + Sgarbossas criteria. 19:[address] Carrillo, covering Code Heart, reviewed EKG. given recnet cath with triple vessel disease. will treat mediaclly. Ordered bloodwork, ABG, and CXR. Administered duonebs and 125 mg IV Solu-Medrol. 19:55 Respiratory rate increased s/p blood gas. accepted icu dr reji lugo heparin started. bp stable. accepted icu. Disposition - Disposition Disposition: HOSPITALIZED Disposition Time: 21:00 Condition: CRITICAL - Clinical Impression Clinical Impression: NSTEMI (non-ST elevated myocardial infarction), Respiratory failure, CHF (congestive heart failure) - Scribe Statement The provider has reviewed the documentation as recorded by the Mehran Purvis Provider Attestation: All medical record entries made by the Shahramibiva were at my direction and personally dictated by me. I have reviewed the chart and agree that the record accurately reflects my personal performance of the history, physical exam, medical decision making, and the department course for this patient. I have also personally directed, reviewed, and agree with the discharge instructions and disposition. Decision To Admit - Pt Status Changed To: Hospital Disposition Of: Inpatient - Admit Certification Admit to Inpatient:: After my assessment, the patient will require hospitalization for at least two midnights. This is because of the severity of symptoms shown, intensity of services needed, and/or the medical risk in this patient being treated as an outpatient. - InPatient: Physician Admission Certification: I certify that this patient requires 2 or more midnights of care for the following reason:: needs icu - . Bed Request Type: ICU Admitting Physician: Mikhail Lugo Jr. Patient Diagnosis: NSTEMI (non-ST elevated myocardial infarction), Respiratory failure, CHF (con gestive heart failure)
[2018-05-10 19:27] LABS: ALB/GLOB RATIO 1.3 (1.0-2.1); ALBUMIN 4.3 g/dL (3.5-5.0); ALT/SGPT 24 U/L (21-72); AST/SGOT 49 U/L (17-59); BLOOD UREA NITROGEN 28 mg/dL (9-20); CALCIUM 8.8 mg/dl (8.6-10.4); GFR NON-AFRICAN AMERICAN 50
[2018-05-10 19:40] LABS: B-TYPE NATRIURETIC PEPTIDE 4770 pg/mL (0-900)
[2018-05-10] MEDS ORDERED: Heparin25000 units/250ml 1/2NS 25,000 UNITS/250 ML BAG IV ONE (19:40)
[2018-05-10] MEDS ORDERED: Propofol 10 mg/ml 1,000 MG/100 ML VIAL IV PRN (19:43)
--- NOTE | 2018-05-10 19:43 | CP.PCM.HP ---
<Gatito Dickerson - Last Filed: 05/11/18 05:03> History of Present Illness - History of Present Illness History of Present Illness: PGY-1 History and Physical Note for Dr. Adair Patient is a 68 year old male with past medical history of COPD, CHF, DM, HTN, tobacco and alcohol abuse, recent cardiac cath with 3 vessels disease (refused CABG in the past), medication noncompliance presenting to ED via EMS for respiratory disress. Patient was noted to be wheezing, lethargic upon arrival, failing Bipap. Decision was made to intubate patient in ED. 12 pt ROS unattainable due to patient's clinical status. PMHx: as stated above PSHx: appendectomy, cholecystectomy, tonsillectomy, cardiac cath Allergies: NKDA Home Medications: as per EMr, non-compliant Family Hx: unknown Social Hx: lives with girlfriend for 8 yrs, smokes 2PPD, 2-6 beers/day, no other drugs as per girlfriend Family history not available Meds not compliant Allergies NKDA Present on Admission - Present on Admission Any Indicators Present on Admission: Yes Review of Systems - Review of Systems Systems not reviewed;Unavailable: Altered Mental Status, Intubated Past Patient History - Past Medical History & Family History Past Medical History?: Yes - Past Social History Smoking Status: Heavy Smoker > 10 Cigarettes Daily - CARDIAC Hx Congestive Heart Failure: Yes Hx Hypercholesterolemia: Yes Hx Hypertension: Yes - PULMONARY Hx Chronic Obstructive Pulmonary Disease (COPD): Yes - NEUROLOGICAL Hx Seizures: No - HEENT Hx HEENT Problems: No - RENAL Hx Chronic Kidney Disease: No - ENDOCRINE/METABOLIC Hx Endocrine Disorders: No - HEMATOLOGICAL/ONCOLOGICAL Hx Human Immunodeficiency Virus (HIV): No - INTEGUMENTARY Hx Dermatological Problems: No - MUSCULOSKELETAL/RHEUMATOLOGICAL Hx Falls: No - GASTROINTESTINAL Hx Gastrointestinal Disorders: No - GENITOURINARY/GYNECOLOGICAL Hx Sexually Transmitted Disorders: No - PSYCHIATRIC Hx Anxiety: No Hx Bipolar Disorder: No Hx Depression: No Hx Paranoia: No Hx Post Traumatic Stress Disorder: No Hx Schizophrenia: No Hx Substance Use: No - SURGICAL HISTORY Hx Appendectomy: Yes Hx Carotid Endarterectomy: No Hx Cholecystectomy: No Hx Coronary Artery Bypass Graft: No Hx Coronary Stent: No Hx Tonsillectomy: No - ANESTHESIA Hx Anesthesia: No Meds Allergies/Adverse Reactions: Allergies Allergy/AdvReac Type Severity Reaction Status Date / Time No Known Allergies Allergy Verified 05/10/18 19:03 Physical Exam - Constitutional Appears: No Acute Distress - Head Exam Head Exam: ATRAUMATIC, NORMAL INSPECTION, NORMOCEPHALIC - Eye Exam Eye Exam: Normal appearance, PERRL - ENT Exam ENT Exam: Mucous Membranes Moist, Normal Exam - Neck Exam Neck exam: Positive for: Normal Inspection. Negative for: Tenderness - Respiratory Exam Respiratory Exam: Prolonged Expiratory Phase, Rales, Rhonchi Additional comments: intubated - Cardiovascular Exam Cardiovascular Exam: +S1, +S2 Additional comments: LBBB on monitor - GI/Abdominal Exam GI & Abdominal Exam: Distended, Normal Bowel Sounds. absent: Firm, Guarding, Organomegaly, Rebound, Rigid, Tenderness - Extremities Exam Extremities exam: Positive for: normal capillary refill, normal inspection, pedal pulses present. Negative for: calf tenderness - Neurological Exam Neurological exam: Alert - Skin Skin Exam: Dry, Intact, Normal Color, Warm Results - Vital Signs Recent Vital Signs: Last Vital Signs Temp Pulse 126 H 05/10/18 19:20 Resp 19 05/10/18 19:20 BP 197/120 H 05/10/18 19:20 Pulse Ox 98 05/10/18 19:34 - Labs Result Diagrams: 05/11/18 04:34 05/10/18 19:08 Labs: Laboratory Results - last 24 hr 05/10/18 05/10/18 05/10/18 19:08 19:08 19:08 WBC 11.7 H D RBC 4.24 L Hgb 13.9 Hct 42.3 MCV 99.7 H MCH 32.7 H MCHC 32.8 L RDW 14.4 Plt Count 393 D MPV 8.4 Neut % (Auto) 62.7 Lymph % (Auto) 25.0 Slope % (Auto) 7.9 Eos % (Auto) 3.6 Baso % (Auto) 0.8 Neut # (Auto) 7.4 H Lymph # (Auto) 2.9 Slope # (Auto) 0.9 H Eos # (Auto) 0.4 Baso # (Auto) 0.1 PT 11.9 INR 1.1 APTT 41 H Sodium 139 Potassium 4.9 Chloride 107 Carbon Dioxide 25 Anion Gap 13 BUN 28 H Creatinine 1.4 Est GFR ( Amer) > 60 Est GFR (Non-Af Amer) 50 Random Glucose 205 H D Calcium 8.8 Phosphorus 5.6 H Magnesium 2.1 Total Bilirubin 0.5 AST 49 ALT 24 Alkaline Phosphatase 81 Troponin I 4.8000 H* NT-Pro-B Natriuret Pep 4770 H Total Protein 7.7 Albumin 4.3 Globulin 3.4 Albumin/Globulin Ratio 1.3 Assessment & Plan - Assessment and Plan (Free Text) Assessment: 68 year old male with pmhx of COPD, CHF, DM, HTN, tobacco and alcohol abuse, recent cardiac cath with 3 vessels disease (refused CABG), medication noncompliance brought in to ER with respiratory distress. Failing Bipap, lethargic in ED. Decision made to intubate, admitted to ICU. Plan: Respiratory Failure likely 2/2 flash pulmonary edema vs NSTEMI -trop 4.8; f/u serial AILYN -BNP 4770 -ABG: pH 7.15, CO2 69, HCO3 20.1 -ventilator support -nitro drip -heparin ggt -Lasix 40 IVP daily Hx of COPD -duonebs -solumedrol 40 q12 CAD w/ 3 vessel disease Refused CABG -Cardiology Consult -ASA -plavix -BB -Crestor Hyperglycemic episode -BG 205 -A1C normal, likely related to episodic stress -continue to monitor PPx, Diet, Disposition -DVT: scds, heparin ggt -GI ppx: protonix 40 daily -Diet: HHD, low salt Further recs as per Dr. Manju Dickerson DO, PGY-1 <Humberto Garduno - Last Filed: 05/14/18 07:43> Results - Vital Signs Recent Vital Signs: Last Vital Signs Temp 98.2 F 05/13/18 21:00 Pulse 47 L 05/14/18 00:00 Resp 16 05/14/18 00:00 BP 127/80 05/13/18 23:54 Pulse Ox 95 05/14/18 00:00 - Labs Result Diagrams: 05/13/18 06:18 05/13/18 06:18 Labs: Laboratory Results - last 24 hr 05/13/18 05/13/18 05/13/18 11:19 14:43 14:43 APTT 57 H D POC Glucose (mg/dL) 113 H Total Creatine Kinase 33 L CK-MB (Mass) 1.97 Troponin I 3.1900 H* 05/13/18 05/13/18 05/13/18 16:11 21:22 21:27 APTT 54 H POC Glucose (mg/dL) 194 H > 500 H* Total Creatine Kinase CK-MB (Mass) Troponin I 05/13/18 22:50 APTT POC Glucose (mg/dL) 105 Total Creatine Kinase CK-MB (Mass) Troponin I
[2018-05-10 19:56] LABS: ABG ALLEN TEST UNABLE; ARTERIAL BLOOD GAS HCO3 20.1 mmol/L (21-28); ARTERIAL BLOOD GAS O2 SAT 98.6 % (95-98); ARTERIAL BLOOD GAS PCO2 69 mm/Hg (35-45); ARTERIAL BLOOD GAS PH 7.15 (7.35-7.45); ARTERIAL BLOOD GAS PO2 104 mm/Hg (80-100); ARTERIAL BLOOD GAS TCO2 26.1 mmol/L (22-28)
[2018-05-10] MEDS ORDERED: Albuterol-Ipratrop 3 mg / 0.5 (3 ml) UD ONE (20:05)
[2018-05-10 22:27] LABS: SQUAMOUS EPITHIAL 1 /hpf (0-5); URINE BACTERIA RARE (<OCC); URINE BILIRUBIN NEGATIVE (NEGATIVE); URINE BLOOD 2+ (NEGATIVE); URINE CLARITY Hazy (Clear); URINE COLOR Yellow (YELLOW); URINE GLUCOSE (UA) NORMAL (Normal); URINE LEUKOCYTE ESTERASE NEG Leu/uL (Negative); URINE PROTEIN 2+ mg/dL (NEGATIVE); URINE UROBILINOGEN NORMAL mg/dL (0.2-1.0)
--- NOTE | 2018-05-10 22:43 | CP.PCM.CON ---
History of Present Illness - History of Present Illness History of Present Illness: 68 M with h/o COPD, CHF, DM, HTN, tobacco and alcohol abuse, recent cardiac cath with 3 vessels disease, refused cabg, non compliance with the medications brought in to ER with resp distress, in ER found to be wheezing, tired, on bipap lethargic, hence decision was made to intubate. CXR showed flash edema, LBBB, elevated troponin. Post intubation patient was awake and able to communicate with nodding his head, was not in distress. PMH as above, coronary angiography last admission this month with 3 vessel disease, refused bypass, unclear if willing for any intervention Social Lives with GF 8 yrs, smokes 2PPD, 2-6 beers/day, no other drugs as per gf Family history not available Meds not compliant Allergies NKDA Review of Systems - Review of Systems All systems: reviewed and no additional remarkable complaints except (HPI) Past Patient History - Past Medical History & Family History Past Medical History?: Yes - Past Social History Smoking Status: Heavy Smoker > 10 Cigarettes Daily Alcohol: > 2 Drinks/Day Home Situation {Lives}: With Family - CARDIAC Hx Congestive Heart Failure: Yes Hx Hypercholesterolemia: Yes Hx Hypertension: Yes - PULMONARY Hx Chronic Obstructive Pulmonary Disease (COPD): Yes - NEUROLOGICAL Hx Seizures: No - HEENT Hx HEENT Problems: No - RENAL Hx Chronic Kidney Disease: No - ENDOCRINE/METABOLIC Hx Endocrine Disorders: No - HEMATOLOGICAL/ONCOLOGICAL Hx Human Immunodeficiency Virus (HIV): No - INTEGUMENTARY Hx Dermatological Problems: No - MUSCULOSKELETAL/RHEUMATOLOGICAL Hx Falls: No - GASTROINTESTINAL Hx Gastrointestinal Disorders: No - GENITOURINARY/GYNECOLOGICAL Hx Sexually Transmitted Disorders: No - PSYCHIATRIC Hx Anxiety: No Hx Bipolar Disorder: No Hx Depression: No Hx Paranoia: No Hx Post Traumatic Stress Disorder: No Hx Schizophrenia: No Hx Substance Use: No - SURGICAL HISTORY Hx Appendectomy: Yes Hx Carotid Endarterectomy: No Hx Cholecystectomy: No Hx Coronary Artery Bypass Graft: No Hx Coronary Stent: No Hx Tonsillectomy: No - ANESTHESIA Hx Anesthesia: No Meds Allergies/Adverse Reactions: Allergies Allergy/AdvReac Type Severity Reaction Status Date / Time No Known Allergies Allergy Verified 05/10/18 19:03 - Medications Medications: Current Medications Albuterol/Ipratropium (Duoneb 3 Mg/0.5 Mg (3 Ml) Ud) 3 ml INH RQ6 LUCILA Aspirin (Aspirin) 325 mg PO DAILY LUCILA Clopidogrel Bisulfate (Plavix) 75 mg PO DAILY LUCILA Furosemide (Lasix) 40 mg IVP DAILY [facility] Heparin Sodium/Sodium Chloride (Heparin 09696 Units/250ml 1/2 Normal Saline) 25,000 units in 250 mls @ 8.709 mls/hr IV .Q24H ONE; Protocol Stop: 05/11/18 19:39 Last Admin: 05/10/18 20:56 Dose: 12 units/kg/hr, 8.709 mls/hr Propofol (Diprivan) 1,000 mg in 100 mls @ 2.177 mls/hr IV .Q24H PRN; Protocol PRN Reason: TITRATE PER MD ORDER Last Admin: 05/10/18 21:05 Dose: 5 mcg/kg/min, 2.177 mls/hr Nitroglycerin/Dextrose (Nitroglycerin 50 Mg/250 Ml D5w) 50 mg in 250 mls @ 1.5 mls/hr IV .Q24H LUCILA; Protocol Methylprednisolone (Solu-Medrol) 40 mg IVP 12 LUCILA Metoprolol Tartrate (Lopressor) 25 mg PO BID LUCILA Pantoprazole Sodium (Protonix Susp) 40 mg PO 0600 LUCILA Rosuvastatin Calcium (Crestor) 10 mg PO HS LUCILA Physical Exam - Additional Findings Additional findings: * HEENT ЕКАТЕРИНА * Neck supple * Chest b/l diffuse prolonged expiration ronchi and some rales * CVS regular, LBBB on the monitor * PA distended with air removed by suction of OG, then became soft * Ext no edema * Skin turgor low * 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 Results - Vital Signs Recent Vital Signs: Last Vital Signs Temp 98.3 F 05/10/18 20:35 Pulse 88 05/10/18 21:33 Resp 16 05/10/18 21:33 BP 154/94 H 05/10/18 21:33 Pulse Ox 98 05/10/18 22:05 - Labs Result Diagrams: 05/10/18 19:08 05/10/18 19:08 Labs: Laboratory Results - last 24 hr 05/10/18 05/10/18 05/10/18 19:08 19:08 19:08 WBC 11.7 H D RBC 4.24 L Hgb 13.9 Hct 42.3 MCV 99.7 H MCH 32.7 H MCHC 32.8 L RDW 14.4 Plt Count 393 D MPV 8.4 Neut % (Auto) 62.7 Lymph % (Auto) 25.0 Dodge % (Auto) 7.9 Eos % (Auto) 3.6 Baso % (Auto) 0.8 Neut # (Auto) 7.4 H Lymph # (Auto) 2.9 Dodge # (Auto) 0.9 H Eos # (Auto) 0.4 Baso # (Auto) 0.1 PT 11.9 INR 1.1 APTT 41 H Puncture Site pCO2 pO2 HCO3 ABG pH ABG Total CO2 ABG O2 Saturation ABG Base Excess Aly Test ABG Potassium A-a O2 Difference Respiratory Index Glucose Lactate Vent Mode Mechanical Rate FiO2 Tidal Volume PEEP Crit Value Called To Crit Value Called By Crit Value Read Back Blood Gas Notified Time Sodium 139 Potassium 4.9 Chloride 107 Carbon Dioxide 25 Anion Gap 13 BUN 28 H Creatinine 1.4 Est GFR ( Amer) > 60 Est GFR (Non-Af Amer) 50 Random Glucose 205 H D Calcium 8.8 Phosphorus 5.6 H Magnesium 2.1 Total Bilirubin 0.5 AST 49 ALT 24 Alkaline Phosphatase 81 Troponin I 4.8000 H* NT-Pro-B Natriuret Pep 4770 H Total Protein 7.7 Albumin 4.3 Globulin 3.4 Albumin/Globulin Ratio 1.3 Arterial Blood Potassium Urine Color Urine Clarity Urine pH Ur Specific Celeste Urine Protein Urine Glucose (UA) Urine Ketones Urine Blood Urine Nitrate Urine Bilirubin Urine Urobilinogen Ur Leukocyte Esterase Urine WBC (Auto) Urine RBC (Auto) Ur Squamous Epith Cells Urine Bacteria 05/10/18 05/10/18 19:50 22:03 WBC RBC Hgb Hct MCV MCH MCHC RDW Plt Count MPV Neut % (Auto) Lymph % (Auto) Dodge % (Auto) Eos % (Auto) Baso % (Auto) Neut # (Auto) Lymph # (Auto) Dodge # (Auto) Eos # (Auto) Baso # (Auto) PT INR APTT Puncture Site Lr pCO2 69 H pO2 104 H HCO3 20.1 L ABG pH 7.15 L* ABG Total CO2 26.1 ABG O2 Saturation 98.6 H ABG Base Excess -6.1 L Aly Test Unable ABG Potassium 4.0 A-a O2 Difference 523.0 Respiratory Index 5.0 Glucose 170 H Lactate 0.6 L Vent Mode A/c Mechanical Rate 16 FiO2 100.0 Tidal Volume 500 PEEP 5 Crit Value Called To Dr carr Crit Value Called By Moisés hankins Crit Value Read Back Y Blood Gas Notified Time 1954 Sodium 140.0 Potassium Chloride 109.0 H Carbon Dioxide Anion Gap BUN Creatinine Est GFR ( Amer) Est GFR (Non-Af Amer) Random Glucose Calcium Phosphorus Magnesium Total Bilirubin AST ALT Alkaline Phosphatase Troponin I NT-Pro-B Natriuret Pep Total Protein Albumin Globulin Albumin/Globulin Ratio Arterial Blood Potassium 4.0 Urine Color Yellow Urine Clarity Hazy Urine pH 5.0 Ur Specific Celeste 1.013 Urine Protein 2+ H Urine Glucose (UA) Normal Urine Ketones Negative Urine Blood 2+ H Urine Nitrate Negative Urine Bilirubin Negative Urine Urobilinogen Normal Ur Leukocyte Esterase Neg Urine WBC (Auto) 5 Urine RBC (Auto) 29 H Ur Squamous Epith Cells 1 Urine Bacteria Rare Assessment & Plan - Assessment and Plan (Free Text) Assessment: * Resp failure * NSTEMI * Flash pulm edema * H/o severe copd * 3 vessel disease with low ef refused cabg * Hyperglycemia but normal hgba1c like related episodic stress * Non compliance * tobacco and alcohol abuse details not available post last hospitalization. Plan: * Vent support * Nitro drip, iv lasix * Heparin drip, asa, plavix, low dose beta madonna, crestor * IV steroids, nebs * GI prophylaxis * cardiology consult * See orders for detail.
[2018-05-10] MEDS: Nitroglycerin 50mg in D5W 50 MG/250 ML BOTTLE IV SCH (23:00)
[2018-05-11 04:41] LABS: EOS % 0.1 % (0.0-4.0); HEMOGLOBIN 12.2 g/dL (12.0-18.0); LYMPH # 0.3 K/uL (1.0-4.3); LYMPH % 2.8 % (20.0-40.0); MEAN CELL VOLUME 97.9 fL (80.0-94.0); MEAN CORPUSCULAR HEMOGLOBIN 32.5 pg (27.0-31.0); MEAN CORPUSCULAR HGB CONC 33.1 g/dL (33.0-37.0); MEAN PLATELET VOLUME 8.4 fL (7.2-11.7); MONO # 0.1 K/uL (0.0-0.8); MONO % 0.9 % (0.0-10.0); NEUT # 8.7 K/uL (1.8-7.0); NEUT % 96.2 % (50.0-75.0); PLATELET COUNT 281 K/uL (130-400); RBC 3.75 Mil/uL (4.40-5.90); RED CELL DISTRIBUTION WIDTH 14.2 % (11.5-14.5); WHITE BLOOD COUNT 9.1 K/uL (4.8-10.8)
[2018-05-11] MEDS: Pantoprazole 40 mg Susp UD PO SCH (05:00)
[2018-05-11 05:10] LABS: BANDS 2 % (0-2); LYMPHOCYTE 4 % (20-40); NEUTROPHIL 94 % (50-75); PLATELET ESTIMATE NORMAL (NORMAL); TOTAL CELLS COUNTED 100
[2018-05-11 05:33] LABS: ALB/GLOB RATIO 1.1 (1.0-2.1); ALBUMIN 3.5 g/dL (3.5-5.0); ALT/SGPT 33 U/L (21-72); AST/SGOT 31 U/L (17-59); BLOOD UREA NITROGEN 30 mg/dL (9-20); CALCIUM 8.4 mg/dl (8.6-10.4); GFR NON-AFRICAN AMERICAN > 60
[2018-05-11 05:37] LABS: ARTERIAL BLOOD GAS HCO3 25.9 mmol/L (21-28); ARTERIAL BLOOD GAS PCO2 44 mm/Hg (35-45); ARTERIAL BLOOD GAS PH 7.39 (7.35-7.45); ARTERIAL BLOOD GAS PO2 102 mm/Hg (80-100)
[2018-05-11] MEDS: Albuterol-Ipratrop 3 mg / 0.5 (3 ml) UD INH SCH ×3 (07:22→19:55)
--- NOTE | 2018-05-11 10:36 | RAD ---
Date of service: 05/11/2018 HISTORY: vented COMPARISON: Portable chest 05/10/2018. FINDINGS: LUNGS: Endotracheal tube is unchanged in position with nasogastric tube again seen entering the left mark abdomen. Cardiomegaly and pulmonary vascular congestion pattern appear to have significantly reduced with no pulmonary vascular congestion appreciable at this time. Bilateral basilar atelectasis persists as demonstrated in prior CT 04/26/2018. No definitive pleural effusions are appreciated at this time given frontal technique. No pneumothorax bilaterally. PLEURA: As above. CARDIOVASCULAR: Calcific atherosclerotic changes are seen related to the thoracic aorta. As above. OSSEOUS STRUCTURES: No significant abnormalities. VISUALIZED UPPER ABDOMEN: Normal. OTHER FINDINGS: None. IMPRESSION: Markedly improved if not resolved pulmonary vascular congestion. Residual atelectasis at the bilateral bases remains with no definite pleural effusion appreciable at this time. Cardiomegaly appears stable.
--- NOTE | 2018-05-11 10:44 | RAD ---
Date of service: 05/10/2018 HISTORY: SOB intubation COMPARISON: Portable chest 04/27/2018. FINDINGS: LUNGS: Endotracheal tube is in place terminating 5.8 cm above the sarai. A bat wing pattern bilateral perihilar density is appreciated suspicious for moderate CHF. Medial basilar atelectasis or infiltrate seen at the right base with prior retrocardiac dense opacity markedly improved if not resolved. Cardiomegaly appears stable. Pulmonary vascular congestion cell to [id number]. Calcific atherosclerotic changes are seen related to the thoracic aorta. PLEURA: No significant pleural effusion identified, no pneumothorax apparent. OSSEOUS STRUCTURES: No significant abnormalities. VISUALIZED UPPER ABDOMEN: Normal. OTHER FINDINGS: None. IMPRESSION: Findings suspicious for interval moderate CHF. Clearing of left basilar opacity is noted with medial basilar patchy atelectasis or infiltrate potentially underlying CHF. Cardiomegaly stable. ET tube in good apparent position.
[2018-05-11] MEDS: MethylPREDNISolone 40 mg Vial IVP SCH (11:34)
--- NOTE | 2018-05-11 12:11 | CP.CCUPN ---
CCU Subjective - Physician Review Subjective (Free Text): PGY-[address] progress note for Dr Mcknight Patient is seen and examined at bedside. Patient is awake and oriented, continue to be intubated, now on pressure support. Patient admits to discomfort in his throat due to tubing and feeling anxiety, requesting for tube to come out. Patient uses a notebook to communicate. Denies any other symptoms. Critical Care Time Spent (in minutes): 35 CCU Objective - Vital Signs / Intake & Output Vital Signs (Last 4 hours): Vital Signs Pulse Resp BP Pulse Ox 05/11/18 10:10 59 L 16 96 05/11/18 10:00 63 16 96 05/11/18 09:59 129/83 05/11/18 09:58 129/83 05/11/18 09:50 63 16 96 05/11/18 09:40 61 13 97 05/11/18 09:34 68 16 129/83 96 05/11/18 09:30 68 16 97 05/11/18 09:20 59 L 16 96 05/11/18 09:10 64 16 96 05/11/18 09:00 67 17 96 05/11/18 08:50 65 17 96 05/11/18 08:40 69 12 98 05/11/18 08:34 92 H 15 137/80 94 L 05/11/18 08:30 61 17 97 05/11/18 08:20 63 13 97 Intake and Output (Last 8hrs): Intake & Output 05/10/18 05/11/18 05/11/18 22:59 06:59 14:59 Intake Total 105.6 236.6 Output Total 2700 275 Balance -2594.4 -38.4 Weight 160 lb 181 lb 3.52 oz Intake: IV 25 Intake, IV Amount 105.6 211.6 Left Distal Port Forearm 24 9 Left Forearm 64 24 Right Hand 17.6 6.7 left arm 137.4 right hand 34.5 Output: Urine 2700 275 Urethral (Mariscal) 2700 275 Stool 0 0 - Physical Exam Head: Positive for: Atraumatic, Normocephalic Extroacular Muscles: Positive for: EOMI Conjunctiva: Positive for: Normal Mouth: Positive for: Dry Neck: Positive for: Normal Range of Motion Respiratory/Chest: Positive for: Clear to Auscultation. Negative for: Respiratory Distress, Wheezes, Rales, Rhonchi Cardiovascular: Positive for: Regular Rate and Rhythm, Normal S1, S2 Abdomen: Positive for: Normal Bowel Sounds. Negative for: Tenderness, Distention Upper Extremity: Positive for: Normal Inspection Lower Extremity: Positive for: Normal Inspection Neurological: Positive for: GCS=15, CN II-XII Intact, Speech Normal Skin: Positive for: Warm, Normal Color Psychiatric: Positive for: Alert, Oriented x 3 - Medications Active Medications: Active Medications Generic Name Dose Route Start Last Admin Trade Name Freq PRN Reason Stop Dose Admin Albuterol/Ipratropium 3 ml 05/11/18 02:00 05/11/18 07:22 Duoneb 3 Mg/0.5 Mg (3 Ml) Ud INH 3 ml RQ6 LUCILA Administration Aspirin 300 mg 05/11/18 10:00 05/11/18 11:06 Aspirin Supp NV 300 mg DAILY LUCILA Administration Clopidogrel Bisulfate 75 mg 05/11/18 10:00 05/11/18 09:59 Plavix PO 75 mg DAILY LUCILA Administration Furosemide 40 mg 05/11/18 10:00 05/11/18 09:58 Lasix IVP 40 mg Q12H LUCILA Administration Heparin Sodium/Sodium Chloride 25,000 units in 250 mls @ 8.709 mls/hr 05/10/18 19:40 05/10/18 20:56 Heparin 78410 Units/250ml 1/2 Normal Saline IV 05/11/18 19:39 12 units/kg/hr .Q24H ONE 8.709 mls/hr Administration Protocol 12 UNITS/KG/HR Propofol 1,000 mg in 100 mls @ 2.177 mls/hr 05/10/18 19:43 05/11/18 08:45 Diprivan IV 14.92 mcg/kg/min .Q24H PRN 6.5 mls/hr TITRATE PER MD ORDER Titration Protocol 5 MCG/KG/MIN Nitroglycerin/Dextrose 50 mg in 250 mls @ 1.5 mls/hr 05/10/18 22:00 05/10/18 23:00 Nitroglycerin 50 Mg/250 Ml D5w IV 10 mcg/min .Q24H LUCILA 3 mls/hr Administration Protocol 5 MCG/MIN Methylprednisolone 40 mg 05/11/18 12:00 05/11/18 11:34 Solu-Medrol IVP 40 mg 12 LUCILA Administration Metoprolol Tartrate 25 mg 05/11/18 10:00 05/11/18 09:59 Lopressor PO 25 mg BID LUCILA Administration Pantoprazole Sodium 40 mg 05/11/18 06:00 05/11/18 05:00 Protonix Susp PO 40 mg 0600 LUCILA Administration Rosuvastatin Calcium 10 mg 05/10/18 22:15 05/10/18 23:15 Crestor PO 10 mg HS LUCILA Administration - Patient Studies Lab Studies: Microbiology Studies 05/10/18 22:03 Urine Culture - Preliminary Urine,Mariscal No growth. Lab Studies 05/11/18 05/11/18 05/11/18 Range/Units 11:36 06:04 05:15 WBC (4.8-10.8) K/uL RBC (4.40-5.90) Mil/uL Hgb (12.0-18.0) g/dL Hct (35.0-51.0) % MCV (80.0-94.0) fL MCH (27.0-31.0) pg MCHC (33.0-37.0) g/dL RDW (11.5-14.5) % Plt Count (130-400) K/uL MPV (7.2-11.7) fL Neut % (Auto) (50.0-75.0) % Lymph % (Auto) (20.0-40.0) % [place] % (Auto) (0.0-10.0) % Eos % (Auto) (0.0-4.0) % Baso % (Auto) (0.0-2.0) % Neut # (Auto) (1.8-7.0) K/uL Lymph # (Auto) (1.0-4.3) K/uL [place] # (Auto) (0.0-0.8) K/uL Eos # (Auto) (0.0-0.7) K/uL Baso # (Auto) (0.0-0.2) K/uL Neutrophils % (Manual) (50-75) % Band Neutrophils % (0-2) % Lymphocytes % (Manual) (20-40) % Monocytes % (Manual) Platelet Estimate (NORMAL) PT (9.7-12.2) SECONDS INR APTT (21-34) SECONDS Puncture Site R brac pCO2 44 (35-45) mm/Hg pO2 102 H (80-100) mm/Hg HCO3 25.9 (21-28) mmol/L ABG pH 7.39 (7.35-7.45) ABG Total CO2 28.0 (22-28) mmol/L ABG O2 Saturation 99.0 H (95-98) % ABG Base Excess 1.3 (-2.0-3.0) mmol/L ABG Hemoglobin 12.0 (11.7-17.4) g/dL ABG Carboxyhemoglobin 1.8 H (0.5-1.5) % POC ABG HHb (Measured) 1.0 (0.0-5.0) % ABG Methemoglobin 1.2 (0.0-3.0) % Aly Test Na ABG Potassium (3.6-5.2) mmol/L A-a O2 Difference 271.0 mm/Hg Respiratory Index 2.7 Hgb O2 Saturation 96.0 (95.0-98.0) % Glucose (75-110) mg/dl Lactate (0.7-2.1) mmol/L Vent Mode A/c Mechanical Rate 16 FiO2 60.0 % Tidal Volume 500 PEEP 5 Crit Value Called To Crit Value Called By Crit Value Read Back Blood Gas Notified Time Sodium (132-148) mmol/L Potassium (3.6-5.2) mmol/L Chloride (98-107) mmol/L Carbon Dioxide (22-30) mmol/L Anion Gap (10-20) BUN (9-20) mg/dL Creatinine (0.8-1.5) mg/dL Est GFR ( Amer) Est GFR (Non-Af Amer) POC Glucose (mg/dL) 115 H 156 H (65-110) mg/dL Random Glucose (75-110) mg/dL Calcium (8.6-10.4) mg/dl Phosphorus (2.5-4.5) mg/dL Magnesium (1.6-2.3) mg/dL Total Bilirubin (0.2-1.3) mg/dL AST (17-59) U/L ALT (21-72) U/L Alkaline Phosphatase (38-126) U/L Troponin I (0.00-0.120) ng/mL NT-Pro-B Natriuret Pep (0-900) pg/mL Total Protein (6.3-8.3) g/dL Albumin (3.5-5.0) g/dL Globulin (2.2-3.9) gm/dL Albumin/Globulin Ratio (1.0-2.1) Arterial Blood Potassium (3.6-5.2) mmol/L Urine Color (YELLOW) Urine Clarity (Clear) Urine pH (5.0-8.0) Ur Specific [place] (1.003-1.030) Urine Protein (NEGATIVE) mg/dL Urine Glucose (UA) (Normal) mg/dL Urine Ketones (NEGATIVE) mg/dL Urine Blood (NEGATIVE) Urine Nitrate (NEGATIVE) Urine Bilirubin (NEGATIVE) Urine Urobilinogen (0.2-1.0) mg/dL Ur Leukocyte Esterase (Negative) Chaz/uL Urine WBC (Auto) (0-5) /hpf Urine RBC (Auto) (0-3) /hpf Ur Squamous Epith Cells (0-5) /hpf Urine Bacteria (<OCC) 05/11/18 05/11/18 05/11/18 Range/Units 04:34 04:34 03:09 WBC 9.1 (4.8-10.8) K/uL RBC 3.75 L (4.40-5.90) Mil/uL Hgb 12.2 (12.0-18.0) g/dL Hct 36.8 (35.0-51.0) % MCV 97.9 H (80.0-94.0) fL MCH 32.5 H (27.0-31.0) pg MCHC 33.1 (33.0-37.0) g/dL RDW 14.2 (11.5-14.5) % Plt Count 281 D (130-400) K/uL MPV 8.4 (7.2-11.7) fL Neut % (Auto) 96.2 H (50.0-75.0) % Lymph % (Auto) 2.8 L (20.0-40.0) % [place] % (Auto) 0.9 (0.0-10.0) % Eos % (Auto) 0.1 (0.0-4.0) % Baso % (Auto) 0.0 (0.0-2.0) % Neut # (Auto) 8.7 H (1.8-7.0) K/uL Lymph # (Auto) 0.3 L (1.0-4.3) K/uL [place] # (Auto) 0.1 (0.0-0.8) K/uL Eos # (Auto) 0.0 (0.0-0.7) K/uL Baso # (Auto) 0.0 (0.0-0.2) K/uL Neutrophils % (Manual) 94 H (50-75) % Band Neutrophils % 2 (0-2) % Lymphocytes % (Manual) 4 L (20-40) % Monocytes % (Manual) TEST NOT PERFORMED Platelet Estimate Normal (NORMAL) PT (9.7-12.2) SECONDS INR APTT 45 H (21-34) SECONDS Puncture Site pCO2 (35-45) mm/Hg pO2 (80-100) mm/Hg HCO3 (21-28) mmol/L ABG pH (7.35-7.45) ABG Total CO2 (22-28) mmol/L ABG O2 Saturation (95-98) % ABG Base Excess (-2.0-3.0) mmol/L ABG Hemoglobin (11.7-17.4) g/dL ABG Carboxyhemoglobin (0.5-1.5) % POC ABG HHb (Measured) (0.0-5.0) % ABG Methemoglobin (0.0-3.0) % Aly Test ABG Potassium (3.6-5.2) mmol/L A-a O2 Difference mm/Hg Respiratory Index Hgb O2 Saturation (95.0-98.0) % Glucose (75-110) mg/dl Lactate (0.7-2.1) mmol/L Vent Mode Mechanical Rate FiO2 % Tidal Volume PEEP Crit Value Called To Crit Value Called By Crit Value Read Back Blood Gas Notified Time Sodium 138 (132-148) mmol/L Potassium 4.6 (3.6-5.2) mmol/L Chloride 104 (98-107) mmol/L Carbon Dioxide 28 (22-30) mmol/L Anion Gap 12 (10-20) BUN 30 H (9-20) mg/dL Creatinine 1.2 (0.8-1.5) mg/dL Est GFR ( Amer) > 60 Est GFR (Non-Af Amer) > 60 POC Glucose (mg/dL) (65-110) mg/dL Random Glucose 158 H D (75-110) mg/dL Calcium 8.4 L (8.6-10.4) mg/dl Phosphorus 4.2 (2.5-4.5) mg/dL Magnesium 1.8 (1.6-2.3) mg/dL Total Bilirubin 0.4 (0.2-1.3) mg/dL AST 31 (17-59) U/L ALT 33 (21-72) U/L Alkaline Phosphatase 67 (38-126) U/L Troponin I 3.5400 H* (0.00-0.120) ng/mL NT-Pro-B Natriuret Pep (0-900) pg/mL Total Protein 6.6 (6.3-8.3) g/dL Albumin 3.5 (3.5-5.0) g/dL Globulin 3.1 (2.2-3.9) gm/dL Albumin/Globulin Ratio 1.1 (1.0-2.1) Arterial Blood Potassium (3.6-5.2) mmol/L Urine Color (YELLOW) Urine Clarity (Clear) Urine pH (5.0-8.0) Ur Specific [place] (1.003-1.030) Urine Protein (NEGATIVE) mg/dL Urine Glucose (UA) (Normal) mg/dL Urine Ketones (NEGATIVE) mg/dL Urine Blood (NEGATIVE) Urine Nitrate (NEGATIVE) Urine Bilirubin (NEGATIVE) Urine Urobilinogen (0.2-1.0) mg/dL Ur Leukocyte Esterase (Negative) Chaz/uL Urine WBC (Auto) (0-5) /hpf Urine RBC (Auto) (0-3) /hpf Ur Squamous Epith Cells (0-5) /hpf Urine Bacteria (<OCC) 05/11/18 05/10/18 05/10/18 Range/Units 00:15 22:03 19:50 WBC (4.8-10.8) K/uL RBC (4.40-5.90) Mil/uL Hgb (12.0-18.0) g/dL Hct (35.0-51.0) % MCV (80.0-94.0) fL MCH (27.0-31.0) pg MCHC (33.0-37.0) g/dL RDW (11.5-14.5) % Plt Count (130-400) K/uL MPV (7.2-11.7) fL Neut % (Auto) (50.0-75.0) % Lymph % (Auto) (20.0-40.0) % [place] % (Auto) (0.0-10.0) % Eos % (Auto) (0.0-4.0) % Baso % (Auto) (0.0-2.0) % Neut # (Auto) (1.8-7.0) K/uL Lymph # (Auto) (1.0-4.3) K/uL [place] # (Auto) (0.0-0.8) K/uL Eos # (Auto) (0.0-0.7) K/uL Baso # (Auto) (0.0-0.2) K/uL Neutrophils % (Manual) (50-75) % Band Neutrophils % (0-2) % Lymphocytes % (Manual) (20-40) % Monocytes % (Manual) Platelet Estimate (NORMAL) PT (9.7-12.2) SECONDS INR APTT (21-34) SECONDS Puncture Site Lr pCO2 69 H (35-45) mm/Hg pO2 104 H (80-100) mm/Hg HCO3 20.1 L (21-28) mmol/L ABG pH 7.15 L* (7.35-7.45) ABG Total CO2 26.1 (22-28) mmol/L ABG O2 Saturation 98.6 H (95-98) % ABG Base Excess -6.1 L (-2.0-3.0) mmol/L ABG Hemoglobin (11.7-17.4) g/dL ABG Carboxyhemoglobin (0.5-1.5) % POC ABG HHb (Measured) (0.0-5.0) % ABG Methemoglobin (0.0-3.0) % Aly Test Unable ABG Potassium 4.0 (3.6-5.2) mmol/L A-a O2 Difference 523.0 mm/Hg Respiratory Index 5.0 Hgb O2 Saturation (95.0-98.0) % Glucose 170 H (75-110) mg/dl Lactate 0.6 L (0.7-2.1) mmol/L Vent Mode A/c Mechanical Rate 16 FiO2 100.0 % Tidal Volume 500 PEEP 5 Crit Value Called To Dr carr Crit Value Called By Moisés hankins Crit Value Read Back Y Blood Gas Notified Time 1954 Sodium 140.0 (132-148) mmol/L Potassium (3.6-5.2) mmol/L Chloride 109.0 H (98-107) mmol/L Carbon Dioxide (22-30) mmol/L Anion Gap (10-20) BUN (9-20) mg/dL Creatinine (0.8-1.5) mg/dL Est GFR ( Amer) Est GFR (Non-Af Amer) POC Glucose (mg/dL) 157 H (65-110) mg/dL Random Glucose (75-110) mg/dL Calcium (8.6-10.4) mg/dl Phosphorus (2.5-4.5) mg/dL Magnesium (1.6-2.3) mg/dL Total Bilirubin (0.2-1.3) mg/dL AST (17-59) U/L ALT (21-72) U/L Alkaline Phosphatase (38-126) U/L Troponin I (0.00-0.120) ng/mL NT-Pro-B Natriuret Pep (0-900) pg/mL Total Protein (6.3-8.3) g/dL Albumin (3.5-5.0) g/dL Globulin (2.2-3.9) gm/dL Albumin/Globulin Ratio (1.0-2.1) Arterial Blood Potassium 4.0 (3.6-5.2) mmol/L Urine Color Yellow (YELLOW) Urine Clarity Hazy (Clear) Urine pH 5.0 (5.0-8.0) Ur Specific [place] 1.013 (1.003-1.030) Urine Protein 2+ H (NEGATIVE) mg/dL Urine Glucose (UA) Normal (Normal) mg/dL Urine Ketones Negative (NEGATIVE) mg/dL Urine Blood 2+ H (NEGATIVE) Urine Nitrate Negative (NEGATIVE) Urine Bilirubin Negative (NEGATIVE) Urine Urobilinogen Normal (0.2-1.0) mg/dL Ur Leukocyte Esterase Neg (Negative) Chaz/uL Urine WBC (Auto) 5 (0-5) /hpf Urine RBC (Auto) 29 H (0-3) /hpf Ur Squamous Epith Cells 1 (0-5) /hpf Urine Bacteria Rare (<OCC) 05/10/18 05/10/18 05/10/18 Range/Units 19:08 19:08 19:08 WBC 11.7 H D (4.8-10.8) K/uL RBC 4.24 L (4.40-5.90) Mil/uL Hgb 13.9 (12.0-18.0) g/dL Hct 42.3 (35.0-51.0) % MCV 99.7 H (80.0-94.0) fL MCH 32.7 H (27.0-31.0) pg MCHC 32.8 L (33.0-37.0) g/dL RDW 14.4 (11.5-14.5) % Plt Count 393 D (130-400) K/uL MPV 8.4 (7.2-11.7) fL Neut % (Auto) 62.7 (50.0-75.0) % Lymph % (Auto) 25.0 (20.0-40.0) % [place] % (Auto) 7.9 (0.0-10.0) % Eos % (Auto) 3.6 (0.0-4.0) % Baso % (Auto) 0.8 (0.0-2.0) % Neut # (Auto) 7.4 H (1.8-7.0) K/uL Lymph # (Auto) 2.9 (1.0-4.3) K/uL [place] # (Auto) 0.9 H (0.0-0.8) K/uL Eos # (Auto) 0.4 (0.0-0.7) K/uL Baso # (Auto) 0.1 (0.0-0.2) K/uL Neutrophils % (Manual) (50-75) % Band Neutrophils % (0-2) % Lymphocytes % (Manual) (20-40) % Monocytes % (Manual) Platelet Estimate (NORMAL) PT 11.9 (9.7-12.2) SECONDS INR 1.1 APTT 41 H (21-34) SECONDS Puncture Site pCO2 (35-45) mm/Hg pO2 (80-100) mm/Hg HCO3 (21-28) mmol/L ABG pH (7.35-7.45) ABG Total CO2 (22-28) mmol/L ABG O2 Saturation (95-98) % ABG Base Excess (-2.0-3.0) mmol/L ABG Hemoglobin (11.7-17.4) g/dL ABG Carboxyhemoglobin (0.5-1.5) % POC ABG HHb (Measured) (0.0-5.0) % ABG Methemoglobin (0.0-3.0) % Aly Test ABG Potassium (3.6-5.2) mmol/L A-a O2 Difference mm/Hg Respiratory Index Hgb O2 Saturation (95.0-98.0) % Glucose (75-110) mg/dl Lactate (0.7-2.1) mmol/L Vent Mode Mechanical Rate FiO2 % Tidal Volume PEEP Crit Value Called To Crit Value Called By Crit Value Read Back Blood Gas Notified Time Sodium 139 (132-148) mmol/L Potassium 4.9 (3.6-5.2) mmol/L Chloride 107 (98-107) mmol/L Carbon Dioxide 25 (22-30) mmol/L Anion Gap 13 (10-20) BUN 28 H (9-20) mg/dL Creatinine 1.4 (0.8-1.5) mg/dL Est GFR ( Amer) > 60 Est GFR (Non-Af Amer) 50 POC Glucose (mg/dL) (65-110) mg/dL Random Glucose 205 H D (75-110) mg/dL Calcium 8.8 (8.6-10.4) mg/dl Phosphorus 5.6 H (2.5-4.5) mg/dL Magnesium 2.1 (1.6-2.3) mg/dL Total Bilirubin 0.5 (0.2-1.3) mg/dL AST 49 (17-59) U/L ALT 24 (21-72) U/L Alkaline Phosphatase 81 (38-126) U/L Troponin I 4.8000 H* (0.00-0.120) ng/mL NT-Pro-B Natriuret Pep 4770 H (0-900) pg/mL Total Protein 7.7 (6.3-8.3) g/dL Albumin 4.3 (3.5-5.0) g/dL Globulin 3.4 (2.2-3.9) gm/dL Albumin/Globulin Ratio 1.3 (1.0-2.1) Arterial Blood Potassium (3.6-5.2) mmol/L Urine Color (YELLOW) Urine Clarity (Clear) Urine pH (5.0-8.0) Ur Specific [place] (1.003-1.030) Urine Protein (NEGATIVE) mg/dL Urine Glucose (UA) (Normal) mg/dL Urine Ketones (NEGATIVE) mg/dL Urine Blood (NEGATIVE) Urine Nitrate (NEGATIVE) Urine Bilirubin (NEGATIVE) Urine Urobilinogen (0.2-1.0) mg/dL Ur Leukocyte Esterase (Negative) Chaz/uL Urine WBC (Auto) (0-5) /hpf Urine RBC (Auto) (0-3) /hpf Ur Squamous Epith Cells (0-5) /hpf Urine Bacteria (<OCC) Laboratory Results - last 24 hr 05/10/18 05/10/18 05/10/18 19:08 19:08 19:08 WBC 11.7 H D RBC 4.24 L Hgb 13.9 Hct 42.3 MCV 99.7 H MCH 32.7 H MCHC 32.8 L RDW 14.4 Plt Count 393 D MPV 8.4 Neut % (Auto) 62.7 Lymph % (Auto) 25.0 [place] % (Auto) 7.9 Eos % (Auto) 3.6 Baso % (Auto) 0.8 Neut # (Auto) 7.4 H Lymph # (Auto) 2.9 [place] # (Auto) 0.9 H Eos # (Auto) 0.4 Baso # (Auto) 0.1 Neutrophils % (Manual) Band Neutrophils % Lymphocytes % (Manual) Monocytes % (Manual) Platelet Estimate PT 11.9 INR 1.1 APTT 41 H Puncture Site pCO2 pO2 HCO3 ABG pH ABG Total CO2 ABG O2 Saturation ABG Base Excess ABG Hemoglobin ABG Carboxyhemoglobin POC ABG HHb (Measured) ABG Methemoglobin Aly Test ABG Potassium A-a O2 Difference Respiratory Index Hgb O2 Saturation Glucose Lactate Vent Mode Mechanical Rate FiO2 Tidal Volume PEEP Crit Value Called To Crit Value Called By Crit Value Read Back Blood Gas Notified Time Sodium 139 Potassium 4.9 Chloride 107 Carbon Dioxide 25 Anion Gap 13 BUN 28 H Creatinine 1.4 Est GFR ( Amer) > 60 Est GFR (Non-Af Amer) 50 POC Glucose (mg/dL) Random Glucose 205 H D Calcium 8.8 Phosphorus 5.6 H Magnesium 2.1 Total Bilirubin 0.5 AST 49 ALT 24 Alkaline Phosphatase 81 Troponin I 4.8000 H* NT-Pro-B Natriuret Pep 4770 H Total Protein 7.7 Albumin 4.3 Globulin 3.4 Albumin/Globulin Ratio 1.3 Arterial Blood Potassium Urine Color Urine Clarity Urine pH Ur Specific [place] Urine Protein Urine Glucose (UA) Urine Ketones Urine Blood Urine Nitrate Urine Bilirubin Urine Urobilinogen Ur Leukocyte Esterase Urine WBC (Auto) Urine RBC (Auto) Ur Squamous Epith Cells Urine Bacteria 05/10/18 05/10/18 05/11/18 19:50 22:03 00:15 WBC RBC Hgb Hct MCV MCH MCHC RDW Plt Count MPV Neut % (Auto) Lymph % (Auto) [place] % (Auto) Eos % (Auto) Baso % (Auto) Neut # (Auto) Lymph # (Auto) [place] # (Auto) Eos # (Auto) Baso # (Auto) Neutrophils % (Manual) Band Neutrophils % Lymphocytes % (Manual) Monocytes % (Manual) Platelet Estimate PT INR APTT Puncture Site Lr pCO2 69 H pO2 104 H HCO3 20.1 L ABG pH 7.15 L* ABG Total CO2 26.1 ABG O2 Saturation 98.6 H ABG Base Excess -6.1 L ABG Hemoglobin ABG Carboxyhemoglobin POC ABG HHb (Measured) ABG Methemoglobin Aly Test Unable ABG Potassium 4.0 A-a O2 Difference 523.0 Respiratory Index 5.0 Hgb O2 Saturation Glucose 170 H Lactate 0.6 L Vent Mode A/c Mechanical Rate 16 FiO2 100.0 Tidal Volume 500 PEEP 5 Crit Value Called To Dr carr Crit Value Called By Moisés hankins Crit Value Read Back Y Blood Gas Notified Time 1954 Sodium 140.0 Potassium Chloride 109.0 H Carbon Dioxide Anion Gap BUN Creatinine Est GFR ( Amer) Est GFR (Non-Af Amer) POC Glucose (mg/dL) 157 H Random Glucose Calcium Phosphorus Magnesium Total Bilirubin AST ALT Alkaline Phosphatase Troponin I NT-Pro-B Natriuret Pep Total Protein Albumin Globulin Albumin/Globulin Ratio Arterial Blood Potassium 4.0 Urine Color Yellow Urine Clarity Hazy Urine pH 5.0 Ur Specific [place] 1.013 Urine Protein 2+ H Urine Glucose (UA) Normal Urine Ketones Negative Urine Blood 2+ H Urine Nitrate Negative Urine Bilirubin Negative Urine Urobilinogen Normal Ur Leukocyte Esterase Neg Urine WBC (Auto) 5 Urine RBC (Auto) 29 H Ur Squamous Epith Cells 1 Urine Bacteria Rare 05/11/18 05/11/18 05/11/18 03:09 04:34 04:34 WBC 9.1 RBC 3.75 L Hgb 12.2 Hct 36.8 MCV 97.9 H MCH 32.5 H MCHC 33.1 RDW 14.2 Plt Count 281 D MPV 8.4 Neut % (Auto) 96.2 H Lymph % (Auto) 2.8 L [place] % (Auto) 0.9 Eos % (Auto) 0.1 Baso % (Auto) 0.0 Neut # (Auto) 8.7 H Lymph # (Auto) 0.3 L [place] # (Auto) 0.1 Eos # (Auto) 0.0 Baso # (Auto) 0.0 Neutrophils % (Manual) 94 H Band Neutrophils % 2 Lymphocytes % (Manual) 4 L Monocytes % (Manual) TEST NOT PERFORMED Platelet Estimate Normal PT INR APTT 45 H Puncture Site pCO2 pO2 HCO3 ABG pH ABG Total CO2 ABG O2 Saturation ABG Base Excess ABG Hemoglobin ABG Carboxyhemoglobin POC ABG HHb (Measured) ABG Methemoglobin Aly Test ABG Potassium A-a O2 Difference Respiratory Index Hgb O2 Saturation Glucose Lactate Vent Mode Mechanical Rate FiO2 Tidal Volume PEEP Crit Value Called To Crit Value Called By Crit Value Read Back Blood Gas Notified Time Sodium 138 Potassium 4.6 Chloride 104 Carbon Dioxide 28 Anion Gap 12 BUN 30 H Creatinine 1.2 Est GFR ( Amer) > 60 Est GFR (Non-Af Amer) > 60 POC Glucose (mg/dL) Random Glucose 158 H D Calcium 8.4 L Phosphorus 4.2 Magnesium 1.8 Total Bilirubin 0.4 AST 31 ALT 33 Alkaline Phosphatase 67 Troponin I 3.5400 H* NT-Pro-B Natriuret Pep Total Protein 6.6 Albumin 3.5 Globulin 3.1 Albumin/Globulin Ratio 1.1 Arterial Blood Potassium Urine Color Urine Clarity Urine pH Ur Specific [place] Urine Protein Urine Glucose (UA) Urine Ketones Urine Blood Urine Nitrate Urine Bilirubin Urine Urobilinogen Ur Leukocyte Esterase Urine WBC (Auto) Urine RBC (Auto) Ur Squamous Epith Cells Urine Bacteria 05/11/18 05/11/18 05/11/18 05:15 06:04 11:36 WBC RBC Hgb Hct MCV MCH MCHC RDW Plt Count MPV Neut % (Auto) Lymph % (Auto) [place] % (Auto) Eos % (Auto) Baso % (Auto) Neut # (Auto) Lymph # (Auto) [place] # (Auto) Eos # (Auto) Baso # (Auto) Neutrophils % (Manual) Band Neutrophils % Lymphocytes % (Manual) Monocytes % (Manual) Platelet Estimate PT INR APTT Puncture Site R brac pCO2 44 pO2 102 H HCO3 25.9 ABG pH 7.39 ABG Total CO2 28.0 ABG O2 Saturation 99.0 H ABG Base Excess 1.3 ABG Hemoglobin 12.0 ABG Carboxyhemoglobin 1.8 H POC ABG HHb (Measured) 1.0 ABG Methemoglobin 1.2 Aly Test Na ABG Potassium A-a O2 Difference 271.0 Respiratory Index 2.7 Hgb O2 Saturation 96.0 Glucose Lactate Vent Mode A/c Mechanical Rate 16 FiO2 60.0 Tidal Volume 500 PEEP 5 Crit Value Called To Crit Value Called By Crit Value Read Back Blood Gas Notified Time Sodium Potassium Chloride Carbon Dioxide Anion Gap BUN Creatinine Est GFR ( Amer) Est GFR (Non-Af Amer) POC Glucose (mg/dL) 156 H 115 H Random Glucose Calcium Phosphorus Magnesium Total Bilirubin AST ALT Alkaline Phosphatase Troponin I NT-Pro-B Natriuret Pep Total Protein Albumin Globulin Albumin/Globulin Ratio Arterial Blood Potassium Urine Color Urine Clarity Urine pH Ur Specific [place] Urine Protein Urine Glucose (UA) Urine Ketones Urine Blood Urine Nitrate Urine Bilirubin Urine Urobilinogen Ur Leukocyte Esterase Urine WBC (Auto) Urine RBC (Auto) Ur Squamous Epith Cells Urine Bacteria Radiology Impressions: Radiology Impressions Chest X-Ray 05/10/18 19:05 IMPRESSION: Findings suspicious for interval moderate CHF. Clearing of left basilar opacity is noted with medial basilar patchy atelectasis or infiltrate potentially underlying CHF. Cardiomegaly stable. ET tube in good apparent position. Chest X-Ray 05/11/18 07:00 IMPRESSION: Markedly improved if not resolved pulmonary vascular congestion. Residual atelectasis at the bilateral bases remains with no definite pleural effusion appreciable at this time. Cardiomegaly appears stable. EKG/Cardiology Studies: Cardiology / EKG Studies 05/10/18 19:14 EKG [ELECTROCARDIOGRAM] Stat Comment: Mode Of Transportation: BED Reason For Exam: cp Fingerstick Blood Sugar Results: 156 Critical Care Progress Note - Vent Settings MODE:: PRESSURE SUPPORT FIO2:: 40 PEEP:: 5 PRESSURE SUPPORT:: 10 Assessment/Plan - Assessment and Plan (Free Text) Plan: Patient is 68 year old male with pmhx of COPD, CHF, TVD, CAD, HTN, tobacco abuse coming with sob and diaphoresis, bipap failed and became lethargic in ER and was intubated, ProBNP 447, admitted for CHF and STEMI, elevated troponin x 2, refused CABG last admission, to follow up for possible PCI with [employer] Dr Carrillo, transferred to ICU 05/12. Currently ventilated, awake and oriented, on ventilation support with plans to extubate later today. Neuro - not currently sedated - awake and oriented - on propofol - sedation vacation Pulm - PRVC on ventilation support - pressure support this pm - plan to be extubated later today to Bipap - duonebs Rq6H - Lasix 40 mg IVP Q12H - CT chest to r/o pleural effusion - small bilateral effusion Cardio -elevated troponin - heparin drip - ASA -metoprolol 25 mg PO BID - Dr Carrillo - to discuss plan of care - CaBG vs PCI -Crestor GI - tube feeding diet - pulmocare @ 20 - dietary consult Endo - accuchecks ID - Blood cx, urine cx - pending Ppx: Heparin drip Protonix 40 mg PO daily ASA Plan discussed with Dr Swapna Paez, PGY-1 - Date & Time Date: 05/11/18 Time: 14:00
--- NOTE | 2018-05-11 13:38 | CT ---
Date of service: 05/11/2018 PROCEDURE: CT Chest without contrast HISTORY: Rule out pleural effusion COMPARISON: None available. TECHNIQUE: Contiguous axial images were obtained through the chest without intravenous contrast enhancement. Sagittal and coronal reconstructions were performed. Radiation dose: Total exam DLP = 647.8 mGy-cm. This CT exam was performed using one or more of the following dose reduction techniques: Automated exposure control, adjustment of the mA and/or kV according to patient size, and/or use of iterative reconstruction technique. FINDINGS: LUNGS: There are small bilateral effusions left slightly larger than right with bibasilar atelectasis. Nodular scarring seen in the right middle lobe region extending to the anterior pleural surface. In addition, there appears to be some ground-glass opacity in the inferior posteromedial left upper lobe bordering the major fissure. Minor biapical pleural thickening and parenchymal scarring. There also appear to be tiny right apical bleb changes. MEDIASTINUM: Heart is markedly enlarged. Coronary artery calcifications are present. The ascending thoracic aorta exhibits mild aneurysmal dilatation measuring approximately 4.22 cm in greatest transverse dimension. Descending thoracic aorta measures approximately 3.5 cm. Mild aortic atherosclerotic calcification. Pulmonary trunk measures approximately 3.86 cm. Multiple small to medium-sized nonspecific mediastinal lymph nodes are present. Evaluation for hilar adenopathy limited due to the lack of circulating intravenous contrast material however no large hilar mass identified. In situ tracheostomy endotracheal tube, the tip of which lies approximately 4.77 cm above sarai. Trachea midline and otherwise patent with no large endoluminal lesions. There is an in situ NGT, the tip of which lies within the lumen of the stomach abutting the greater curvature. PLEURA: As above.. No pneumothorax. BONES: Mild multilevel degenerative spondylosis of the thoracic spine. Minor chronic anterior wedge deformities of a few lower thoracic segments. UPPER ABDOMEN: Note made of minor infiltration changes in the perinephric fat left greater than right nonspecific. There appear to be 2 tiny calcifications within the splenic parenchyma suggesting prior exposure to a granulomatous disease process. OTHER FINDINGS: None. IMPRESSION: There are small bilateral effusions left slightly larger than right with bibasilar atelectasis. Nodular scarring seen in the right middle lobe region extending to the anterior pleural surface. In addition, there appears to be some ground-glass opacity in the inferior posteromedial left upper lobe bordering the major fissure. Minor biapical pleural thickening and parenchymal scarring. There also appear to be tiny right apical bleb changes. Marked cardiomegaly with mild aneurysmal dilatation of the ascending thoracic aorta.
--- NOTE | 2018-05-11 20:00 | CP.PCM.CON ---
History of Present Illness - History of Present Illness History of Present Illness: CC: Non ST elevation MD Patient is a 68 year old male with past medical history of COPD, CHF, DM, HTN, tobacco and alcohol abuse, recent cardiac cath with 3 vessels disease (refused CABG in the past), medication noncompliance presenting to ED via EMS for respiratory disress. Patient was noted to be wheezing, lethargic upon arrival, f ailing Bipap. Decision was made to intubate patient in ED. 12 pt ROS unattainable due to patient's clinical status. PMHx: as stated above PSHx: appendectomy, cholecystectomy, tonsillectomy, cardiac cath Allergies: NKDA Home Medications: as per EMr, non-compliant Family Hx: unknown Social Hx: lives with girlfriend for 8 yrs, smokes 2PPD, 2-6 beers/day, no other drugs as per girlfriend Family history not available Meds not compliant Allergies NKDA Present on Admission - Present on Admission Any Indicators Present on Admission: Yes Review of Systems - Review of Systems Systems not reviewed;Unavailable: Altered Mental Status, Intubated Physical Exam - Constitutional Appears: No Acute Distress - Head Exam Head Exam: ATRAUMATIC, NORMAL INSPECTION, NORMOCEPHALIC - Eye Exam Eye Exam: Normal appearance, PERRL - ENT Exam ENT Exam: Mucous Membranes Moist, Normal Exam - Neck Exam Neck exam: Positive for: Normal Inspection. Negative for: Tenderness - Respiratory Exam Respiratory Exam: Prolonged Expiratory Phase, Rales, Rhonchi Additional comments: intubated - Cardiovascular Exam Cardiovascular Exam: +S1, +S2 Additional comments: LBBB on monitor - GI/Abdominal Exam GI & Abdominal Exam: Distended, Normal Bowel Sounds. absent: Firm, Guarding, Organomegaly, Rebound, Rigid, Tenderness - Extremities Exam Extremities exam: Positive for: normal capillary refill, normal inspection, pedal pulses present. Negative for: calf tenderness - Neurological Exam Neurological exam: Alert - Skin Skin Exam: Dry, Intact, Normal Color, Warm Assessment & Plan - Assessment and Plan (Free Text) Assessment: 68 year old male with pmhx of COPD, CHF, DM, HTN, tobacco and alcohol abuse, recent cardiac cath with 3 vessels disease (refused CABG), medication noncompliance brought in to ER with respiratory distress. Failing Bipap, lethargic in ED. Decision made to intubate, admitted to ICU. Plan: Respiratory Failure likely 2/2 flash pulmonary edema vs NSTEMI -trop 4.8; f/u serial AILYN -BNP 4770 -ABG: pH 7.15, CO2 69, HCO3 20.1 -ventilator support -nitro drip -heparin ggt -Lasix 40 IVP daily Hx of COPD -duonebs -solumedrol 40 q12 CAD w/ 3 vessel disease Refused CABG -IV Heparin -ASA -plavix -BB -Crestor Hyperglycemic episode -BG 205 -A1C normal, likely related to episodic stress -continue to monitor PPx, Diet, Disposition -DVT: scds, heparin ggt -GI ppx: protonix 40 daily -Diet: HHD, low salt PCI of high risk mutlivessel disease with atherctomy on Monday in a [facility] Past Patient History - Past Medical History & Family History Past Medical History?: Yes - Past Social History Smoking Status: Heavy Smoker > 10 Cigarettes Daily - CARDIAC Hx Congestive Heart Failure: Yes Hx Hypercholesterolemia: Yes Hx Hypertension: Yes - PULMONARY Hx Chronic Obstructive Pulmonary Disease (COPD): Yes - NEUROLOGICAL Hx Seizures: No - HEENT Hx HEENT Problems: No - RENAL Hx Chronic Kidney Disease: No - ENDOCRINE/METABOLIC Hx Endocrine Disorders: No - HEMATOLOGICAL/ONCOLOGICAL Hx Human Immunodeficiency Virus (HIV): No - INTEGUMENTARY Hx Dermatological Problems: No - MUSCULOSKELETAL/RHEUMATOLOGICAL Hx Falls: No - GASTROINTESTINAL Hx Gastrointestinal Disorders: No - GENITOURINARY/GYNECOLOGICAL Hx Sexually Transmitted Disorders: No - PSYCHIATRIC Hx Anxiety: No Hx Bipolar Disorder: No Hx Depression: No Hx Paranoia: No Hx Post Traumatic Stress Disorder: No Hx Schizophrenia: No Hx Substance Use: No - SURGICAL HISTORY Hx Appendectomy: Yes Hx Carotid Endarterectomy: No Hx Cholecystectomy: No Hx Coronary Artery Bypass Graft: No Hx Coronary Stent: No Hx Tonsillectomy: No - ANESTHESIA Hx Anesthesia: No Meds Allergies/Adverse Reactions: Allergies Allergy/AdvReac Type Severity Reaction Status Date / Time No Known Allergies Allergy Verified 05/10/18 19:03 - Medications Medications: Current Medications Albuterol/Ipratropium (Duoneb 3 Mg/0.5 Mg (3 Ml) Ud) 3 ml INH RQ6 [facility] Last Admin: 05/11/18 19:55 Dose: 3 ml Aspirin (Aspirin Supp) 300 mg [place] DAILY [facility] Last Admin: 05/11/18 11:06 Dose: 300 mg Clopidogrel Bisulfate (Plavix) 75 mg PO DAILY [facility] Last Admin: 05/11/18 09:59 Dose: 75 mg Furosemide (Lasix) 40 mg IVP Q12H [facility] Last Admin: 05/11/18 09:58 Dose: 40 mg Propofol (Diprivan) 1,000 mg in 100 mls @ 2.177 mls/hr IV .Q24H PRN; Protocol PRN Reason: TITRATE PER MD ORDER Last Titration: 05/11/18 14:49 Dose: 5.74 mcg/kg/min, 2.5 mls/hr Nitroglycerin/Dextrose (Nitroglycerin 50 Mg/250 Ml D5w) 50 mg in 250 mls @ 1.5 mls/hr IV .Q24H [facility]; Protocol Last Admin: 05/10/18 23:00 Dose: 10 mcg/min, 3 mls/hr Methylprednisolone (Solu-Medrol) 40 mg IVP 12 [facility] Last Admin: 05/11/18 11:34 Dose: 40 mg Metoprolol Tartrate (Lopressor) 25 mg PO BID [facility] Last Admin: 05/11/18 17:37 Dose: 25 mg Pantoprazole Sodium (Protonix Susp) 40 mg PO 0600 [facility] Last Admin: 05/11/18 05:00 Dose: 40 mg Rosuvastatin Calcium (Crestor) 10 mg PO HS [facility] Last Admin: 05/10/18 23:15 Dose: 10 mg Results - Vital Signs Recent Vital Signs: Last Vital Signs Temp 99.3 F 05/11/18 17:00 Pulse 71 05/11/18 19:02 Resp 13 05/11/18 19:00 BP 120/73 05/11/18 18:34 Pulse Ox 88 L 05/11/18 19:00 - Labs Result Diagrams: 05/11/18 04:34 05/11/18 04:34 Labs: Laboratory Results - last 24 hr 05/10/18 05/10/18 05/11/18 19:50 22:03 00:15 WBC RBC Hgb Hct MCV MCH MCHC RDW Plt Count MPV Neut % (Auto) Lymph % (Auto) [place] % (Auto) Eos % (Auto) Baso % (Auto) Neut # (Auto) Lymph # (Auto) [place] # (Auto) Eos # (Auto) Baso # (Auto) Neutrophils % (Manual) Band Neutrophils % Lymphocytes % (Manual) Monocytes % (Manual) Platelet Estimate APTT Puncture Site Lr pCO2 69 H pO2 104 H HCO3 20.1 L ABG pH 7.15 L* ABG Total CO2 26.1 ABG O2 Saturation 98.6 H ABG Base Excess -6.1 L ABG Hemoglobin ABG Carboxyhemoglobin POC ABG HHb (Measured) ABG Methemoglobin Aly Test Unable ABG Potassium 4.0 A-a O2 Difference 523.0 Respiratory Index 5.0 Hgb O2 Saturation Sodium 140.0 Chloride 109.0 H Glucose 170 H Lactate 0.6 L Vent Mode A/c Mechanical Rate 16 FiO2 100.0 Tidal Volume 500 PEEP 5 Crit Value Called To Dr carr Crit Value Called By Moisés hankins Crit Value Read Back Y Blood Gas Notified Time 1954 Potassium Carbon Dioxide Anion Gap BUN Creatinine Est GFR ( Amer) Est GFR (Non-Af Amer) POC Glucose (mg/dL) 157 H Random Glucose Calcium Phosphorus Magnesium Total Bilirubin AST ALT Alkaline Phosphatase Troponin I Total Protein Albumin Globulin Albumin/Globulin Ratio Arterial Blood Potassium 4.0 Urine Color Yellow Urine Clarity Hazy Urine pH 5.0 Ur Specific [place] 1.013 Urine Protein 2+ H Urine Glucose (UA) Normal Urine Ketones Negative Urine Blood 2+ H Urine Nitrate Negative Urine Bilirubin Negative Urine Urobilinogen Normal Ur Leukocyte Esterase Neg Urine WBC (Auto) 5 Urine RBC (Auto) 29 H Ur Squamous Epith Cells 1 Urine Bacteria Rare 05/11/18 05/11/18 05/11/18 03:09 04:34 04:34 WBC 9.1 RBC 3.75 L Hgb 12.2 Hct 36.8 MCV 97.9 H MCH 32.5 H MCHC 33.1 RDW 14.2 Plt Count 281 D MPV 8.4 Neut % (Auto) 96.2 H Lymph % (Auto) 2.8 L [place] % (Auto) 0.9 Eos % (Auto) 0.1 Baso % (Auto) 0.0 Neut # (Auto) 8.7 H Lymph # (Auto) 0.3 L [place] # (Auto) 0.1 Eos # (Auto) 0.0 Baso # (Auto) 0.0 Neutrophils % (Manual) 94 H Band Neutrophils % 2 Lymphocytes % (Manual) 4 L Monocytes % (Manual) TEST NOT PERFORMED Platelet Estimate Normal APTT 45 H Puncture Site pCO2 pO2 HCO3 ABG pH ABG Total CO2 ABG O2 Saturation ABG Base Excess ABG Hemoglobin ABG Carboxyhemoglobin POC ABG HHb (Measured) ABG Methemoglobin Aly Test ABG Potassium A-a O2 Difference Respiratory Index Hgb O2 Saturation Sodium 138 Chloride 104 Glucose Lactate Vent Mode Mechanical Rate FiO2 Tidal Volume PEEP Crit Value Called To Crit Value Called By Crit Value Read Back Blood Gas Notified Time Potassium 4.6 Carbon Dioxide 28 Anion Gap 12 BUN 30 H Creatinine 1.2 Est GFR ( Amer) > 60 Est GFR (Non-Af Amer) > 60 POC Glucose (mg/dL) Random Glucose 158 H D Calcium 8.4 L Phosphorus 4.2 Magnesium 1.8 Total Bilirubin 0.4 AST 31 ALT 33 Alkaline Phosphatase 67 Troponin I 3.5400 H* Total Protein 6.6 Albumin 3.5 Globulin 3.1 Albumin/Globulin Ratio 1.1 Arterial Blood Potassium Urine Color Urine Clarity Urine pH Ur Specific [place] Urine Protein Urine Glucose (UA) Urine Ketones Urine Blood Urine Nitrate Urine Bilirubin Urine Urobilinogen Ur Leukocyte Esterase Urine WBC (Auto) Urine RBC (Auto) Ur Squamous Epith Cells Urine Bacteria 05/11/18 05/11/18 05/11/18 05:15 06:04 11:36 WBC RBC Hgb Hct MCV MCH MCHC RDW Plt Count MPV Neut % (Auto) Lymph % (Auto) [place] % (Auto) Eos % (Auto) Baso % (Auto) Neut # (Auto) Lymph # (Auto) [place] # (Auto) Eos # (Auto) Baso # (Auto) Neutrophils % (Manual) Band Neutrophils % Lymphocytes % (Manual) Monocytes % (Manual) Platelet Estimate APTT Puncture Site R brac pCO2 44 pO2 102 H HCO3 25.9 ABG pH 7.39 ABG Total CO2 28.0 ABG O2 Saturation 99.0 H ABG Base Excess 1.3 ABG Hemoglobin 12.0 ABG Carboxyhemoglobin 1.8 H POC ABG HHb (Measured) 1.0 ABG Methemoglobin 1.2 Aly Test Na ABG Potassium A-a O2 Difference 271.0 Respiratory Index 2.7 Hgb O2 Saturation 96.0 Sodium Chloride Glucose Lactate Vent Mode A/c Mechanical Rate 16 FiO2 60.0 Tidal Volume 500 PEEP 5 Crit Value Called To Crit Value Called By Crit Value Read Back Blood Gas Notified Time Potassium Carbon Dioxide Anion Gap BUN Creatinine Est GFR ( Amer) Est GFR (Non-Af Amer) POC Glucose (mg/dL) 156 H 115 H Random Glucose Calcium Phosphorus Magnesium Total Bilirubin AST ALT Alkaline Phosphatase Troponin I Total Protein Albumin Globulin Albumin/Globulin Ratio Arterial Blood Potassium Urine Color Urine Clarity Urine pH Ur Specific [place] Urine Protein Urine Glucose (UA) Urine Ketones Urine Blood Urine Nitrate Urine Bilirubin Urine Urobilinogen Ur Leukocyte Esterase Urine WBC (Auto) Urine RBC (Auto) Ur Squamous Epith Cells Urine Bacteria 05/11/18 17:52 WBC RBC Hgb Hct MCV MCH MCHC RDW Plt Count MPV Neut % (Auto) Lymph % (Auto) [place] % (Auto) Eos % (Auto) Baso % (Auto) Neut # (Auto) Lymph # (Auto) [place] # (Auto) Eos # (Auto) Baso # (Auto) Neutrophils % (Manual) Band Neutrophils % Lymphocytes % (Manual) Monocytes % (Manual) Platelet Estimate APTT Puncture Site pCO2 pO2 HCO3 ABG pH ABG Total CO2 ABG O2 Saturation ABG Base Excess ABG Hemoglobin ABG Carboxyhemoglobin POC ABG HHb (Measured) ABG Methemoglobin Aly Test ABG Potassium A-a O2 Difference Respiratory Index Hgb O2 Saturation Sodium Chloride Glucose Lactate Vent Mode Mechanical Rate FiO2 Tidal Volume PEEP Crit Value Called To Crit Value Called By Crit Value Read Back Blood Gas Notified Time Potassium Carbon Dioxide Anion Gap BUN Creatinine Est GFR ( Amer) Est GFR (Non-Af Amer) POC Glucose (mg/dL) 128 H Random Glucose Calcium Phosphorus Magnesium Total Bilirubin AST ALT Alkaline Phosphatase Troponin I Total Protein Albumin Globulin Albumin/Globulin Ratio Arterial Blood Potassium Urine Color Urine Clarity Urine pH Ur Specific [place] Urine Protein Urine Glucose (UA) Urine Ketones Urine Blood Urine Nitrate Urine Bilirubin Urine Urobilinogen Ur Leukocyte Esterase Urine WBC (Auto) Urine RBC (Auto) Ur Squamous Epith Cells Urine Bacteria
[2018-05-11 21:32] LABS: ABG ALLEN TEST POS; ARTERIAL BLOOD GAS HCO3 29.5 mmol/L (21-28); ARTERIAL BLOOD GAS PCO2 44 mm/Hg (35-45); ARTERIAL BLOOD GAS PH 7.45 (7.35-7.45); ARTERIAL BLOOD GAS PO2 145 mm/Hg (80-100)
[2018-05-11] MEDS: Nitroglycerin 50mg in D5W 50 MG/250 ML BOTTLE IV SCH (22:14)
[2018-05-12] MEDS: Heparin25000 units/250ml 1/2NS 25,000 UNITS/250 ML BAG IV PRN (01:36)
[2018-05-12] MEDS: Albuterol-Ipratrop 3 mg / 0.5 (3 ml) UD INH SCH ×4 (02:44→20:19)
[2018-05-12] MEDS: Pantoprazole 40 mg Susp UD PO SCH (05:10)
[2018-05-12 06:55] LABS: BASO % 0.1 % (0.0-2.0); EOS % 0.2 % (0.0-4.0); LYMPH # 1.3 K/uL (1.0-4.3); LYMPH % 13.2 % (20.0-40.0); MEAN CELL VOLUME 98.2 fL (80.0-94.0); MEAN CORPUSCULAR HEMOGLOBIN 33.1 pg (27.0-31.0); MEAN CORPUSCULAR HGB CONC 33.7 g/dL (33.0-37.0); MEAN PLATELET VOLUME 8.6 fL (7.2-11.7); MONO # 0.7 K/uL (0.0-0.8); MONO % 6.7 % (0.0-10.0); NEUT % 79.8 % (50.0-75.0); RBC 3.61 Mil/uL (4.40-5.90); RED CELL DISTRIBUTION WIDTH 14.1 % (11.5-14.5)
[2018-05-12 07:02] LABS: INR 1.1; PROTHROMBIN TIME 11.8 SECONDS (9.7-12.2)
[2018-05-12 07:09] LABS: ALB/GLOB RATIO 1.2 (1.0-2.1); ALBUMIN 3.7 g/dL (3.5-5.0); CALCIUM 9.1 mg/dl (8.6-10.4)
[2018-05-12] MEDS: MethylPREDNISolone 40 mg Vial IVP SCH (12:00)
--- NOTE | 2018-05-12 16:10 | CP.PCM.PN ---
Subjective - Date & Time of Evaluation Date of Evaluation: 05/13/18 Time of Evaluation: 12:00 - Subjective Subjective: Progress Note for Dr. Nunes Patient seen and examined at bedside. Patient was extubated night last night. Patient is resting in bed comfortably. His shortness of breath and chest pain are improving. Currently he denies fever, chills, headache, palpitations, nausea, or vomiting. Objective - Vital Signs/Intake and Output Vital Signs (last 24 hours): Temp Pulse Resp BP Pulse Ox 98.2 F 60 12 114/62 93 L 05/12/18 04:00 05/12/18 08:50 05/12/18 08:50 05/12/18 10:42 05/12/18 08:50 Intake and Output: 05/12/18 05/12/18 06:59 18:59 Intake Total 402.6 237.2 Output Total 1966 0 Balance -1563.4 237.2 - Medications Medications: Current Medications Albuterol/Ipratropium (Duoneb 3 Mg/0.5 Mg (3 Ml) Ud) 3 ml INH RQ6 [facility] Last Admin: 05/12/18 13:38 Dose: 3 ml Aspirin (Aspirin Supp) [address] DAILY [facility] Last Admin: 05/12/18 10:43 Dose: 300 mg Clopidogrel Bisulfate (Plavix) 75 mg PO DAILY [facility] Last Admin: 05/12/18 10:42 Dose: 75 mg Furosemide (Lasix) 20 mg IVP Q12H [facility] Propofol (Diprivan) 1,000 mg in 100 mls @ 2.177 mls/hr IV .Q24H PRN; Protocol PRN Reason: TITRATE PER MD ORDER Last Titration: 05/11/18 15:05 Dose: 0 mcg/kg/min, 0 mls/hr Nitroglycerin/Dextrose (Nitroglycerin 50 Mg/250 Ml D5w) 50 mg in 250 mls @ 1.5 mls/hr IV .Q24H [facility]; Protocol Last Admin: 05/11/18 22:14 Dose: Not Given Heparin Sodium/Sodium Chloride (Heparin 54024 Units/250ml 1/2 Normal Saline) 25,000 units in 250 mls @ 9.864 mls/hr IV .Q24H PRN; Protocol PRN Reason: ADJUST RATE PER PROTOCOL Last Admin: 05/12/18 01:36 Dose: 12 units/kg/hr, 9.864 mls/hr Methylprednisolone (Solu-Medrol) 40 mg IVP 12 [facility] Last Admin: 05/11/18 11:34 Dose: 40 mg Metoprolol Tartrate (Lopressor) 25 mg PO BID [facility] Last Admin: 05/12/18 10:42 Dose: 25 mg Pantoprazole Sodium (Protonix Susp) 40 mg PO 0600 [facility] Last Admin: 05/12/18 05:10 Dose: 40 mg Rosuvastatin Calcium (Crestor) 10 mg PO HS [facility] Last Admin: 05/11/18 22:20 Dose: 10 mg - Labs Labs: 05/12/18 06:51 05/12/18 06:51 PT 11.8 SECONDS (9.7-12.2) 05/12/18 06:51 INR 1.1 05/12/18 06:51 APTT 35 SECONDS (21-34) H D 05/12/18 06:51 - Constitutional Appears: Well, No Acute Distress - Head Exam Head Exam: ATRAUMATIC, NORMAL INSPECTION - Eye Exam Eye Exam: EOMI, Normal appearance, PERRL Pupil Exam: NORMAL ACCOMODATION, PERRL - ENT Exam ENT Exam: Mucous Membranes Moist - Neck Exam Neck Exam: Full ROM, Normal Inspection - Respiratory Exam Respiratory Exam: Clear to Ausculation Bilateral, NORMAL BREATHING PATTERN - Cardiovascular Exam Cardiovascular Exam: REGULAR RHYTHM, +S1, +S2. absent: Murmur - GI/Abdominal Exam GI & Abdominal Exam: Soft, Normal Bowel Sounds. absent: Tenderness - Extremities Exam Extremities Exam: Normal Inspection - Back Exam Back Exam: NORMAL INSPECTION - Neurological Exam Neurological Exam: Alert, Awake, Oriented x3 - Psychiatric Exam Psychiatric exam: Normal Affect, Normal Mood - Skin Skin Exam: Normal Color, Warm Assessment and Plan - Assessment and Plan (Free Text) Assessment: Respiratory Failure likely 2/2 flash pulmonary edema vs NSTEMI -Improving, successfully extubated and downgraded from ICU on 05/12/18 -Cardiology consulted, Dr. Carrillo help appreciated -Plan for further cardiac procedure on Monday -Follow troponin, BNP -Lasix 20mg IV q12 Hx of COPD -duonebs -solumedrol 40 q12 -BIPAP at night CAD w/ 3 vessel disease Refused CABG -Cardiology Consult -ASA -plavix -BB -Crestor Hyperglycemic episode -BG 205 -A1C normal, likely related to episodic stress -continue to monitor PPx, Diet, Disposition -DVT: scds, heparin ggt -GI ppx: protonix 40 daily -Diet: HHD, low salt Case discussed with attending Dr. Nunes
--- NOTE | 2018-05-12 16:21 | RAD ---
Date of service: 05/12/2018 HISTORY: Post extubation COMPARISON: Chest 05/11/2017. FINDINGS: Interval removal ETT and NGT. LUNGS: Mild residual pulmonary venous congestive changes. Minor bibasilar atelectasis and/or residual bilateral lower lobe alveolar-type infiltrates. Suspect small bilateral effusions PLEURA: As above. No pneumothorax apparent. CARDIOVASCULAR: Mild aortic atherosclerotic calcification present. Heart markedly enlarged.. OSSEOUS STRUCTURES: No significant abnormalities. VISUALIZED UPPER ABDOMEN: Normal. OTHER FINDINGS: None. IMPRESSION: Removal ETT and NGT. Mild residual pulmonary venous congestive changes. Minor bibasilar atelectasis and/or residual bilateral lower lobe alveolar-type infiltrates. Suspect small bilateral effusions
--- NOTE | 2018-05-12 18:31 | CARD ---
APPROVED REPORT Date of service: 05/10/2018 EKG Measurement Heart [id number] VT 96P [id number] <Conclusion> Sinus tachycardia with short VT Left axis deviation Left bundle branch block Abnormal ECG
[2018-05-12] MEDS: Nitroglycerin 50mg in D5W 50 MG/250 ML BOTTLE IV SCH (22:46)
--- NOTE | 2018-05-12 23:42 | CP.PCM.PN ---
Subjective - Date & Time of Evaluation Date of Evaluation: 05/12/18 Time of Evaluation: 09:25 - Subjective Subjective: Patient is seen and examined at bedside. Denies chest pain and dyspnea - Physical Exam Head: Positive for: Atraumatic, Normocephalic Extroacular Muscles: Positive for: EOMI Conjunctiva: Positive for: Normal Mouth: Positive for: Dry Neck: Positive for: Normal Range of Motion Respiratory/Chest: Positive for: Clear to Auscultation. Negative for: Respiratory Distress, Wheezes, Rales, Rhonchi Cardiovascular: Positive for: Regular Rate and Rhythm, Normal S1, S2 Abdomen: Positive for: Normal Bowel Sounds. Negative for: Tenderness, Distention Upper Extremity: Positive for: Normal Inspection Lower Extremity: Positive for: Normal Inspection Neurological: CN II-XII Intact, Speech Normal Skin: Positive for: Warm, Normal Color Psychiatric: Positive for: Alert, Oriented x 3 Objective - Vital Signs/Intake and Output Vital Signs (last 24 hours): Temp Pulse Resp BP Pulse Ox 98.2 F 52 L 17 119/75 95 05/12/18 17:00 05/12/18 19:20 05/12/18 19:20 05/12/18 21:59 05/12/18 19:20 Intake and Output: 05/12/18 05/13/18 18:59 06:59 Intake Total 821.9 11.5 Output Total 1010 Balance -188.1 11.5 - Medications Medications: Current Medications Albuterol/Ipratropium (Duoneb 3 Mg/0.5 Mg (3 Ml) Ud) 3 ml INH RQ6 [facility] Last Admin: 05/12/18 20:19 Dose: 3 ml Aspirin (Aspirin Supp) 300 mg IN DAILY [facility] Last Admin: 05/12/18 10:43 Dose: 300 mg Clopidogrel Bisulfate (Plavix) 75 mg PO DAILY [facility] Last Admin: 05/12/18 10:42 Dose: 75 mg Furosemide (Lasix) 20 mg IVP Q12H [facility] Last Admin: 05/12/18 21:59 Dose: 20 mg Propofol (Diprivan) 1,000 mg in 100 mls @ 2.177 mls/hr IV .Q24H PRN; Protocol PRN Reason: TITRATE PER MD ORDER Last Titration: 05/11/18 15:05 Dose: 0 mcg/kg/min, 0 mls/hr Nitroglycerin/Dextrose (Nitroglycerin 50 Mg/250 Ml D5w) 50 mg in 250 mls @ 1.5 mls/hr IV .Q24H [facility]; Protocol Last Admin: 05/12/18 22:46 Dose: Not Given Heparin Sodium/Sodium Chloride (Heparin 78276 Units/250ml 1/2 Normal Saline) 25,000 units in 250 mls @ 9.864 mls/hr IV .Q24H PRN; Protocol PRN Reason: ADJUST RATE PER PROTOCOL Last Titration: 05/12/18 16:00 Dose: 14 units/kg/hr, 11.508 mls/hr Methylprednisolone (Solu-Medrol) 40 mg IVP 12 [facility] Last Admin: 05/12/18 12:00 Dose: 40 mg Metoprolol Tartrate (Lopressor) 25 mg PO BID [facility] Last Admin: 05/12/18 17:30 Dose: 25 mg Pantoprazole Sodium (Protonix Susp) 40 mg PO 0600 [facility] Last Admin: 05/12/18 05:10 Dose: 40 mg Rosuvastatin Calcium (Crestor) 10 mg PO HS [facility] Last Admin: 05/12/18 21:57 Dose: 10 mg - Labs Labs: 05/12/18 06:51 05/12/18 06:51 PT 11.8 SECONDS (9.7-12.2) 05/12/18 06:51 INR 1.1 05/12/18 06:51 APTT 35 SECONDS (21-34) H D 05/12/18 06:51 Assessment and Plan - Assessment and Plan (Free Text) Assessment: 68 year old male with pmhx of COPD, CHF, DM, HTN, tobacco and alcohol abuse, recent cardiac cath with 3 vessels disease (refused CABG), medication noncompliance brought in to ER with respiratory distress. Failing Bipap, lethargic in ED. Decision made to intubate, admitted to ICU. Plan: Respiratory Failure likely 2/2 flash pulmonary edema vs NSTEMI -trop 4.8; f/u serial AILYN -BNP 4770 -nitro drip -heparin ggt -Lasix 40 IVP daily Hx of COPD -duonebs -solumedrol 40 q12 CAD w/ 3 vessel disease Refused CABG -IV Heparin -ASA -plavix -BB -Crestor Hyperglycemic episode -BG 205 -A1C normal, likely related to episodic stress -continue to monitor PPx, Diet, Disposition -DVT: scds, heparin ggt -GI ppx: protonix 40 daily -Diet: HHD, low salt PCI of high risk mutlivessel disease with [facility]her[facility] on Monday [facility]
[2018-05-13] MEDS: Albuterol-Ipratrop 3 mg / 0.5 (3 ml) UD INH SCH ×4 (02:56→21:06)
[2018-05-13] MEDS: Pantoprazole 40 mg Susp UD PO SCH (05:29)
[2018-05-13 06:25] LABS: HEMOGLOBIN 13.2 g/dL (12.0-18.0); MEAN CELL VOLUME 97.7 fL (80.0-94.0); MEAN CORPUSCULAR HEMOGLOBIN 32.8 pg (27.0-31.0); MEAN CORPUSCULAR HGB CONC 33.6 g/dL (33.0-37.0); MEAN PLATELET VOLUME 8.6 fL (7.2-11.7); RBC 4.03 Mil/uL (4.40-5.90); RED CELL DISTRIBUTION WIDTH 14.2 % (11.5-14.5); WHITE BLOOD COUNT 10.4 K/uL (4.8-10.8)
[2018-05-13 06:36] LABS: PROTHROMBIN TIME 11.2 SECONDS (9.7-12.2)
[2018-05-13 06:57] LABS: CALCIUM 9.2 mg/dl (8.6-10.4); TROPONIN I 3.44 ng/mL (0.00-0.120)
[2018-05-13] MEDS: Heparin25000 units/250ml 1/2NS 25,000 UNITS/250 ML BAG IV PRN (07:45)
[2018-05-13] MEDS ORDERED: Nitroglycerin 50mg in D5W 50 MG/250 ML BOTTLE IV SCH ×2 (12:30→12:32)
[2018-05-13] MEDS: MethylPREDNISolone 40 mg Vial IVP SCH (12:55)
--- NOTE | 2018-05-13 13:37 | CP.PCM.PN ---
Subjective - Date & Time of Evaluation Date of Evaluation: 05/13/18 Time of Evaluation: 13:36 - Subjective Subjective: Progress Note for Dr. Nunes Patient seen and examined at bedside. No acute events overnight. Patient reports of feeling anxious about the upcoming cardiac procedure. I explained to the patient that since he is refusing CABG, the cardiology team will have to perform PCI at a different facility. Otherwise patient denies fever, chill, h eadache, shortness of breath, chest pain, nausea, or vomiting. Objective - Vital Signs/Intake and Output Vital Signs (last 24 hours): Temp Pulse Resp BP Pulse Ox 98.2 F 49 L 20 117/78 96 05/13/18 04:00 05/13/18 13:00 05/13/18 13:00 05/13/18 12:54 05/13/18 13:00 Intake and Output: 05/13/18 05/13/18 06:59 18:59 Intake Total 678.0 13.1 Output Total 1475 Balance -797.0 13.1 - Medications Medications: Current Medications Albuterol/Ipratropium (Duoneb 3 Mg/0.5 Mg (3 Ml) Ud) 3 ml INH RQ6 [facility] Last Admin: 05/13/18 13:27 Dose: 3 ml Aspirin (Aspirin Chewable) 81 mg PO DAILY [facility] Last Admin: 05/13/18 12:57 Dose: 81 mg Clopidogrel Bisulfate (Plavix) 75 mg PO DAILY [facility]ILA Last Admin: 05/13/18 10:15 Dose: 75 mg Furosemide (Lasix) 20 mg IVP Q12H [facility] Last Admin: 05/13/18 10:16 Dose: 20 mg Heparin Sodium/Sodium Chloride (Heparin 96343 Units/250ml 1/2 Normal Saline) 25,000 units in 250 mls @ 9.864 mls/hr IV .Q24H PRN; Protocol PRN Reason: ADJUST RATE PER PROTOCOL Last Admin: 05/13/18 07:45 Dose: 16 units/kg/hr, 13.152 mls/hr Nitroglycerin/Dextrose (Nitroglycerin 50 Mg/250 Ml D5w) 50 mg in 250 mls @ 3 mls/hr IV .Q24H [facility]; Protocol Last Admin: 05/13/18 12:53 Dose: 10 mcg/min, 3 mls/hr Methylprednisolone (Solu-Medrol) 40 mg IVP 12 [facility] Last Admin: 05/13/18 12:55 Dose: 40 mg Metoprolol Tartrate (Lopressor) 25 mg PO BID [facility] Last Admin: 05/13/18 10:15 Dose: 25 mg Pantoprazole Sodium (Protonix Susp) 40 mg PO 0600 [facility] Last Admin: 05/13/18 05:29 Dose: 40 mg Rosuvastatin Calcium (Crestor) 10 mg PO HS [facility] Last Admin: 05/12/18 21:57 Dose: 10 mg - Labs Labs: 05/13/18 06:18 05/13/18 06:18 PT 11.2 SECONDS (9.7-12.2) 05/13/18 05:40 INR 1.0 05/13/18 05:40 APTT 35 SECONDS (21-34) H D 05/13/18 05:40 - Additional Findings Additional findings: - Constitutional Appears: Well, No Acute Distress - Head Exam Head Exam: ATRAUMATIC, NORMAL INSPECTION - Eye Exam Eye Exam: EOMI, Normal appearance, PERRL Pupil Exam: NORMAL ACCOMODATION, PERRL - ENT Exam ENT Exam: Mucous Membranes Moist - Neck Exam Neck Exam: Full ROM, Normal Inspection - Respiratory Exam Respiratory Exam: Clear to Ausculation Bilateral, NORMAL BREATHING PATTERN - Cardiovascular Exam Cardiovascular Exam: REGULAR RHYTHM, +S1, +S2. absent: Murmur - GI/Abdominal Exam GI & Abdominal Exam: Soft, Normal Bowel Sounds. absent: Tenderness - Extremities Exam Extremities Exam: Normal Inspection - Back Exam Back Exam: NORMAL INSPECTION - Neurological Exam Neurological Exam: Alert, Awake, Oriented x3 - Psychiatric Exam Psychiatric exam: Normal Affect, Normal Mood - Skin Skin Exam: Normal Color, Warm Assessment and Plan - Assessment and Plan (Free Text) Assessment: Respiratory Failure likely 2/2 flash pulmonary edema vs NSTEMI -Improving, successfully extubated and downgraded from ICU on 05/12/18 -Cardiology consulted, Dr. Carrillo help appreciated -Plan for further cardiac procedure [place] [facility] [place]Down trending troponin -Lasix 20mg IV q12 Hx of COPD -duonebs -solumedrol 40 q12 -BIPAP at night CAD w/ 3 vessel disease Refused CABG -Cardiology Consult -ASA -plavix -BB -Crestor -High risk PCI to be performed at [facility] Hyperglycemic episode -BG 205 -A1C normal, likely related to episodic stress -continue to monitor PPx, Diet, Disposition -DVT: scds, heparin ggt -GI ppx: protonix 40 daily -Diet: HHD, low salt Dispo: Anticipating patient to be transfer to [facility] Case discussed with attending Dr. Nunes
[2018-05-13 15:21] LABS: CK-MB 1.97 ng/mL (0.0-3.38); TROPONIN I 3.19 ng/mL (0.00-0.120)
[2018-05-13] MEDS ORDERED: (Novolin R) Insulin Human Regular 100 units/ml vial SC ONE (21:28)
[2018-05-14 01:04] VITALS: BP 127/80; PULSE 47; RESP 16
[2018-05-14 01:10] VITALS: TEMP 98.2
[2018-05-14 07:45] VITALS: O2SAT 98
--- NOTE | 2018-05-22 14:57 | CP.PCM.DIS ---
Provider - Provider Date of Admission: 05/10/18 19:39 Attending physician: Mikhail Nunes Jr, MD Consults: 05/11/18 10:42 Cardiology Consult Routine Comment: Consulting Provider: Ash Carrillo Consulting Physician: Ash Carrillo Reason for Consult: CAD, elevated troponin Time Spent in preparation of Discharge (in minutes): 45 Diagnosis - Discharge Diagnosis (1) Flash pulmonary edema Status: Resolved (2) Cardiac arrest Status: Resolved (3) NSTEMI (non-ST elevated myocardial infarction) Status: Resolved (4) Respiratory failure Status: Resolved (5) 3-vessel coronary artery disease Status: Chronic (6) Hyperglycemia Status: Resolved Hospital Course - Lab Results Lab Results: Micro Results 05/10/18 19:45 Blood Blood Culture - Final NO GROWTH AFTER 5 DAYS 05/10/18 19:45 Blood Gram Stain - Final TEST NOT PERFORMED 05/10/18 19:37 Blood Blood Culture - Final NO GROWTH AFTER 5 DAYS 05/10/18 19:37 Blood Gram Stain - Final TEST NOT PERFORMED 05/10/18 22:03 Urine,Mariscal Urine Culture - Final No Growth (<1,000 CFU/ML) 05/10/18 22:41 Naris MRSA Culture (Admit) - Final MRSA NOT DETECTED Most Recent Lab Values WBC 10.4 K/uL (4.8-10.8) 05/13/18 06:18 RBC 4.03 Mil/uL (4.40-5.90) L 05/13/18 06:18 Hgb 13.2 g/dL (12.0-18.0) 05/13/18 06:18 Hct 39.3 % (35.0-51.0) 05/13/18 06:18 MCV 97.7 fL (80.0-94.0) H 05/13/18 06:18 MCH 32.8 pg (27.0-31.0) H 05/13/18 06:18 MCHC 33.6 g/dL (33.0-37.0) 05/13/18 06:18 RDW 14.2 % (11.5-14.5) 05/13/18 06:18 Plt Count 338 K/uL (130-400) 05/13/18 06:18 MPV 8.6 fL (7.2-11.7) 05/13/18 06:18 Neut % (Auto) 79.8 % (50.0-75.0) H 05/12/18 06:51 Lymph % (Auto) 13.2 % (20.0-40.0) L 05/12/18 06:51 [place]verse % (Auto) 6.7 % (0.0-10.0) 05/12/18 06:51 Eos % (Auto) 0.2 % (0.0-4.0) 05/12/18 06:51 Baso % (Auto) 0.1 % (0.0-2.0) 05/12/18 06:51 Neut # (Auto) 8.0 K/uL (1.8-7.0) H 05/12/18 06:51 Lymph # (Auto) 1.3 K/uL (1.0-4.3) 05/12/18 06:51 Converse # (Auto) 0.7 K/uL (0.0-0.8) 05/12/18 06:51 Eos # (Auto) 0.0 K/uL (0.0-0.7) 05/12/18 06:51 Baso # (Auto) 0.0 K/uL (0.0-0.2) 05/12/18 06:51 Neutrophils % (Manual) 94 % (50-75) H 05/11/18 04:34 Band Neutrophils % 2 % (0-2) 05/11/18 04:34 Lymphocytes % (Manual) 4 % (20-40) L 05/11/18 04:34 Monocytes % (Manual) TEST NOT PERFORMED 05/11/18 04:34 Platelet Estimate Normal (NORMAL) 05/11/18 04:34 PT 11.2 SECONDS (9.7-12.2) 05/13/18 05:40 INR 1.0 05/13/18 05:40 APTT 54 SECONDS (21-34) H 05/13/18 21:27 Puncture Site Rba 05/11/18 21:28 pCO2 44 mm/Hg (35-45) 05/11/18 21:28 pO2 145 mm/Hg (80-100) H 05/11/18 21:28 HCO3 29.5 mmol/L (21-28) H 05/11/18 21:28 ABG pH 7.45 (7.35-7.45) 05/11/18 21:28 ABG Total CO2 32.0 mmol/L (22-28) H 05/11/18 21:28 ABG O2 Saturation 100.0 % (95-98) H 05/11/18 21:28 ABG Base Excess 5.8 mmol/L (-2.0-3.0) H 05/11/18 21:28 ABG Hemoglobin 12.0 g/dL (11.7-17.4) 05/11/18 05:15 ABG Carboxyhemoglobin 1.8 % (0.5-1.5) H 05/11/18 05:15 POC ABG HHb (Measured) 1.0 % (0.0-5.0) 05/11/18 05:15 ABG Methemoglobin 1.2 % (0.0-3.0) 05/11/18 05:15 Aly Test Pos 05/11/18 21:28 ABG Potassium 4.2 mmol/L (3.6-5.2) 05/11/18 21:28 A-a O2 Difference 228.0 mm/Hg 05/11/18 21:28 Respiratory Index 1.6 05/11/18 21:28 Hgb O2 Saturation 96.0 % (95.0-98.0) 05/11/18 05:15 Sodium 140.0 mmol/l (132-148) 05/11/18 21:28 Chloride 108.0 mmol/L (98-107) H 05/11/18 21:28 Glucose 121 mg/dl (75-110) H 05/11/18 21:28 Lactate 0.9 mmol/L (0.7-2.1) 05/11/18 21:28 Vent Mode Bipap 05/11/18 21:28 Mechanical Rate 16 05/11/18 05:15 FiO2 60.0 % 05/11/18 21:28 Tidal Volume 500 05/11/18 05:15 PEEP 5 05/11/18 05:15 Inspiratory BiPAP 10 05/11/18 21:28 Expiratory BiPAP 5 05/11/18 21:28 Crit Value Called To Dr carr 05/10/18 19:50 Crit Value Called By Moisés hankins 05/10/18 19:50 Crit Value Read Back Y 05/10/18 19:50 Blood Gas Notified Time 195405/10/18 19:50 Sodium 138 mmol/L (132-148) 05/13/18 06:18 Potassium 3.7 mmol/L (3.6-5.2) 05/13/18 06:18 Chloride 95 mmol/L (98-107) L 05/13/18 06:18 Carbon Dioxide 35 mmol/L (22-30) H 05/13/18 06:18 Anion Gap 13 (10-20) 05/13/18 06:18 BUN 53 mg/dL (9-20) H 05/13/18 06:18 Creatinine 1.6 mg/dL (0.8-1.5) H 05/13/18 06:18 Est GFR ( Amer) 52 05/13/18 06:18 Est GFR (Non-Af Amer) 43 05/13/18 06:18 POC Glucose (mg/dL) 105 mg/dL (65-110) 05/13/18 22:50 Random Glucose 103 mg/dL (75-110) 05/13/18 06:18 Calcium 9.2 mg/dl (8.6-10.4) 05/13/18 06:18 Phosphorus 4.9 mg/dL (2.5-4.5) H 05/12/18 06:51 Magnesium 2.2 mg/dL (1.6-2.3) 05/12/18 06:51 Total Bilirubin 0.4 mg/dL (0.2-1.3) 05/12/18 06:51 AST 19 U/L (17-59) 05/12/18 06:51 ALT 25 U/L (21-72) 05/12/18 06:51 Alkaline Phosphatase 67 U/L (38-126) 05/12/18 06:51 Total Creatine Kinase 33 U/L (55-170) L 05/13/18 14:43 CK-MB (Mass) 1.97 ng/mL (0.0-3.38) 05/13/18 14:43 Troponin I 3.1900 ng/mL (0.00-0.120) H* 05/13/18 14:43 NT-Pro-B Natriuret Pep 2970 pg/mL (0-900) H 05/13/18 06:18 Total Protein 6.7 g/dL (6.3-8.3) 05/12/18 06:51 Albumin 3.7 g/dL (3.5-5.0) 05/12/18 06:51 Globulin 3.0 gm/dL (2.2-3.9) 05/12/18 06:51 Albumin/Globulin Ratio 1.2 (1.0-2.1) 05/12/18 06:51 Arterial Blood Potassium 4.2 mmol/L (3.6-5.2) 05/11/18 21:28 Urine Color Yellow (YELLOW) 05/10/18 22:03 Urine Clarity Hazy (Clear) 05/10/18 22:03 Urine pH 5.0 (5.0-8.0) 05/10/18 22:03 Ur Specific Castana 1.013 (1.003-1.030) 05/10/18 22:03 Urine Protein 2+ mg/dL (NEGATIVE) H 05/10/18 22:03 Urine Glucose (UA) Normal mg/dL (Normal) 05/10/18 22:03 Urine Ketones Negative mg/dL (NEGATIVE) 05/10/18 22:03 Urine Blood 2+ (NEGATIVE) H 05/10/18 22:03 Urine Nitrate Negative (NEGATIVE) 05/10/18 22:03 Urine Bilirubin Negative (NEGATIVE) 05/10/18 22:03 Urine Urobilinogen Normal mg/dL (0.2-1.0) 05/10/18 22:03 Ur Leukocyte Esterase Neg Chaz/uL (Negative) 05/10/18 22:03 Urine WBC (Auto) 5 /hpf (0-5) 05/10/18 22:03 Urine RBC (Auto) 29 /hpf (0-3) H 05/10/18 22:03 Ur Squamous Epith Cells 1 /hpf (0-5) 05/10/18 22:03 Urine Bacteria Rare (<OCC) 05/10/18 22:03 - Hospital Course Hospital Course: Patient is a 68 year old male with past medical history of COPD, CHF, DM, HTN, tobacco and alcohol abuse, recent cardiac cath with 3 vessels disease (refused CABG in the past), medication noncompliance presenting to ED via EMS for respiratory distress. Patient was noted to be wheezing, lethargic upon arrival, failing Bipap. Decision was made to intubate patient in ED. CXR showed flash edema, LBBB, elevated troponin. Post intubation patient was awake and able to communicate with nodding his head, was not in distress. Detailed ROS was unattainable due to patient's clinical status. Patient was then admitted to ICU for further care. Patient's condition stabilized and was eventually extubated on 05/11/18. Cardiology was consulted, treatment plans were discussed with the patie nt. Patient continues to refuse CABG, hence recommendation was made by cardiology team to transfer patient [facility] for PCI of high risk multi-vessel disease and further cardiac management. The transportation and hospital arrangements were made. Patient was transport out of [facility] [place] ICU via [place] on 05/14/18 at 00:40. Above is a brief hospital course at [facility] [place], for further details please refer to medical records and reports. - Date & Time of H&P Date of H&P: 05/10/18 Time of H&P: 19:42 Discharge Exam - Additional Findings Additional findings: - Constitutional Appears: Well, No Acute Distress - Head Exam Head Exam: ATRAUMATIC, NORMAL INSPECTION - Eye Exam Eye Exam: EOMI, Normal appearance, PERRL Pupil Exam: NORMAL ACCOMODATION, PERRL - ENT Exam ENT Exam: Mucous Membranes Moist - Neck Exam Neck Exam: Full ROM, Normal Inspection - Respiratory Exam Respiratory Exam: Clear to Ausculation Bilateral, NORMAL BREATHING PATTERN - Cardiovascular Exam Cardiovascular Exam: REGULAR RHYTHM, +S1, +S2. absent: Murmur - GI/Abdominal Exam GI & Abdominal Exam: Soft, Normal Bowel Sounds. absent: Tenderness - Extremities Exam Extremities Exam: Normal Inspection - Back Exam Back Exam: NORMAL INSPECTION - Neurological Exam Neurological Exam: Alert, Awake, Oriented x3 - Psychiatric Exam Psychiatric exam: Normal Affect, Normal Mood - Skin Skin Exam: Normal Color, Warm Discharge Plan - Follow Up Plan Condition: CRITICAL Disposition: Trans to Other Acute Care [facility] Additional Instructions: Patient was transferred to [facility] for PCI of high risk multivessel disease
== END 2018-05-14 00:40 | disposition short-term general hospital (02) | DRG 280 ==
LOC: C.ER 18:57 → C.9E 19:39 → C.9I 20:37
PROVIDERS: ADMIT Internal Medicine; ATTEND Internal Medicine
PROC: 5A1935Z Respiratory Ventilation, Less than 24 Consecutive Hours (ICD-10-PCS; principal; 2018-05-10)
PROC: 0BH17EZ Insertion of Endotracheal Airway into Trachea, Via Natural or Artificial Opening (ICD-10-PCS; 2018-05-10)
PROC: 5A09357 Assistance with Respiratory Ventilation, Less than 24 Consecutive Hours, Continuous Positive Airway Pressure (ICD-10-PCS; 2018-05-10)
DX: I11.0 Hypertensive heart disease with heart failure (principal); I21.4 Non-ST elevation (NSTEMI) myocardial infarction; J96.90 Respiratory failure, unspecified, unspecified whether with hypoxia or hypercapnia; I50.1 Left ventricular failure, unspecified; I46.9 Cardiac arrest, cause unspecified; I25.10 Atherosclerotic heart disease of native coronary artery without angina pectoris; J98.11 Atelectasis; E11.65 Type 2 diabetes mellitus with hyperglycemia; J44.9 Chronic obstructive pulmonary disease, unspecified; F10.10 Alcohol abuse, uncomplicated; I44.7 Left bundle-branch block, unspecified; F41.9 Anxiety disorder, unspecified; E78.5 Hyperlipidemia, unspecified; E78.00 Pure hypercholesterolemia, unspecified; F17.210 Nicotine dependence, cigarettes, uncomplicated; Z91.14 Patient's other noncompliance with medication regimen; Z91.19 Patient's noncompliance with other medical treatment and regimen; Z90.49 Acquired absence of other specified parts of digestive tract